=== PATIENT | female | born 1955 | race Caucasian/White ===

== ENCOUNTER 2019-02-22 20:07 | Emergency (ER) | payer MEDICAID ==
--- OUTSIDE RECORDS SUMMARY | 2019-02-22 20:11 | XMS REPORT | Clinical Summary ---
:1955 Author Organization [facility] Address [address] [place] [address] Care Team Providers Name Role Phone Partha Vazquez PA-C Primary Care Provider Allergies Active Allergy Reactions Severity Noted Date Comments Hydromorphone Other (See Comments) 03/04/2017 Makes patient feel weird, states it makes her talk different and effects her breathing Medications Medication Sig Dispensed Refills Start Date End Date Status atorvastatin Take 20 mg by 02/22/2017 Active (LIPITOR) 20 MG mouth nightly. tablet citalopram (CeleXA) Take 40 mg by 02/22/2017 Active 40 MG tablet mouth once daily. metFORMIN Take 500 mg by 02/22/2017 Active (GLUCOPHAGE) 500 mg mouth 2 (two) tablet times a day with meals. acetaminophen-codei Take 1 tablet 0 Active ne (TYLENOL WITH by mouth 4 CODEINE #3) 300-30 (four) times a mg per tablet day as needed for moderate pain. ALPRAZolam (XANAX) Take 1 mg by 0 Active 1 MG tablet mouth 3 (three) times a day as needed for anxiety. amLODIPine Take 10 mg by 0 Active (NORVASC) 10 mg mouth daily. tablet carvedilol (COREG) Take 6.25 mg by 0 Active 6.25 MG tablet mouth 2 (two) times a day with meals. gabapentin Take 300 mg by 0 Active (NEURONTIN) 300 mg mouth 2 (two) capsule times a day as needed. insulin lispro Inject 10 Units 0 Active (HumaLOG) 100 under the skin unit/mL injection 3 (three) times a day before meals. insulin detemir Inject 20 Units 0 Active U-100 (LEVEMIR) 100 under the skin unit/mL injection nightly. nitroglycerin Place 0.4 mg 0 Active (NITROSTAT) 0.4 MG under the SL tablet tongue every 5 (five) minutes as needed for chest pain. albuterol (PROAIR Inhale 2 puffs 0 Active HFA,PROVENTIL every 6 (six) HFA,VENTOLIN HFA) hours as needed 90 mcg/actuation for wheezing. inhaler promethazine Take 50 mg by 0 Active (PHENERGAN) 50 MG mouth every 6 tablet (six) hours as needed for nausea or vomiting. acetaminophen-codei TAKE 1 TABLET 2 02/22/2017 Discontinued ne (TYLENOL WITH BY MOUTH 4 8 CODEINE #4) 300-60 TIMES A DAY mg per tablet NEEDED FOR PAIN PROVENTIL HFA 90 USE 2 PUFFS BY 5 02/22/2017 Discontinued mcg/actuation MOUTH EVERY 6 8 inhaler HOURS NEEDED FOR SHORTNESS OF BREATH ALPRAZolam (XANAX) TAKE 1 TABLET 2 02/22/2017 Discontinued 1 MG tablet BY MOUTH 3 8 TIMES A DAY NEEDED FOR ANXIETY gabapentin TAKE ONE 5 02/22/2017 Discontinued (NEURONTIN) 300 mg CAPSULE BY 8 capsule MOUTH TWICE A DAY NEEDED FOR PAIN NASONEX 50 1 spray 2 (two) 5 02/22/2017 Discontinued mcg/actuation nasal times a day. 8 spray lisinopril Take 40 mg by 0 Discontinued (PRINIVIL,ZESTRIL) mouth daily. 8 40 mg tablet traMADol (ULTRAM) Take 50 mg by 0 Discontinued 50 mg tablet mouth every 6 8 (six) hours as needed for moderate pain. carvedilol (COREG) Take 1 tablet 60 tablet 0 06/16/2018 Discontinued 12.5 MG tablet (12.5 mg total) 8 by mouth 2 (two) times a day with meals for 30 days. traMADol (ULTRAM) Take 1 tablet 30 tablet 0 06/16/2018 Discontinued 50 mg tablet (50 mg total) 8 by mouth every 6 (six) hours as needed for moderate pain for up to 15 days. valsartan (DIOVAN) Take 1 tablet 60 tablet 0 06/16/2018 Discontinued 160 MG tablet (160 mg total) 8 by mouth every 12 (twelve) hours for 30 days. hydrALAZINE Take 1 tablet 90 tablet 0 06/16/2018 Discontinued (APRESOLINE) 50 MG (50 mg total) 8 tablet by mouth every 8 (eight) hours for 30 days. QUEtiapine Take 1 tablet 60 tablet 0 06/16/2018 Discontinued (SEROquel) 25 MG (25 mg total) 8 tablet by mouth 2 (two) times a day for 30 days. piperacillin-tazoba Infuse 4.5 g 0 06/16/2018 ctam (ZOSYN) 4.5 into a venous 8 gram in 100 mL catheter every Mini-Bag Plus 6 (six) hours for 15 days. HYDROcodone-acetami Take 1 tablet 30 tablet 0 06/16/2018 Discontinued nophen (NORCO) by mouth every 8 10-325 mg per 6 (six) hours tablet for 15 days. Max Daily Amount: 4 tablets pantoprazole Take 1 tablet 30 tablet 0 06/17/2018 Discontinued (PROTONIX) 40 MG EC (40 mg total) 8 tablet by mouth daily for 30 days. methocarbamol Take 1 tablet 120 tablet 0 06/16/2018 Discontinued (ROBAXIN) 500 MG (500 mg total) 8 tablet by mouth 4 (four) times a day for 15 days. carvedilol (COREG) Take 1 tablet 60 tablet 0 06/17/2018 12.5 MG tablet (12.5 mg total) 8 by mouth 2 (two) times a day with meals for 30 days. hydrALAZINE Take 1 tablet 90 tablet 0 06/17/2018 (APRESOLINE) 50 MG (50 mg total) 8 tablet by mouth every 8 (eight) hours for 30 days. QUEtiapine Take 1 tablet 60 tablet 0 06/17/2018 (SEROquel) 25 MG (25 mg total) 8 tablet by mouth 2 (two) times a day for 30 days. pantoprazole Take 1 tablet 30 tablet 0 06/17/2018 (PROTONIX) 40 MG EC (40 mg total) 8 tablet by mouth daily for 30 days. methocarbamol Take 1 tablet 120 tablet 0 06/17/2018 (ROBAXIN) 500 MG (500 mg total) 8 tablet by mouth 4 (four) times a day for 15 days. oxyCODone-acetamino Take 1 tablet 45 tablet 0 06/17/2018 phen (PERCOCET) by mouth every 8 10-325 mg per 4 (four) hours tablet as needed for moderate pain for up to 20 days. Max Daily Amount: 6 tablets lidocaine Apply topically 35.44 g 0 06/17/2018 (XYLOCAINE) 5 % as needed for 8 ointment mild pain for up to 30 days. hydrALAZINE Take 3 tablets 270 tablet 0 06/22/2018 (APRESOLINE) 25 MG (75 mg total) 8 tablet by mouth every 8 (eight) hours for 30 days. levoFLOXacin Take 1 tablet 11 tablet 0 06/23/2018 (LEVAQUIN) 750 MG (750 mg total) 8 tablet by mouth daily for 11 days. Active Problems Problem Noted Date Cellulitis of right lower extremity 06/09/2018 Pain in lower back 03/14/2017 Non-sustained ventricular tachycardia 03/14/2017 Necrotizing fasciitis due to microorganism 03/08/2017 PAD (peripheral artery disease) 03/08/2017 HTN (hypertension) 03/07/2017 Type 2 diabetes mellitus 03/07/2017 Diastolic CHF 03/07/2017 Bilateral lower leg cellulitis 03/01/2017 Encounters Date Type Specialty Care Team Description 12/13/2018 Telephone General Surgery Jesús Kam Jr., MD 10/06/2018 Telephone General Surgery Tiffayn Escobar MA 08/19/2018 Telephone General Surgery Tiffany Escobar MA 06/11/2018 Anesthesia Event General Surgery Brandee Brar MD 06/11/2018 Surgery General Surgery Jesús Kam Jr., MD EXTREMITY WOUND DEBRIDEMENT AND WOUND VAC EXCHANGE 06/09/2018 Surgery General Surgery Jesús Kam Jr., MD EXTREMITY WOUND DEBREIDMENT WOUND VAC PLACED 06/09/2018 Anesthesia Event General Surgery Leonidas Jimenez MD 06/09/2018 - Hospital Encounter General Surgery Jen Yousif MD Cellulitis of right lower extremity (Primary Dx); 06/22/2018 Rocio Hayes Hyperglycemia; MD Sepsis, due to unspecified organism Adarsh Siegel MD 06/09/2018 Telephone Ict Project Manager Ayesha Tran RN after 02/21/2018 Social History Tobacco Use Types Packs/Day Years Used Date Current Every Day Smoker Alcohol Use Drinks/Week oz/Week Comments No Sex Assigned at Date Recorded Not on file Job Start Date Occupation Industry Not on file Not on file Not on file Travel History Travel Start Travel End No recent travel history available. Last Filed Vital Signs Vital Sign Reading Time Taken Blood Pressure 167/73 06/22/2018 4:14 PM CDT Pulse 56 06/22/2018 4:30 PM CDT Temperature 36.3 C (97.3 F) 06/22/2018 4:14 PM CDT Respiratory Rate 18 06/22/2018 4:14 PM CDT Oxygen Saturation 98% 06/22/2018 4:14 PM CDT Inhaled Oxygen Concentration - - Weight 88.5 kg (194 lb 16 oz) 06/09/2018 3:30 AM CDT Height 170.2 cm (5' 7") 06/09/2018 3:30 AM CDT Body Mass Index 30.54 06/09/2018 3:30 AM CDT Plan of Treatment Health Maintenance Due Date Last Done Comments DIABETIC RETINAL EYE EXAM 1955 DIABETIC FOOT EXAM 1965 CERVICAL CANCER SCREENING 1976 BREAST CANCER SCREENING 2005 COLON CANCER SCREENING 2005 SHINGLES VACCINES (#1) 2005 INFLUENZA VACCINE 06/01/2019 Implants Implanted Type Area Mobility Architect Manager Device Shelf Model / Identifier Expiration Serial / Date Lot Device Vasclr Clsr Baln Cath 10ml Lkng Syr 5fr Winkler Mynxgrip - [id number] Cardiovascular N/A: ACCESS CLOSURE 12/01/2018 [id number] / Implanted: 03/11/2017 (Quantity not on file) Implants N/A INC / [id number] Matrix Matristem 7x10cm Burn Strl - [id number] Surgical [employer] 2018 [id number] / Implanted: Qty: 1 on 03/04/2017 by Jesús Kam Jr., MD Implants; / Expanders; Extenders; Surgical Wires Procedures Procedure Name Priority Date/Time Associated Comments Diagnosis POC GLUCOSE Routine 06/22/2018 11:54 Results for this AM CDT procedure are in the results section. POC GLUCOSE Routine 06/22/2018 7:55 Results for this AM CDT procedure are in the results section. POC GLUCOSE Routine 06/21/2018 10:27 Results for this PM CDT procedure are in the results section. POC GLUCOSE Routine 06/21/2018 5:31 Results for this PM CDT procedure are in the results section. POC GLUCOSE Routine 06/21/2018 4:56 Results for this PM CDT procedure are in the results section. POC GLUCOSE Routine 06/21/2018 3:08 Results for this PM CDT procedure are in the results section. CT LOWER EXTREMITY WO Routine 06/21/2018 2:20 Results for this CONTRAST RIGHT PM CDT procedure are in the results section. POC GLUCOSE Routine 06/21/2018 9:07 Results for this AM CDT procedure are in the results section. HC COMPLETE BLD COUNT Routine 06/21/2018 4:52 Results for this W/AUTO DIFF AM CDT procedure are in the results section. POC GLUCOSE Routine 06/20/2018 8:54 Results for this PM CDT procedure are in the results section. POC GLUCOSE Routine 06/20/2018 5:04 Results for this PM CDT procedure are in the results section. POC GLUCOSE Routine 06/20/2018 12:45 Results for this PM CDT procedure are in the results section. POC GLUCOSE Routine 06/20/2018 8:00 Results for this AM CDT procedure are in the results section. ZZESTIMATED GFR Routine 06/20/2018 3:24 Results for this AM CDT procedure are in the results section. COMPREHENSIVE METABOLIC Routine 06/20/2018 3:24 Results for this PANEL AM CDT procedure are in the results section. HC COMPLETE BLD COUNT Routine 06/20/2018 3:24 Results for this W/AUTO DIFF AM CDT procedure are in the results section. POC GLUCOSE Routine 06/19/2018 9:27 Results for this PM CDT procedure are in the results section. POC GLUCOSE Routine 06/19/2018 6:09 Results for this PM CDT procedure are in the results section. POC GLUCOSE Routine 06/19/2018 3:20 Results for this PM CDT procedure are in the results section. US DUPLEX VENOUS LOWER Routine 06/19/2018 3:00 Results for this EXTREMITY RIGHT PM CDT procedure are in the results section. POC GLUCOSE Routine 06/19/2018 11:22 Results for this AM CDT procedure are in the results section. ZZESTIMATED GFR Routine 06/19/2018 10:48 Results for this AM CDT procedure are in the results section. BASIC METABOLIC PANEL Routine 06/19/2018 10:48 Results for this AM CDT procedure are in the results section. POC GLUCOSE Routine 06/19/2018 7:43 Results for this AM CDT procedure are in the results section. HC COMPLETE BLD COUNT Routine 06/19/2018 3:55 Results for this W/AUTO DIFF AM CDT procedure are in the results section. POC GLUCOSE Routine 06/18/2018 8:34 Results for this PM CDT procedure are in the results section. POC GLUCOSE Routine 06/18/2018 5:10 Results for this PM CDT procedure are in the results section. POC GLUCOSE Routine 06/18/2018 11:39 Results for this AM CDT procedure are in the results section. POC GLUCOSE Routine 06/18/2018 7:46 Results for this AM CDT procedure are in the results section. HC COMPLETE BLD COUNT STAT 06/18/2018 7:40 Results for this W/AUTO DIFF AM CDT procedure are in the results section. POC GLUCOSE Routine 06/17/2018 8:52 Results for this PM CDT procedure are in the results section. POC GLUCOSE Routine 06/17/2018 4:01 Results for this PM CDT procedure are in the results section. POC GLUCOSE Routine 06/17/2018 11:17 Results for this AM CDT procedure are in the results section. POC GLUCOSE Routine 06/17/2018 7:15 Results for this AM CDT procedure are in the results section. POC GLUCOSE Routine 06/16/2018 9:19 Results for this PM CDT procedure are in the results section. POC GLUCOSE Routine 06/16/2018 6:03 Results for this PM CDT procedure are in the results section. POC GLUCOSE Routine 06/16/2018 4:59 Results for this PM CDT procedure are in the results section. POC GLUCOSE Routine 06/16/2018 1:08 Results for this PM CDT procedure are in the results section. POC GLUCOSE Routine 06/16/2018 8:34 Results for this AM CDT procedure are in the results section. POC GLUCOSE Routine 06/15/2018 8:22 Results for this PM CDT procedure are in the results section. POC GLUCOSE Routine 06/15/2018 4:54 Results for this PM CDT procedure are in the results section. POC GLUCOSE Routine 06/15/2018 12:38 Results for this PM CDT procedure are in the results section. POC GLUCOSE Routine 06/15/2018 8:16 Results for this AM CDT procedure are in the results section. POC GLUCOSE Routine 06/14/2018 8:47 Results for this PM CDT procedure are in the results section. POC GLUCOSE Routine 06/14/2018 4:00 Results for this PM CDT procedure are in the results section. HEMOGLOBIN A1C Routine 06/14/2018 1:27 Results for this PM CDT procedure are in the results section. LIPID PANEL Routine 06/14/2018 12:42 Results for this PM CDT procedure are in the results section. POC GLUCOSE Routine 06/14/2018 12:02 Results for this PM CDT procedure are in the results section. CONSULT TO OSTOMY CARE Routine 06/14/2018 7:48 NURSE AM CDT POC GLUCOSE Routine 06/14/2018 7:25 Results for this AM CDT procedure are in the results section. POC GLUCOSE Routine 06/14/2018 5:44 Results for this AM CDT procedure are in the results section. ZZESTIMATED GFR Routine 06/14/2018 4:00 Results for this AM CDT procedure are in the results section. PHOSPHORUS LEVEL Routine 06/14/2018 4:00 Results for this AM CDT procedure are in the results section. MAGNESIUM LEVEL Routine 06/14/2018 4:00 Results for this AM CDT procedure are in the results section. BASIC METABOLIC PANEL Routine 06/14/2018 4:00 Results for this AM CDT procedure are in the results section. MANUAL DIFFERENTIAL Routine 06/14/2018 3:30 Results for this AM CDT procedure are in the results section. CBC WITH PLATELET AND Routine 06/14/2018 3:30 Results for this DIFFERENTIAL AM CDT procedure are in the results section. POC GLUCOSE Routine 06/13/2018 9:08 Results for this PM CDT procedure are in the results section. POC GLUCOSE Routine 06/13/2018 5:31 Results for this PM CDT procedure are in the results section. POC GLUCOSE Routine 06/13/2018 3:31 Results for this PM CDT procedure are in the results section. POC GLUCOSE Routine 06/13/2018 2:27 Results for this PM CDT procedure are in the results section. POC GLUCOSE Routine 06/13/2018 11:05 Results for this AM CDT procedure are in the results section. VANCOMYCIN LEVEL, Timed 06/13/2018 8:45 Results for this TROUGH AM CDT procedure are in the results section. XR CHEST 1 VW PORTABLE Routine 06/13/2018 7:17 Results for this AM CDT procedure are in the results section. POC GLUCOSE Routine 06/13/2018 7:09 Results for this AM CDT procedure are in the results section. CONSULT TO OSTOMY CARE STAT 06/13/2018 6:48 NURSE AM CDT POC GLUCOSE Routine 06/13/2018 5:42 Results for this AM CDT procedure are in the results section. ZZESTIMATED GFR Routine 06/13/2018 2:00 Results for this AM CDT procedure are in the results section. LACTIC ACID LEVEL Routine 06/13/2018 2:00 Results for this AM CDT procedure are in the results section. IONIZED CALCIUM Routine 06/13/2018 2:00 Results for this AM CDT procedure are in the results section. PHOSPHORUS LEVEL Routine 06/13/2018 2:00 Results for this AM CDT procedure are in the results section. MAGNESIUM LEVEL Routine 06/13/2018 2:00 Results for this AM CDT procedure are in the results section. COMPREHENSIVE METABOLIC Routine 06/13/2018 2:00 Results for this PANEL AM CDT procedure are in the results section. POC GLUCOSE Routine 06/13/2018 1:51 Results for this AM CDT procedure are in the results section. MANUAL DIFFERENTIAL Routine 06/13/2018 1:35 Results for this AM CDT procedure are in the results section. PROTHROMBIN TIME WITH Routine 06/13/2018 1:35 Results for this INR AM CDT procedure are in the results section. PARTIAL THROMBOPLASTIN Routine 06/13/2018 1:35 Results for this TIME (PTT) AM CDT procedure are in the results section. CBC WITH PLATELET AND Routine 06/13/2018 1:35 Results for this DIFFERENTIAL AM CDT procedure are in the results section. POC GLUCOSE Routine 06/12/2018 8:05 Results for this PM CDT procedure are in the results section. ECG 12-LEAD Routine 06/12/2018 5:09 Results for this PM CDT procedure are in the results section. POC GLUCOSE Routine 06/12/2018 3:30 Results for this PM CDT procedure are in the results section. POC GLUCOSE Routine 06/12/2018 12:00 Results for this PM CDT procedure are in the results section. POC GLUCOSE Routine 06/12/2018 8:58 Results for this AM CDT procedure are in the results section. XR CHEST 1 VW PORTABLE Routine 06/12/2018 6:36 Results for this AM CDT procedure are in the results section. POC GLUCOSE Routine 06/12/2018 5:03 Results for this AM CDT procedure are in the results section. ZZESTIMATED GFR Routine 06/12/2018 3:05 Results for this AM CDT procedure are in the results section. PHOSPHORUS LEVEL Routine 06/12/2018 3:05 Results for this AM CDT procedure are in the results section. MAGNESIUM LEVEL Routine 06/12/2018 3:05 Results for this AM CDT procedure are in the results section. LACTIC ACID LEVEL Routine 06/12/2018 3:05 Results for this AM CDT procedure are in the results section. HEPATIC FUNCTION PANEL Routine 06/12/2018 3:05 Results for this AM CDT procedure are in the results section. BASIC METABOLIC PANEL Routine 06/12/2018 3:05 Results for this AM CDT procedure are in the results section. MANUAL DIFFERENTIAL Routine 06/12/2018 3:00 Results for this AM CDT procedure are in the results section. PROTHROMBIN TIME WITH Routine 06/12/2018 3:00 Results for this INR AM CDT procedure are in the results section. PARTIAL THROMBOPLASTIN Routine 06/12/2018 3:00 Results for this TIME (PTT) AM CDT procedure are in the results section. CBC WITH PLATELET AND Routine 06/12/2018 3:00 Results for this DIFFERENTIAL AM CDT procedure are in the results section. POC GLUCOSE Routine 06/12/2018 12:30 Results for this AM CDT procedure are in the results section. ECG 12-LEAD Routine 06/11/2018 10:40 Results for this PM CDT procedure are in the results section. POC GLUCOSE Routine 06/11/2018 8:51 Results for this PM CDT procedure are in the results section. POC GLUCOSE Routine 06/11/2018 6:11 Results for this PM CDT procedure are in the results section. POC GLUCOSE Routine 06/11/2018 4:16 Results for this PM CDT procedure are in the results section. POC GLUCOSE Routine 06/11/2018 2:10 Results for this PM CDT procedure are in the results section. POC GLUCOSE Routine 06/11/2018 12:00 Results for this PM CDT procedure are in the results section. URINALYSIS SCREEN AND Routine 06/11/2018 11:22 Results for this MICROSCOPY, WITH REFLEX AM CDT procedure are in TO CULTURE the results section. GRAM STAIN Routine 06/11/2018 11:20 Results for this AM CDT procedure are in the results section. URINE CULTURE Routine 06/11/2018 11:20 Results for this AM CDT procedure are in the results section. POC GLUCOSE Routine 06/11/2018 10:00 Results for this AM CDT procedure are in the results section. NH AN ELECTIVE Routine 06/11/2018 8:47 SUPRAGLOTTIC AIRWAY AM CDT Procedure Note - Shukri Ordonez CRNA - 06/11/2018 8:47 AM CDT Airway Performed by: SHUKRI ORDONEZ Authorized by: BRANDEE BRAR Location: [place] Urgency: Elective Mask Ventilation: Easy mask Final Airway Type: Supraglottic airway Final LMA: I-Gel LMA Size: 5 Number of Attempts at Approach: 1 INCISION AND DRAINAGE, LOWER 06/11/2018 8:00 AM CDT EXTREMITY POC GLUCOSE Routine 06/11/2018 7:43 AM CDT POC GLUCOSE Routine 06/11/2018 5:46 AM CDT VANCOMYCIN LEVEL, TROUGH Timed 06/11/2018 5:45 AM CDT XR CHEST 1 VW PORTABLE Routine 06/11/2018 5:39 AM CDT POC GLUCOSE Routine 06/11/2018 5:13 AM CDT LACTIC ACID LEVEL Routine 06/11/2018 5:03 AM CDT POC GLUCOSE Routine 06/11/2018 4:01 AM CDT POC GLUCOSE Routine 06/11/2018 3:10 AM CDT POC GLUCOSE Routine 06/11/2018 2:13 AM CDT POC GLUCOSE Routine 06/11/2018 1:16 AM CDT ZZESTIMATED GFR Routine 06/11/2018 12:30 AM CDT PHOSPHORUS LEVEL Routine 06/11/2018 12:30 AM CDT MAGNESIUM LEVEL Routine 06/11/2018 12:30 AM CDT LACTIC ACID LEVEL Routine 06/11/2018 12:30 AM CDT HEPATIC FUNCTION PANEL Routine 06/11/2018 12:30 AM CDT IONIZED CALCIUM Routine 06/11/2018 12:30 AM CDT BASIC METABOLIC PANEL Routine 06/11/2018 12:30 AM CDT PARTIAL THROMBOPLASTIN TIME Routine 06/11/2018 12:30 AM CDT Results for this (PTT) procedure are in the results section. PROTHROMBIN TIME WITH INR Routine 06/11/2018 12:30 AM CDT POC GLUCOSE Routine 06/11/2018 12:22 AM CDT HC COMPLETE BLD COUNT W/AUTO Routine 06/11/2018 12:02 AM CDT Results for this DIFF procedure are in the results section. POC GLUCOSE Routine 06/10/2018 11:07 PM CDT POC GLUCOSE Routine 06/10/2018 9:56 PM CDT POC GLUCOSE Routine 06/10/2018 9:15 PM CDT POC GLUCOSE Routine 06/10/2018 8:03 PM CDT POC GLUCOSE Routine 06/10/2018 7:10 PM CDT POC GLUCOSE Routine 06/10/2018 5:38 PM CDT POTASSIUM LEVEL Routine 06/10/2018 4:55 PM CDT PHOSPHORUS LEVEL Routine 06/10/2018 4:55 PM CDT IONIZED CALCIUM Routine 06/10/2018 4:55 PM CDT US DUPLEX ARTERIAL LOWER Routine 06/10/2018 4:54 PM CDT Results for this EXTREMITY BILATERAL procedure are in the results section. POC GLUCOSE Routine 06/10/2018 4:53 PM CDT POC GLUCOSE Routine 06/10/2018 3:58 PM CDT POC GLUCOSE Routine 06/10/2018 3:01 PM CDT POC GLUCOSE Routine 06/10/2018 2:05 PM CDT ZZESTIMATED GFR Routine 06/10/2018 1:08 PM CDT MAGNESIUM LEVEL Routine 06/10/2018 1:08 PM CDT HEPATIC FUNCTION PANEL Routine 06/10/2018 1:08 PM CDT HC COMPLETE BLD COUNT W/AUTO Routine 06/10/2018 1:08 PM CDT Results for this DIFF procedure are in the results section. BASIC METABOLIC PANEL Routine 06/10/2018 1:08 PM CDT POC GLUCOSE Routine 06/10/2018 12:57 PM CDT POC GLUCOSE Routine 06/10/2018 11:57 AM CDT US DUPLEX VENOUS LOWER Routine 06/10/2018 11:42 AM CDT Results for this EXTREMITY BILATERAL procedure are in the results section. POC GLUCOSE Routine 06/10/2018 10:59 AM CDT POC GLUCOSE Routine 06/10/2018 10:00 AM CDT ECHOCARDIOGRAM 2D COMPLETE W Routine 06/10/2018 9:03 AM CDT Results for this MMODE SPECTRAL COLOR DOPPLER procedure are in the (46104) results section. POC GLUCOSE Routine 06/10/2018 7:56 AM CDT POC GLUCOSE Routine 06/10/2018 6:06 AM CDT POC GLUCOSE Routine 06/10/2018 4:19 AM CDT ZZESTIMATED GFR Routine 06/10/2018 3:33 AM CDT PHOSPHORUS LEVEL Routine 06/10/2018 3:33 AM CDT MAGNESIUM LEVEL Routine 06/10/2018 3:33 AM CDT COMPREHENSIVE METABOLIC Routine 06/10/2018 3:33 AM CDT Results for this PANEL procedure are in the results section. HC COMPLETE BLD COUNT W/AUTO Routine 06/10/2018 3:25 AM CDT Results for this DIFF procedure are in the results section. POC GLUCOSE Routine 06/10/2018 1:54 AM CDT POC GLUCOSE Routine 06/10/2018 12:54 AM CDT POC GLUCOSE Routine 06/09/2018 11:59 PM CDT POC GLUCOSE Routine 06/09/2018 11:11 PM CDT POC GLUCOSE Routine 06/09/2018 9:55 PM CDT POC GLUCOSE Routine 06/09/2018 9:02 PM CDT POC GLUCOSE Routine 06/09/2018 8:06 PM CDT ZZESTIMATED GFR STAT 06/09/2018 7:15 PM CDT PHOSPHORUS LEVEL STAT 06/09/2018 7:15 PM CDT MAGNESIUM LEVEL STAT 06/09/2018 7:15 PM CDT BASIC METABOLIC PANEL STAT 06/09/2018 7:15 PM CDT POC GLUCOSE Routine 06/09/2018 6:58 PM CDT GRAM STAIN Timed 06/09/2018 6:16 PM CDT AFB STAIN Timed 06/09/2018 6:16 PM CDT FUNGUS SMEAR Timed 06/09/2018 6:16 PM CDT AFB CULTURE Timed 06/09/2018 6:16 PM CDT AEROBIC CULTURE Timed 06/09/2018 6:16 PM CDT FUNGUS CULTURE Timed 06/09/2018 6:16 PM CDT ANAEROBIC CULTURE Timed 06/09/2018 6:16 PM CDT NH AN ELECTIVE ENDOTRACHEAL Routine 06/09/2018 6:10 PM CDT AIRWAY Procedure Note - Leonidas Jimenez MD - 06/09/2018 6:10 PM CDT Airway Date/Time: 06/09/2018 5:56 PM Performed by: LEONARDO GERARDO Authorized by: GOPAL HILL Location: [place] Urgency: Elective Anesthesiologist: GOPAL HILL Resident/DISC PAD PLATE FILLER/AA: LEONARDO GERARDO Preoxygenated with 100% O2: Yes Mask Ventilation: Not attempted Final Airway Type: Endotracheal airway Final Endotracheal Airway: ETT Technique Used: Direct laryngoscopy Devices/Methods Used in Placement: Intubating stylet Insertion Site: Oral Blade Type: Franklin Laryngoscope Blade/Videolaryngoscope Blade Size: 2 ETT Size (mm): 7.0 Measured from: Lips ETT to Lips (cm): 21 Placement Verified by: CO2 detection, direct visualization and equal breath sounds Laryngoscopic view: Grade I - full view of glottis Rapid Sequence Induction (RSI): No Modified RSI: No APPLICATION OR 06/09/2018 6:05 PM CDT Right lower extremity REPLACEMENT, WOUND VAC necrotizing fasciitis ARTERIAL LINE Routine 06/09/2018 6:03 PM CDT Procedure Note - Leonidas Jimenez MD - 06/09/2018 6:03 PM CDT Arterial line Performed by: GOPAL HILL Authorized by: GOPAL HILL Start Time: 06/09/2018 6:56 PM End Time: 06/09/2018 6:58 PM Staff: Anesthesiologist: GOPAL HILL Performed by: Anesthesiologist Pre-procedure: patient identified, IV checked, site and side verified, risks and benefits discussed, procedure verified, surgical consent complete, patient position confirmed, monitors and equipment checked and pre-op evaluation complete MSBT: antiseptic used, all elements of maximal sterile barrier technique followed, hand hygiene performed, cap/gown used by other personnel and solutions labeled TIme Out Performed: 06/09/2018 5:55 PM Indications: Indications: multiple ABGs and hemodynamic monitoring Anesthesia: Anesthesia: General Procedure Details: Arterial Line placement: Placed post induction Line placement site: Radial Line placement side: Right Arterial line gauge: 20 G Number of attempts: 2 Ultrasound guidance used: No Post-procedure: Post-procedure: Sterile dressing applied Post procedure circulation, sensation, movement: Normal and unchanged Patient tolerance: Patient tolerated the procedure well with no immediate complications LACTIC ACID, SYRINGE STAT 06/09/2018 6:02 PM CDT MAGNESIUM LEVEL STAT 06/09/2018 6:02 PM CDT GLUCOSE LEVEL, SYRINGE STAT 06/09/2018 6:02 PM CDT IONIZED CALCIUM, ARTERIAL STAT 06/09/2018 6:02 PM CDT HEMOGLOBIN, SYRINGE STAT 06/09/2018 6:02 PM CDT POTASSIUM, SYRINGE STAT 06/09/2018 6:02 PM CDT ARTERIAL BLOOD GAS, CORRECTED STAT 06/09/2018 6:02 PM CDT SODIUM LEVEL, SYRINGE STAT 06/09/2018 6:02 PM CDT ZZESTIMATED GFR STAT 06/09/2018 2:50 PM CDT BASIC METABOLIC PANEL STAT 06/09/2018 2:50 PM CDT PARTIAL THROMBOPLASTIN TIME STAT 06/09/2018 2:50 PM CDT Results for this (PTT) procedure are in the results section. PROTHROMBIN TIME WITH INR STAT 06/09/2018 2:50 PM CDT POC GLUCOSE Routine 06/09/2018 2:23 PM CDT LACTIC ACID LEVEL, SEPSIS - Routine 06/09/2018 10:15 AM CDT Results for this NOW AND REPEAT 2X EVERY 3 procedure are in the HOURS results section. MAGNESIUM LEVEL Routine 06/09/2018 10:[address] LOWER EXTREMITY WO STAT 06/09/2018 10:05 AM CDT Results for this CONTRAST BILATERAL procedure are in the results section. POC GLUCOSE Routine 06/09/2018 8:15 AM CDT ZZESTIMATED GFR Timed 06/09/2018 7:24 AM CDT BASIC METABOLIC PANEL Timed 06/09/2018 7:24 AM CDT TYPE AND SCREEN Routine 06/09/2018 7:24 AM CDT TROPONIN Timed 06/09/2018 7:24 AM CDT LACTIC ACID LEVEL, SEPSIS - Timed 06/09/2018 7:24 AM CDT Results for this NOW AND REPEAT 2X EVERY 3 procedure are in the HOURS results section. POC GLUCOSE Routine 06/09/2018 7:20 AM CDT POC GLUCOSE Routine 06/09/2018 5:52 AM CDT POC GLUCOSE Routine 06/09/2018 5:18 AM CDT GRAM STAIN Routine 06/09/2018 4:40 AM CDT AEROBIC CULTURE Routine 06/09/2018 4:40 AM CDT [facility] CRITICAL CARE, E/M 30-74 Routine 06/09/2018 3:44 AM CDT Results for this MINUTES procedure are in the results section. BLOOD CULTURE, AEROBIC & Routine 06/09/2018 3:15 AM CDT Results for this ANAEROBIC procedure are in the results section. ZZESTIMATED GFR STAT 06/09/2018 3:10 AM CDT B NATRIURETIC PEPTIDE STAT 06/09/2018 3:10 AM CDT TROPONIN STAT 06/09/2018 3:10 AM CDT BETA HYDROXYBUTYRATE STAT 06/09/2018 3:10 AM CDT CREATINE KINASE, TOTAL (CPK) STAT 06/09/2018 3:10 AM CDT MAGNESIUM LEVEL STAT 06/09/2018 3:10 AM CDT LACTIC ACID LEVEL, SEPSIS - STAT 06/09/2018 3:10 AM CDT Results for this NOW AND REPEAT 2X EVERY 3 procedure are in the HOURS results section. C-REACTIVE PROTEIN STAT 06/09/2018 3:10 AM CDT SEDIMENTATION RATE STAT 06/09/2018 3:10 AM CDT COMPREHENSIVE METABOLIC PANEL STAT 06/09/2018 3:10 AM CDT HC COMPLETE BLD COUNT W/AUTO STAT 06/09/2018 3:10 AM CDT Results for this DIFF procedure are in the results section. BLOOD CULTURE, AEROBIC & Routine 06/09/2018 3:10 AM CDT Results for this ANAEROBIC procedure are in the results section. after 02/21/2018 Results POC glucose (06/22/2018 11:54 AM CDT)Only the most recent of96 resultswithin the time period is included. 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 CT imaging was performed with iterative reconstruction technique and/or automated exposure control to reduce radiation dose. COMPARISON:06/09/2018 IMPRESSION: 1.Extensive interval debridement of the skin and subcutaneous fat over the anterior aspect of the right leg. 2.There are small pockets of subcutaneous emphysema extending along the fascia overlying the peroneal compartment with associated extensive fascial edema. It is unclear whether this represents postoperative subcutaneous emphysema versus persistent necrotizing fasciitis. 3.There is diffuse skin thickening of the anterior aspect of the leg with subcutaneous as well as superficial fascial and interfascial edema involving the operative bed in the extensor musculature. Probable myositis involving the extensor musculature. 4.Subcutaneous edema involving the posterior compartment with superficial fascial edema. No significant interfascial edema is seen. 5.There is no evidence of an organized collection. 6.Bones: No finding to suggest acute osteomyelitis. Tricompartment osteoarthrosis of the knee. Old medial and lateral ankle ligamentous injury with ossicles in the gutter calcification of the Achilles insertion. Os navicular. Findings were discussed with ETIENNE Donnelly at 06/21/2018 3:21 PM who verbalized understanding. Instructions were given to page the clinical team. [id number] Procedure Note Hm Interface, Radiology Results Incoming - 06/21/2018 3:26 PM CDT EXAMINATION: CT LOWER EXTREMITY WO CONTRAST RIGHT CLINICAL HISTORY: RLE necrotizing fasciitis follow remains having pain and swelling post op TECHNIQUE: Multiple axial images of the right lower extremity were obtained without contrast. CT imaging was performed with iterative reconstruction technique and/or automated exposure control to reduce radiation dose. COMPARISON: 06/09/2018 IMPRESSION: 1. Extensive interval debridement of the skin and subcutaneous fat over the anterior aspect of the right leg. 2. There are small pockets of subcutaneous emphysema extending along the fascia overlying the peroneal compartment with associated extensive fascial edema. It is unclear whether this represents postoperative subcutaneous emphysema versus persistent necrotizing fasciitis. 3. There is diffuse skin thickening of the anterior aspect of the leg with subcutaneous as well as superficial fascial and interfascial edema involving the operative bed in the extensor musculature. Probable myositis involving the extensor musculature. 4. Subcutaneous edema involving the posterior compartment with superficial fascial edema. No significant interfascial edema is seen. 5. There is no evidence of an organized collection. 6. Bones: No finding to suggest acute osteomyelitis. Tricompartment osteoarthrosis of the knee. Old medial and lateral ankle ligamentous injury with ossicles in the gutter calcification of the Achilles insertion. Os navicular. Findings were discussed with ETIENNE Donnelly at 06/21/2018 3:21 PM who verbalized understanding. Instructions were given to page the clinical team. [id number] Performing Organization Address City/State/Zipcode Phone Number [facility] [address] [place] [address] CBC with platelet and differential (06/21/2018 4:52 AM CDT)Only the most recent of11 resultswithin the time period is included. WBC 15.27 (H) 4.50 - 11.00 k/uL [facility] DEPARTMENT OF PATHOLOGY AND GENOMIC MEDICINE RBC 3.05 (L) 4.20 - 5.50 m/uL [facility] OF PATHOLOGY AND GENOMIC MEDICINE HGB 9.3 (L) 12.0 - 16.0 g/dL [facility] DEPARTMENT OF PATHOLOGY AND GENOMIC MEDICINE HCT 30.2 (L) 37.0 - 47.0 % [facility] DEPARTMENT OF PATHOLOGY AND GENOMIC MEDICINE MCV 99.0 82.0 - 100.0 fL [facility] DEPARTMENT OF PATHOLOGY AND GENOMIC MEDICINE MCH 30.5 27.0 - 34.0 pg [facility] DEPARTMENT OF PATHOLOGY AND GENOMIC MEDICINE MCHC 30.8 (L) 31.0 - 37.0 g/dL [facility] DEPARTMENT OF PATHOLOGY AND GENOMIC MEDICINE RDW - SD 46.0 37.0 - 55.0 fL [facility] DEPARTMENT OF PATHOLOGY AND GENOMIC MEDICINE MPV 10.4 8.8 - 13.2 fL [facility] DEPARTMENT OF PATHOLOGY AND GENOMIC MEDICINE Platelet count 548 (H) 150 - 400 k/uL [facility] DEPARTMENT OF PATHOLOGY AND GENOMIC MEDICINE Nucleated RBC 0.00 /100 WBC [facility] DEPARTMENT OF PATHOLOGY AND GENOMIC MEDICINE Neutrophils 75.9 (H) 39.0 - 69.0 % [facility] DEPARTMENT OF PATHOLOGY AND GENOMIC MEDICINE Lymphocytes 15.1 (L) 25.0 - 45.0 % [facility] DEPARTMENT OF PATHOLOGY AND GENOMIC MEDICINE Monocytes 6.7 0.0 - 10.0 % [facility] DEPARTMENT OF PATHOLOGY AND GENOMIC MEDICINE Eosinophils 1.2 0.0 - 5.0 % [facility] DEPARTMENT OF PATHOLOGY AND GENOMIC MEDICINE Basophils 0.5 0.0 - 1.0 % [facility] DEPARTMENT OF PATHOLOGY AND GENOMIC MEDICINE Immature granulocytes 0.6Comment: 0.0 - 1.0 % [facility] DEPARTMENT OF "Immature PATHOLOGY AND GENOMIC granulocytes" MEDICINE (promyelocytes, myelocytes, metamyelocytes) Specimen Blood Performing Organization Address City/State/Zipcode Phone Number [facility] DEPARTMENT OF PATHOLOGY AND [address] [place] [address] [employer] MEDICINE Estimated GFR (06/20/2018 3:24 AM CDT)Only the most recent of12 resultswithin the time period is included. GFR Non Af Amer 56 (A) mL/min/1.73 m2 [facility] DEPARTMENT OF PATHOLOGY AND GENOMIC MEDICINE GFR Af Amer 68 mL/min/1.73 m2 [facility] DEPARTMENT OF Comment: PATHOLOGY AND GENOMIC Chronic kidney disease: <60 mL/min/1.73m2 MEDICINE Kidney failure: <15 mL/min/1.73m2 The estimated GFR is calculated from the IDMS-traceable Modification of Diet in Renal Disease Equation. The accuracy of the calculation is poor when the creatinine is normal. Calculated values >90 mL/min/1.73m2 are not reported. This equation has not been validated in children (<18 years), women, the elderly (>70 years), or ethnic groups other than Caucasians and Americans. Specimen Plasma specimen Performing Organization Address City/State/Zipcode Phone Number [facility] DEPARTMENT OF PATHOLOGY AND [address] [place] [address] [employer] Comprehensive metabolic panel (06/20/2018 3:24 AM CDT)Only the most recent of4 resultswithin the time period is included. Sodium 141 135 - 148 mEq/L [facility] DEPARTMENT OF PATHOLOGY AND GENOMIC MEDICINE Potassium 4.1 3.5 - 5.0 mEq/L [facility] DEPARTMENT OF PATHOLOGY AND GENOMIC MEDICINE Chloride 101 98 - 112 mEq/L [facility] DEPARTMENT OF PATHOLOGY AND GENOMIC MEDICINE CO2 27 24 - 31 mEq/L [facility] DEPARTMENT OF PATHOLOGY AND GENOMIC MEDICINE Anion gap 13@ANIO 7 - 15 mEq/L [facility] DEPARTMENT OF PATHOLOGY AND GENOMIC MEDICINE BUN 23 8 - 23 mg/dL [facility] DEPARTMENT OF PATHOLOGY AND GENOMIC MEDICINE Creatinine 1.0 (H) 0.5 - 0.9 mg/dL [facility] DEPARTMENT OF PATHOLOGY AND GENOMIC MEDICINE Glucose 163 (H) 65 - 99 mg/dL [facility] DEPARTMENT OF PATHOLOGY AND GENOMIC MEDICINE Calcium 9.5 8.8 - 10.2 mg/dL [facility] DEPARTMENT OF PATHOLOGY AND GENOMIC MEDICINE Protein 7.1 6.3 - 8.3 g/dL [facility] DEPARTMENT OF Comment: PATHOLOGY AND GENOMIC 4.6-7.0 g/dL MEDICINE 1 week 4.4-7.6 g/dL 7 months-1year5.1-7.3 g/dL 1-2 years5.6-7.5 g/dL >3 years6.0-8.0 g/dL 18-150 6.3-8.3 g/dL Albumin 2.5 (L) 3.5 - 5.0 g/dL [facility] DEPARTMENT OF PATHOLOGY AND GENOMIC MEDICINE A/G ratio 0.5 (L) 0.7 - 3.8 [facility] DEPARTMENT OF PATHOLOGY AND GENOMIC MEDICINE Alkaline phosphatase 97 35 - 104 U/L [facility] DEPARTMENT OF PATHOLOGY AND GENOMIC MEDICINE AST 13 10 - 35 U/L [facility] DEPARTMENT OF PATHOLOGY AND GENOMIC MEDICINE ALT 13 5 - 50 U/L [facility] DEPARTMENT OF PATHOLOGY AND GENOMIC MEDICINE Total bilirubin <0.2 0.0 - 1.2 mg/dL [facility] DEPARTMENT OF PATHOLOGY AND GENOMIC MEDICINE Specimen Plasma specimen Performing Organization Address City/State/Zipcode Phone Number [facility] DEPARTMENT OF PATHOLOGY AND [address] Pv duplex venous lower extremity (06/19/2018 3:00 PM CDT)Only the most recent of2 resultswithin the time period is included. Narrative Performed At [facility] Vascular Ultrasound Laboratory Lower Extremity Venous Report [id number] [facility] [address], [place] [address] Pat.Name:SARA STONER Pat.ID:[id number] .Date: 06/19/2018 Refer.MD:DARRON MENDIETA MD Exam Time: 2:49:00 PMStudy Type:LE Venous DOBAge:1955,63Y Sex: FEMALE Sonogrphr: MORIAH Luna, MIRANDA Pat. Stat.:Inpatient Room:[place] [address] ATapeVol: SABIHA, CPT - 4: 35895 Echo Event ID:[id number] Order ID:[id number] Reason for Study:RLE edema r/o DVT. Right lower extremity pain, redness and swelling with necrotizing fascitis approximately 1 year ago s/p debridement and final wound vac 06/09/18. History of DM, HTN, CHF. Procedures:Colorflow, Grayscale/2D, Pulsed wave Doppler Race:C SUMMARY: DUPLEX SCAN OBSERVATIONS Deep VeinsSuperficial Veins RightLeft RightLeft GSV (prox) Normal CFV Normal Normal (above knee) Femoral NormalGSV (dist) Normal Profunda Normal(below knee) Popliteal Normal PT (prox) Normal SSV Normal PT (dist) Normal Peroneal Normal RIGHT:There is normal compressibility with no evidence of echogenic material noted within the lumen of the visualized veins. Color flow and Doppler signals are normal. LEFT: Normal findings of the common femoral vein. PRELIMINARY FINDINGS 1. No evidence of venous thrombosis of the visualized veins. PHYSICIAN INTERPRETATION Venous examination of the right lower extremity and leftgroin demonstrated no evidence of venous thrombosis in the visualized veins. Normal compressibility and augmentation of all veins visualized. Signed 06/19/2018 04:26 PM Luis Mazariegos MD, RPVI Procedure Note Interface, Radiology Results In - 06/19/2018 4:26 PM CDT Vascular Ultrasound Laboratory Lower Extremity Venous Report [address] [place] [address] Pat.Name: SARA STONER Pat.ID: [id number] .Date: 06/19/2018 Refer.MD: DARRON MENDIETA MD Exam Time: 2:49:00 PM Study Type:LE Venous Age: 7 1955,63Y Sex: FEMALE Sonogrphr: MORIAH Luna RCS Pat. Stat.:Inpatient Room: [place] [address] A Tape Vol: SABIHA, CPT - 4: 19398 Echo Event ID:[id number] Order ID: [id number] Reason for Study:RLE edema r/o DVT. Right lower extremity pain, redness and swelling with necrotizing fascitis approximately 1 year ago s/p debridement and final wound vac 06/09/18. History of DM, HTN, CHF. Procedures:Colorflow, Grayscale/2D, Pulsed wave Doppler Race: C SUMMARY: DUPLEX SCAN OBSERVATIONS Deep Veins Superficial Veins Right Left Right Left GSV (prox) Normal CFV Normal Normal (above knee) Femoral Normal GSV (dist) Normal Profunda Normal (below knee) Popliteal Normal PT (prox) Normal SSV Normal PT (dist) Normal Peroneal Normal RIGHT: There is normal compressibility with no evidence of echogenic material noted within the lumen of the visualized veins. Color flow and Doppler signals are normal. LEFT: Normal findings of the common femoral vein. PRELIMINARY FINDINGS 1. No evidence of venous thrombosis of the visualized veins. PHYSICIAN INTERPRETATION Venous examination of the right lower extremity and left groin demonstrated no evidence of venous thrombosis in the visualized veins. Normal compressibility and augmentation of all veins visualized. Signed 06/19/2018 04:26 PM Luis Mazariegos MD, RPVI Performing Organization Address City/[facility]/Zipcode Phone Number [facility] [address] [place] [address] Basic metabolic panel (06/19/2018 10:48 AM CDT)Only the most recent of8 resultswithin the time period is included. Sodium 137 135 - 148 mEq/L [facility] DEPARTMENT OF PATHOLOGY AND GENOMIC MEDICINE Potassium 4.1 3.5 - 5.0 mEq/L [facility] DEPARTMENT OF PATHOLOGY AND GENOMIC MEDICINE Chloride 98 98 - 112 mEq/L [facility] DEPARTMENT OF PATHOLOGY AND GENOMIC MEDICINE CO2 25 24 - 31 mEq/L [facility] DEPARTMENT OF PATHOLOGY AND GENOMIC MEDICINE Anion gap 14@ANIO 7 - 15 mEq/L [facility] DEPARTMENT OF PATHOLOGY AND GENOMIC MEDICINE BUN 20 8 - 23 mg/dL [facility] DEPARTMENT OF PATHOLOGY AND GENOMIC MEDICINE Creatinine 0.7 0.5 - 0.9 mg/dL [facility] DEPARTMENT OF PATHOLOGY AND GENOMIC MEDICINE Glucose 90 65 - 99 mg/dL [facility] DEPARTMENT OF PATHOLOGY AND GENOMIC MEDICINE Calcium 9.3 8.8 - 10.2 mg/dL [facility] DEPARTMENT OF PATHOLOGY AND GENOMIC MEDICINE Specimen Plasma specimen Performing Organization Address City/[facility]/Zipcode Phone Number [facility] DEPARTMENT OF PATHOLOGY AND [address] [place] [address] [employer] [facility] Hemoglobin A1c (06/14/2018 1:27 PM CDT) Hemoglobin A1C 14.5 (H) 4.0 - 5.6 % [facility] DEPARTMENT OF PATHOLOGY Comment: AND GENOMIC MEDICINE HbA1c cutoffs for diagnosing diabetes: 4.0% - 5.6%=normal 5.7% - 6.4%=increased risk for diabetes (prediabetes) >=6.5%=diabetes Goals for glycemic control (ADA 2016) < 7.0%Target for non adults with diabetes. More or less stringent targets may be appropriate for individual patients. <7.5% Target for Children and adolescents with type 1 diabetes. Corrected result; previously reported as 14.8 on 06/14/2018 at 14:21 by I/ AUT Specimen Blood Performing Organization Address [facility] Phone Number [facility] DEPARTMENT OF PATHOLOGY AND [address] [place] [address] GENOMIC MEDICINE Lipid panel (06/14/2018 12:42 PM CDT) Cholesterol 109 <200 mg/dL [facility] DEPARTMENT OF PATHOLOGY AND GENOMIC MEDICINE Triglycerides 166 (H) <150 mg/dL [facility] DEPARTMENT OF PATHOLOGY AND GENOMIC MEDICINE HDL cholesterol 24 (L) >40 mg/dL [facility] DEPARTMENT OF PATHOLOGY AND GENOMIC MEDICINE LDL cholesterol 54Comment: Result <100 mg/dL [facility] DEPARTMENT OF obtained by direct LDL PATHOLOGY AND GENOMIC measurement MEDICINE Lipid panel interpretation SeeBelow [facility] DEPARTMENT OF Comment: PATHOLOGY AND GENOMIC Total Cholesterol (mg/dL) MEDICINE <200 Desirable [phone]-jdhh >=240High Triglycerides (mg/dL) <150 Normal 349-350Rnmzedaxwd-[id number] 200-499High >=500Very high HDL Cholesterol (mg/dL) <40Low (male) <40Low (female) LDL Cholesterol (mg/dL) <100 Optimal 100-129Near or above optimal [phone]-cuqk 160-189High >=190Very high Risk Catergories that modify LDL goals. Risk CatergoriesLDL goal (mg/dL) CHD and CHD risk equivalent<100 (10-year risk >20%) Multiple (2+) risk factors <130 (10-year risk=<20%) 0-1 risk factors <160 (<10-year risk) Defining levels of lipids in metabolic syndrome Triglycerides>=150 mg/dL HDL Cholesterol Men<40 mg/dL Women<40 mg/dL Non-HDL cholesterol is a second target for therapy in persons with high triglycerides (>=200 mg/dL) Specimen Plasma specimen Performing Organization Address City/[facility]/Zipcode Phone Number [facility] DEPARTMENT OF PATHOLOGY AND [address] [place] [address] [employer] MEDICINE Phosphorus level (06/14/2018 4:00 AM CDT)Only the most recent of7 resultswithin the time period is included. Phosphorus 2.4 2.4 - 4.5 mg/dL [facility] DEPARTMENT OF PATHOLOGY AND GENOMIC MEDICINE Specimen Plasma specimen Performing Organization Address [facility]/[place] Phone Number [facility] DEPARTMENT OF PATHOLOGY AND [address] [place] [address] Magnesium level (06/14/2018 4:00 AM CDT)Only the most recent of10 resultswithin the time period is included. Magnesium 1.9 1.6 - 2.4 mg/dL [facility] DEPARTMENT OF PATHOLOGY AND GENOMIC MEDICINE Specimen Plasma specimen Performing Organization Address [facility]/[place] Phone Number [facility] DEPARTMENT PATHOLOGY AND [address] [place] [address] GENOMIC MEDICINE Manual differential (06/14/2018 3:30 AM CDT)Only the most recent of3 resultswithin the time period is included. Manual differential PERFORMED [facility] DEPARTMENT OF PATHOLOGY AND GENOMIC MEDICINE Neutrophils 67.0 39.0 - 69.0 % [facility] DEPARTMENT OF PATHOLOGY AND GENOMIC MEDICINE Lymphocytes 23.0 (L) 25.0 - 45.0 % [facility] DEPARTMENT OF PATHOLOGY AND GENOMIC MEDICINE Monocytes 4.0 0.0 - 10.0 % [facility] DEPARTMENT OF PATHOLOGY AND GENOMIC MEDICINE Eosinophils 3.0 0.0 - 5.0 % [facility] DEPARTMENT OF PATHOLOGY AND GENOMIC MEDICINE Basophils 0.0 0.0 - 1.0 % [facility] DEPARTMENT OF PATHOLOGY AND GENOMIC MEDICINE Metamyelocytes 2 % [facility] DEPARTMENT OF PATHOLOGY AND GENOMIC MEDICINE Myelocytes 1 % [facility] DEPARTMENT OF PATHOLOGY AND GENOMIC MEDICINE Promyelocytes 0 % [facility] DEPARTMENT OF PATHOLOGY AND GENOMIC MEDICINE Platelet slide review Ren adequate [facility] DEPARTMENT OF PATHOLOGY AND GENOMIC MEDICINE Toxic granulation Slight [facility] DEPARTMENT OF PATHOLOGY AND GENOMIC MEDICINE Anisocytosis Moderate [facility] DEPARTMENT OF PATHOLOGY AND GENOMIC MEDICINE Ovalocytes Moderate [facility] DEPARTMENT OF PATHOLOGY AND GENOMIC MEDICINE Enlarged platelets Moderate (A) [facility] DEPARTMENT OF PATHOLOGY AND GENOMIC MEDICINE Performing Organization Address [facility]/[place] Phone Number [facility] DEPARTMENT OF PATHOLOGY AND [address] [place] [address] Vancomycin level, trough (06/13/2018 8:45 AM CDT)Only the most recent of2 resultswithin the time period is included. Vancomycin, trough 18.6 10.0 - 20.0 ug/mL [facility] DEPARTMENT OF Comment: PATHOLOGY AND GENOMIC Therapeutic Ranges: MEDICINE Peak 30.0 - 40.0 ug/mL Vztvdk24.0 - 20.0 ug/mL Specimen Serum Performing Organization Address [facility] Phone Number [facility] DEPARTMENT OF PATHOLOGY AND [address] [place] [address] GENOMIC MEDICINE XR Chest 1 Vw Portable (06/13/2018 7:17 AM CDT)Only the most recent of3 resultswithin the time period is included. Narrative Performed At EXAMINATION:XR CHEST 1 VW PORTABLE [facility] CLINICAL HISTORY:ICU ptstable with no clinical status changes COMPARISON:Chest x-ray from June 12, 2018 FINDINGS: Lines: None Lungs and pleura: Improvement in perihilar and interstitial prominence. Trace bilateral pleural effusions. No pneumothorax. Heart and mediastinum: Unchanged prominence of cardiomediastinal silhouette. Bones: Median sternotomy sutures are in place. IMPRESSION: Improvement in interstitial edema. [facility]-[id number] Procedure Note Hm Interface, Radiology Results Incoming - 06/13/2018 7:28 AM CDT EXAMINATION: XR CHEST 1 VW PORTABLE CLINICAL HISTORY: ICU pt stable with no clinical status changes COMPARISON: Chest x-ray from June 12, 2018 FINDINGS: Lines: None Lungs and pleura: Improvement in perihilar and interstitial prominence. Trace bilateral pleural effusions. No pneumothorax. Heart and mediastinum: Unchanged prominence of cardiomediastinal silhouette. Bones: Median sternotomy sutures are in place. IMPRESSION: Improvement in interstitial edema. [facility]-[id number] Performing Organization Address [facility] Phone Number [facility] [address] [place] [address] Lactic acid level (06/13/2018 2:00 AM CDT)Only the most recent of4 resultswithin the time period is included. Lactic acid 1.2 0.5 - 2.2 mmol/L [facility] DEPARTMENT OF PATHOLOGY AND GENOMIC MEDICINE Specimen Plasma specimen Performing Organization Address City/[facility] Phone Number [facility] DEPARTMENT OF PATHOLOGY AND [address] [place] [address] GENOMIC MEDICINE Ionized calcium (06/13/2018 2:00 AM CDT)Only the most recent of3 resultswithin the time period is included. pH 7.55 [facility] DEPARTMENT OF PATHOLOGY AND GENOMIC MEDICINE Ionized calcium 0.98 (L) 1.11 - 1.32 mmol/L [facility] DEPARTMENT OF PATHOLOGY AND GENOMIC MEDICINE Specimen Plasma specimen Performing Organization Address [facility]j Phone Number [facility] DEPARTMENT OF PATHOLOGY AND [address] [place] [address] Partial thromboplastin time, activated (06/13/2018 1:35 AM CDT)Only the most recent of4 resultswithin the time period is included. PTT 30.9 23.0 - 36.0 sec [facility] DEPARTMENT OF PATHOLOGY Comment: AND [facility] PTT therapeutic range for unfractionated heparin is 61.0-112.0 seconds which corresponds to Anti-Xa 0.3-0.7 U/ml. Specimen Blood Performing Organization Address [facility] Phone Number [facility] DEPARTMENT OF PATHOLOGY AND [address] [place] [address] Prothrombin time with INR (06/13/2018 1:35 AM CDT)Only the most recent of4 resultswithin the time period is included. Prothrombin time 15.0 12.0 - 15.0 sec [facility] DEPARTMENT OF PATHOLOGY AND GENOMIC MEDICINE INR 1.2 [facility] DEPARTMENT OF Comment: PATHOLOGY AND GENOMIC The International Normalized Ratio (INR) is a therapeutic MEDICINE monitoring tool for patients who are stable on oral anticoagulant therapy. An INR of 2.0-3.0 is suggested for deep vein thrombosis/pulmonary embolism. Specimen Blood Performing Organization Address [facility]/[place] Phone Number [facility] DEPARTMENT OF PATHOLOGY AND [address] [place] [address] ECG 12 lead (06/12/2018 5:09 PM CDT)Only the most recent of2 resultswithin the time period is included. Ventricular rate 66 [facility] Atrial rate 66 [facility] MUSE NH interval 208 [facility] QRSD interval 96 [facility] QT interval 470 [facility] QTC interval 492 [facility] P axis 1 85 [facility] QRS axis 1 44 [facility] T wave axis 114 [facility] MUSE EKG impression Sinus rhythm with frequent premature ventricular complexes- Septal infarct (cited on or before 23-FEB-2016)-Borderline QT interval-Abnormal ECG-In automated comparison with ECG of 11-JUN-2018 22:40,-No s [facility] MUSE ignificant change was found- Performing Organization Address City/[facility]code Phone Number [facility] MUSE [address] [place] [address] Hepatic function panel (06/12/2018 3:05 AM CDT)Only the most recent of3 resultswithin the time period is included. Albumin 1.5 (L) 3.5 - 5.0 g/dL [facility] DEPARTMENT OF PATHOLOGY AND GENOMIC MEDICINE Total bilirubin <0.2 0.0 - 1.2 mg/dL [facility] DEPARTMENT OF PATHOLOGY AND GENOMIC MEDICINE Bilirubin direct <0.2 0.0 - 0.3 mg/dL [facility] DEPARTMENT OF PATHOLOGY AND GENOMIC MEDICINE Alkaline phosphatase 103 35 - 104 U/L [facility] DEPARTMENT OF PATHOLOGY AND GENOMIC MEDICINE Protein 5.7 (L) 6.3 - 8.3 g/dL [facility] DEPARTMENT OF Comment: PATHOLOGY AND GENOMIC [place] 4.6-7.0 g/dL MEDICINE 1 week 4.4-7.6 g/dL 7 months-1year5.1-7.3 g/dL 1-2 years5.6-7.5 g/dL >3 years6.0-8.0 g/dL 18-150 6.3-8.3 g/dL ALT 9 5 - 50 U/L [facility] DEPARTMENT OF PATHOLOGY AND GENOMIC MEDICINE AST 16 10 - 35 U/L [facility] DEPARTMENT OF PATHOLOGY AND GENOMIC MEDICINE Specimen Plasma specimen Performing Organization Address [facility] Phone Number [facility] DEPARTMENT OF PATHOLOGY AND [address] [place] [address] [facility] MEDICINE Urinalysis screen and microscopy, with reflex to culture (06/11/2018 11:22 AM CDT) Specimen site Vasquez [facility] DEPARTMENT OF PATHOLOGY AND GENOMIC MEDICINE Color, UA Yellow [facility] DEPARTMENT OF PATHOLOGY AND GENOMIC MEDICINE Appearance, UA Turbid [facility] DEPARTMENT OF PATHOLOGY AND GENOMIC MEDICINE Specific gravity, UA 1.019 1.001 - 1.035 [facility] DEPARTMENT OF PATHOLOGY AND GENOMIC MEDICINE pH, UA 5.0 5.0 - 8.5 [facility] DEPARTMENT OF PATHOLOGY AND GENOMIC MEDICINE Protein, UA 1+ (A) Negative [facility] DEPARTMENT OF PATHOLOGY AND GENOMIC MEDICINE Glucose, UA Negative Negative [facility] DEPARTMENT OF PATHOLOGY AND GENOMIC MEDICINE Ketones, UA Trace (A) Negative [facility] DEPARTMENT OF PATHOLOGY AND GENOMIC MEDICINE Bilirubin, UA Negative Negative [facility] DEPARTMENT OF PATHOLOGY AND GENOMIC MEDICINE Blood, UA Small (A) Negative [facility] DEPARTMENT OF PATHOLOGY AND GENOMIC MEDICINE Nitrite, UA Negative Negative [facility] DEPARTMENT OF PATHOLOGY AND GENOMIC MEDICINE Urobilinogen, UA <2.0 <2.0 [facility] DEPARTMENT OF PATHOLOGY AND GENOMIC MEDICINE Leukocyte esterase, UA Moderate (A) Negative [facility] DEPARTMENT OF PATHOLOGY AND GENOMIC MEDICINE WBC, UA 29 (H) 0 - 4 /HPF [facility] DEPARTMENT OF PATHOLOGY AND GENOMIC MEDICINE RBC, UA >180 (H) 0 - 5 /HPF [facility] DEPARTMENT OF PATHOLOGY AND GENOMIC MEDICINE Bacteria, UA Moderate (A) None seen [facility] DEPARTMENT OF PATHOLOGY AND GENOMIC MEDICINE Yeast, UA Many (A) [facility] DEPARTMENT OF PATHOLOGY AND GENOMIC MEDICINE Yeast with pseudohyphae, UA None seen [facility] DEPARTMENT OF PATHOLOGY AND GENOMIC MEDICINE Specimen Urine Performing Organization Address City/[facility]/[place] Phone Number [facility] DEPARTMENT OF PATHOLOGY AND [address] [place] [address] Gram stain (06/11/2018 11:20 AM CDT)Only the most recent of3 resultswithin the time period is included. Gram stain result Few WBC's [facility] DEPARTMENT OF PATHOLOGY AND Many Yeast GENOMIC MEDICINE Comment: Specimen Information Specimen Source: Urine Specimen Site: [place] Specimen Urine - Vasquez Performing Organization Address City/[facility] Phone Number [facility] DEPARTMENT OF PATHOLOGY AND [address] [place] [address] Urine culture (06/11/2018 11:20 AM CDT) Urine culture isolate Sandra glabrata [facility] DEPARTMENT OF >10-5 cfu/ml PATHOLOGY AND GENOMIC The performance characteristics of this assay on this isolate MEDICINE were validated by the Microbiology Laboratory at [facility].This source has not been approved by the U.S. Food and Drug Administration.The results are not intended to be used as the sole means for clinical diagnosis or patient management.The Microbiology Laboratory is authorized under the clinical Laboratory Improvement Amendments of 1988 (CLIA-88) to perform high complexity testing. (A) Comment: Specimen Information Specimen Source: Urine Specimen Site: [place] Specimen Urine - Vasquez Organism Antibiotic Method Susceptibility Sandra glabrata Micafungin BP 0.016 mcg/mL: Susceptible Sandra glabrata Amphotericin B BP 1 mcg/mL: Susceptible Sandra glabrata Posiconazole BP 2 mcg/mL Sandra glabrata Itraconazole BP 0.50 mcg/mL: Resistant Sandra glabrata Fluconazole BP 16 mcg/mL: Susceptible Performing Organization Address City/[facility] Phone Number [facility] DEPARTMENT OF PATHOLOGY AND [address] [place] [address] Potassium level (06/10/2018 4:55 PM CDT) Potassium 4.5 3.5 - 5.0 mEq/L [facility] DEPARTMENT OF PATHOLOGY AND [facility] Specimen Plasma specimen Performing Organization Address City/[facility] Phone Number [facility] DEPARTMENT OF PATHOLOGY AND [address] [place] [address] Us duplex arterial lower extremity (06/10/2018 4:54 PM CDT) Narrative Performed At [facility] Vascular Ultrasound Laboratory Lower Extremity Arterial Duplex Report [address] [place] [address] Pat.Name:SARA STONER.ID:[id number] .Date: 06/10/2018 Refer.MD:ADARSH SIEGEL MD Exam Time: 2:57:00 PMStudy Type:LE Arterial DOBAge:1955,63Y Sex: FEMALE Sonogrphr: Juli Montano RVTPat. Stat.:Inpatient Room:[id number]: RF, CPT - 4: 47049 Echo Event ID:[id number] Order ID:[id number] Reason for Study:Right lower extremity pain, redness and swelling with necrotizing fascitis approximately 1 year ago s/p debridement and final wound vac 06/09/18. History of DM, HTN, CHF. Procedures:Ankle/brachial pressures, Colorflow, Digit pressures, Grayscale/2D, Pulsed wave Doppler Race:C SUMMARY: DUPLEX SCAN OBSERVATIONS: RIGHT: The common femoral artery and profunda femoris artery is visualized with hard plaque, colorflow and triphasic arterial Doppler signals present. The femoral artery is visualized with hard plaque . Colorflow disturbance and elevated velocity is noted in the mid femoral artery with biphasic arterial Doppler signals noted in the distal femoral artery. There is hard plaque, colorflow and biphasic arterial Doppler signals notes in the popliteal artery. Elevated velocity is noted in the proximal and mid posterior tibial artery with monophasic arterial Doppler signals noted distally. Monophasic arterial Doppler signals are noted throughout the peroneal artery. Unable to obtain the anterior tibial artery due to wound vac. LEFT:There is hard plaque noted in the common femoral and profunda femoris with colorflow and triphasic arterial Doppler signals noted. There is hard plaque noted throughout the femoral artery with colorflow disturbances and elevated velocity in the mid femoral artery.Biphasic arterial Doppler signals are present in the distal femoral artery. There is hard plaque noted throughout the popliteal artery with colorflow disturbances with elevated velocity noted in the mid popliteal artery. Monophasic arterial Doppler signals are present in the distal popliteal and posterior tibial artery. The peroneal artery could not be visualized. The anterior tibial artery is small in diameter with colorflow and significantly dampened monophasic arterial Doppler signals present. ANKLE/BRACHIAL INDEX: RIGHTLEFT Brachial Artery Pressure IV ygKr101 mmHg DPUnable to [id number] PTUnable to Lyfahi169 mmHg JOHNNY DPUnable to Obtain 0.54 JOHNNY PTUnable to Obtain 0.77 TOE/BRACHIAL INDEX: Great Toe58 mmHg76 mmHg TBI0.42 0.55 PRELIMINARY FINDINGS: 1. >75% stenosis of the mid femoral artery, bilaterally. 2. Approximately 50% stenosis of the right mid posterior tibial artery. 3. Monophasic arterial Doppler signals of the right peroneal artery. 4. Approximately 50% stenosis of the left mid popliteal artery. 5. Significantly dampened monophasic arterial Doppler signals of the left anterior tibial artery. 6. Unable to obtain the right ankle/brachial indices due to patient unable to tolerate the pain. 7. The left ankle/brachial index falls into the moderate category. 8. The toe/brachial indices falls into the mild category, bilaterally. PHYSICIAN INTERPRETATION: Bilateral lower extremity arterial exam demonstrated bilateral multi-level artery occlusive disease . More than 75% stenosis of the mid femoral artery, bilaterally. The left ankle/brachial index falls into the moderate category. The toe/brachial indices falls into the mild category, bilaterally. MEASUREMENTS: DOPPLER Right APPLICATION PERFORMANCE ENGINEER prox APPLICATION PERFORMANCE ENGINEER prox PSV 141 cm/s Right Profunda Profunda PSV 192 cm/s Right SFA Dist SFA Dist PSV 171 cm/s SFA Mid SFA Mid [id number] cm/sSFA Mid PBK727 cm/s Right SFA Prox SFA Prox PSV 138 cm/s Right Pop Dist Pop Dist PSV 106 cm/s Right Pop Prox Pop Prox PSV 162 cm/s Right PSYCHIATRIC NP Dist PSYCHIATRIC NP Dist PSV40.7 cm/s PSYCHIATRIC NP Mid PSYCHIATRIC NP Mid PSV 88 cm/s Right PSYCHIATRIC NP Prox PSYCHIATRIC NP Prox PSV 163 cm/s Right Peroneal Dist Peroneal Dist P67.7 cm/s Right Peroneal Mid Peroneal Mid PS76.5 cm/s Right Peroneal Prox Peroneal Prox P73.2 cm/s Left APPLICATION PERFORMANCE ENGINEER prox APPLICATION PERFORMANCE ENGINEER prox PSV 160 cm/s Left Profunda Profunda PSV 128 cm/s Left SFA Dist SFA Dist PSV76 cm/s SFA Prox SFA Prox PSV 130 cm/s Left Pop Dist Pop Dist PSV77.1 cm/s Left Pop Mid Pop Mid YYA550 cm/s Left Pop Prox Pop Prox PSV98.8 cm/sPop Prox PSV98.8 cm/s Left PSYCHIATRIC NP Dist PSYCHIATRIC NP Dist PSV82.3 cm/s Left PSYCHIATRIC NP Mid PSYCHIATRIC NP Mid PSV 79.7 cm/s Left PSYCHIATRIC NP Prox PSYCHIATRIC NP Prox PSV61.6 cm/s Left ANGIE Dist ANGIE Dist PSV34.8 cm/s Left ANGIE Mid ANGIE Mid PSV 34.1 cm/s Left ANGIE Prox ANGIE Prox PSV29.2 cm/sATA Prox PSV29.2 cm/s Right APPLICATION PERFORMANCE ENGINEER Dist APPLICATION PERFORMANCE ENGINEER Dist PSV 140 cm/s Right SFA Mid 1 SFA Mid 1 JLB004 cm/s Right PSYCHIATRIC NP Mid 1 PSYCHIATRIC NP Mid 1 FZB333 cm/s Right PSYCHIATRIC NP Distal PSYCHIATRIC NP Distal PSV40.7 cm/s Left APPLICATION PERFORMANCE ENGINEER Dist APPLICATION PERFORMANCE ENGINEER Dist PSV 160 cm/s Left SFA Mid 1 SFA Mid 1 NEO003 cm/s Left PSYCHIATRIC NP Distal PSYCHIATRIC NP Distal PSV82.3 cm/s Left ANGIE Distal ANGIE Distal PSV34.8 cm/s Signed 06/13/2018 08:50 AM Luis Mazariegos MD, RPVI Procedure Note Interface, Radiology Results In - 06/13/2018 8:51 AM CDT Vascular Ultrasound Laboratory Lower Extremity Arterial Duplex Report [id number] [address] Pat.Name: SARA STONER.ID: [id number] St.Date: 06/10/2018 Refer.MD: ADARSH SIEGEL MD Exam Time: 2:57:00 PM Study Type:LE Arterial Age: 7 1955,63Y Sex: FEMALE Sonogrphr: YU Carter. Stat.:Inpatient Room: [place] [address] Tape Vol: RF, CPT - 4: 28141 Echo Event ID:[id number] Order ID: [id number] Reason for Study:Right lower extremity pain, redness and swelling with necrotizing fascitis approximately 1 year ago s/p debridement and final wound vac 06/09/18. History of DM, HTN, CHF. Procedures:Ankle/brachial pressures, Colorflow, Digit pressures, Grayscale/2D, Pulsed wave Doppler Race: C SUMMARY: DUPLEX SCAN OBSERVATIONS: RIGHT: The common femoral artery and profunda femoris artery is visualized with hard plaque, colorflow and triphasic arterial Doppler signals present. The femoral artery is visualized with hard plaque . Colorflow disturbance and elevated velocity is noted in the mid femoral artery with biphasic arterial Doppler signals noted in the distal femoral artery. There is hard plaque, colorflow and biphasic arterial Doppler signals notes in the popliteal artery. Elevated velocity is noted in the proximal and mid posterior tibial artery with monophasic arterial Doppler signals noted distally. Monophasic arterial Doppler signals are noted throughout the peroneal artery. Unable to obtain the anterior tibial artery due to wound vac. LEFT:There is hard plaque noted in the common femoral and profunda femoris with colorflow and triphasic arterial Doppler signals noted. There is hard plaque noted throughout the femoral artery with colorflow disturbances and elevated velocity in the mid femoral artery. Biphasic arterial Doppler signals are present in the distal femoral artery. There is hard plaque noted throughout the popliteal artery with colorflow disturbances with elevated velocity noted in the mid popliteal artery. Monophasic arterial Doppler signals are present in the distal popliteal and posterior tibial artery. The peroneal artery could not be visualized. The anterior tibial artery is small in diameter with colorflow and significantly dampened monophasic arterial Doppler signals present. ANKLE/BRACHIAL INDEX: RIGHT LEFT Brachial Artery Pressure IV mmHg 137 mmHg DP Unable to Obtain 74mmHg PT Unable to Obtain 105 mmHg JOHNNY DP Unable to Obtain 0.54 JOHNNY PT Unable to Obtain 0.77 TOE/BRACHIAL INDEX: Great Toe 58 mmHg 76 mmHg TBI 0.42 0.55 PRELIMINARY FINDINGS: 1. >75% stenosis of the mid femoral artery, bilaterally. 2. Approximately 50% stenosis of the right mid posterior tibial artery. 3. Monophasic arterial Doppler signals of the right peroneal artery. 4. Approximately 50% stenosis of the left mid popliteal artery. 5. Significantly dampened monophasic arterial Doppler signals of the left anterior tibial artery. 6. Unable to obtain the right ankle/brachial indices due to patient unable to tolerate the pain. 7. The left ankle/brachial index falls into the moderate category. 8. The toe/brachial indices falls into the mild category, bilaterally. PHYSICIAN INTERPRETATION: Bilateral lower extremity arterial exam demonstrated bilateral multi-level artery occlusive disease . More than 75% stenosis of the mid femoral artery, bilaterally. The left ankle/brachial index falls into the moderate category. The toe/brachial indices falls into the mild category, bilaterally. MEASUREMENTS: DOPPLER Right APPLICATION PERFORMANCE ENGINEER prox APPLICATION PERFORMANCE ENGINEER prox PSV 141 cm/s Right Profunda Profunda PSV 192 cm/s Right SFA Dist SFA Dist PSV 171 cm/s SFA Mid SFA Mid PSV 135 cm/s SFA Mid PSV 129 cm/s Right SFA Prox SFA Prox PSV 138 cm/s Right Pop Dist Pop Dist PSV 106 cm/s Right Pop Prox Pop Prox PSV 162 cm/s Right PSYCHIATRIC NP Dist PSYCHIATRIC NP Dist PSV 40.7 cm/s PSYCHIATRIC NP Mid PSYCHIATRIC NP Mid PSV 88 cm/s Right PSYCHIATRIC NP Prox PSYCHIATRIC NP Prox PSV 163 cm/s Right Peroneal Dist Peroneal Dist P 67.7 cm/s Right Peroneal Mid Peroneal Mid PS 76.5 cm/s Right Peroneal Prox Peroneal Prox P 73.2 cm/s Left APPLICATION PERFORMANCE ENGINEER prox APPLICATION PERFORMANCE ENGINEER prox PSV 160 cm/s Left Profunda Profunda PSV 128 cm/s Left SFA Dist SFA Dist PSV 76 cm/s SFA Prox SFA Prox PSV 130 cm/s Left Pop Dist Pop Dist PSV 77.1 cm/s Left Pop Mid Pop Mid PSV 194 cm/s Left Pop Prox Pop Prox PSV 98.8 cm/s Pop Prox PSV 98.8 cm/s Left PSYCHIATRIC NP Dist PSYCHIATRIC NP Dist PSV 82.3 cm/s Left PSYCHIATRIC NP Mid PSYCHIATRIC NP Mid PSV 79.7 cm/s Left PSYCHIATRIC NP Prox PSYCHIATRIC NP Prox PSV 61.6 cm/s Left ANGIE Dist ANGIE Dist PSV 34.8 cm/s Left ANGIE Mid ANGIE Mid PSV 34.1 cm/s Left ANGIE Prox ANGIE Prox PSV 29.2 cm/s ANGIE Prox PSV 29.2 cm/s Right APPLICATION PERFORMANCE ENGINEER Dist APPLICATION PERFORMANCE ENGINEER Dist PSV 140 cm/s Right SFA Mid 1 SFA Mid 1 PSV 480 cm/s Right PSYCHIATRIC NP Mid 1 PSYCHIATRIC NP Mid 1 PSV 180 cm/s Right PSYCHIATRIC NP Distal PSYCHIATRIC NP Distal PSV 40.7 cm/s Left APPLICATION PERFORMANCE ENGINEER Dist APPLICATION PERFORMANCE ENGINEER Dist PSV 160 cm/s Left SFA Mid 1 SFA Mid 1 PSV 407 cm/s Left PSYCHIATRIC NP Distal PSYCHIATRIC NP Distal PSV 82.3 cm/s Left ANGIE Distal ANGIE Distal PSV 34.8 cm/s Signed 06/13/2018 08:50 AM Luis Mazariegos MD, RPVI Performing Organization Address City/State/Zipcode Phone Number [facility] [address] [place] [address] Echocardiogram complete w contrast and 3D if needed (06/10/2018 9:03 AM CDT) Narrative Performed At [facility] Echocardiography Report [address] [place] [address] Pat.Name:SARA STONER Pat.ID:[id number] .Date: 06/10/2018 Refer.MD:ADARSH SIEGEL MD Exam Time: 7:59:00 AMStudy Type:Routine Echo Height:67inWeight: 195lb BSA: 2 c8LVNEpb:1955,63Y Sex: FEMALEBP:122/58 HR:79 bpmSonogrphr: MIRANDA Griffin Pat. Stat.:Inpatient Room:[place] [address] Study Status:Final Echo Event ID:[id number] Order ID:[id number] Reason for Study:CHF Procedures:2D Echo, Colorflow Doppler Race:C SUMMARY: Difficult to assess LV function due to ventricular bigeminy during the study. LV EF appears normal. Overall wall motion is normal. Basal septum and basal inferior wall appear dysfunctional. Estimated EF is 55-59%. FINDINGS: LV: LV size is mildly enlarged. There is moderate eccentric LV hypertrophy.Difficult to assess LV function due to ventricularbigeminy during the study. LV EF appears normal.Overall wall motion is normal. Basal septum and basalinferior wall appear dysfunctional. Estimated EF is 55-59%. RV: RV size is normal. RV systolic function is normal. LA: LA volume is severely enlarged. RA: RA size is normal. AO: Aortic root diameter is normal. SABINA: Trace posterior pericardial effusion. AV: Aortic valve not well seen. MV: Mild mitral annular calcification. Mild mitral regurgitation. PV: Pulmonic valve not well seen. TV: No structural TV abnormalities noted. Neves: Hepatic vein pressure is normal, RA pressure < 5mmHg. Other:Insufficient TR jet to estimate PA systolic pressure. MEASUREMENTS: 2D Parasternal Long [place] LVIDd5.9 cmIndex3 cm/m LV Tivq503.3 g(87-129) IVSd 1 cmLVM Yjbms078.6 g/m2 LVPWd1 cmRWT0.3 Ao Rtd 2.6 cmIndex1.3 cm/m LA Sng Plane LA Area 28.9 cm2(8.8-23.4) LA Vol 103.9 ml Index51.9 ml/m LA LngAx 6.7 cm Signed 06/10/2018 06:42 PM Mg Rider M.D. Procedure Note Interface, Radiology Results In - 06/10/2018 6:48 PM CDT Echocardiography Report [address] [place] [address] Pat.Name: SARA STONER [facility].ID: [id number] .Date: 06/10/2018 Refer.MD: ADARSH SIEGEL MD Exam Time: 7:59:00 AM Study Type:Routine Echo Height: 67in Weight: 195lb BSA: 2 m2 Age: 7 1955,63Y Sex: FEMALE BP: 122/58 HR: 79 bpm Sonogrphr: MIRANDA Griffin Pat. Stat.:Inpatient Room: [place] [address] Study Status:Final Echo Event ID:[id number] Order ID: [id number] Reason for Study:CHF Procedures:2D Echo, Colorflow Doppler Race: C SUMMARY: Difficult to assess LV function due to ventricular bigeminy during the study. LV EF appears normal. Overall wall motion is normal. Basal septum and basal inferior wall appear dysfunctional. Estimated EF is 55-59%. FINDINGS: LV: LV size is mildly enlarged. There is moderate eccentric LV hypertrophy. Difficult to assess LV function due to ventricular bigeminy during the study. LV EF appears normal. Overall wall motion is normal. Basal septum and basal inferior wall appear dysfunctional. Estimated EF is 55-59%. RV: RV size is normal. RV systolic function is normal. LA: LA volume is severely enlarged. RA: RA size is normal. AO: Aortic root diameter is normal. SABINA: Trace posterior pericardial effusion. AV: Aortic valve not well seen. MV: Mild mitral annular calcification. Mild mitral regurgitation. PV: Pulmonic valve not well seen. TV: No structural TV abnormalities noted. Neves: Hepatic vein pressure is normal, RA pressure < 5mmHg. Other: Insufficient TR jet to estimate PA systolic pressure. MEASUREMENTS: 2D Parasternal Long [place] LVIDd 5.9 cm Index 3 cm/m LV Mass 233.3 g (87-129) IVSd 1 cm LVM Index 116.6 g/m2 LVPWd 1 cm RWT 0.3 Ao Rtd 2.6 cm Index 1.3 cm/m LA Sng Plane LA Area 28.9 cm2 (8.8-23.4) LA Vol 103.9 ml Index 51.9 ml/m LA LngAx 6.7 cm Signed 06/10/2018 06:42 PM Mg Rider M.D. Performing Organization Address [facility]/[place] Phone Number [facility] [address] [place] [address] Fungus smear (06/09/2018 6:16 PM CDT) Fungus smear No fungi observed. [facility] DEPARTMENT OF PATHOLOGY Comment: AND GENOMIC MEDICINE Specimen Information Specimen Source: Extremity Specimen Site: RIGHT LOWER EXTREMITY Specimen Extremity Performing Organization Address [facility]/[place] Phone Number [facility] DEPARTMENT OF PATHOLOGY AND [address] [place] [address] GENOMIC MEDICINE AFB culture (06/09/2018 6:16 PM CDT) AFB culture isolate No growth after 6 weeks of incubation. [facility] DEPARTMENT OF PATHOLOGY Comment: AND GENOMIC MEDICINE Specimen Information Specimen Source: Extremity Specimen Site: RIGHT LOWER EXTREMITY Specimen Extremity - Other- Detailed Description Required Performing Organization Address City/State/Zipcode Phone Number [facility] DEPARTMENT OF PATHOLOGY AND [address] [place] [address] GENOMIC MEDICINE Aerobic culture (06/09/2018 6:16 PM CDT)Only the most recent of2 resultswithin the time period is included. Aerobic culture isolate Streptococcus group B [facility] DEPARTMENT OF Many PATHOLOGY AND GENOMIC (A) MEDICINE Comment: Specimen Information Specimen Source: Extremity Specimen Site: RIGHT LOWER EXTREMITY Specimen Extremity - Other- Detailed Description Required Performing Organization Address City/[facility] Phone Number [facility] DEPARTMENT OF PATHOLOGY AND [address] [place] [address] MEDICINE AFB stain (06/09/2018 6:16 PM CDT) AFB stain No acid fast bacilli (AFB) seen. [facility] DEPARTMENT OF PATHOLOGY AND Comment: GENOMIC MEDICINE Specimen Information Specimen Source: Extremity Specimen Site: RIGHT LOWER EXTREMITY Specimen Extremity Performing Organization Address City/[facility] Phone Number [facility] DEPARTMENT OF PATHOLOGY AND [address] [place] [address] GENOMIC MEDICINE Fungus culture (06/09/2018 6:16 PM CDT) Fungus culture isolate No growth after 4 weeks of incubation. [facility] DEPARTMENT OF Comment: PATHOLOGY AND GENOMIC Specimen Information MEDICINE Specimen Source: Extremity Specimen Site: RIGHT LOWER EXTREMITY Specimen Extremity - Other- Detailed Description Required Performing Organization Address City/State/Zipcode Phone Number [facility] DEPARTMENT OF PATHOLOGY AND [address] [place] [address] GENOMIC [facility] Anaerobic culture (06/09/2018 6:16 PM CDT) Anaerobic culture No anaerobic organisms isolated. [facility] DEPARTMENT OF isolate Comment: PATHOLOGY AND GENOMIC Specimen Information MEDICINE Specimen Source: Extremity Specimen Site: RIGHT LOWER EXTREMITY Specimen Extremity - Other- Detailed Description Required Performing Organization Address City/State/Zipcode Phone Number [facility] DEPARTMENT OF PATHOLOGY AND [address] Sodium level, syringe (06/09/2018 6:02 PM CDT) Sodium, syringe 132 (L) 135 - 148 mEq/L [facility] DEPARTMENT OF PATHOLOGY AND GENOMIC MEDICINE Specimen Blood Performing Organization Address City/[facility] Phone Number [facility] DEPARTMENT OF PATHOLOGY AND [address] [place] [address] Potassium, syringe (06/09/2018 6:02 PM CDT) Potassium, syringe 3.7 3.5 - 5.0 mEq/L [facility] DEPARTMENT OF PATHOLOGY AND GENOMIC MEDICINE Specimen Blood Performing Organization Address City/[facility] Phone Number [facility] DEPARTMENT OF PATHOLOGY AND [address] [place] [address] Lactic acid, syringe (06/09/2018 6:02 PM CDT) Lactic acid, syringe 1.1 0.5 - 2.2 mmol/L [facility] DEPARTMENT OF PATHOLOGY AND GENOMIC MEDICINE Specimen Blood Performing Organization Address [facility] Phone Number [facility] DEPARTMENT OF PATHOLOGY AND [address] [place] [address] Ionized calcium, arterial (06/09/2018 6:02 PM CDT) Ionized calcium, arterial 1.08 (L) 1.11 - 1.32 mmol/L [facility] DEPARTMENT OF PATHOLOGY AND GENOMIC MEDICINE Specimen Blood Performing Organization Address [facility] Phone Number [facility] DEPARTMENT OF PATHOLOGY AND [address] [place] [address] Hemoglobin, syringe (06/09/2018 6:02 PM CDT) Hemoglobin, syringe 11.3 (L) 12.0 - 16.0 g/dL [facility] DEPARTMENT OF PATHOLOGY AND GENOMIC MEDICINE Specimen Blood Performing Organization Address City/[facility] Phone Number [facility] DEPARTMENT OF PATHOLOGY AND [address] [place] [address] Glucose level, syringe (06/09/2018 6:02 PM CDT) Glucose, syringe 339 (H) 65 - 99 mg/dL [facility] DEPARTMENT OF PATHOLOGY AND GENOMIC MEDICINE Specimen Blood Performing Organization Address City/[facility]/Zipcode Phone Number [facility] DEPARTMENT OF PATHOLOGY AND [address] [place] [address] Arterial blood gas, corrected (06/09/2018 6:02 PM CDT) pH, arterial 7.36 7.35 - 7.45 [facility] DEPARTMENT OF PATHOLOGY AND GENOMIC MEDICINE pCO2, arterial 49 (H) 35 - 45 mmHg [facility] DEPARTMENT OF PATHOLOGY AND GENOMIC MEDICINE pO2, arterial 268 (H) 80 - 90 mmHg [facility] DEPARTMENT OF PATHOLOGY AND GENOMIC MEDICINE Temperature, Celsius 37.0 Degrees C [facility] DEPARTMENT OF PATHOLOGY AND GENOMIC MEDICINE O2 saturation, arterial 99 95 - 100 % [facility] DEPARTMENT OF PATHOLOGY AND GENOMIC MEDICINE pH, arterial corrected 7.36 [facility] DEPARTMENT OF PATHOLOGY AND GENOMIC MEDICINE pCO2, arterial corrected 49 mmHg [facility] DEPARTMENT OF PATHOLOGY AND GENOMIC MEDICINE pO2, arterial corrected 268 mmHg [facility] DEPARTMENT OF PATHOLOGY AND GENOMIC MEDICINE Base excess, arterial 2 -2 - 2 mEq/L [facility] DEPARTMENT OF PATHOLOGY AND GENOMIC MEDICINE Specimen Blood Performing Organization Address City/[facility] Phone Number [facility] DEPARTMENT OF PATHOLOGY AND [address] [place] [address] Lactic acid level, SEPSIS - Now and repeat 2x every 3 hours (06/09/2018 10:15 AM CDT)Only the most recent of3 resultswithin the time period is included. Lactic acid 1.4 0.5 - 2.2 mmol/L [facility] DEPARTMENT OF PATHOLOGY AND GENOMIC MEDICINE Specimen Plasma specimen Performing Organization Address City/[facility] Phone Number [facility] DEPARTMENT OF PATHOLOGY AND [address] [place], [place] [id number] [facility] CT Lower Extremity Wo Contrast Bilateral (06/09/2018 10:05 AM CDT) Narrative Performed At EXAMINATION:CT LOWER EXTREMITY WO CONTRAST BILATERAL RADIANT INDICATION:Rule out abscess. COMPARISON: None available. TECHNIQUE: Helical axial CT images of the lower extremities were acquired without intravenous contrast. Sagittal and coronal planar reformats were reviewed. IMPRESSION: 1.There is circumferential thickening of the skin as well as extensive subcutaneous edema involving the entirety of the right leg consistent with cellulitis. Diffuse fascial edema as well as interfascial edema consistent with fasciitis. Probable myositis with edema in the extensor compartment. 2.Focal fluid is seen involving the fascia of the extensor compartment on series 4, image 212 measuring approximately 4.3 x 1.7 cm. There is longitudinal extension of this fluid. It is unclear whether this represents organized collection or large amount of fascial fluid as the margins of there are poorly defined secondary to lack of contrast administration. Further evaluation with a contrast-enhanced CT or MRI is recommended to determine if this is a discrete organized collection or simply a large amount of layering superficial fascial fluid. 3.No discrete collection is seen within any of the musculature of the right lower extremity. There is edema extending involving the ankle as well as the dorsum of the midfoot and hindfoot. 4.Evaluation of the left lower extremity demonstrates thickening of the skin of the dorsum of the midfoot, and hindfoot which may represent volume overload or cellulitis. To a lesser degree, there is thickening of the skin and subcutaneous edema of the left leg which may represent volume overload or cellulitis. Scarring and superficial ulceration over the medial aspect of the left leg. 5.Evaluation of the bones demonstrates no visible fracture or CT evidence of acute osteomyelitis. Calcific tendinopathy of the Achilles tendons with marked Achilles insertional tendinosis. Small left Evangelista's cyst. Partially imaged tricompartmental osteoarthrosis of the knee. Plantar calcaneal enthesopathy bilaterally. Procedure Note Hm Interface, Radiology Results - 06/09/2018 10:19 AM CDT EXAMINATION: CT LOWER EXTREMITY WO CONTRAST BILATERAL INDICATION: Rule out abscess. COMPARISON: None available. TECHNIQUE: Helical axial CT images of the lower extremities were acquired without intravenous contrast. Sagittal and coronal planar reformats were reviewed. IMPRESSION: 1. There is circumferential thickening of the skin as well as extensive subcutaneous edema involving the entirety of the right leg consistent with cellulitis. Diffuse fascial edema as well as interfascial edema consistent with fasciitis. Probable myositis with edema in the extensor compartment. 2. Focal fluid is seen involving the fascia of the extensor compartment on series 4, image 212 measuring approximately 4.3 x 1.7 cm. There is longitudinal extension of this fluid. It is unclear whether this represents organized collection or large amount of fascial fluid as the margins of there are poorly defined secondary to lack of contrast administration. Further evaluation with a contrast-enhanced CT or MRI is recommended to determine if this is a discrete organized collection or simply a large amount of layering superficial fascial fluid. 3. No discrete collection is seen within any of the musculature of the right lower extremity. There is edema extending involving the ankle as well as the dorsum of the midfoot and hindfoot. 4. Evaluation of the left lower extremity demonstrates thickening of the skin of the dorsum of the midfoot, and hindfoot which may represent volume overload or cellulitis. To a lesser degree, there is thickening of the skin and subcutaneous edema of the left leg which may represent volume overload or cellulitis. Scarring and superficial ulceration over the medial aspect of the left leg. 5. Evaluation of the bones demonstrates no visible fracture or CT evidence of acute osteomyelitis. Calcific tendinopathy of the Achilles tendons with marked Achilles insertional tendinosis. Small left Evangelista's cyst. Partially imaged tricompartmental osteoarthrosis of the knee. Plantar calcaneal enthesopathy bilaterally. Performing Organization Address [facility] Phone Number [facility] [address] [place] [address] Troponin (06/09/2018 7:24 AM CDT)Only the most recent of2 resultswithin the time period is included. Troponin <0.30 0.00 - 0.30 ng/mL [facility] DEPARTMENT OF PATHOLOGY Comment: AND GENOMIC MEDICINE 0.30 - 1.49 ng/mlMay indicate increased risk of acute coronary syndrome. >=1.5 ng/mlConsistent with acute myocardial infarction. The diagnostic value of a single normal or non-diagnostic result is questionable.Serial samples at 2-6 hour intervals are required to rule out acute myocardial injury. Specimen Plasma specimen Performing Organization Address [facility] Phone Number [facility] DEPARTMENT OF PATHOLOGY AND [address] [place], [place] [phone] GENOMIC MEDICINE Type and screen (06/09/2018 7:24 AM CDT) ABO grouping O [facility] DEPARTMENT OF PATHOLOGY AND GENOMIC MEDICINE Rh type POS [facility] DEPARTMENT OF PATHOLOGY AND GENOMIC MEDICINE Antibody screen (gel) NEG [facility] DEPARTMENT OF PATHOLOGY AND GENOMIC MEDICINE Specimen Blood Performing Organization Address [facility] Phone Number [facility] DEPARTMENT OF PATHOLOGY AND [address] [place] [phone] GENOMIC MEDICINE CRITICAL CARE (06/09/2018 3:44 AM CDT) Narrative Performed At Jen Yousif MD 06/09/20183:56 PM Critical Care Performed by: JEN YOUSIF Authorized by: JEN YOUSIF Critical care provider statement: Critical care time (minutes):42 Critical care time was exclusive of:Separately billable procedures and treating other patients Critical care was necessary to treat or prevent imminent or life-threatening deterioration of the following conditions: leukocytosis, uncontrolled hyperglycemia, sepsis. Critical care was time spent personally by me on the following activities:Blood draw for specimens, development of treatment plan with patient or surrogate, discussions with consultants, evaluation of patient's response to treatment, examination of patient, obtaining history from patient or surrogate, review of old charts, re-evaluation of patient's condition, pulse oximetry, ordering and review of laboratory studies and ordering and performing treatments and interventions Antonino 'yes' if you are taking over critical care for this patient from another provider.: no Blood culture, aerobic & anaerobic (06/09/2018 3:15 AM CDT)Only the most recent of2 resultswithin the time period is included. Blood culture isolate No growth after 5 days of incubation. [facility] DEPARTMENT OF Comment: PATHOLOGY AND GENOMIC Specimen Information MEDICINE Specimen Source: Blood Specimen Site: Antecubital, right Specimen Blood - Antecubital, right Performing Organization Address City/[facility] Phone Number [facility] DEPARTMENT OF PATHOLOGY AND [address] [place] [address] Beta hydroxybutyrate (06/09/2018 3:10 AM CDT) Beta hydroxybutyrate 0.07 0.02 - 0.27 mmol/L [facility] DEPARTMENT OF PATHOLOGY AND GENOMIC MEDICINE Specimen Serum Performing Organization Address [facility] Phone Number [facility] DEPARTMENT OF PATHOLOGY AND [address] [place] [phone] GENOMIC MEDICINE Sedimentation rate (06/09/2018 3:10 AM CDT) Sedimentation rate 97 (H) 0 - 20 mm/hr [facility] DEPARTMENT OF PATHOLOGY AND GENOMIC MEDICINE Specimen Blood Narrative Performed At GLU____ results called to and read back by [facility] DEPARTMENT OF PATHOLOGY AND GENOMIC RN ANDREWS MEDICINE GWENDOLYN/TREASURE(name/location) at06/09/201805:51 (date/time) by MT__. Performing Organization Address City/[facility]/Zipcode Phone Number [facility] DEPARTMENT OF PATHOLOGY AND [address] [place] [phone] [facility] MEDICINE C-reactive protein (06/09/2018 3:10 AM CDT) CRP 38.98 (H) 0.00 - 0.50 mg/dL [facility] DEPARTMENT OF PATHOLOGY AND GENOMIC MEDICINE Specimen Plasma specimen Performing Organization Address City/[facility] Phone Number [facility] DEPARTMENT OF PATHOLOGY AND [address] [place] [address] GENOMIC MEDICINE B natriuretic peptide (06/09/2018 3:10 AM CDT) BNP 49 0 - 100 pg/mL [facility] DEPARTMENT OF PATHOLOGY AND GENOMIC MEDICINE Specimen Blood Performing Organization Address [facility]code Phone Number [facility] DEPARTMENT OF PATHOLOGY AND [address] [place] [address] [facility] Creatine kinase, total (CPK) (06/09/2018 3:10 AM CDT) Creatine kinase 43 26 - 192 U/L [facility] DEPARTMENT OF PATHOLOGY AND GENOMIC MEDICINE Specimen Plasma specimen Performing Organization Address [facility] Phone Number [facility] DEPARTMENT OF PATHOLOGY AND [address] [place] [address] [facility] MEDICINE after 02/21/2018 Insurance Payer Benefit Plan / Group Subscriber ID Type Phone Address [facility] xxxxxxxxx O Advance Directives Patient has advance care planning documents on file. For more information, please contact:Yousif Floyd[address] [place] [address]
[2019-02-22] MEDS ORDERED: FENTANYL CITR 100 MCG/2 ML ONE (21:36)
[2019-02-22] MEDS ORDERED: NA CHLORIDE 0.9% 1,000 ML ONE ×2 (21:36→23:22)
[2019-02-22] MEDS ORDERED: ONDANSETRON 4 MG/2 ML VIAL ONE (21:36)
[2019-02-22 22:04] LABS: Absolute Monocytes 1.2 K/uL (0.1-1.3); Absolute Neutrophil 15.9 K/uL (1.8-8.0); Basophils % 0.4 % (0-1.3); Eosinophils % 0.4 % (0-4.4); Hematocrit 47.9 % (36.0-45.0); Lymphocytes % 10.5 % (15.3-44.8); MPV 10.3 fL (7.6-11.3); RBC Red Blood Cell Count 5.09 M/uL (3.86-4.86)
[2019-02-22 22:15] LABS: Protime INR 0.93
[2019-02-22 22:27] LABS: ALT/SGPT 22 U/L (12-78); AST/SGOT 13 U/L (15-37); Albumin 3.4 g/dL (3.4-5.0); Alkaline Phosphatase 270 U/L (45-117); BUN Blood Urea Nitrogen 19 mg/dL (7-18); Bicarbonate 26 mmol/L (21-32); Bilirubin Direct 0.2 mg/dL (0-0.2); Bilirubin Total 0.5 mg/dL (0.2-1.0); Lipase 99 U/L (73-393); Potassium 4.6 mmol/L (3.5-5.1); Protein, Total 8.5 g/dL (6.4-8.2); Sodium Level 123 mmol/L (136-145); Troponin (Emerg Dept Use Only) 0.05 ng/mL (0.0-0.045)
[2019-02-22 22:28] LABS: Glucose Level 706 mg/dL (74-106)
[2019-02-22] MEDS ORDERED: INSULIN -REGULAR HUMAN 50 UNIT/0.5 ML ML ONE (22:31)
[2019-02-22] MEDS ORDERED: ASPIRIN 81 MG CHEWABLE TABLET ONE (23:05)
[2019-02-22] MEDS ORDERED: CLINDAMYCIN 900MG/D5W 900 MG/50 ML IVPB IV ONE (23:05)
--- NOTE | 2019-02-22 23:40 | RAD REPORT ---
EXAM DESCRIPTION: Manju Single View02/22/2019 10:28 pm CLINICAL HISTORY: Shortness of breath COMPARISON: February 19, 2019 FINDINGS: The lungs appear clear of acute infiltrate. The heart is mildly enlarged. Postsurgical changes involve the chest. IMPRESSION: No acute abnormalities displayed
[2019-02-23 00:18] LABS: Urine Blood NEGATIVE (NEG); Urine Glucose 2+ (NEG); Urine Protein NEGATIVE (NEG); Urine Specific Gravity <1.005 (1.005-1.030); Urine pH 5.5 (5.0-7.0)
[2019-02-23 00:33] LABS: Urine Bacteria <20 /HPF (<20); Urine Culture Reflex Order NOT NEEDED; Urine RBC <5 /HPF (NONE SEEN)
--- NOTE | 2019-02-23 01:19 | EDPHYS ---
Physician Documentation [facility] Name: Sara Stoner Age: 63 yrs Sex: Female : 1955 Arrival Date: 02/22/2019 Time: 20:08 Bed 5 Private MD: ED Physician Rolf Fox HPI: 02/22 21:20 This 63 yrs old Female presents to ER via Wheelchair with complaints of cp Facial Swelling, Mouth Swelling. 21:20 the patient presents with a swollen area of the face. cp 21:20 Description: erythematous, swollen, tense, warm. Onset: The symptoms/episode cp began/occurred 3 day(s) ago. Possible cause(s): unknown. Associated signs and symptoms: Pertinent negatives: drainage, fever. Historical: - Allergies: 20:24 Dilaudid; aj1 20:24 Morphine; aj1 - Home Meds: 20:24 aspirin 81 mg Oral chew 1 tab once daily [Active]; atorvastatin 20 mg Oral tab 1 tab aj1 once daily [Active]; carvedilol 12.5 mg Oral tab 1 tab every 12 hours [Active]; cholecalciferol (vitamin D3) 2,000 unit Oral cap [Active]; gabapentin 300 mg Oral cap 1 cap twice a day [Active]; hydralazine 25 mg Oral tab 1 tab three times a day [Active]; insulin detemir 100 units subcutaneous 20 unit [Active]; insulin lispro 100 units subcutaneous 10 unit three times a day [Active]; metformin 500 mg Oral tab 1 tab 2 times per day [Active]; Nasonex 50 mcg/actuation Nasal spry 1 sprays twice a day [Active]; Nifedipine xl 60 mg 24 hr tab Oral [Active]; Proventil Inhl [Active]; - PMHx: 20:24 Depression; Diabetes - IDDM; Hypertension; aj1 - Immunization history:: Flu vaccine is up to date. - Social history:: Smoking status: Patient uses tobacco products, smokes one pack cigarettes per day. - Ebola Screening: : Patient denies travel to an Ebola-affected area in the 21 days before illness onset. ROS: 21:30 Constitutional: Negative for body aches, fever, poor PO intake. cp 21:30 Eyes: Negative for injury, pain, redness, and discharge. cp 21:30 ENT: Positive for dental pain, Gum pain Negative for drainage from ear(s), ear pain, difficulty swallowing, difficulty handling secretions. 21:30 Neck: Negative for pain with movement, pain at rest, stiffness. 21:30 Cardiovascular: Negative for chest pain. 21:30 Respiratory: Negative for cough, shortness of breath, wheezing. 21:30 Abdomen/GI: Negative for abdominal pain, nausea, vomiting, and diarrhea, black/tarry stool, rectal bleeding. 21:30 Skin: Positive for cellulitis, erythema, swelling, of the left side of face. 21:30 Neuro: Positive for headache, Negative for altered mental status, weakness. 21:30 All other systems are negative. Exam: 21:35 Constitutional: The patient appears in no acute distress, alert, awake, cp non-diaphoretic, well developed, well nourished, in obvious pain, uncomfortable. 21:35 Head/face: Noted is erythema, that is moderate, swelling, that is moderate, of the cp nasolabial and upper lip and left cheek and left mandible and left submental area, tenderness, that is severe. 21:35 Eyes: Periorbital structures: appear normal, Pupils: equal, round, and reactive to light and accomodation, Extraocular movements: intact throughout, Conjunctiva: normal, no exudate, no injection, Sclera: no appreciated abnormality, Lids and lashes: appear normal, bilaterally. 21:35 ENT: External ear(s): are unremarkable, Ear canal(s): are normal, clear, TM's: dullness, bilaterally, Nose: External nose: erythema is noted, swelling is noted, right nostril and left nostril, Mouth: Lips: moist, upper lip, swelling, erythema, Gums: reddened, swollen, on the left upper and lower gumline, Tongue: is normal, Posterior pharynx: Airway: no evidence of obstruction, patent, Dental exam: dental caries, that is severe, diffusely, missing teeth, diffusely, pain, that is severe, diffusely, Voice: is hoarse. 21:35 Neck: ROM/movement: is normal, is supple, no range of motions limitations, no meningismus, no nuchal rigidity. 21:35 Chest/axilla: Inspection: normal, Palpation: is normal, no crepitus, no tenderness. 21:35 Cardiovascular: Rate: tachycardic, Rhythm: regular, JVD: is not appreciated. 21:35 Respiratory: the patient does not display signs of respiratory distress, Respirations: normal, no use of accessory muscles, no retractions, no splinting, no tachypnea, labored breathing, is not present, Breath sounds: are clear throughout, no decreased breath sounds, no stridor, no wheezing. 21:35 Abdomen/GI: Inspection: abdomen appears normal, Palpation: abdomen is soft and non-tender, in all quadrants. 21:35 Neuro: Orientation: to person, place \T\ time. Mentation: is normal, Cerebellar function: is grossly normal, Motor: moves all fours, strength is normal, Sensation: no obvious gross deficits. 22:15 ECG was reviewed by the Attending Physician. cp Vital Signs: 20:24 BP 156 / 91; Pulse 109; Resp 20; Temp 97.2; Pulse Ox 96% on R/A; Weight 86.18 kg (R); aj1 Height 5 ft. 7 in. (170.18 cm) (R); Pain 10/10; 21:01 BP 165 / 62; Pulse 107; Resp 20; Pulse Ox 100% ; ea 22:30 BP 161 / 89; Pulse 100; Resp 18; Pulse Ox 97% on R/A; lp1 02/23 00:50 BP 160 / 80; Pulse 104; Resp 18; Pulse Ox 97% on R/A; ea 02:00 BP 158 / 85; Pulse 60; Resp 18; Pulse Ox 97% on R/A; ea 03:13 BP 167 / 70; Pulse 62; Resp 18; Temp 97.8; Pulse Ox 99% ; ea 02/22 20:24 Body Mass Index 29.76 (86.18 kg, 170.18 cm) aj1 MDM: 02/22 20:32 Patient medically screened. cp 22:00 Differential diagnosis: abscess, cellulitis, sepsis. cp 02/23 00:51 Data reviewed: vital signs, nurses notes, lab test result(s), EKG, radiologic studies, cp CT scan, plain films, I have discussed the patient's presentation/case with the attending Emergency Department Physician; and as a result, I will administer antibiotics clindamycin. Test interpretation: by ED physician or midlevel provider: ECG. Counseling: I had a detailed discussion with the patient and/or guardian regarding: the historical points, exam findings, and any diagnostic results supporting the discharge/admit diagnosis, lab results, radiology results, the need to transfer to another facility, [facility] does not immediately have the required specialist. 02/22 21:15 Order name: Urine Culture cp 02/22 21:15 Order name: Basic Metabolic Panel; Complete Time: 22:47 cp 02/22 22:47 Interpretation: Normal except: NA 123; CL 86; GLUC 706; BUN 19; GFR 50. cp 02/22 21:15 Order name: Blood Culture Adult (2) cp 02/22 21:15 Order name: CBC with Diff; Complete Time: 22:47 cp 02/22 22:48 Interpretation: Normal except: WBC 19.3; RBC 5.09; HGB 15.8; HCT 47.9; NORY% 82.7; LYM% cp 10.5; NEUT A 15.9. 02/22 21:15 Order name: Lactate; Complete Time: 22:47 cp 02/23 01:13 Interpretation: Abnormal: LAC 2.2. cp 02/22 21:15 Order name: LFT's; Complete Time: 22:47 cp 02/23 01:07 Interpretation: Normal except: AST 13; ALK 270; TP 8.5; GLOB 5.1; A/G 0.7. cp 02/22 21:15 Order name: Lipase; Complete Time: 22:47 cp 02/22 21:15 Order name: Procalcitonin; Complete Time: 00:20 cp 02/23 00:20 Interpretation: Within normal limits: Procalcitonin 0.19. cp 02/22 21:15 Order name: Protime (+inr); Complete Time: 22:47 cp 02/22 21:15 Order name: Ptt, Activated; Complete Time: 22:47 cp 02/22 21:15 Order name: Troponin (emerg Dept Use Only); Complete Time: 22:47 cp 02/23 01:13 Interpretation: Abnormal: TROPED 0.05. cp 02/22 21:15 Order name: Urine Microscopic Only; Complete Time: 01:04 cp 02/22 21:15 Order name: Ketone, Serum; Complete Time: 22:47 cp 02/22 21:16 Order name: Urine Culture EDMS 02/22 21:15 Order name: Chest Single View XRAY; Complete Time: 23:53 cp 02/22 23:53 Interpretation: Report review. cp 02/22 21:15 Order name: Accucheck; Complete Time: 21:55 cp 02/22 21:15 Order name: Cardiac monitoring; Complete Time: 22:01 cp 02/22 21:15 Order name: EKG - Nurse/Tech; Complete Time: 22:11 cp 02/22 22:51 Order name: CT Facial Bones W/ Con \T\ Mpr cp 02/22 22:51 Order name: CT Soft Tissue Neck W/contr cp 02/23 00:10 Order name: Urine Dipstick--Ancillary (enter results); Complete Time: 00:20 mw2 02/22 21:15 Order name: IV Saline Lock - Large Bore; Complete Time: 21:55 cp 02/22 21:15 Order name: Labs collected and sent; Complete Time: 21:55 cp 02/22 21:15 Order name: O2 Per Protocol; Complete Time: 21:55 cp 02/22 21:15 Order name: O2 Sat Monitoring; Complete Time: 21:55 cp 02/22 21:15 Order name: Urine Dipstick-Ancillary (obtain specimen); Complete Time: 02:02 cp 02/22 21:15 Order name: Accucheck Blood Glucose; Complete Time: 22:01 cp 02/22 22:55 Order name: NPO; Complete Time: 23:14 cp 02/23 00:33 Order name: Accucheck Blood Glucose; Complete Time: 01:50 cp EC/24 22:15 Rate is 103 beats/min. Rhythm is regular. DC interval is normal. QRS interval is cp normal. QT interval is normal. T waves are Inverted in lead I. Interpreted by me. Reviewed by me. Administered Medications: 21:53 Drug: NS 0.9% 1000 ml Route: IV; Rate: 1 bolus; Site: right forearm; ea 22:45 Follow up: IV Status: Completed infusion; IV Intake: 1000ml lp1 23:00 Follow up: Response: No adverse reaction; IV Status: Completed infusion; IV Intake: ea 1000ml 21:54 Drug: fentaNYL (PF) 25 mcg Route: IVP; Site: right forearm; ea 22:30 Follow up: Response: No adverse reaction; Pain is decreased ea 22:45 Follow up: Response: Pain is unchanged, physician notified lp1 21:54 Drug: Zofran 4 mg Route: IVP; Site: right forearm; ea 22:45 Follow up: Response: No adverse reaction lp1 22:16 Drug: Insulin Regular Human 10 units {Co-Signature: [email or web address] (Palma Vasquez RN).} Route: IVP; ea Site: right forearm; 22:55 Drug: Aspirin Chewable Tablet 324 mg Route: PO; lp1 23:15 Follow up: Response: No adverse reaction ea 22:55 Drug: Clindamycin 900 mg Route: IVPB; Infused Over: 30 mins; Site: right forearm; lp1 22:55 Drug: fentaNYL (PF) 25 mcg Route: IVP; Site: right forearm; lp1 23:13 Drug: NS 0.9% 1000 ml Route: IV; Rate: 1 bolus; Site: right forearm; lp1 02/23 02:09 Drug: fentaNYL (PF) 25 mcg Route: IVP; Site: right forearm; ea Point of Care Testing: Blood Glucose: 02/22 21:54 Blood Glucose: High (>450 mg/dL); ea 02/23 01:17 Blood Glucose: 395 mg/dL; lp1 Ranges: Critical Glucose Levels:Adult <50 mg/dl or >400 mg/dl <40 mg/dl or >180 mg/dl Disposition: 01:30 Chart complete. cp 06:36 Co-signature as Attending Physician, Rolf Fox MD. rn Disposition: 02/23/19 01:18 Transfer ordered to [facility]. Diagnosis are Cutaneous abscess of face - Perimaxillary abscess and multiple abscesses of upper lip, Diabetes mellitus due to underlying condition with hyperglycemia. - Reason for transfer: Higher level of care. - Accepting physician is DR Rivera. - Condition is Stable. - Problem is new. - Symptoms have improved. Signatures: Dispatcher [employer] EDMS Dayami Flowers RN RN aj1 Rolf Fox MD MD rn Pena, Laura, RN RN lp1 Kaden Cruz PA PA cp Antunez, Elena, RN RN ea Laura Pena RN lp1 Corrections: (The following items were deleted from the chart) 03:28 01:18 02/23/2019 01:18 Transfer ordered to [facility]. lp1 Diagnosis is Cutaneous abscess of face - Perimaxillary abscess and multiple abscesses of upper lip; Diabetes mellitus due to underlying condition with hyperglycemia. Reason for transfer: Higher level of care. Accepting physician is DR Rivera. Condition is Stable. Problem is new. Symptoms have improved. cp
--- NOTE | 2019-02-23 01:19 | ER ---
Nurse's Notes [facility] Name: Sara Stoner Age: 63 yrs Sex: Female : 1955 Arrival Date: 02/22/2019 Time: 20:08 Bed 5 Private MD: Diagnosis: Cutaneous abscess of face-Perimaxillary abscess and multiple abscesses of upper lip;Diabetes mellitus due to underlying condition with hyperglycemia Presentation: 02/22 20:21 Presenting complaint: Patient states: "I've been having these spots pop on on my body aj1 there strep and one popped up on my mouth, I've been taking antibiotics, the amoxicillin they gave me but its not working." Reports swelling to left jaw since Wednesday. Denies fever. Transition of care: patient was not received from another setting of care. Onset of symptoms was January 2019. Risk Assessment: Do you want to hurt yourself or someone else? Patient reports no desire to harm self or others. Initial Sepsis Screen: Does the patient meet any 2 criteria? HR > 90 bpm. No. Patient's initial sepsis screen is negative. Does the patient have a suspected source of infection? Yes: Skin breakdown/wound. Care prior to arrival: None. 20:21 Method Of Arrival: Wheelchair aj1 20:21 Acuity: NABEEL 3 aj1 Triage Assessment: 20:24 General: Appears uncomfortable, Behavior is anxious, restless. Pain: Complains of pain aj1 in face Pain currently is 10 out of 10 on a pain scale. Neuro: Level of Consciousness is awake, alert, obeys commands. Cardiovascular: Patient's skin is warm and dry. Respiratory: Airway is patent Respiratory effort is even, unlabored, Respiratory pattern is regular, symmetrical. Historical: - Allergies: 20:24 Dilaudid; aj1 20:24 Morphine; aj1 - Home Meds: 20:24 aspirin 81 mg Oral chew 1 tab once daily [Active]; atorvastatin 20 mg Oral tab 1 tab aj1 once daily [Active]; carvedilol 12.5 mg Oral tab 1 tab every 12 hours [Active]; cholecalciferol (vitamin D3) 2,000 unit Oral cap [Active]; gabapentin 300 mg Oral cap 1 cap twice a day [Active]; hydralazine 25 mg Oral tab 1 tab three times a day [Active]; insulin detemir 100 units subcutaneous 20 unit [Active]; insulin lispro 100 units subcutaneous 10 unit three times a day [Active]; metformin 500 mg Oral tab 1 tab 2 times per day [Active]; Nasonex 50 mcg/actuation Nasal spry 1 sprays twice a day [Active]; Nifedipine xl 60 mg 24 hr tab Oral [Active]; Proventil Inhl [Active]; - PMHx: 20:24 Depression; Diabetes - IDDM; Hypertension; aj1 - Immunization history:: Flu vaccine is up to date. - Social history:: Smoking status: Patient uses tobacco products, smokes one pack cigarettes per day. - Ebola Screening: : Patient denies travel to an Ebola-affected area in the 21 days before illness onset. Screenin:59 Abuse screen: Denies threats or abuse. Nutritional screening: No deficits noted. ea Tuberculosis screening: No symptoms or risk factors identified. Fall Risk Ambulatory Aid- Crutches/Cane/Walker (15 pts). Assessment: 20:57 General: Appears uncomfortable, Behavior is appropriate for age. Pain: Complains of ea pain in left cheek and mouth. Neuro: Level of Consciousness is awake, alert, obeys commands, Oriented to person, place, time, situation. Cardiovascular: Patient's skin is warm and dry. Respiratory: Airway is patent Respiratory effort is even, unlabored, Respiratory pattern is regular, symmetrical. Derm: swelling, redness and warmth noted to left side of mouth and surrounding area. 22:45 Reassessment: Patient moaning in pain, crying; States pain 10/10 to face, Provider lp1 notified. 23:00 Derm: Wound noted Wound is Healing wound noted to left foot, skin healed, no drainage lp1 noted; Scabs from healing would noted to lofton of right lower leg, no drainage noted; Left foot and right lower leg redressed with Kerlix. 23:14 Reassessment: Patient informed of NPO status, states "my mouth is dry"; Patient lp1 observed drinking water from faucet. 23:26 Reassessment: Patient and/or family updated on plan of care and expected duration. Pain ea level reassessed. Patient is alert, oriented x 3, equal unlabored respirations, skin warm/dry/pink. Pt taken to CT. 02/23 00:50 Reassessment: Patient and/or family updated on plan of care and expected duration. Pain ea level reassessed. Patient is alert, oriented x 3, equal unlabored respirations, skin warm/dry/pink. 01:50 Reassessment: Patient and/or family updated on plan of care and expected duration. Pain ea level reassessed. Patient is alert, oriented x 3, equal unlabored respirations, skin warm/dry/pink. 02:16 Reassessment: Patient and/or family updated on plan of care and expected duration. Pain ea level reassessed. Patient is alert, oriented x 3, equal unlabored respirations, skin warm/dry/pink. Reassessment: Report called Veronica CLIFTON at [facility]. 03:05 Reassessment: Patient and/or family updated on plan of care and expected duration. Pain ea level reassessed. Patient is alert, oriented x 3, equal unlabored respirations, skin warm/dry/pink. [facility] at facility for transport, report given to [facility]. Pt taken via stretcher per EMS tolerating well. Vital Signs: 02/22 20:24 BP 156 / 91; Pulse 109; Resp 20; Temp 97.2; Pulse Ox 96% on R/A; Weight 86.18 kg (R); aj1 Height 5 ft. 7 in. (170.18 cm) (R); Pain 10/10; 21:01 BP 165 / 62; Pulse 107; Resp 20; Pulse Ox 100% ; ea 22:30 BP 161 / 89; Pulse 100; Resp 18; Pulse Ox 97% on R/A; lp1 02/23 00:50 BP 160 / 80; Pulse 104; Resp 18; Pulse Ox 97% on R/A; ea 02:00 BP 158 / 85; Pulse 60; Resp 18; Pulse Ox 97% on R/A; ea 03:13 BP 167 / 70; Pulse 62; Resp 18; Temp 97.8; Pulse Ox 99% ; ea 02/22 20:24 Body Mass Index 29.76 (86.18 kg, 170.18 cm) aj1 ED Course: 02/22 20:08 Patient arrived in ED. am2 20:23 Triage completed. aj1 20:24 Arm band placed on Patient placed in an exam room. aj1 20:27 Kaden Cruz PA is PHCP. cp 20:27 Rolf Fox MD is Attending Physician. cp 20:33 Palma Vasquez, RN is Primary Nurse. lp1 21:00 Patient has correct armband on for positive identification. Bed in low position. Call ea light in reach. Side rails up X 1. 21:30 Initial lab(s) drawn, by me, sent to lab. First set of blood cultures drawn by me. ms Inserted saline lock: 20 gauge in right forearm, using aseptic technique. Blood collected. 21:45 Second set of blood cultures drawn by me. ms 22:27 Notified Nurse Practitioner and/or Physician High Pressure Firer of a critical lab result(s), ed1 Glucose 706. 22:28 Chest Single View XRAY In Process Unspecified. EDMS 23:53 CT Facial Bones W/ Con \\T\\ Mpr In Process Unspecified. EDMS 23:54 CT Soft Tissue Neck W/contr In Process Unspecified. EDMS 02/23 01:56 No provider procedures requiring assistance completed. ea 03:11 Patient transferred, IV remains in place. ea Administered Medications: 02/22 21:53 Drug: NS 0.9% 1000 ml Route: IV; Rate: 1 bolus; Site: right forearm; ea 22:45 Follow up: IV Status: Completed infusion; IV Intake: 1000ml lp1 23:00 Follow up: Response: No adverse reaction; IV Status: Completed infusion; IV Intake: ea 1000ml 21:54 Drug: fentaNYL (PF) 25 mcg Route: IVP; Site: right forearm; ea 22:30 Follow up: Response: No adverse reaction; Pain is decreased ea 22:45 Follow up: Response: Pain is unchanged, physician notified lp1 21:54 Drug: Zofran 4 mg Route: IVP; Site: right forearm; ea 22:45 Follow up: Response: No adverse reaction lp1 22:16 Drug: Insulin Regular Human 10 units {Co-Signature: lp1 (Palma Vasquez RN).} Route: IVP; ea Site: right forearm; 22:55 Drug: Aspirin Chewable Tablet 324 mg Route: PO; lp1 23:15 Follow up: Response: No adverse reaction ea 22:55 Drug: Clindamycin 900 mg Route: IVPB; Infused Over: 30 mins; Site: right forearm; lp1 22:55 Drug: fentaNYL (PF) 25 mcg Route: IVP; Site: right forearm; lp1 23:13 Drug: NS 0.9% 1000 ml Route: IV; Rate: 1 bolus; Site: right forearm; lp1 02/23 02:09 Drug: fentaNYL (PF) 25 mcg Route: IVP; Site: right forearm; ea Point of Care Testing: Blood Glucose: 02/22 21:54 Blood Glucose: High (>450 mg/dL); ea 02/23 01:17 Blood Glucose: 395 mg/dL; lp1 Ranges: Intake: 02/22 22:45 IV: 1000ml; Total: 1000ml. lp1 23:00 IV: 1000ml; Total: 2000ml. ea Outcome: 02/23 01:18 ER care complete, transfer ordered by MD. kevin 02:00 Instructed on the need for transfer. ea 03:10 Transferred by ground EMS to [facility], Transfer form completed. ea 03:10 Condition: stable 03:28 Patient left the ED. lp1 Signatures: Dispatcher [employer] EDDayami Menchaca RN RN aj1 Francy Gonzalez ms, Erika, RN RN ed1 Palam Vasquez RN RN lp1 Kaden Cruz PA PA cp Moreno, Amanda am2 Antunez, Elena, RN RN ea Palma Vasquez RN lp1
[2019-02-23] MEDS ORDERED: FENTANYL CITR 100 MCG/2 ML ONE (02:13)
[2019-02-23 04:06] VITALS: TEMP 97.2
[2019-02-23 04:16] VITALS: O2SAT 97
[2019-02-23 04:19] VITALS: BP 158/85
--- NOTE | 2019-02-23 08:38 | EKG ---
Test Date: 2019-02-22 Test Time: 22:06:06 Network Operations Technician: MEASUREMENT RESULTS: Intervals: Rate: 103 IL: 192 QRSD: 96 QT: 362 QTc: 474 [place]: P: 86 IL: 192 QRS: -34 T: 157 INTERPRETIVE STATEMENTS: Sinus tachycardia with frequent premature ventricular complexes Left axis deviation Pulmonary disease pattern Left ventricular hypertrophy with repolarization abnormality Cannot rule out Septal infarct, age undetermined Abnormal ECG Compared to ECG 02/15/2016 17:09:49 Early repolarization now present Sinus rhythm no longer present Fusion complex(es) no longer present Myocardial infarct finding still present Electronically Signed On 02-23-19 08:36:40 CDT by Chris Barbosa
--- NOTE | 2019-02-23 11:21 | RAD REPORT ---
EXAM DESCRIPTION: CT - Facial Bones W Con Mpr - 02/23/2019 6:55 am CLINICAL HISTORY: 63 years Female, SWELLING COMPARISON: None. TECHNIQUE: 2 mm axial images of the maxillofacial bones were obtained with IV contrast. 2 mm sagitta l and coronal reformatted images were obtained. This exam was performed according to our departmental dose-optimization program, which includes autom ated exposure control, adjustment of the mA and/or kV according to patient size and/or use of iterati ve reconstruction technique. INTRAVENOUS CONTRAST: Not documented. Please refer to medical record. FINDINGS: BONY STRUCTURES: There are severe dental caries involving the left maxillary central incisor, the left maxillary later al incisor, left maxillary premolar teeth, the right mandibular central incisor, the right mandibular lateral incisor, the right mandibular canine tooth, and the left mandibular canine tooth. SOFT TISSUES: There is severe soft tissue swelling anterior to the maxilla and inferior to the nasal soft tissues i nvolving the upper lip. Within the enlarged upper left there are multiple loculated fluid collection suspicious for small subcentimeter abscesses. PARANASAL SINUSES: Clear. MASTOID AIR CELLS: Clear. IMPRESSION: 1. Severe dental caries. 2. Numerous subcentimeter loculated fluid collections within the edematous upper lip suspicious for s mall abscess formations. Electronically signed by: Srinivasan Alan MD 02/23/2019 12:03 AM CDT Due to temporary technical issues with the PACS/Fluency reporting system, reports are being signed by the in house radiologist as a courtesy to ensure prompt reporting. The interpreting radiologist is f ully responsible for the content of the report.
--- NOTE | 2019-02-23 11:22 | RAD REPORT ---
EXAM DESCRIPTION: CT - Soft Tissue Neck W/Contr - 02/23/2019 6:55 am CLINICAL HISTORY: 63 years Female SWELLING COMPARISON: None TECHNIQUE: Images were obtained in axial, sagittal, and coronal planes. Intravenous contrast was adm inistered. This exam was performed according to our departmental dose-optimization program which includes use of Automated Exposure Control, adjustment of the mA and/or kV according to patient size and/or use of i terative reconstruction technique FINDINGS: Complex fluid collection is seen adjacent to the left maxilla extending inferiorly to the level of the left mandible. The finding measures 2.3 cm in greatest transverse dimension, 1.7 cm in g reatest anterior posterior dimension, and 3.5 cm in superior-inferior dimension. Mild peripheral enha ncement seen. Dental carries upper and lower teeth bilaterally. Periapical lucency left lower to susp icious for dental abscess. Multiple dental. Lower incisors and canine teeth. No fractures noted. Unremarkable paranasal sinuses. Symmetric aeration mastoid air cells bilaterally. No abnormality parotid glands bilaterally. Mildly e nlarged left submandibular gland as compared to the right. No abnormality parapharyngeal soft tissues . Mildly enlarged retromandibular lymph nodes left greater than right. Enlarged submental lymph nodes b ilaterally right greater than left. Mild calcified plaque carotid bifurcations bilaterally as well as right external carotid artery. No f illing defects jugular veins bilaterally. No laryngeal abnormality. Patent airway. Symmetric enhancement of thyroid gland. No abnormality visualized lung apices bilaterally. Straightening cervical spine. Marked degenerative change C4-5 and C5-6 levels. Diffuse bulging C3-4 o steophyte disc complex. IMPRESSION: Complex fluid collection likely phlegmon adjacent to left maxilla extending inferiorly t o left mandible. 2.3 cm component with mild peripheral enhancement. Developing abscess suspected. Den chilo caries involving multiple adjacent teeth with suspected dental abscess inferiorly on the left. Mi ld cervical adenopathy. Electronically signed by: Piper Jenkins MD 02/23/2019 12:15 AM CDT Due to temporary technical issues with the PACS/Fluency reporting system, reports are being signed by the in house radiologist as a courtesy to ensure prompt reporting. The interpreting radiologist is f ully responsible for the content of the report.
== END 2019-02-23 03:28 | disposition short-term general hospital (02) ==
LOC: ER 20:07
DX: K12.2 Cellulitis and abscess of mouth (principal); E11.65 Type 2 diabetes mellitus with hyperglycemia; M27.2 Inflammatory conditions of jaws; K13.0 Diseases of lips; I10 Essential (primary) hypertension; F17.210 Nicotine dependence, cigarettes, uncomplicated; F32.9 Major depressive disorder, single episode, unspecified; Z79.4 Long term (current) use of insulin; Z79.82 Long term (current) use of aspirin; Z88.5 Allergy status to narcotic agent; Z88.8 Allergy status to other drugs, medicaments and biological substances
CPT/HCPCS: 36415; 70487; 70491; 71045; 76377; 80048; 80076; 81003; 81015; 82010; 82962; 83605; 83690; 84145; 84484; 85025; 85610; 85730; 87040; 87086; 87088; 93005; 96361; 96374; 96375; 99285; J2405; J3010; J7030; Q9967

== ENCOUNTER 2020-02-06 14:08 | Inpatient (IN) | payer MEDICAID ==
--- OUTSIDE RECORDS SUMMARY | 2020-02-06 14:13 | XMS REPORT ---
:1955 Author Organization [facility] t Address [address] [place] [address] Care Team Providers Name Role Phone Unavailable Unavailable Unavailable Problems This patient has no known problems. Allergies, Adverse Reactions, Alerts This patient has no known allergies or adverse reactions. Medications This patient has no known medications. Encounters Start End Encounter Admission Attending Care Care Encounter Date/Time Date/Time Type Type Clinicians Facility Department ID 2019-03-14 2019-03-14 Outpatient [facility] [id number] 09:17:00 09:17:00
--- NOTE | 2020-02-06 16:09 | ER ---
Nurse's Notes [facility] Name: Sara Stoner Age: 64 yrs Sex: Female : 1955 Arrival Date: 02/06/2020 Time: 14:11 Bed 26 Private MD: Diagnosis: Cutaneous abscess of right hand;Edema, unspecified;Venous insufficiency (chronic) (peripheral);Cellulitis and acute lymphangitis of other parts of limb;Type 1 diabetes mellitus Presentation: 02/05 14:19 Chief complaint: Right hand wound x 4 days. Hx of MRSA. Denies injury/fever. hb Coronavirus screen: Proceed with normal triage. Ebola Screen: No symptoms or risks identified at this time. Initial Sepsis Screen: Does the patient meet any 2 criteria? No. Patient's initial sepsis screen is negative. Does the patient have a suspected source of infection? No. Patient's initial sepsis screen is negative. Risk Assessment: Do you want to hurt yourself or someone else? Patient reports no desire to harm self or others. Onset of symptoms was February 01, 2020. 14:19 Acuity: NABEEL 3 hb 14:19 Method Of Arrival: Wheelchair hb Triage Assessment: 14:21 Derm: Wound noted Other: top o fright hand, wound extends to right index and right hb middle fingers. Wound dressed with saline soaked gauze and kerlix. Pt tolerated well. Historical: - Allergies: 14:20 Dilaudid; hb 14:20 Morphine; hb - PMHx: 14:20 Depression; Diabetes - IDDM; Hypertension; hb - Immunization history:: Adult Immunizations up to date. - Social history:: Smoking status: Patient reports the use of cigarette tobacco products, smokes one pack cigarettes per day. - Family history:: not pertinent. Screenin:45 Abuse screen: Denies threats or abuse. Denies injuries from another. Nutritional sv screening: No deficits noted. Tuberculosis screening: No symptoms or risk factors identified. Fall Risk None identified. Assessment: 15:00 General: Appears in no apparent distress. uncomfortable, Behavior is calm, cooperative, sv appropriate for age. Pain: Complains of pain in right hand Pain currently is 9 out of 10 on a pain scale. Pain began 2-3 days ago. Is continuous, Aggravated by increased activity. Neuro: Level of Consciousness is awake, alert, obeys commands, Oriented to person, place, time, situation, Moves all extremities. Gait is steady, with her walker. Cardiovascular: Patient's skin is warm and dry. Pulses are palpable in right radial artery and left radial artery Rhythm is sinus rhythm. Respiratory: Airway is patent Respiratory effort is even, unlabored, Respiratory pattern is regular, symmetrical. Derm: Skin is intact, Skin is pink, warm \T\ dry. Wound noted right middle finger, dorsum of right hand and Right index finger Wound is open wound, unable to assess wound bed. 16:25 Reassessment: Patient appears in no apparent distress at this time. No changes from sv previously documented assessment. Patient and/or family updated on plan of care and expected duration. Pain level reassessed. Patient is alert, oriented x 3, equal unlabored respirations, skin warm/dry/pink. 16:58 Reassessment: US at the bedside. sv 17:45 Reassessment: Attempted to call report, nurse to call back. sv 18:14 Reassessment: Patient appears in no apparent distress at this time. No changes from sv previously documented assessment. Patient and/or family updated on plan of care and expected duration. Pain level reassessed. Patient is alert, oriented x 3, equal unlabored respirations, skin warm/dry/pink. 18:20 Reassessment: Called Jolly CLIFTON back after initial report given and informed her that I sv have pt IV and SQ insulin regular and for her to recheck the BS. Vital Signs: 14:19 BP 130 / 71; Pulse 57; Resp 16; Temp 97.9; Pulse Ox 100% on R/A; Weight 67.59 kg; hb Height 5 ft. 7 in. (170.18 cm); Pain 9/10; 16:36 BP 146 / 83; Pulse 96; Resp 17; Pulse Ox 96% on R/A; sv 17:54 BP 139 / 79; Pulse 90; Resp 16; Pulse Ox 96% ; sv 14:19 Body Mass Index 23.34 (67.59 kg, 170.18 cm) hb ED Course: 14:11 Patient arrived in ED. as 14:20 Triage completed. hb 14:20 Arm band placed on. hb 14:45 Kaden Haywood MD is Attending Physician. nat 14:45 Patient has correct armband on for positive identification. Placed in gown. Bed in low sv position. Call light in reach. Side rails up X2. surveillance system monitor on. Pulse ox on. NIBP on. Door closed. Head of bed elevated. 14:48 June Kuo, ETIENNE is Primary Nurse. sv 15:46 ED physician to see patient. sv 16:07 Crystal Gifford MD is Hospitalizing Provider. nat 16:25 XRAY Chest (1 view) In Process Unspecified. EDMS 16:25 Hand Right 3 View XRAY In Process Unspecified. EDMS 16:28 First set of blood cultures drawn by me. Inserted saline lock: 20 gauge in left sv forearm, using aseptic technique. Blood collected. Flushed left forearm with 5 ml normal saline. 16:28 Wound culture swab sent to lab. sv 16:45 Second set of blood cultures drawn by me. sv 17:28 US Extremity Venous W Compression Alvarado In Process Unspecified. EDMS 17:42 No provider procedures requiring assistance completed. Patient admitted, IV remains in sv place. intact. Administered Medications: 17:00 Drug: Zosyn 3.375 grams Route: IVPB; Infused Over: 60 mins; Site: left forearm; sv 18:14 Follow up: Response: No adverse reaction; IV Status: Completed infusion; IV Intake: sv 100ml 18:14 Drug: vancoMYCIN 1 grams Route: IVPB; Infused Over: 2 hrs; Site: left forearm; sv 18:24 Follow up: Response: No adverse reaction; IV Status: Infusion continued upon admission sv 18:18 Drug: Insulin Regular Human 10 units {Co-Signature: dustin (Lindy Vee RN).} Route: IVP; sv Site: left forearm; 18:24 Follow up: Response: No adverse reaction sv 18:18 Drug: Insulin Regular Human 10 units {Co-Signature: dustin (Lindy Vee RN).} Route: sv Sub-Q; Site: left lower abdomen; 18:24 Follow up: Response: No adverse reaction sv Intake: 18:14 IV: 100ml; Total: 100ml. sv Outcome: 16:08 Decision to Hospitalize by Provider. nat 17:58 Admitted to Med/surg accompanied by kenyetta, via stretcher, room 215, with chart, Report sv called to Jolly CLIFTON 17:58 Condition: stable 17:58 Instructed on the need for admit. 18:23 Patient left the ED. sv Signatures: Dispatcher [employer] June Calderón RN RN sv Anderson, Corey, MD MD cha Martinez, Amelia as Baxter, Heather, ETIENNE CLIFTON Lindy Vee RN
--- NOTE | 2020-02-06 16:09 | EDPHYS ---
Physician Documentation [facility] Name: Sara Stoner Age: 64 yrs Sex: Female : 1955 Arrival Date: 02/06/2020 Time: 14:11 Bed 26 Private MD: JOSI Physician Kaden Haywood HPI: 02/05 16:01 This 64 yrs old Female presents to ER via Wheelchair with complaints of Wound nat Check. 16:01 This 64 yrs old Female presents to ER via Wheelchair with complaints of Wound nat Check. 16:01 Patient presents to ED for recheck of: abscess, cellulitis. The affected area is on the nat right hand. Previous treatment: unk. Progress: The patient reports worse. The patient has not experienced similar symptoms in the past. 16:03 The patient or guardian reports decreased range of motion, injury, pain, swelling, nat tenderness. The complaints affect the left hand diffusely. Context: The problem was sustained at an unknown location. The patient presents with pain, swelling, tenderness. The complaints affect the right leg and left leg. Historical: - Allergies: 14:20 Dilaudid; hb 14:20 Morphine; hb - PMHx: 14:20 Depression; Diabetes - IDDM; Hypertension; hb - Immunization history:: Adult Immunizations up to date. - Social history:: Smoking status: Patient reports the use of cigarette tobacco products, smokes one pack cigarettes per day. - Family history:: not pertinent. ROS: 16:03 Constitutional: Negative for fever, chills, and weight loss, Eyes: Negative for injury, nat pain, redness, and discharge, ENT: Negative for injury, pain, and discharge, Neck: Negative for injury, pain, and swelling, Cardiovascular: Negative for chest pain, palpitations, and edema, Respiratory: Negative for shortness of breath, cough, wheezing, and pleuritic chest pain, Abdomen/GI: Negative for abdominal pain, nausea, vomiting, diarrhea, and constipation, Back: Negative for injury and pain, : Negative for injury, bleeding, discharge, and swelling, Skin: Negative for injury, rash, and discoloration, Neuro: Negative for headache, weakness, numbness, tingling, and seizure, Psych: Negative for depression, anxiety, suicide ideation, homicidal ideation, and hallucinations, Allergy/Immunology: Negative for hives, rash, and allergies, Endocrine: Negative for neck swelling, polydipsia, polyuria, polyphagia, and marked weight changes, Hematologic/Lymphatic: Negative for swollen nodes, abnormal bleeding, and unusual bruising. 16:03 MS/extremity: Positive for decreased range of motion, pain, swelling, tenderness, warmth, of the palmar aspect of proximal phalanx of right ring finger and palmar aspect of proximal phalanx of right middle finger. Exam: 16:03 Constitutional: This is a well developed, well nourished patient who is awake, alert, nat and in no acute distress. Head/Face: Normocephalic, atraumatic. Eyes: Pupils equal round and reactive to light, extra-ocular motions intact. Lids and lashes normal. Conjunctiva and sclera are non-icteric and not injected. Cornea within normal limits. Periorbital areas with no swelling, redness, or edema. ENT: Nares patent. No nasal discharge, no septal abnormalities noted. Tympanic membranes are normal and external auditory canals are clear. Oropharynx with no redness, swelling, or masses, exudates, or evidence of obstruction, uvula midline. Mucous membranes moist. Neck: Trachea midline, no thyromegaly or masses palpated, and no cervical lymphadenopathy. Supple, full range of motion without nuchal rigidity, or vertebral point tenderness. No Meningismus. Chest/axilla: Normal chest wall appearance and motion. Nontender with no deformity. No lesions are appreciated. Cardiovascular: Regular rate and rhythm with a normal S1 and S2. No gallops, murmurs, or rubs. Normal PMI, no JVD. No pulse deficits. Respiratory: Lungs have equal breath sounds bilaterally, clear to auscultation and percussion. No rales, rhonchi or wheezes noted. No increased work of breathing, no retractions or nasal flaring. Abdomen/GI: Soft, non-tender, with normal bowel sounds. No distension or tympany. No guarding or rebound. No evidence of tenderness throughout. Back: No spinal tenderness. No costovertebral tenderness. Full range of motion. Neuro: Awake and alert, GCS 15, oriented to person, place, time, and situation. Cranial nerves II-XII grossly intact. Motor strength 5/5 in all extremities. Sensory grossly intact. Cerebellar exam normal. Normal gait. Psych: Awake, alert, with orientation to person, place and time. Behavior, mood, and affect are within normal limits. 16:03 Skin: cellulitis, that is mild, that is moderate, induration, that is moderate is noted, located on the dorsal aspect of proximal phalanx of right middle finger, dorsal aspect of proximal phalanx of right ring finger and palm of right hand. Vital Signs: 14:19 BP 130 / 71; Pulse 57; Resp 16; Temp 97.9; Pulse Ox 100% on R/A; Weight 67.59 kg; hb Height 5 ft. 7 in. (170.18 cm); Pain 9/10; 16:36 BP 146 / 83; Pulse 96; Resp 17; Pulse Ox 96% on R/A; sv 17:54 BP 139 / 79; Pulse 90; Resp 16; Pulse Ox 96% ; sv 14:19 Body Mass Index 23.34 (67.59 kg, 170.18 cm) hb MDM: 14:45 Patient medically screened. [facility] 16:05 Data reviewed: vital signs, nurses notes, lab test result(s), EKG, radiologic studies, nat doppler, plain films. 02/05 15:56 Order name: Basic Metabolic Panel; Complete Time: 18:05 [facility] 02/05 15:56 Order name: CBC with Diff; Complete Time: 18:05 [facility] 02/05 15:56 Order name: LFT's; Complete Time: 18:05 [facility] 02/05 15:56 Order name: Magnesium; Complete Time: 18:05 [facility] 02/05 15:56 Order name: NT PRO-BNP; Complete Time: 18:05 [facility] 02/05 15:56 Order name: PT-INR; Complete Time: 18:05 [facility] 02/05 15:56 Order name: Troponin (emerg Dept Use Only); Complete Time: 18:05 [facility] 02/05 15:56 Order name: Blood Culture Adult (2) [facility] 02/05 15:56 Order name: Lactate; Complete Time: 18:05 [facility] 02/05 15:56 Order name: Urine Culture [facility] 02/05 15:56 Order name: Wound Culture [facility] 02/05 17:25 Order name: UR SODIUM EDMS 02/05 17:25 Order name: CBC with Automated Diff EDMS 02/05 17:25 Order name: CBC with Automated Diff EDMS 02/05 15:56 Order name: XRAY Chest (1 view); Complete Time: 16:54 [facility] 02/05 15:56 Order name: US Extremity Venous W Compression Alvarado; Complete Time: 18:05 [facility] 02/05 15:56 Order name: Hand Right 3 View XRAY; Complete Time: 16:54 [facility] 02/05 17:25 Order name: CKMB Creatine Kinase MB EDMS 02/05 17:25 Order name: CKMB Creatine Kinase MB EDMS 02/05 17:25 Order name: CKMB Creatine Kinase MB EDMS 02/05 17:25 Order name: CKMB Creatine Kinase MB EDMS 02/05 17:25 Order name: Comprehensive Metabolic Panel EDMS 02/05 17:25 Order name: Comprehensive Metabolic Panel EDMS 02/05 17:25 Order name: Magnesium EDMS 02/05 17:25 Order name: Magnesium EDMS 02/05 17:25 Order name: Magnesium EDMS 02/05 17:25 Order name: Magnesium EDMS 02/05 17:25 Order name: Vancomycin Level Trough EDMS 02/05 17:25 Order name: Vancomycin Level Trough EDMS 02/05 17:30 Order name: Echo with Doppler EDTX 02/05 15:56 Order name: EKG; Complete Time: 15:57 [facility] 02/05 15:56 Order name: Cardiac monitoring; Complete Time: 16:58 [facility] 02/05 15:56 Order name: EKG - Nurse/Tech; Complete Time: 16:58 [facility] 02/05 15:56 Order name: IV Saline Lock; Complete Time: 16:58 [facility] 02/05 15:56 Order name: Labs collected and sent; Complete Time: 16:58 [facility] 02/05 15:56 Order name: O2 Per Protocol; Complete Time: 16:58 [facility] 02/05 15:56 Order name: O2 Sat Monitoring; Complete Time: 16:58 [facility] 02/05 15:56 Order name: Wound Care; Complete Time: 16:58 [facility] 02/05 15:56 Order name: Wound dressing; Complete Time: 16:57 [facility] 02/05 17:25 Order name: CONS Pharmacy Consult EDTX 02/05 17:25 Order name: CONS Physician Consult EDMS 02/05 17:25 Order name: CONS Physician Consult EDMS 02/05 17:25 Order name: Consistent Carb (ADA) 1800 Juan EDMS 02/05 17:31 Order name: CONS Physician Consult EDMS Administered Medications: 17:00 Drug: Zosyn 3.375 grams Route: IVPB; Infused Over: 60 mins; Site: left forearm; sv 18:14 Follow up: Response: No adverse reaction; IV Status: Completed infusion; IV Intake: sv 100ml 18:14 Drug: vancoMYCIN 1 grams Route: IVPB; Infused Over: 2 hrs; Site: left forearm; sv 18:24 Follow up: Response: No adverse reaction; IV Status: Infusion continued upon admission sv 18:18 Drug: Insulin Regular Human 10 units {Co-Signature: dustin (Lindy Vee RN).} Route: IVP; sv Site: left forearm; 18:24 Follow up: Response: No adverse reaction sv 18:18 Drug: Insulin Regular Human 10 units {Co-Signature: dustin (Lindy Vee RN).} Route: sv Sub-Q; Site: left lower abdomen; 18:24 Follow up: Response: No adverse reaction sv Disposition: 02/06/20 16:08 Hospitalization ordered by Crystal Gifford for Inpatient Admission. Preliminary diagnosis are Cutaneous abscess of right hand, Edema, unspecified, Venous insufficiency (chronic) (peripheral), Cellulitis and acute lymphangitis of other parts of limb, Type 1 diabetes mellitus. - Bed requested for Telemetry/MedSurg (Inpatient). - Status is Inpatient Admission. sv - Condition is Fair. - Problem is new. - Symptoms are unchanged. Signatures: Dispatcher [employer] EDMS Amber Hendrix Stephanie, RN RN sv Anderson, Corey, MD MD cha Baxter, Heather, RN RN Lindy Vee RN Corrections: (The following items were deleted from the chart) 17:37 16:08 Hospitalization Ordered by Crystal Gifford MD for Inpatient Admission. Preliminary bd diagnosis is Cutaneous abscess of right hand; Edema, unspecified; Venous insufficiency (chronic) (peripheral); Cellulitis and acute lymphangitis of other parts of limb; Type 1 diabetes mellitus. Bed requested for Telemetry/MedSurg (Inpatient). Status is Inpatient Admission. Condition is Fair. Problem is new. Symptoms are unchanged. nat 18:23 17:37 02/06/2020 16:08 Hospitalization Ordered by Crystal Gifford MD for Inpatient sv Admission. Preliminary diagnosis is Cutaneous abscess of right hand; Edema, unspecified; Venous insufficiency (chronic) (peripheral); Cellulitis and acute lymphangitis of other parts of limb; Type 1 diabetes mellitus. Bed requested for Telemetry/MedSurg (Inpatient). Status is Inpatient Admission. Condition is Fair. Problem is new. Symptoms are unchanged. bd
--- NOTE | 2020-02-06 16:34 | RAD REPORT ---
EXAM DESCRIPTION: RAD - Hand Right 3 View - 02/06/2020 4:24 pm CLINICAL HISTORY: Right hand pain FINDINGS: No fracture or dislocation is seen. Bones are osteoporotic. Soft tissue swelling involves the second and third digits. No bony destructiv e lesion noted
--- NOTE | 2020-02-06 16:35 | RAD REPORT ---
EXAM DESCRIPTION: Manju Single View02/06/2020 4:24 pm CLINICAL HISTORY: cough COMPARISON: 2019 FINDINGS: The lungs appear clear of acute infiltrate. The heart is mildly enlarged. Postsurgical changes involve the chest. IMPRESSION: No acute abnormalities displayed
[2020-02-06 16:40] LABS: Basophils % 0.5 % (0-1.3); Hematocrit 48.2 % (36.0-45.0); MPV 9.5 fL (7.6-11.3); RBC Red Blood Cell Count 5.16 M/uL (3.86-4.86)
[2020-02-06 16:50] LABS: Protime INR 0.99
[2020-02-06] MEDS ORDERED: VANCOMYCIN/NS 1 gm 1 GM/250 ML BAG IVPB SCH (17:00)
[2020-02-06] MEDS ORDERED: PIPER/TAZO/NS 3.375gm 3.375 GM/100 ML BAG IV SCH (17:00)
[2020-02-06 17:16] LABS: Albumin 3.6 g/dL (3.4-5.0); Bilirubin Direct 0.1 mg/dL (0-0.2); Bilirubin Total 0.5 mg/dL (0.2-1.0); Magnesium 1.9 mg/dL (1.8-2.4); Potassium 3.9 mmol/L (3.5-5.1); Protein, Total 8.3 g/dL (6.4-8.2); Troponin (Emerg Dept Use Only) 0.02 ng/mL (0.0-0.045)
[2020-02-06] MEDS ORDERED: ACETAMINOPHEN 500 MG TAB PO PRN (17:17)
[2020-02-06] MEDS ORDERED: ALBUTEROL 2.5 MG/3 ML NEB SOL NEB PRN (17:17)
[2020-02-06] MEDS ORDERED: ONDANSETRON 4 MG/2 ML VIAL IV PRN ×2 (17:17→17:20)
[2020-02-06] MEDS ORDERED: MORPHINE 2 MG/ML SYR IV PRN (17:17)
[2020-02-06] MEDS ORDERED: GUAIFENESIN/DM 5 ML UCUP PO PRN (17:20)
[2020-02-06] MEDS ORDERED: POTASSIUM 25 MEQ EFFERV TAB PO ONE (18:00)
[2020-02-06] MEDS ORDERED: FUROSEMIDE 40 MG/4 ML VIAL IV ONE (18:00)
--- NOTE | 2020-02-06 18:03 | RAD REPORT ---
EXAM DESCRIPTION: USExtrem Venous W Compress Bil02/06/2020 5:28 pm CLINICAL HISTORY: Bilateral leg swelling COMPARISON: 2016 FINDINGS: The common femoral, superficial femoral, popliteal and posterior tibial veins bilaterally are compressible and demonstrate augmentation. Doppler demonstrates good flow. 2.9 centimeter left Evangelista's cyst IMPRESSION: No evidence of deep venous thrombosis involving either lower extremity. 2.9 centimeter left Evangelista's cyst
[2020-02-06] MEDS ORDERED: INSULIN -REGULAR HUMAN 50 UNIT/0.5 ML ML ONE (18:14)
[2020-02-06] MEDS: ENOXAPARIN 40 MG/0.4 ML SQ SCH (18:41)
[2020-02-06] MEDS: IPRATROPIUM BROM 0.5MG/2.5ML NEB SCH (20:30)
--- NOTE | 2020-02-06 21:36 | HP ---
Date of Admission: 02/06/2020 Presenting Complaint: Right hand abscess with pain. History Of Present Illness: Ms. Sara Stoner is a 64-year-old female with history of hy pertension, diabetes mellitus, unclear how long she has had diabetes, history of chronic tobacco use, chronic lower extremity lymphedema with chronic right heel ulcer, follows at the wound clinic, [facility] because of new onset pain, redness, and swelling over the right fourth digit finger after she friend stained a fall 1 week ago. She said the area continued to get swollen and she presented. She denies any fever or chills. She admits to some mild cough, but no sputum. She denies any cough contact. During the interview, patient was somehow drowsy and difficult to get answers from. She is unable to tell if her glucose level has been well controlled. She follows with Dr. Miranda at the wound clin ic, but in the emergency room Dr. Pittman was called and discussed with and he is willing to see sonia jung for possible surgery of the hand abscess in the morning. Past Medical History: Hypertension, depression, diabetes mellitus, history of CAD. As per patient, she has had stent before, but unable to give more details. Surgical History: History of chronic left foot wound requiring wound VAC. The patient denies any ot her surgical history. Allergies: HYDROMORPHONE AND MORPHINE. Home Medications: See medication list. Family History: Patient denies any history of CVA. Review of Systems: The patient denies any other systems reviewed x14. Physical Examination: Current Vital Signs: Blood pressure of 130/71, pulse 57, respiratory rate of 16, temperature 97.9, O 2 saturation of 100% on room air. General: Middle-aged female appear older than stated age. Head: Atraumatic, normocephalic. Pupils equal, reactive to light. Neck: No JVD. No carotid bruit. Respiratory: Good air entry. No crepitation. Cardiovascular: S1, S2. Rate and rhythm regular. GI: Abdomen full, soft, nontender. Bowel sounds positive. Extremities: 1 to 2+ pedal edema with varicose veins. Dressing over the left heel area. Also notab le dressing with desquamation, ulcer on the medial border of the right hand fourth digit. Marked ten derness of the digit extending to the palmar surface of the hand with surrounding erythema of the are a. Neuro: Patient is intermittently drowsy, but conversant. No neurological focal motor deficit. Laboratory Data: Sodium 131, potassium 3.9, creatinine 1.01. Calcium 9.5, magnesium 1.9, glucose of 516. ProBNP of 1337. Chest x-ray shows mild pulmonary congestive changes. EKG showed normal sinus rhythm, no ST-segment changes. Impression, hand x-ray shows osteoporotic bone, soft tissue swelling involving the second and fourth digits. No destructive lesions noted. Impression: 1.Right hand third digit abscess. 2.Hyperglycemia. 3.Diabetes mellitus, uncontrolled. 4.Hypertension. 5.History of coronary artery disease. 6.History of presumed diastolic congestive heart failure with mild congestive heart failure exacerba tion. 7.Chronic tobacco use. Plan: We will admit patient to inpatient status. Hand surgeon, Dr. Pittman has been consulted. W e will start patient on empirical vancomycin. Given mild CHF exacerbation, we will also start patien t on Lasix. We will obtain echocardiogram in a.m. if feasible. We resumed patient's blood pressure medication. We will start patient on insulin sliding scale. Likely recurrent ulcers and poor wound healing, likely due to medication nonadherence. We will also hold patient's reported home use of ant idepressant with Celexa as well as Ativan use as patient appears very drowsy now. I have cleared the patient for surgery in a.m. if improving mental status as well as volume status. The patient might need wound care for chronic left foot wound. We will do DVT prophylaxis with subcutaneous Lovenox fo r now. We will monitor intake and output as well as daily weight. We will consult Nephrology to hel p manage with hyponatremia. Total time spent in review of record, evaluation of patient greater than 65 minutes. EO/MODL Voice ID: [id number]
[2020-02-06] MEDS: INSULIN -REGULAR HUMAN 50 UNIT/0.5 ML ML SQ SCH (23:25)
[2020-02-06] MEDS: FAMOTIDINE 20 MG TAB PO SCH (23:25)
[2020-02-07] MEDS: IPRATROPIUM BROM 0.5MG/2.5ML NEB SCH ×4 (02:00→20:37)
[2020-02-07 04:09] LABS: Absolute Lymphocytes (CBC) 2.6 K/uL (0.7-4.9); Basophils % 0.6 % (0-1.3); Hematocrit 43.1 % (36.0-45.0); Lymphocytes % 19.7 % (15.3-44.8); MPV 9.1 fL (7.6-11.3); RBC Red Blood Cell Count 4.66 M/uL (3.86-4.86)
[2020-02-07 04:26] LABS: ALT/SGPT 27 U/L (12-78); AST/SGOT 11 U/L (15-37); Albumin 2.7 g/dL (3.4-5.0); Alkaline Phosphatase 146 U/L (45-117); BUN Blood Urea Nitrogen 16 mg/dL (7-18); Bicarbonate 30 mmol/L (21-32); Bilirubin Total 0.5 mg/dL (0.2-1.0); CKMB Creatine Kinase MB 2.8 ng/mL (0.3-3.6); Glucose Level 178 mg/dL (74-106); Magnesium 1.7 mg/dL (1.8-2.4); Potassium 3.8 mmol/L (3.5-5.1); Protein, Total 6.8 g/dL (6.4-8.2); Sodium Level 137 mmol/L (136-145)
[2020-02-07] MEDS: VANCOMYCIN 1.25 GM in NA CHLORIDE 0.9% 250 ML IVPB SCH ×2 (05:06→17:00)
[2020-02-07] MEDS: Oxycodone HCl/Acetaminophen 1 TAB TAB PO PRN ×2 (08:59→22:47)
[2020-02-07] MEDS ORDERED: INSULIN DETEMIR 40 UNIT SQ SCH (09:00)
[2020-02-07] MEDS ORDERED: INFLUENZA VACCINE (for 3y+) 0.5 ML DOSE IMVAC ONE (09:00)
[2020-02-07] MEDS ORDERED: PNEUMOCOCCAL VACCINE 0.5 ML IMVAC ONE (09:00)
[2020-02-07] MEDS ORDERED: AMLODIPINE 10 MG TAB PO SCH (09:00)
[2020-02-07] MEDS: INSULIN GLARGINE 100 UNITS/ML SQ SCH (09:02)
[2020-02-07] MEDS: ENOXAPARIN 40 MG/0.4 ML SQ SCH (09:02)
[2020-02-07] MEDS: METFORMIN HCL 500 MG TAB PO SCH (09:03)
[2020-02-07] MEDS: INSULIN -REGULAR HUMAN 50 UNIT/0.5 ML ML SQ SCH ×4 (09:03→20:38)
[2020-02-07] MEDS: ASPIRIN EC 81 MG TAB PO SCH (09:03)
[2020-02-07] MEDS: ATORVASTATIN 20 MG TAB PO SCH (09:03)
[2020-02-07] MEDS: FAMOTIDINE 20 MG TAB PO SCH ×2 (09:03→21:00)
[2020-02-07] MEDS: NICOTINE 21 MG/PAT TD SCH (09:04)
[2020-02-07] MEDS: FUROSEMIDE 40 MG TABLET PO SCH ×2 (09:04→17:00)
[2020-02-07] MEDS ORDERED: Magnesium Sulfate 2gm IVPB 2 G/50 ML BAG IV ONE (11:38)
--- NOTE | 2020-02-07 11:44 | P.PN ---
Subjective Date of Service: 02/07/20 Patient is complaining of pain all over. Her blood sugars up to 350. Physical Examination - Vital Signs Temperature: 98.8 F Blood Pressure: 169/89 Pulse: 99 Respirations: 18 Pulse Ox (%): 99 - Physical Exam General: Alert, In no apparent distress HEENT: Mucous membr. moist/pink Neck: Supple Respiratory: Clear to auscultation bilaterally, Normal air movement Cardiovascular: No edema, Regular rate/rhythm, Normal S1 S2 Gastrointestinal: Normal bowel sounds, Soft and benign, Non-distended, No tenderness Musculoskeletal: Other (Swollen 2nd and 3rd digits of the right hand) Integumentary: Diabetic ulcer (Dorsum of left foot.) Neurological: Normal strength at 5/5 x4 extr, Other - Studies Laboratory Data (last 24 hrs) 02/06/20 16:28: PT 11.7, INR 0.99 02/06/20 16:28: WBC 15.5 H, Hgb 15.9 H, Hct 48.2 H, Plt Count 361 02/06/20 16:28: Sodium 130 L, Potassium 3.9, BUN 12, Creatinine 1.01, Glucose 516 H*, Magnesium 1.9, Total Bilirubin 0.5, AST 11 L, ALT 34, Alkaline Phosphatase 235 H Assessment And Plan - Current Problems (Diagnosis) (1) Ulcer of left foot due to type 2 diabetes mellitus Current Visit: Yes Status: Acute (2) Pulp abscess of finger of right hand Current Visit: Yes Status: Acute (3) Diabetes mellitus with hyperglycemia Onset Date: 02/17/16 Current Visit: No Status: Acute - Plan Patient to be seen and evaluated by Dr. Pittman. She may need I and D and debridement. Continue IV vancomycin. Will add IV Rocephin for double coverage given diabetes. Deep tissue wound culture needed. Continue wound care. Pain management as needed. Venous Doppler of lower extremity: Negative for DVT. Aggressive blood sugar control. Titrate Lantus insulin, keep blood sugar below 200. Continue metformin. Insulin sliding scale.
[2020-02-07] MEDS ORDERED: FENTANYL CITR 100 MCG/2 ML IV PRN (11:45)
[2020-02-07] MEDS: CEFTRIAXONE/SWI 1gm 1 GM/10 ML SYR IV SCH (14:30)
--- NOTE | 2020-02-07 14:54 | CON ---
Date of Consultation: 02/07/2020 Reason For Consultation: Anasarca, proteinuria. History Of Present Illness: This is a pleasant 64-year-old female with significant past medical hist ory of diabetes since 1999, complicated with neuropathy, no retinopathy, hypertension, hyperlipidemia , lymphedema. Patient came to the hospital with swelling and pain on the right middle finger. Eric garcia also has chronic leg swelling with multiple ulcers, been treated under wound care by Dr. Bertrand. P donita denied any fever or any chills. No recent change in her medication. Upon arrival to the hosp ital, patient found to have +2 edema and has high blood pressure. For that reason, we have been cons ulted. Patient denied taking any nonsteroidal. No IV contrast. Past Medical History: 1.Hypertension. 2.Diabetes, complicated with neuropathy. 3.COPD. Past Surgical History: Left foot wound, required wound VAC before. Allergies: HYDROMORPHONE AND MORPHINE. Home Medications: Insulin, Celexa, atorvastatin, and metformin. Current medications in the hospital include amlodipine, aspirin, Lovenox, Pepcid, Lasix, insulin, metformin, hydrocodone, vancomycin. Family History: Positive for CVA and hypertension. Review of Systems: Head and Neck: No red eye. No ear pain. GI: No nausea. No vomiting. : No polyuria. No dysuria. No hematuria. 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 Respiratory: No shortness of breath. Cardiovascular: Leg swelling. Endocrine: No polydipsia. Skin: No rash. Neuro: Neuropathy. Musculoskeletal: Pain in the hand and in the leg. Physical Examination: Vital Signs: Blood pressure 169/89, pulse of 99, afebrile. Chest: Clear to auscultation. Heart: S1, S2. Regular. Abdomen: Soft, nontender. EXTREMITIES: +1 edema, bilateral with wrinkling, chronic venous stasis changes. Dressing on the lef t foot and dressing on the right hand. Laboratory Data: WBC 15.2, H and H 14.5/33.1, platelets 307. Sodium 137, potassium 3.8, bicarb 30, BUN 16, creatinine 0.7, calcium 8.8, magnesium 1.7, albumin 2.7, corrected calcium 9.6. Vancomycin t rough less than 8. Assessment And Plan: 1.Hypertension, not controlled with peripheral edema. I am going to go ahead and discontinue amlodi pine. Start the patient on ANDRZEJ inhibitor given the history of diabetes. We will follow up the patie nt. 2.Peripheral edema, possible secondary to venous stasis/calcium channel asha. I am going to go a head and send for protein creatinine to quantify the proteinuria. Send for TSH and uric acid for bet ter evaluation for the fluid status of the patient and we will continue on diuresis. 3.Foot infection and hand trauma. Follow up with Surgery. Follow up with the primary. 4.Diabetes with proteinuria as above. We will quantify the proteinuria. Add ANDRZEJ inhibitor. 5.Hypomagnesemia. I am going to go ahead and supplement. Thank you Dr. Gifford for allowing us to participate in the care of your patient. ZACHERY Voice ID: [id number] Report ID: [id number]
[2020-02-07] MEDS ORDERED: NA CHLORIDE 0.9% 1,000 ML ONE (15:23)
--- NOTE | 2020-02-07 15:53 | EKG ---
Test Date: 2020-02-06 Test Time: 16:58:02 Benzene Washer: SUN MEASUREMENT RESULTS: Intervals: Rate: 92 IN: 196 QRSD: 90 QT: 390 QTc: 482 [place]: P: 81 IN: 196 QRS: -39 T: 252 INTERPRETIVE STATEMENTS: Sinus rhythm with premature atrial complexes Left axis deviation Left ventricular hypertrophy with repolarization abnormality Cannot rule out Septal infarct, age undetermined Abnormal ECG Compared to ECG 02/22/2019 22:06:06 Atrial premature complex(es) now present Sinus tachycardia no longer present Ventricular premature complex(es) no longer present Myocardial infarct finding still present Electronically Signed On 02-07-20 15:50:24 CDT by Chris Barbosa
[2020-02-07] MEDS ORDERED: FENTANYL CITR 100 MCG/2 ML ONE (16:54)
[2020-02-07] MEDS ORDERED: propofoL 200 MG/20 ML VIAL IV ONE (16:54)
[2020-02-07] MEDS ORDERED: MIDAZOLAM HCL 2 MG/2 ML INJ ONE (16:54)
[2020-02-07] MEDS ORDERED: LIDOCAINE 1% MPF 5 ML VIAL ONE (16:54)
[2020-02-07] MEDS ORDERED: ONDANSETRON 4 MG/2 ML VIAL ONE (16:54)
[2020-02-07] MEDS ORDERED: METOCLOPRAMIDE 10 MG/2mL INJ ONE (17:17)
[2020-02-07] MEDS: FENTANYL CITR 100 MCG/2 ML ONE ×4 (18:25→18:50)
--- NOTE | 2020-02-07 22:24 | OP ---
Surgeon: Leonidas Pittman MD Preoperative Diagnosis: Infected right hand. Postoperative Diagnosis: Infected right hand. Procedure: Debridement of skin and subcutaneous tissue of the middle and index finger. Anesthesia: General. Procedure In Detail: After satisfactory induction of general anesthesia, the hand was prepped with B etadine scrub, Betadine paint, dry sterile drapes applied in the usual manner. The arm was elevated. Tourniquet was inflated to 250 mmHg, hand was placed on [place] table. Incision was then made over dorsum of the middle finger extending on the radial side and going proximally and distally, then ext ension right angle to the index finger near the web and then through and through incision was made to the volar surface of the web between index and middle. The wounds were cultured and curetted, debri ded twice with scalpel. Jet lavage irrigated with 3 L of dilute Betadine solution. Tourniquet relea sed. Electrocautery was used for hemostasis. Nishant drain was placed through the button hole drain age pattern, it was tied to itself, a small quarter-inch Poyntelle was used and then quarter-inch Nu Ga uze was packed to the wound followed by 2 inch Franco, 4 x 4s, Kerlix. Patient tolerated the procedur e well and returned to Recovery. KELLEY/TANG Voice ID: [id number] Report ID: [id number]
[2020-02-07 22:51] LABS: Urine Appearance TURBID; Urine Bilirubin NEGATIVE (NEG); Urine Blood TRACE (NEG); Urine Color YELLOW; Urine Glucose 2+ (NEG); Urine Protein TRACE (NEG); Urine Specific Gravity 1.015 (1.005-1.030); Urine pH 5.5 (5.0-7.0)
[2020-02-07 22:58] LABS: Urine Culture Reflex Order NOT NEEDED; Urine Protein/Creatinine Ratio 0.58 ratio (<0.15); Urine Yeast MANY (NONE SEEN)
[2020-02-07 22:59] LABS: Urine Bacteria <20 /HPF (<20); Urine RBC NONE SEEN /HPF (NONE SEEN)
[2020-02-08] MEDS: IPRATROPIUM BROM 0.5MG/2.5ML NEB SCH ×2 (02:16→08:00)
[2020-02-08 04:35] LABS: Absolute Lymphocytes (CBC) 1.4 K/uL (0.7-4.9); Basophils % 0.3 % (0-1.3); Hematocrit 43.5 % (36.0-45.0); MPV 9.2 fL (7.6-11.3); RBC Red Blood Cell Count 4.62 M/uL (3.86-4.86)
[2020-02-08 04:56] LABS: Albumin 2.4 g/dL (3.4-5.0); Phosphorus 3.7 mg/dL (2.5-4.9); Potassium 4.3 mmol/L (3.5-5.1); Thyroid Stimulating Hormone 1.73 uIU/mL (0.360-3.740); Uric Acid 3.3 mg/dL (2.6-6.0)
[2020-02-08] MEDS: VANCOMYCIN 1.25 GM in NA CHLORIDE 0.9% 250 ML IVPB SCH ×2 (05:00→17:00)
[2020-02-08] MEDS: Oxycodone HCl/Acetaminophen 1 TAB TAB PO PRN ×2 (05:00→10:52)
[2020-02-08] MEDS: INSULIN -REGULAR HUMAN 50 UNIT/0.5 ML ML SQ SCH ×4 (08:24→21:00)
[2020-02-08] MEDS: INSULIN GLARGINE 100 UNITS/ML SQ SCH (08:26)
[2020-02-08] MEDS: ENOXAPARIN 40 MG/0.4 ML SQ SCH (08:26)
[2020-02-08] MEDS: FAMOTIDINE 20 MG TAB PO SCH ×2 (08:27→21:16)
[2020-02-08] MEDS: lisinopriL 20 MG TAB PO SCH (08:27)
[2020-02-08] MEDS: ATORVASTATIN 20 MG TAB PO SCH (08:27)
[2020-02-08] MEDS: ASPIRIN EC 81 MG TAB PO SCH (08:28)
[2020-02-08] MEDS: NICOTINE 21 MG/PAT TD SCH (08:28)
[2020-02-08] MEDS: FUROSEMIDE 40 MG TABLET PO SCH ×2 (08:28→17:13)
[2020-02-08] MEDS: CEFTRIAXONE/SWI 1gm 1 GM/10 ML SYR IV SCH (08:29)
[2020-02-08] MEDS: METFORMIN HCL 500 MG TAB PO SCH (08:29)
--- NOTE | 2020-02-08 08:38 | ECHO ---
HEIGHT: 5 ft 7 in WEIGHT: 148 lb 4.8 oz DATE OF STUDY: 02/07/[address]: Crystal Gifford MD 2-DIMENSIONAL: YES M.MODE: YES DOPPLER: YES COLOR FLOW: YES TDS: NO PORTABLE: NO DEFINITY: NO BUBBLE STUDY: NO DIAGNOSIS: CEREBRAL VASCULAR ACCIDENT CARDIAC HISTORY: CATHERIZATION: YES SURGERY: NO PROSTHETIC VALVE: NO PACEMAKER: NO MEASUREMENTS (cm) DIASTOLIC (NORMALS) SYSTOLIC (NORMALS) IVSd 1.4 (0.6-1.2) LA Diam 4.2 (1.9-4.0) LVEF 67% LVIDd 4.5 (3.5-5.7) LVIDs 23.8 (2.0-3.5) %FS 37% LVPWd 1.7 (0.6-1.2) Ao Diam 2.6 (2.0-3.7) 2 DIMENSIONAL ASSESSMENT: RIGHT ATRIUM: NORMAL LEFT ATRIUM: DILATED RIGHT VENTRICLE: NORMAL LEFT VENTRICLE: LEFT VENTRICULAR HYPERTROPHY TRICUSPID VALVE: NORMAL MITRAL VALVE: NORMAL PULMONIC VALVE: NORMAL AORTIC VALVE: NORMAL PERICARDIAL EFFUSION: NONE AORTIC ROOT: NORMAL LEFT VENTRICULAR WALL MOTION: NORMAL EJECTION FRACTION, DECREASED LEFT VENTRICULAR COMPLIANCE. DOPPLER/COLOR FLOW: NORMAL. COMMENTS: LEFT VENTRICULAR HYPERTROPHY - CONCENTRIC - MODERATE. NORMAL EJECTION FRACTION. DECREASED LEFT VENTRICULAR COMPLIANCE. LEFT ATRIAL ENLARGEMENT. NO THROMBUS. NO VEGETATION. TECHNOLOGIST: DON JEAN
--- NOTE | 2020-02-08 08:56 | CON ---
History Of Present Illness: Patient is a 64-year-old female I was consulted for left foot ulcer and right hand abscess. 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 As per patient, she had a recent fall, after which she h ad swelling in her hand. Past Medical History: As per HPI. Coronary artery disease, hypertension. Social History: Tobacco positive. Surgical History: Left foot wound, status post surgical debridement. Medications: Rocephin, vancomycin. See MARs for other medications. Allergies: MORPHINE AND HYDROMORPHONE. Review of Systems: 10-point review was performed. Physical Examination: General: This is a 64-year-old female, lying in bed, in discomfort from right hand infection. Vital Signs: Temperature 98, pulse 92, respirations 16, blood pressure 136/83. HEENT: Unremarkable. Neck: Supple. Lungs: Basal crackles. Heart: S1, S2 regular. Abdomen: Soft, nontender. Bowel sounds present. Extremities: Right hand swelling noted at the index and middle finger with redness, and pain was noah cited on touch. Left foot wound also noted. Laboratory Data: WBC 13.2, hemoglobin 14.5, platelets are 307. Chemistry shows sodium 137, potassiu m 3.8, chloride 100, bicarb 30, BUN 16, creatinine 0.77, glucose is 178, albumin is 2.7. Micro data shows blood cultures are pending. Wound abscess cultures are showing gram-positive staph, sensitivit y pending. Patient has a history of MRSA. Assessment And Plan: Right hand abscess in a patient with longstanding history of diabetes mellitus and tobacco use, status post fall. Staph is growing currently. Patient being treated with vancomyci n and Rocephin. Patient also has left foot wound, which is healing well. We will recommend to apply Medihoney to the wound site. Right hand wound needs surgical debridement. Keep hand elevated as mu ch as possible. We will follow patient closely. Thank you for consult. THOMAS/TANG Voice ID: [id number] Report ID: [id number]
[2020-02-08] MEDS: MEDIHONEY 44 ML TOPICAL TUBE TOP SCH (09:47)
--- NOTE | 2020-02-08 10:56 | PN ---
Date of Progress Note: 02/08/2020 Subjective: Patient was admitted with anasarca, traumatic hand injury, had chronic wound on the lowe r extremity with lymphedema. Physical Examination: Vital Signs: Blood pressure 136/70, pulse of 93, afebrile. Patient had good urine output. Chest: Clear to auscultation. Heart: S1, S2 regular. Abdomen: Soft, nontender. Extremities: Dressing with a cast on the right hand. Dressing on the left leg. Lymphedema bilatera lly. Neurologic: Alert, sleepy. Nonfocal. Laboratory Data: WBC 11.4, H and H 14.2/43.5, platelets 298. Sodium 135, potassium 4.3, bicarb 30, BUN 23, creatinine 0.7, uric acid 3.3, calcium 8.6, phosphorus 3.7, magnesium of 2, albumin 2.4. TSH 1.7. PC ratio 0.5. Current Medications: The patient on include: 1.Aspirin. 2.Ceftriaxone. 3.Vancomycin. 4.Lovenox. 5.Lisinopril 20 mg daily. 6.Lasix 40 b.i.d. 7.Breathing treatments. 8.Metformin. Assessment And Plan: 1.Anasarca secondary to venous stasis. Her uric acid is still low. We will continue on the diuresi s. We will monitor. 2.TSH and uric acid are low, mostly dilutional given the history of heavy smoking. Patient had appa rently on the echocardiogram normal ejection fraction and diastolic dysfunction. We will continue on the diuresis. 3.Foot infection. Follow up with Surgery and Primary. 4.Lymphedema/diastolic heart failure as above. Continue diuresis. 5.Methicillin-resistant Staphylococcus aureus on the wound. Continue vancomycin. Follow up with [facility]. 6.Hypertension, controlled. Optimal response to lisinopril. We will keep utilizing blood pressure for more diuresis. 7.Fall with hand trauma. Follow up with the Primary. LEELEE/TANG Voice ID: [id number] Report ID: [id number]
[2020-02-08] MEDS ORDERED: IPRATROPIUM BROM 0.5MG/2.5ML NEB PRN ×2 (13:48→15:00)
--- NOTE | 2020-02-08 15:22 | P.PN ---
Subjective Date of Service: 02/08/20 Status post incision and drainage and debridement of right hand abscess. An episode of hypoglycemia noted yesterday. Patient desires to go home with oral antibiotics. Physical Examination - Vital Signs Temperature: 97.8 F Blood Pressure: 134/73 Pulse: 92 Respirations: 18 Pulse Ox (%): 99 - Physical Exam General: Alert, In no apparent distress, Oriented x3 HEENT: Mucous membr. moist/pink Neck: Supple Respiratory: Clear to auscultation bilaterally, Normal air movement Cardiovascular: No edema, Regular rate/rhythm, Normal S1 S2 Gastrointestinal: Normal bowel sounds, Soft and benign, Non-distended, No tenderness Musculoskeletal: Other (Right hand abscess status post I and D and dressed.) Integumentary: Other (Left foot chronic healing ulcer on the dorsum of the foot.) - Studies Microbiology Data (last 24 hrs): 02/06/20 14:28 Wound - Abscess Gram Stain - Final Assessment And Plan - Current Problems (Diagnosis) (1) Ulcer of left foot due to type 2 diabetes mellitus Current Visit: Yes Status: Acute (2) Pulp abscess of finger of right hand Current Visit: Yes Status: Acute (3) Diabetes mellitus with hyperglycemia Onset Date: 02/17/16 Current Visit: No Status: Acute - Plan Status post I and D and debridement of right hand abscess. Wound is growing MRSA. Continue IV vancomycin. Discontinue Rocephin. Dr. Pittman is planning another debridement tomorrow and secondary wound closure next week. Continue wound care. Pain management as needed. Fluctuating blood sugar levels. Continue Lantus insulin. Patient will need aggressive premeal insulin to curb blood sugar fluctuations. Continue metformin.
--- NOTE | 2020-02-08 15:23 | P.PN ---
Date of Service: 02/08/20 Nursing staff called and informed me patient eloped and could not be found anywhere in the facility or around it.
[2020-02-08 18:10] VITALS: BMI 23.2
[2020-02-08 18:54] LABS: Barbiturates NEGATIVE (NEGATIVE); Benzodiazepines POSITIVE (NEGATIVE); Cocaine NEGATIVE (NEGATIVE); METHAMPHETAM POSITIVE (NEGATIVE); Methadone NEGATIVE (NEGATIVE); Opiates NEGATIVE (NEGATIVE); Phencyclidine NEGATIVE (NEGATIVE); THC Cannibis NEGATIVE (NEGATIVE)
[2020-02-09] MEDS: VANCOMYCIN 1.25 GM in NA CHLORIDE 0.9% 250 ML IVPB SCH ×2 (04:10→17:00)
[2020-02-09 06:16] LABS: Albumin 2.7 g/dL (3.4-5.0); BUN Blood Urea Nitrogen 16 mg/dL (7-18); Bicarbonate 29 mmol/L (21-32); CKMB Creatine Kinase MB 2.9 ng/mL (0.3-3.6); Glucose Level 119 mg/dL (74-106); Potassium 3.5 mmol/L (3.5-5.1); Sodium Level 139 mmol/L (136-145)
[2020-02-09] MEDS: Oxycodone HCl/Acetaminophen 1 TAB TAB PO PRN ×2 (06:55→17:18)
[2020-02-09] MEDS: INSULIN -REGULAR HUMAN 50 UNIT/0.5 ML ML SQ SCH ×4 (07:30→23:01)
[2020-02-09] MEDS: METFORMIN HCL 500 MG TAB PO SCH (08:00)
[2020-02-09] MEDS ORDERED: LIDOCAINE 2% MPF 5 ML VIAL ONE (08:07)
[2020-02-09] MEDS ORDERED: propofoL 200 MG/20 ML VIAL IV ONE (08:07)
[2020-02-09] MEDS ORDERED: MIDAZOLAM HCL 2 MG/2 ML INJ ONE ×2 (08:07→10:20)
[2020-02-09] MEDS ORDERED: dexAMETHasone 10 MG/ML VIAL ONE (08:07)
[2020-02-09] MEDS ORDERED: KETOROLAC 30 MG/ML INJ ONE (08:07)
[2020-02-09] MEDS ORDERED: FENTANYL CITR 100 MCG/2 ML ONE (08:07)
[2020-02-09] MEDS ORDERED: NA CHLORIDE 0.9% 1,000 ML ONE (08:33)
[2020-02-09] MEDS: CEFTRIAXONE/SWI 1gm 1 GM/10 ML SYR IV SCH (08:55)
[2020-02-09] MEDS: MEDIHONEY 44 ML TOPICAL TUBE TOP SCH (09:00)
[2020-02-09] MEDS: FUROSEMIDE 40 MG TABLET PO SCH ×2 (09:00→17:00)
[2020-02-09] MEDS: FENTANYL CITR 100 MCG/2 ML ONE ×4 (09:49→10:05)
[2020-02-09] MEDS: MEPERIDINE HCL 50 MG/ML ONE ×2 (10:10→10:15)
[2020-02-09] MEDS: lisinopriL 20 MG TAB PO SCH (13:18)
[2020-02-09] MEDS: FAMOTIDINE 20 MG TAB PO SCH ×2 (13:18→23:03)
[2020-02-09] MEDS: ENOXAPARIN 40 MG/0.4 ML SQ SCH (13:19)
[2020-02-09] MEDS: ASPIRIN EC 81 MG TAB PO SCH (13:19)
[2020-02-09] MEDS: ATORVASTATIN 20 MG TAB PO SCH (13:20)
[2020-02-09] MEDS: NICOTINE 21 MG/PAT TD SCH (13:20)
[2020-02-09] MEDS: INSULIN GLARGINE 100 UNITS/ML SQ SCH (13:21)
--- NOTE | 2020-02-09 13:42 | PN ---
Subjective: Patient just had a surgical debridement done to her hand. Patient denies any headache, nausea, vomiting, chest pain, abdominal pain, constipation, diarrhea. Having pain in her hand. Objective: Vital Signs: Temperature 97.4, pulse 93, respirations 16, blood pressure 148/76. Extremities: Right hand in surgical dressing. Left leg is doing well. No new complaints. Laboratory Data: Shows WBC 11.4, hemoglobin 14.2, platelets are 298. Chemistry shows sodium 139, po tassium 3.5, chloride 99, bicarb 29, BUN 16, creatinine 0.64, glucose 119. Albumin level is 2.7. Assessment And Plan: Right hand abscess, status post second debridement. The patient in surgical dr mouna. Left foot wound is healing well. Leukocytosis and protein calorie malnourishment. Continue wound care and supportive care. We will follow the patient as needed. NF/MODL Voice ID: [id number] Report ID: [id number]
[2020-02-09] MEDS: VANCOMYCIN 1.5 GM in NA CHLORIDE 0.9% 500 ML IVPB SCH (17:50)
--- NOTE | 2020-02-09 18:13 | P.PN ---
Subjective Date of Service: 02/09/20 2nd debridement of the right hand was done today. Patient has no complain. Physical Examination - Vital Signs Temperature: 97.6 F Blood Pressure: 137/88 Pulse: 90 Respirations: 16 Pulse Ox (%): 99 - Physical Exam General: Alert, In no apparent distress HEENT: Mucous membr. moist/pink Neck: Supple Respiratory: Clear to auscultation bilaterally, Normal air movement Cardiovascular: No edema, Regular rate/rhythm, Normal S1 S2 Gastrointestinal: Normal bowel sounds, Soft and benign, No tenderness - Studies Microbiology Data (last 24 hrs): 02/06/20 14:28 Wound - Abscess Gram Stain - Final 02/06/20 14:28 Wound - Abscess Culture & Sensitivity - Final Meth Resistant Staph Aureus Assessment And Plan - Current Problems (Diagnosis) (1) Ulcer of left foot due to type 2 diabetes mellitus Current Visit: Yes Status: Acute (2) Pulp abscess of finger of right hand Current Visit: Yes Status: Acute (3) Diabetes mellitus with hyperglycemia Onset Date: 02/17/16 Current Visit: No Status: Acute - Plan Status post I and D and debridement of right hand abscess. Wound is growing MRSA. Continue IV vancomycin. Status post 2nd debridement today. Noted patient eloped and came back later. Her toxicology screen was positive for benzodiazepine and amphetamine. She is a poor candidate for outpatient IV therapy by PICC line. Dr. Pittman is planning secondary wound closure Wednesday next week. She is high risk for elopement. I am hoping will be able to transition her to oral antibiotics when ready for discharge. Continue wound care. Pain management as needed. Continue Lantus insulin and insulin sliding scale. Continue metformin.
[2020-02-10] MEDS: VANCOMYCIN 1.5 GM in NA CHLORIDE 0.9% 500 ML IVPB SCH ×2 (05:03→18:21)
[2020-02-10] MEDS: Oxycodone HCl/Acetaminophen 1 TAB TAB PO PRN (05:03)
[2020-02-10 07:56] LABS: Albumin 2.3 g/dL (3.4-5.0); BUN Blood Urea Nitrogen 26 mg/dL (7-18); Bicarbonate 27 mmol/L (21-32); Glucose Level 297 mg/dL (74-106); Phosphorus 2.2 mg/dL (2.5-4.9); Potassium 3.8 mmol/L (3.5-5.1); Sodium Level 133 mmol/L (136-145)
[2020-02-10] MEDS: INSULIN -REGULAR HUMAN 50 UNIT/0.5 ML ML SQ SCH ×4 (08:28→20:16)
[2020-02-10] MEDS: ENOXAPARIN 40 MG/0.4 ML SQ SCH (08:29)
[2020-02-10] MEDS: NICOTINE 21 MG/PAT TD SCH (08:30)
[2020-02-10] MEDS: ASPIRIN EC 81 MG TAB PO SCH (08:30)
[2020-02-10] MEDS: lisinopriL 20 MG TAB PO SCH (08:30)
[2020-02-10] MEDS: FAMOTIDINE 20 MG TAB PO SCH ×2 (08:31→20:16)
[2020-02-10] MEDS: METFORMIN HCL 500 MG TAB PO SCH (08:31)
[2020-02-10] MEDS: ATORVASTATIN 20 MG TAB PO SCH (08:31)
[2020-02-10] MEDS: INSULIN GLARGINE 100 UNITS/ML SQ SCH (08:31)
[2020-02-10] MEDS: MEDIHONEY 44 ML TOPICAL TUBE TOP SCH (08:31)
[2020-02-10] MEDS: HYDRALAZINE HCL 20 MG/ML VIAL IV PRN (12:26)
[2020-02-10] MEDS: FUROSEMIDE 20 MG TABLET PO SCH (14:59)
--- NOTE | 2020-02-10 17:44 | P.PN ---
Subjective Date of Service: 02/10/20 Patient denies any complain. Physical Examination - Vital Signs Temperature: 97.6 F Blood Pressure: 140/74 Pulse: 84 Respirations: 16 Pulse Ox (%): 98 - Physical Exam General: Alert, In no apparent distress, Oriented x3 HEENT: Mucous membr. moist/pink Respiratory: Clear to auscultation bilaterally, Normal air movement Cardiovascular: Regular rate/rhythm, Normal S1 S2 Gastrointestinal: Normal bowel sounds, Soft and benign, No tenderness Musculoskeletal: Other (Right hand in dressing.) Assessment And Plan - Current Problems (Diagnosis) (1) Ulcer of left foot due to type 2 diabetes mellitus Current Visit: Yes Status: Acute (2) Pulp abscess of finger of right hand Current Visit: Yes Status: Acute (3) Diabetes mellitus with hyperglycemia Onset Date: 02/17/16 Current Visit: No Status: Acute - Plan Status post I and D and debridement of right hand abscess x 2. MRSA infected wound. Continue IV vancomycin. Dr. Pittman is planning secondary wound closure Wednesday next week. She is high risk for elopement. I am hoping will be able to transition her to oral antibiotics when ready for discharge. Continue wound care. Pain management as needed. Continue Lantus insulin and insulin sliding scale. Continue metformin.
--- NOTE | 2020-02-10 19:20 | PN ---
Date of Progress Note: 02/10/2020 Subjective: The patient was admitted with anasarca, fall, with trauma to her hand. Patient was star brady on diuresis. Swelling has been subsided. Patient has lymphedema. Physical Examination: Vital Signs: Blood pressure 159/79, pulse of 85. General: Patient had good urine output voiding. Chest: Clear to auscultation. Heart: S1, S2. Regular. Abdomen: Soft, nontender. Extremity: Chronic venous stasis. Edema has been subside. Has a dressing on the left leg and right hand. Laboratory Data: WBC 11.4, H and H 14.2/43.5, platelets 298. Sodium 133, potassium 3.8, bicarb 27, BUN 26, creatinine 0.6, calcium 8.8, phosphorus 2.2. Current Medications: The patient is on include, vancomycin, albuterol, Lovenox, lisinopril 20 daily, Zofran, Pepcid, morphine. Assessment And Plan: 1.Anasarca secondary to venous stasis. I am going to resume Lasix p.o. and we will follow up. 2.Hypertension, controlled, not optimal. I will add Lasix. Continue ANDRZEJ inhibitor. 3.Cellulitis, methicillin-resistant Staphylococcus aureus. Continue vancomycin. We will follow up vancomycin trough. 4.Edema secondary to venous stasis, lymphedema. Resume Lasix. 5.Hyponatremia. Resume Lasix. LEELEE/TANG Voice ID: [id number] Report ID: [id number]
[2020-02-11] MEDS: Oxycodone HCl/Acetaminophen 1 TAB TAB PO PRN ×2 (05:08→10:40)
[2020-02-11] MEDS: HYDRALAZINE HCL 20 MG/ML VIAL IV PRN (05:50)
[2020-02-11 07:00] LABS: Albumin 2.8 g/dL (3.4-5.0); BUN Blood Urea Nitrogen 16 mg/dL (7-18); Bicarbonate 30 mmol/L (21-32); Glucose Level 323 mg/dL (74-106); Phosphorus 2.1 mg/dL (2.5-4.9); Potassium 3.8 mmol/L (3.5-5.1); Sodium Level 137 mmol/L (136-145)
[2020-02-11] MEDS: VANCOMYCIN 1.5 GM in NA CHLORIDE 0.9% 500 ML IVPB SCH ×2 (07:16→17:27)
[2020-02-11] MEDS: ATORVASTATIN 20 MG TAB PO SCH ×2 (08:39→10:16)
[2020-02-11] MEDS: ASPIRIN EC 81 MG TAB PO SCH (08:39)
[2020-02-11] MEDS: METFORMIN HCL 500 MG TAB PO SCH (08:39)
[2020-02-11] MEDS: FAMOTIDINE 20 MG TAB PO SCH (08:39)
[2020-02-11] MEDS: INSULIN -REGULAR HUMAN 50 UNIT/0.5 ML ML SQ SCH ×4 (08:39→20:54)
[2020-02-11] MEDS: INSULIN GLARGINE 100 UNITS/ML SQ SCH (08:40)
[2020-02-11] MEDS: ENOXAPARIN 40 MG/0.4 ML SQ SCH (08:40)
[2020-02-11] MEDS: NICOTINE 21 MG/PAT TD SCH (08:40)
[2020-02-11] MEDS: FUROSEMIDE 20 MG TABLET PO SCH (08:41)
[2020-02-11] MEDS: lisinopriL 20 MG TAB PO SCH ×2 (08:42→12:07)
[2020-02-11] MEDS: MEDIHONEY 44 ML TOPICAL TUBE TOP SCH (08:42)
[2020-02-11] MEDS ORDERED: HOME MED 1 EA UNK (Citalopram Hydrobromide [Celexa] 20 MG) PO SCH (09:00)
[2020-02-11] MEDS: CITALOPRAM 10 MG TABLET PO SCH (10:15)
[2020-02-11] MEDS: FLUCONAZOLE 100 MG TAB PO SCH (10:15)
--- NOTE | 2020-02-11 10:29 | P.PN ---
Subjective Date of Service: 02/11/20 (Hospitalist) Chief Complaint: Complaining of feeling depressed Subjective: Improving (Patient is improving she is status post I and D of the abscess in her right hand scheduled for another revision on Wednesday) Review of Systems Musculoskeletal: Hand Pain Other: Complaining of feeling depressed Physical Examination - Vital Signs Temperature: 98.3 F Blood Pressure: 156/82 Pulse: 90 Respirations: 16 Pulse Ox (%): 98 - Physical Exam General: Alert, Oriented x3 Respiratory: Clear to auscultation bilaterally Cardiovascular: No edema, Regular rate/rhythm Assessment & Plan - Problems (Diagnosis) (1) Pulp abscess of finger of right hand Current Visit: Yes Status: Acute Plan: Patient is complaining of feeling depressed resume home medications white count declining Mr SA isolated also add p.o. doxycycline for better tissue penetration chemistries unremarkable complaining of thrush Diflucan ordered
[2020-02-11] MEDS: DOXYCYCLINE 100 MG CAP PO SCH ×2 (12:06→20:56)
--- NOTE | 2020-02-11 13:16 | PN ---
Date of Progress Note: 02/11/2020 Subjective: The patient was admitted with anasarca, fall with hand injury, had chronic wound in her left leg. Physical Examination: Vital Signs: Blood pressure 156/82, pulse of 90. General: Patient had good urine output. As weight hernandez, patient continue to lose weight, loss 1 johana nd. Chest: Clear to auscultation. Heart: S1, S2. Regular. Abdomen: Soft, nontender. Extremities: Dressing with a cast on the right hand. Dressing on the left leg. Laboratory Data: WBC 11.4, H and H 14.2/43.5, platelets 298. Sodium 137, potassium 3.8, bicarb 30, BUN 16, creatinine 0.6, calcium 9.1, phosphorus 2.1, albumin 2.8, corrected calcium of 10. Current Medications: The patient on include: 1.Fluconazole. 2.Vancomycin. 3.Lovenox. 4.Atorvastatin. 5.Lisinopril 20. 6.Lasix 20 daily. 7.Insulin. 8.Metformin. 9.Oxycodone. Assessment And Plan: 1.Acute kidney injury, recovered, resolved. 2.Hypertension with the presence of proteinuria. I going to go ahead and increase her lisinopril to 40 mg and we will follow up. 3.Peripheral edema without any respiratory symptoms with the presence of wound. It is nonnephrotic proteinuria. TSH within normal limit. Patient was started on diuresis. We will continue. 4.Wound infection, methicillin-resistant Staphylococcus aureus. Continue current antibiotic. We will follow up with Surgery. Plan for debridement tomorrow. LEELEE/TANG Voice ID: [id number] Report ID: [id number]
[2020-02-12] MEDS: HYDRALAZINE HCL 20 MG/ML VIAL IV PRN ×2 (00:36→21:25)
[2020-02-12] MEDS: Oxycodone HCl/Acetaminophen 1 TAB TAB PO PRN ×4 (00:50→21:23)
--- NOTE | 2020-02-12 05:26 | OP ---
Surgeon: Leonidas Pittman MD Preoperative Diagnosis: Open wound of the right hand. Postoperative Diagnosis: Open wound of the right hand. Procedure Performed: Debridement of skin and subcutaneous tissue. Anesthesia: General. Procedure In Detail: After satisfactory induction of general anesthesia, right arm was prepped with Betadine scrub, Betadine paint, dry sterile drapes applied in the usual manner. Hand was placed on [place] table. The skin was removed with tenotomy scissors. The wound was scraped with a curette. Jet lavage irrigated with 3 L of dilute Betadine solution. A Nishant drain was passed from dorsal to volar through the button hole space and tied to itself. The wound was packed with 1/2-inch Nu Gauze, 2 inch Franco, Kerlix. The patient tolerated the procedure well and returned to Recovery. PERFECTO Voice ID: [id number] Report ID: [id number] DEBBIE
[2020-02-12] MEDS ORDERED: VANCOMYCIN 1.25 GM in NA CHLORIDE 0.9% 250 ML IVPB SCH (06:00)
[2020-02-12 06:26] LABS: Albumin 2.7 g/dL (3.4-5.0); BUN Blood Urea Nitrogen 11 mg/dL (7-18); Bicarbonate 29 mmol/L (21-32); Glucose Level 253 mg/dL (74-106); Phosphorus 2.6 mg/dL (2.5-4.9); Potassium 3.8 mmol/L (3.5-5.1); Sodium Level 137 mmol/L (136-145)
[2020-02-12] MEDS: INSULIN GLARGINE 100 UNITS/ML SQ SCH (08:08)
[2020-02-12] MEDS: INSULIN -REGULAR HUMAN 50 UNIT/0.5 ML ML SQ SCH ×4 (08:08→21:24)
[2020-02-12] MEDS: NICOTINE 21 MG/PAT TD SCH (08:17)
[2020-02-12] MEDS: FLUCONAZOLE 100 MG TAB PO SCH (08:18)
[2020-02-12] MEDS: CITALOPRAM 10 MG TABLET PO SCH (08:18)
[2020-02-12] MEDS: ASPIRIN EC 81 MG TAB PO SCH (08:18)
[2020-02-12] MEDS: ATORVASTATIN 20 MG TAB PO SCH (08:18)
[2020-02-12] MEDS: DOXYCYCLINE 100 MG CAP PO SCH ×2 (08:19→21:23)
[2020-02-12] MEDS: ENOXAPARIN 40 MG/0.4 ML SQ SCH (08:19)
[2020-02-12] MEDS: METFORMIN HCL 500 MG TAB PO SCH (08:19)
[2020-02-12] MEDS: FUROSEMIDE 20 MG TABLET PO SCH (08:21)
[2020-02-12] MEDS: lisinopriL 20 MG TAB PO SCH (08:21)
[2020-02-12] MEDS: MEDIHONEY 44 ML TOPICAL TUBE TOP SCH (08:22)
--- NOTE | 2020-02-12 09:43 | P.PN ---
Date of Service: 02/12/20 Subjective: Patient is a 64-year-old female with past medical history of hypertension, diabetes mellitus, chronic tobacco use, chronic lower extremity lymphedema. Patient is being followed in the wound Care Clinic for her ulcer on the dorsal surface of left foot. The patient presented to the hospital after a fall with complaints of pain, redness, and swelling of the right hand 4th digit. Wound culture positive for MRSA. Patient currently being treated with Doxycycline PO and Vancomycin IV. Denies fever, shortness of breath, and chest pain. Patient reports some stomach upset with 1 episode of diarrhea last night. Per nurse, no diarrhea episodes this shift. Patient also reports pain to her right hand. Physical exam: Vital signs: Temperature 97.8, pulse 87, respiratory rate 19, blood pressure 171/85, O2 98%, pain 7/10 Labs: WBC 11.4, NA 137, K 3.8, BUN 11, Creatinine 0.57, albumin 2.7 CV: S1, S2 RESP: Clear to auscultation ABD: Soft, nondistended, nontender Extremities: erythema discoloration to BLLE, 1+ edema BLLE Skin: Left foot dorsal surface wound with granulation tissue and small amount of slough. Right hand 3rd and 4th digit open surgical wound with granulation tissue and slough. Right hand kelli area with swelling and erythema Assessment/Plan: Right hand abscess and cellulitis, s/p debridement x2, Continue current antibiotics and pack with iodaform guaze daily. Left foot ulcer, continue medihoney and alginate M-W-F. Stasis changes and edema to BLLE, extremity venous doppler negative for DVT. Educated the patient to elevate legs while sitting and lying. Leukocytosis improving. Will continue to monitor for signs of infection. Patient discussed with Dr. Owens.
--- NOTE | 2020-02-12 09:54 | P.PN ---
Subjective Date of Service: 02/12/20 Chief Complaint: Complaining of feeling depressed Patient has no complain today. Physical Examination - Vital Signs Temperature: 97.8 F Blood Pressure: 171/85 Pulse: 87 Respirations: 19 Pulse Ox (%): 98 - Physical Exam General: Alert, In no apparent distress, Oriented x3 HEENT: Mucous membr. moist/pink Respiratory: Clear to auscultation bilaterally, Normal air movement Cardiovascular: Edema (1+ bilateral pitting pedal edema) Gastrointestinal: Normal bowel sounds, Soft and benign, No tenderness - Studies Microbiology Data (last 24 hrs): 02/06/20 16:45 Blood - Blood Aerobic Blood Culture - Final No growth in 5 days. 02/06/20 16:45 Blood - Blood Anaerobic Blood Culture - Final No growth in 5 days. 02/06/20 16:28 Blood - Blood Aerobic Blood Culture - Final No growth in 5 days. 02/06/20 16:28 Blood - Blood Anaerobic Blood Culture - Final No growth in 5 days. Assessment And Plan - Current Problems (Diagnosis) (1) Ulcer of left foot due to type 2 diabetes mellitus Current Visit: Yes Status: Acute (2) Pulp abscess of finger of right hand Current Visit: Yes Status: Acute (3) Diabetes mellitus with hyperglycemia Onset Date: 02/17/16 Current Visit: No Status: Acute - Plan Status post I and D and debridement of right hand abscess x 2. Continue IV vancomycin. Oral doxycycline added. Dr. Pittman is planning secondary wound closure tomorrow. Continue wound care. Patient not a candidate for outpatient IV antibiotics via PICC given high risk of IV drug abuse Pain management as needed. Continue Lantus insulin and insulin sliding scale. Continue metformin.
[2020-02-12] MEDS: VANCOMYCIN 1.5 GM in NA CHLORIDE 0.9% 500 ML IVPB SCH (17:30)
--- NOTE | 2020-02-12 22:52 | PN ---
Date of Progress Note: 02/12/2020 Chief Complaint: Anasarca, fluid overload, chronic leg edema. Patient has wound in the left leg. She is undergoing debridement and plastic surgery. Review of Systems: Denies new complaints. Physical Examination: Lungs: Diminished breath sounds at bases. Heart: S1-S2. Abdomen: Soft, benign. Extremities: Dressing over the left leg. Laboratory Data: Phosphorus 2.1, albumin 2.8, corrected calcium 10, potassium 3.8, sodium 137, creatinine 0.6, BUN 16. Impression And Plan: 1. Acute kidney injury. Renal function is recovering to baseline. 2. Hypertensive kidney disease. Patient has proteinuria. Continue lisinopril for blood pressure control and to treat proteinuria. 3. Peripheral edema without respiratory symptoms. Patient has chronic wounds and lymphedema complicated by edema related to hypoalbuminemia in setting of high degree of proteinuria. Continue lisinopril for blood pressure control and anti-proteinuric effect. 4. Wound infection with methicillin-resistant Staphylococcus aureus. Continue antibiotics. 5. Nonhealing wound, status post debridement. Wound care per primary team. SONIYA/TANG Voice ID: [id number] Report ID: [id number] DEBBIE
[2020-02-13] MEDS: VANCOMYCIN 1.25 GM in NA CHLORIDE 0.9% 250 ML IVPB SCH ×2 (00:16→11:16)
[2020-02-13] MEDS: INSULIN -REGULAR HUMAN 50 UNIT/0.5 ML ML SQ SCH ×4 (07:30→21:37)
[2020-02-13] MEDS ORDERED: NA CHLORIDE 0.9% 1,000 ML ONE (08:16)
[2020-02-13] MEDS: MEDIHONEY 44 ML TOPICAL TUBE TOP SCH (09:00)
[2020-02-13] MEDS ORDERED: propofoL 200 MG/20 ML VIAL IV ONE (09:02)
[2020-02-13] MEDS ORDERED: FENTANYL CITR 100 MCG/2 ML ONE (09:02)
[2020-02-13] MEDS ORDERED: LIDOCAINE 2% MPF 5 ML VIAL ONE (09:02)
[2020-02-13] MEDS ORDERED: MIDAZOLAM HCL 2 MG/2 ML INJ ONE (09:48)
[2020-02-13] MEDS: MEPERIDINE HCL 50 MG/ML ONE ×2 (09:53→09:58)
[2020-02-13] MEDS ORDERED: PROMETHAZINE INJ 25 MG/ML AMP ONE (10:01)
[2020-02-13] MEDS ORDERED: KETOROLAC 30 MG/ML INJ ONE (10:07)
[2020-02-13] MEDS: INSULIN GLARGINE 100 UNITS/ML SQ SCH (10:40)
[2020-02-13] MEDS: ATORVASTATIN 20 MG TAB PO SCH (10:40)
[2020-02-13] MEDS: NICOTINE 21 MG/PAT TD SCH (10:40)
[2020-02-13] MEDS: FUROSEMIDE 20 MG TABLET PO SCH (10:41)
[2020-02-13] MEDS: ASPIRIN EC 81 MG TAB PO SCH (10:43)
[2020-02-13] MEDS: CITALOPRAM 10 MG TABLET PO SCH (10:43)
[2020-02-13] MEDS: lisinopriL 20 MG TAB PO SCH (10:44)
[2020-02-13] MEDS: METFORMIN HCL 500 MG TAB PO SCH (10:44)
[2020-02-13] MEDS: DOXYCYCLINE 100 MG CAP PO SCH ×2 (10:44→21:37)
[2020-02-13] MEDS: FLUCONAZOLE 100 MG TAB PO SCH (10:44)
[2020-02-13] MEDS: ENOXAPARIN 40 MG/0.4 ML SQ SCH (10:45)
[2020-02-13] MEDS: Oxycodone HCl/Acetaminophen 1 TAB TAB PO PRN (15:17)
--- NOTE | 2020-02-13 15:18 | P.PN ---
Date of Service: 02/13/20 Subjective: Patient is a 64-year-old female with past medical history of hypertension, diabetes mellitus, chronic tobacco use, chronic lower extremity lymphedema. Patient is being followed in the wound Care Clinic for her ulcer on the dorsal surface of left foot. The patient presented to the hospital after a fall with complaints of pain, redness, and swelling of the right hand 4th digit. Wound culture positive for MRSA. Patient currently being treated with Doxycycline PO and Vancomycin IV. Denies fever, shortness of breath, and chest pain. Patient denies nausea, diarrhea, chest pain and shortness of breath. Patient reports pain to her right hand. Physical exam: Vital signs: Temperature 98.1, pulse 83, respiratory rate 18, blood pressure 138/65, O2 96%, pain 10/10 Labs: No new labs available. 02/11 labs obtained WBC 11.4, NA 137, K 3.8, BUN 11, Creatinine 0.57, albumin 2.7 CV: S1, S2 RESP: Clear to auscultation ABD: Soft, nondistended, nontender Extremities: erythema discoloration to BLLE, 1+ edema BLLE Skin: Left foot dorsal surface wound with granulation tissue and small amount of slough. Right hand 3rd and 4th digit open surgical wound with dressing, moderate amount of bleeding. Right hand kelli area with swelling and erythema Assessment/Plan: Right hand abscess and cellulitis, s/p debridement x3, last debridement today. Surgical dressing saturated with blood, reinforced dressing with gauze and kerlix. Continue current antibiotics. Left foot ulcer, continue medihoney and alginate M-W-F. Stasis changes and edema to BLLE, extremity venous doppler negative for DVT. Educated the patient to elevate legs while sitting and lying. Leukocytosis improving. Will continue to monitor for signs of infection. Patient discussed with Dr. Owens.
--- NOTE | 2020-02-13 16:13 | P.PN ---
Subjective Date of Service: 02/13/20 Chief Complaint: Complaining of feeling depressed Subjective: New changes (Patient had bleeding from wound site which was re- packed) Review of Systems 10-point ROS is otherwise unremarkable Integumentary: As per HPI Physical Examination - Vital Signs Temperature: 98.1 F Blood Pressure: 138/65 Pulse: 83 Respirations: 18 Pulse Ox (%): 96 - Physical Exam General: Alert, Oriented x3, Mild distress, Other (Ill-appearing older than stated age) HEENT: Atraumatic, PERRLA, EOMI Neck: Supple, JVD not distended Respiratory: Clear to auscultation bilaterally, Normal air movement Cardiovascular: Regular rate/rhythm, Normal S1 S2, Edema Gastrointestinal: Normal bowel sounds, Soft and benign, Non-distended, No tenderness Musculoskeletal: No tenderness Integumentary: Other (Right hand wound dressed, c/d/i) Neurological: Normal speech, Normal tone, Cranial nerves 3-12 intact, Normal affect - Studies Laboratory Last Values WBC 15.5 K/uL (4.3-10.9) H 02/06/20 16:28 RBC 5.16 M/uL (3.86-4.86) H 02/06/20 16:28 Hgb 15.9 g/dL (12.0-15.0) H 02/06/20 16:28 Hct 48.2 % (36.0-45.0) H 02/06/20 16:28 MCV 93.5 fL (80-100) 02/06/20 16:28 MCH 30.9 pg (27.0-35.0) 02/06/20 16:28 MCHC 33.0 g/dL (32.0-36.0) 02/06/20 16:28 RDW 12.2 % (12.1-15.2) 02/06/20 16:28 Plt Count 361 K/uL (152-406) 02/06/20 16:28 MPV 9.5 fL (7.6-11.3) 02/06/20 16:28 Neutrophils % 80.3 % (41.7-73.7) H 02/06/20 16:28 Lymphocytes % 13.0 % (15.3-44.8) L 02/06/20 16:28 Monocytes % 5.6 % (3.3-12.3) 02/06/20 16:28 Eosinophils % 0.6 % (0-4.4) 02/06/20 16:28 Basophils % 0.5 % (0-1.3) 02/06/20 16:28 Absolute Neutrophils 12.5 K/uL (1.8-8.0) H 02/06/20 16:28 Absolute Lymphocytes 2.0 K/uL (0.7-4.9) 02/06/20 16:28 Absolute Monocytes 0.9 K/uL (0.1-1.3) 02/06/20 16:28 Absolute Eosinophils 0.1 K/uL (0-0.5) 02/06/20 16:28 Absolute Basophils 0.1 K/uL (0-0.5) 02/06/20 16:28 PT 11.7 SECONDS (9.5-12.5) 02/06/20 16:28 INR 0.99 02/06/20 16:28 Sodium 130 mmol/L (136-145) L 02/06/20 16:28 Potassium 3.9 mmol/L (3.5-5.1) 02/06/20 16:28 Chloride 94 mmol/L (98-107) L 02/06/20 16:28 Carbon Dioxide 27 mmol/L (21-32) 02/06/20 16:28 BUN 12 mg/dL (7-18) 02/06/20 16:28 Creatinine 1.01 mg/dL (0.55-1.3) 02/06/20 16:28 Estimated GFR 55 mL/min (=/>90) L 02/06/20 16:28 Glucose 516 mg/dL (74-106) H* 02/06/20 16:28 Lactic Acid 1.5 mmol/L (0.4-2.0) 02/06/20 16:28 Calcium 9.5 mg/dL (8.5-10.1) 02/06/20 16:28 Magnesium 1.9 mg/dL (1.8-2.4) 02/06/20 16:28 Total Bilirubin 0.5 mg/dL (0.2-1.0) 02/06/20 16:28 Direct Bilirubin 0.1 mg/dL (0-0.2) 02/06/20 16:28 AST 11 U/L (15-37) L 02/06/20 16:28 ALT 34 U/L (12-78) 02/06/20 16:28 Alkaline Phosphatase 235 U/L (45-117) H 02/06/20 16:28 Rapid Troponin I 0.02 ng/mL (0.0-0.045) 02/06/20 16:28 NT-Pro-B Natriuret Pep 1337 pg/mL (<125) H 02/06/20 16:28 Serum Total Protein 8.3 g/dL (6.4-8.2) H 02/06/20 16:28 Albumin 3.6 g/dL (3.4-5.0) 02/06/20 16:28 Globulin 4.7 g/dL (2.3-3.5) H 02/06/20 16:28 Albumin/Globulin Ratio 0.8 (1.1-1.8) L 02/06/20 16:28 Microbiology Data (last 24 hrs): Wound culture growing out MR SA Medications List Reviewed: Yes Assessment And Plan - Current Problems (Diagnosis) (1) Pulp abscess of finger of right hand Current Visit: Yes Status: Acute (2) Ulcer of left foot due to type 2 diabetes mellitus Current Visit: Yes Status: Acute (3) Anxiety Current Visit: No Status: Acute (4) Depression Current Visit: No Status: Acute Qualifiers: Depression Type: major depressive disorder Major depression recurrence: recurrent Major depression episode severity: mild (5) Diabetes mellitus with hyperglycemia Onset Date: 02/17/16 Current Visit: No Status: Acute Qualifiers: Diabetes mellitus type: type 2 Diabetes mellitus fpc insulin use: with ferry terminal supervisor use Qualified Code(s): E11.65 - Type 2 diabetes mellitus with hyperglycemia; Z79.4 - half-way (current) use of insulin (6) Hyperlipidemia Current Visit: No Status: Acute Qualifiers: Hyperlipidemia type: mixed hyperlipidemia Qualified Code(s): E78.2 - Mixed hyperlipidemia (7) Hypertension Onset Date: 02/17/16 Current Visit: No Status: Acute Qualifiers: Hypertension type: essential hypertension Qualified Code(s): I10 - Essential (primary) hypertension (8) Neuropathy Current Visit: No Status: Acute (9) Polysubstance abuse Current Visit: Yes Status: Acute - Plan Wound cultures are growing MRSA. Blood cultures negative Continue IV vancomycin and oral doxycycline Will discuss case with infectious disease and surgeon regarding plan of care Patient unable to be set up with PICC line and IV antibiotics due to history of IV drug abuse Discharge planning A.m. labs Continue sliding-scale insulin and monitor blood glucose levels Continue SSRI Monitor blood pressure and continue with home blood pressure medications. DVT prophylaxis
--- NOTE | 2020-02-13 19:21 | PN ---
Date of Progress Note: 02/13/2020 Subjective: The patient was admitted with anasarca, fall with cellulitis. Patient is status post de bridement and closure. Patient feeling okay. Physical Examination: Vital Signs: Blood pressure 138/65, pulse of 63. Chest: Clear to auscultation. Heart: S1, S2. Regular. Abdomen: Soft, nontender. Extremities: Dressing on the right hand. Laboratory Data: WBC 11.4, H and H 14.2/43.5, platelets 298. Sodium 137, potassium 3.8, bicarb 29, BUN 11, creatinine 0.5, phosphorus 2.6, calcium 9.1, albumin 2.7. Current Medications: Include: 1.Doxycycline. 2.Fluconazole. 3.Vancomycin 1.25 b.i.d. 4.Atorvastatin. 5.Hydralazine. 6.Lisinopril. 7.Lasix. 8.Metformin. Assessment And Plan: 1.Anasarca secondary to proteinuria, responding very well to current diuresis. We will continue. 2.Chronic kidney disease with proteinuria. Patient tolerating angiotensin converting enzyme inhibit or. Continue current treatment. 3.Urinary tract infection. Continue current antibiotic. 4.Methicillin-resistant Staphylococcus aureus bacteremia secondary to cellulitis. Continue current antibiotic. Dose being adjusted for vancomycin. We will follow up. Jammie bustos up with Wound Care. ZACHERY Voice ID: [id number] Report ID: [id number]
[2020-02-14] MEDS: HYDRALAZINE HCL 20 MG/ML VIAL IV PRN (00:17)
[2020-02-14] MEDS: VANCOMYCIN 1.25 GM in NA CHLORIDE 0.9% 250 ML IVPB SCH ×3 (00:17→23:46)
[2020-02-14 04:46] LABS: Absolute Lymphocytes (CBC) 2.7 K/uL (0.7-4.9); Basophils % 0.8 % (0-1.3); Hematocrit 40.9 % (36.0-45.0); Lymphocytes % 29.2 % (15.3-44.8); MPV 8.5 fL (7.6-11.3); RBC Red Blood Cell Count 4.37 M/uL (3.86-4.86)
[2020-02-14 05:03] LABS: Albumin 2.5 g/dL (3.4-5.0); Bilirubin Total 0.2 mg/dL (0.2-1.0); Protein, Total 6.4 g/dL (6.4-8.2)
[2020-02-14] MEDS: Oxycodone HCl/Acetaminophen 1 TAB TAB PO PRN ×2 (07:46→23:43)
[2020-02-14] MEDS: CITALOPRAM 10 MG TABLET PO SCH (08:34)
[2020-02-14] MEDS: INSULIN -REGULAR HUMAN 50 UNIT/0.5 ML ML SQ SCH ×4 (08:34→21:54)
[2020-02-14] MEDS: NICOTINE 21 MG/PAT TD SCH (08:34)
[2020-02-14] MEDS: ATORVASTATIN 20 MG TAB PO SCH (08:34)
[2020-02-14] MEDS: ASPIRIN EC 81 MG TAB PO SCH (08:34)
[2020-02-14] MEDS: INSULIN GLARGINE 100 UNITS/ML SQ SCH (08:34)
[2020-02-14] MEDS: DOXYCYCLINE 100 MG CAP PO SCH (08:34)
[2020-02-14] MEDS: MEDIHONEY 44 ML TOPICAL TUBE TOP SCH (08:34)
[2020-02-14] MEDS: lisinopriL 20 MG TAB PO SCH (08:34)
[2020-02-14] MEDS: ENOXAPARIN 40 MG/0.4 ML SQ SCH (08:34)
[2020-02-14] MEDS: FUROSEMIDE 20 MG TABLET PO SCH (08:34)
[2020-02-14] MEDS: FLUCONAZOLE 100 MG TAB PO SCH (08:34)
[2020-02-14] MEDS: METFORMIN HCL 500 MG TAB PO SCH (08:34)
--- NOTE | 2020-02-14 08:46 | OP ---
N Surgeon: Leonidas Pittman MD Preoperative Diagnosis: Open wound of the right hand with dry gangrene. Postoperative Diagnosis: Open wound of the right hand with dry gangrene. Procedure: Debridement of skin and subcutaneous tissue. Anesthesia: General. Operative Note: After satisfactory induction of general anesthesia, right hand was prepped with Beta dine scrub, Betadine paint. Dry sterile drapes applied in the usual manner. Hand was placed on Rota sonya table. Tenotomy scissors and scalpel with forceps used to excise dry gangrene, skin on the dorsum of the middle finger, and curette was used to scrape down until tendons. The webspace was sti ll contaminated with necrotic tissue, was again debrided sharply. The wound was scrubbed with Betadi ne scrubber. Jet lavaged with 3 L of dilute Betadine solution. Tourniquet was released. Electrocau veronica was used for hemostasis. Wound packed with 2 inch Franco soaked in Betadine followed by Kerlix. The patient tolerated the procedure well and returned to Recovery. KELLEY/TANG Voice ID: [id number] Report ID: [id number]
--- NOTE | 2020-02-14 09:41 | P.PN ---
Subjective: Patient is a 64-year-old female with past medical history of hypertension, diabetes mellitus, chronic tobacco use, chronic lower extremity lymphedema. Patient is being followed in the wound Care Clinic for her ulcer on the dorsal surface of left foot. The patient presented to the hospital after a fall with complaints of pain, redness, and swelling of the right hand 4th digit. Wound culture positive for MRSA, Blood cultures negative. Patient currently being treated with Doxycycline PO and Vancomycin IV. Patient denies nausea, diarrhea, chest pain and shortness of breath. Patient reports pain to her right hand. Physical exam: Vital signs: Temperature 98.4, pulse 98, respiratory rate 18, blood pressure 133/76, O2 98% room air, pain 8/10 Labs: WBC 9.2, Plt 360, NA 137, K 4.0, BUN 20, Creatinine 0.83, albumin 2.5 CV: S1, S2 RESP: Clear to auscultation ABD: Soft, nondistended, nontender Extremities: erythema discoloration to BLLE Skin: Left foot dorsal surface wound with granulation tissue and small amount of slough. Right hand 3rd and 4th digit open surgical wound with granulation tissue Assessment/Plan: Right hand abscess and cellulitis, s/p debridement x3, last debridement yesterday, Recommend to pack with Iodoform gauze daily. Left foot ulcer, continue medihoney and alginate M-W-. Stasis changes and edema to BLLE, extremity venous doppler negative for DVT. Educated the patient to elevate legs while sitting and lying. Leukocytosis resolved. Recommend to discontinue Doxycycline and start on Cefdinir 300mg PO Q12hr [id number] while in the hospital. For discharge home, recommend Doxycycline and Cefdinir. Will continue to monitor for signs of infection. Patient discussed with Dr. Owens.
[2020-02-14] MEDS: CEFDINIR 300 MG CAP PO SCH ×2 (10:00→21:54)
--- NOTE | 2020-02-14 16:17 | P.PN ---
Subjective Date of Service: 02/14/20 Chief Complaint: Complaining of feeling depressed Subjective: Improving (No pain reported in the hand), Doing well Patient seen and examined chart reviewed and case discussed with Dr. Denton yesterday. And discuss with Dr. Owens today. Plan is for skin graft in a.m. Review of Systems 10-point ROS is otherwise unremarkable Integumentary: As per HPI Physical Examination - Vital Signs Temperature: 98.6 F Blood Pressure: 130/69 Pulse: 88 Respirations: 20 Pulse Ox (%): 100 - Physical Exam General: Alert, In no apparent distress, Oriented x3 HEENT: Atraumatic, PERRLA, EOMI Neck: Supple, JVD not distended Respiratory: Clear to auscultation bilaterally, Normal air movement Cardiovascular: No edema, Normal pulses, Regular rate/rhythm, Normal S1 S2 Gastrointestinal: Normal bowel sounds, Soft and benign, Non-distended, No tenderness Musculoskeletal: No tenderness Integumentary: Other (Right hand bandaged clean dry intact. Mild edema) Neurological: Normal speech, Normal tone, Normal affect - Studies Laboratory Last Values WBC 15.5 K/uL (4.3-10.9) H 02/06/20 16:28 RBC 5.16 M/uL (3.86-4.86) H 02/06/20 16:28 Hgb 15.9 g/dL (12.0-15.0) H 02/06/20 16:28 Hct 48.2 % (36.0-45.0) H 02/06/20 16:28 MCV 93.5 fL (80-100) 02/06/20 16:28 MCH 30.9 pg (27.0-35.0) 02/06/20 16:28 MCHC 33.0 g/dL (32.0-36.0) 02/06/20 16:28 RDW 12.2 % (12.1-15.2) 02/06/20 16:28 Plt Count 361 K/uL (152-406) 02/06/20 16:28 MPV 9.5 fL (7.6-11.3) 02/06/20 16:28 Neutrophils % 80.3 % (41.7-73.7) H 02/06/20 16:28 Lymphocytes % 13.0 % (15.3-44.8) L 02/06/20 16:28 Monocytes % 5.6 % (3.3-12.3) 02/06/20 16:28 Eosinophils % 0.6 % (0-4.4) 02/06/20 16: Basophils % 0.5 % (0-1.3) 02/06/20 16:28 Absolute Neutrophils 12.5 K/uL (1.8-8.0) H 02/06/20 16:28 Absolute Lymphocytes 2.0 K/uL (0.7-4.9) 02/06/20 16:28 Absolute Monocytes 0.9 K/uL (0.1-1.3) 02/06/20 16: Absolute Eosinophils 0.1 K/uL (0-0.5) 02/06/20 16: Absolute Basophils 0.1 K/uL (0-0.5) 02/06/20 16:28 PT 11.7 SECONDS (9.5-12.5) 02/06/20 16:28 INR 0.99 02/06/20 16:28 Sodium 130 mmol/L (136-145) L 02/06/20 16:28 Potassium 3.9 mmol/L (3.5-5.1) 02/06/20 16:28 Chloride 94 mmol/L (98-107) L 02/06/20 16:28 Carbon Dioxide 27 mmol/L (21-32) 02/06/20 16:28 BUN 12 mg/dL (7-18) 02/06/20 16:28 Creatinine 1.01 mg/dL (0.55-1.3) 02/06/20 16:28 Estimated GFR 55 mL/min (=/>90) L 02/06/20 16:28 Glucose 516 mg/dL (74-106) H* 02/06/20 16:28 Lactic Acid 1.5 mmol/L (0.4-2.0) 02/06/20 16:28 Calcium 9.5 mg/dL (8.5-10.1) 02/06/20 16:28 Magnesium 1.9 mg/dL (1.8-2.4) 02/06/20 16:28 Total Bilirubin 0.5 mg/dL (0.2-1.0) 02/06/20 16:28 Direct Bilirubin 0.1 mg/dL (0-0.2) 02/06/20 16:28 AST 11 U/L (15-37) L 02/06/20 16:28 ALT 34 U/L (12-78) 02/06/20 16:28 Alkaline Phosphatase 235 U/L (45-117) H 02/06/20 16:28 Rapid Troponin I 0.02 ng/mL (0.0-0.045) 02/06/20 16:28 NT-Pro-B Natriuret Pep 1337 pg/mL (<125) H 02/06/20 16:28 Serum Total Protein 8.3 g/dL (6.4-8.2) H 02/06/20 16:28 Albumin 3.6 g/dL (3.4-5.0) 02/06/20 16:28 Globulin 4.7 g/dL (2.3-3.5) H 02/06/20 16:28 Albumin/Globulin Ratio 0.8 (1.1-1.8) L 02/06/20 16:28 Microbiology Data (last 24 hrs): Wound culture positive for MRSA Medications List Reviewed: Yes Assessment And Plan - Current Problems (Diagnosis) (1) Pulp abscess of finger of right hand Current Visit: Yes Status: Acute (2) Ulcer of left foot due to type 2 diabetes mellitus Current Visit: Yes Status: Acute (3) Anxiety Current Visit: No Status: Acute (4) Depression Current Visit: No Status: Acute Qualifiers: Depression Type: major depressive disorder Major depression recurrence: recurrent Major depression episode severity: mild (5) Diabetes mellitus with hyperglycemia Onset Date: 02/17/16 Current Visit: No Status: Acute Qualifiers: Diabetes mellitus type: type 2 Diabetes mellitus penitentiary insulin use: with penitentiary use Qualified Code(s): E11.65 - Type 2 diabetes mellitus with hyperglycemia; Z79.4 - prison (current) use of insulin (6) Hyperlipidemia Current Visit: No Status: Acute Qualifiers: Hyperlipidemia type: mixed hyperlipidemia Qualified Code(s): E78.2 - Mixed hyperlipidemia (7) Hypertension Onset Date: 02/17/16 Current Visit: No Status: Acute Qualifiers: Hypertension type: essential hypertension Qualified Code(s): I10 - Essential (primary) hypertension (8) Neuropathy Current Visit: No Status: Acute (9) Polysubstance abuse Current Visit: Yes Status: Acute - Plan Patient had gangrene in the wound. Has had multiple debridements. Going for skin graft in a.m. Wound cultures are growing MRSA. Blood cultures negative Continue IV vancomycin and oral Cefdinir Plan for oral antibiotics at home with doxycycline and cefdinir Patient unable to be set up with PICC line and IV antibiotics due to history of IV drug abuse Discharge planning. Will likely need home health care with the wound care set up Continue sliding-scale insulin and monitor blood glucose levels Continue SSRI Monitor blood pressure and continue with home blood pressure medications. DVT prophylaxis Discharge Plan: Home Plan to discharge in: 48 Hours
--- NOTE | 2020-02-14 16:28 | PN ---
Date of Progress Note: 02/14/2020 Subjective: Patient was admitted with fall and trauma to the hand with anasarca and acute kidney injury. Patient has been diuresis very well. Patient had bleeding from the wound on the upper extremity after the debridement. Physical Examination: Vital Signs: Blood pressure 157/88, pulse of 96. Chest: Clear to auscultation. Heart: S1, S2. Regular. Abdomen: Soft, nontender. Extremities: Venous stasis. Lymphedema bilateral. Dressing on the right hand. Laboratory Data: WBC 9.2, H and H of 13.6/40.9, platelets 360. Sodium 137, potassium 4, bicarb 28, BUN 20, creatinine 0.8, calcium 8.8. Current Medications: The patient is on include: 1. Lasix. 2. Fluconazole. 3. Vancomycin. 4. Nicotine patch. 5. Lovenox. 6. Atorvastatin. 7. Lisinopril. Assessment And Plan: 1. Acute kidney injury secondary to prerenal, recovered, resolved. 2. Anasarca secondary to proteinuria, responding very well to current diuresis. We will continue diuresis. Continue ANDRZEJ inhibitor. 3. Urinary tract infection, on treatment. 4. Methicillin-resistant Staphylococcus aureus secondary to wound infection, status post debridement. We will follow up with Surgery. Continue vancomycin. Follow up vancomycin trough. 5. Lymphedema as above. Continue diuresis. LEELEE/TANG Voice ID: [id number] Report ID: [id number] DEBBIE
[2020-02-15] MEDS: HYDRALAZINE HCL 20 MG/ML VIAL IV PRN (01:37)
[2020-02-15] MEDS: INSULIN -REGULAR HUMAN 50 UNIT/0.5 ML ML SQ SCH ×3 (07:30→16:44)
[2020-02-15] MEDS ORDERED: KETOROLAC 30 MG/ML INJ ONE (07:52)
[2020-02-15] MEDS ORDERED: dexAMETHasone 10 MG/ML VIAL ONE (07:52)
[2020-02-15] MEDS ORDERED: FENTANYL CITR 100 MCG/2 ML ONE (07:52)
[2020-02-15] MEDS ORDERED: propofoL 200 MG/20 ML VIAL IV ONE (07:52)
[2020-02-15] MEDS ORDERED: LIDOCAINE 2% MPF 5 ML VIAL ONE (07:53)
[2020-02-15] MEDS ORDERED: ONDANSETRON 4 MG/2 ML VIAL ONE (07:53)
[2020-02-15] MEDS: METFORMIN HCL 500 MG TAB PO SCH (08:00)
[2020-02-15] MEDS ORDERED: NA CHLORIDE 0.9% 1,000 ML ONE (08:16)
[2020-02-15] MEDS: CEFDINIR 300 MG CAP PO SCH ×2 (08:40→12:28)
[2020-02-15] MEDS: INSULIN GLARGINE 100 UNITS/ML SQ SCH (08:40)
[2020-02-15] MEDS: ATORVASTATIN 20 MG TAB PO SCH (08:40)
[2020-02-15] MEDS: FLUCONAZOLE 100 MG TAB PO SCH ×2 (08:40→12:28)
[2020-02-15] MEDS: FUROSEMIDE 20 MG TABLET PO SCH (08:40)
[2020-02-15] MEDS: CITALOPRAM 10 MG TABLET PO SCH (08:40)
[2020-02-15] MEDS: MEDIHONEY 44 ML TOPICAL TUBE TOP SCH (08:40)
[2020-02-15] MEDS: NICOTINE 21 MG/PAT TD SCH ×2 (08:41→12:28)
[2020-02-15] MEDS: lisinopriL 20 MG TAB PO SCH (08:43)
[2020-02-15] MEDS ORDERED: MINERAL OIL, LITE 10 ML VIAL ONE ×2 (08:50→08:52)
[2020-02-15] MEDS ORDERED: Phenylephrine HCl 10 MG/ML 1 ML VIAL ONE (09:34)
[2020-02-15] MEDS ORDERED: NS 0.9% VIAL 10 ML ONE (09:34)
[2020-02-15] MEDS ORDERED: Mastisol Adhesive Liq ONE (10:15)
[2020-02-15] MEDS: MEPERIDINE HCL 50 MG/ML ONE ×2 (10:38→10:43)
[2020-02-15] MEDS ORDERED: PROMETHAZINE INJ 25 MG/ML AMP ONE (10:41)
[2020-02-15 10:54] VITALS: O2SAT 97
[2020-02-15] MEDS ORDERED: MEPERIDINE HCL 25 MG/ML SYR ONE (10:57)
--- NOTE | 2020-02-15 16:03 | P.PN ---
Subjective: Patient is a 64-year-old female with past medical history of hypertension, diabetes mellitus, chronic tobacco use, chronic lower extremity lymphedema. Patient is being followed in the wound Care Clinic for her ulcer on the dorsal surface of left foot. The patient presented to the hospital after a fall with complaints of pain, redness, and swelling of the right hand 4th digit. Wound culture positive for MRSA, Blood cultures negative. Patient currently being treated with Cefdinir PO and Vancomycin IV. Patient denies nausea, diarrhea, chest pain and shortness of breath. Patient reports pain to her right hand and fatigue. Physical exam: Vital signs: Temperature 97, pulse 68, respiratory rate 16, blood pressure 104/62, O2 97% room air, pain 810 Labs: No new labs today. Labs on 02/13 obtained WBC 9.2, Plt 360, NA 137, K 4.0, BUN 20, Creatinine 0.83, albumin 2.5 CV: S1, S2 RESP: Clear to auscultation ABD: Soft, nondistended, nontender Extremities: erythema discoloration to BLLE Skin: Left foot dorsal surface wound with granulation tissue and small amount of slough. Right hand 3rd and 4th digit open surgical wound with granulation tissue. Right lateral thigh skin graft site with tegaderm in place Assessment/Plan: Right hand abscess and cellulitis, s/p debridement x3, last debridement 02/12, Recommend to pack with Iodoform gauze daily. Left foot ulcer, continue medihoney and alginate M-W-F. Stasis changes and edema to BLLE, extremity venous doppler negative for DVT. Educated the patient to elevate legs while sitting and lying. Leukocytosis resolved. Patient to be discharged home today with home health. For discharge home, recommend Doxycycline and Cefdinir. Will continue to monitor for signs of infection. Patient discussed with Dr. Owens.
[2020-02-15 16:23] VITALS: BP 125/59; TEMP 97.2
[2020-02-15] MEDS: Oxycodone HCl/Acetaminophen 1 TAB TAB PO PRN (16:44)
--- NOTE | 2020-02-15 17:15 | P.DS ---
Admission Date: 02/06/20 Discharge Date: 02/15/20 Disposition: DC HOME/HOME HEALTH CARE Discharge Condition: FAIR Reason for Admission: Complaining of feeling depressed Consultations: Plastic surgery Dr. Pittman Infectious disease Dr. Owens Salvage Determiner Dr. Benitez Procedures: Multiple debridements and skin grafting on the right hand by surgeon Dr. Pittman - Problems (1) Pulp abscess of finger of right hand Current Visit: Yes Status: Acute (2) Ulcer of left foot due to type 2 diabetes mellitus Current Visit: Yes Status: Acute (3) Anxiety Current Visit: No Status: Acute (4) Depression Current Visit: No Status: Acute Qualifiers: Depression Type: major depressive disorder Major depression recurrence: recurrent Major depression episode severity: mild (5) Diabetes mellitus with hyperglycemia Onset Date: 02/17/16 Current Visit: No Status: Acute Qualifiers: Diabetes mellitus type: type 2 Diabetes mellitus salvage determiner insulin use: with custodial use Qualified Code(s): E11.65 - Type 2 diabetes mellitus with hyperglycemia; Z79.4 - FPC (current) use of insulin (6) Hyperlipidemia Current Visit: No Status: Acute Qualifiers: Hyperlipidemia type: mixed hyperlipidemia Qualified Code(s): E78.2 - Mixed hyperlipidemia (7) Hypertension Onset Date: 02/17/16 Current Visit: No Status: Acute Qualifiers: Hypertension type: essential hypertension Qualified Code(s): I10 - Essential (primary) hypertension (8) Neuropathy Current Visit: No Status: Acute (9) Polysubstance abuse Current Visit: Yes Status: Acute Brief History of Present Illness: From H and P Ms. Sara Stoner is a 64-year-old female with history of hypertension, diabetes mellitus, unclear how long she has had diabetes, history of chronic tobacco use, chronic lower extremity lymphedema with chronic right heel ulcer, follows at the wound clinic, presented because of new onset pain, redness, and swelling over the right fourth digit finger after she sustained a fall 1 week ago. She said the area continued to get swollen and she presented. She denies any fever or chills. She admits to some mild cough, but no sputum. She denies any cough contact. During the interview, patient was somehow drowsy and difficult to get answers from. She is unable to tell if her glucose level has been well controlled. She follows with Dr. Miranda at the wound clinic, but in the emergency room Dr. Pittman was called and discussed with and he is willing to see patient for possible surgery of the hand abscess in the morning. Hospital Course: Patient is a 64-year-old female with past medical history of hypertension diabetes neuropathy IV drug abuse who comes in with cellulitis abscess of her right hand 4th digit. patient was started on IV antibiotics cultures were obtained. Patient was seen by plastic surgery Dr. Pittman. patient went for multiple procedures including debridement and skin grafting. Patient's cultures grew out MRSA. blood cultures remained negative. Patient responded well to antibiotics. Patient was also seen by infectious disease Dr. Owens. overall patient did well. She was set up with home health with wound care. Patient was counseled extensively regarding IV drug abuse. She understands that she is not a candidate for IV antibiotics with PICC line due to her history of IV drug abuse. she needs to follow up closely with surgeon for postop wound check. She is to return to the ER for any worsening of her condition. Her medications regarding her blood pressure when tested. Patient also added on Lasix. He also has a chronic diabetic foot ulcer which needs wound care. Patient will be on [facility] Patient needs to maintain her tight glycemic control. She has a check her blood sugar levels and primary care physician can help or adjust her insulin Dose. Patient also recommended to not smoke Vital Signs/Physical Exam: Temp Pulse Resp BP Pulse Ox 97.2 F 73 16 125/59 L 97 02/15/20 16:00 02/15/20 16:00 02/15/20 16:44 02/15/20 16:00 02/15/20 16:44 General: Alert, In no apparent distress, Oriented x3, Other (Appears older than stated age) HEENT: Atraumatic, PERRLA, EOMI Neck: Supple, JVD not distended Respiratory: Clear to auscultation bilaterally, Normal air movement Cardiovascular: Regular rate/rhythm, Normal S1 S2, Edema (Right hand) Gastrointestinal: Normal bowel sounds, Soft and benign, Non-distended, No tenderness Musculoskeletal: No tenderness Integumentary: No rashes, Diabetic ulcer (Left foot), Other (Right hand bandaged clean dry intact.) Neurological: Normal speech, Normal tone, Normal affect Laboratory Data at Discharge: WBC 9.2 K/uL (4.3-10.9) D 02/14/20 04:29 Hgb 13.6 g/dL (12.0-15.0) 02/14/20 04:29 Hct 40.9 % (36.0-45.0) 02/14/20 04:29 Plt Count 360 K/uL (152-406) D 02/14/20 04:29 PT 11.7 SECONDS (9.5-12.5) 02/06/20 16:28 INR 0.99 02/06/20 16:28 Sodium 137 mmol/L (136-145) 02/14/20 04:29 Potassium 4.0 mmol/L (3.5-5.1) 02/14/20 04:29 BUN 20 mg/dL (7-18) H 02/14/20 04:29 Creatinine 0.92 mg/dL (0.55-1.3) 02/14/20 22:35 Glucose 226 mg/dL (74-106) H 02/14/20 04:29 Uric Acid 3.3 mg/dL (2.6-6.0) 02/08/20 03:51 Phosphorus 2.6 mg/dL (2.5-4.9) 02/12/20 05:01 Magnesium Cancelled 02/08/20 17:30 Total Bilirubin 0.2 mg/dL (0.2-1.0) 02/14/20 04:29 AST 22 U/L (15-37) 02/14/20 04:29 ALT 48 U/L (12-78) 02/14/20 04:29 Alkaline Phosphatase 214 U/L (45-117) H 02/14/20 04:29 Home Medications: Atorvastatin Calcium 20 mg PO DAILY 02/07/20 Citalopram Hydrobromide [Celexa] 20 mg PO DAILY 02/07/20 Insulin Lispro [Humalog Kwikpen U-200] 10 units SQ TID 02/07/20 Metformin HCl [Glucophage] 500 mg PO BIDWM 02/07/20 Cefdinir [Cefdinir*] 300 mg PO BID #20 cap 02/15/20 Doxycycline Hyclate 100 mg PO BID #20 tablet 02/15/20 Furosemide [Lasix*] 20 mg PO DAILY #30 tab 02/15/20 Medihoney [Medihoney Woundcare Gel*] 1 appl TOP DAILY #1 tube 02/15/20 Potassium Chloride [Klor-Con M20] 20 meq PO DAILY #30 tab.er.prt 02/15/20 lisinopriL [Prinivil*] 40 mg PO DAILY #60 tab 02/15/20 New Medications: Cefdinir [Cefdinir*] 300 mg PO BID #20 cap Doxycycline Hyclate 100 mg PO BID #20 tablet Potassium Chloride [Klor-Con M20] 20 meq PO DAILY #30 tab.er.prt Furosemide [Lasix*] 20 mg PO DAILY #30 tab Medihoney [Medihoney Woundcare Gel*] 1 appl TOP DAILY #1 tube lisinopriL [Prinivil*] 40 mg PO DAILY #60 tab Patient Discharge Instructions: Follow up with primary care physician in 1-2 weeks. Follow up with plastic surgeon Dr. Pittman on Wednesday in his office. Follow up with surgical services assistant Dr. Benitez in 2 weeks. Follow up with infectious disease doctor Roman in 2 weeks. Return to ER for worsening condition. Wound care instructions per surgeon Diet: ADA Activity: Ad priti Time spent managing pt's care (in minutes): 45
[2020-02-15] MEDS: VANCOMYCIN 1.25 GM in NA CHLORIDE 0.9% 250 ML IVPB SCH (18:00)
== END 2020-02-15 19:58 | disposition home health service (06) | DRG 264 ==
LOC: ER 14:08 → ERHOLD 17:18 → 2ND 17:58
PROVIDERS: ADMIT Internal Medicine; ATTEND Family Medicine
PROC: 0HRFX73 Replacement of Right Hand Skin with Autologous Tissue Substitute, Full Thickness, External Approach (ICD-10-PCS; principal; 2020-02-07 14:00)
PROC: 0JBJ0ZZ Excision of Right Hand Subcutaneous Tissue and Fascia, Open Approach (ICD-10-PCS; 2020-02-09)
PROC: 0JBJ0ZZ Excision of Right Hand Subcutaneous Tissue and Fascia, Open Approach (ICD-10-PCS; 2020-02-13)
PROC: 0JBJ0ZZ Excision of Right Hand Subcutaneous Tissue and Fascia, Open Approach (ICD-10-PCS; 2020-02-15)
PROC: 0J9J00Z Drainage of Right Hand Subcutaneous Tissue and Fascia with Drainage Device, Open Approach (ICD-10-PCS; 2020-02-15)
PROC: 0HBHXZZ Excision of Right Upper Leg Skin, External Approach (ICD-10-PCS; 2020-02-15)
DX: E11.52 Type 2 diabetes mellitus with diabetic peripheral angiopathy with gangrene (principal); I50.33 Acute on chronic diastolic (congestive) heart failure; L02.511 Cutaneous abscess of right hand; I96 Gangrene, not elsewhere classified; F33.9 Major depressive disorder, recurrent, unspecified; N39.0 Urinary tract infection, site not specified; E87.1 Hypo-osmolality and hyponatremia; L97.429 Non-pressure chronic ulcer of left heel and midfoot with unspecified severity; N17.9 Acute kidney failure, unspecified; B95.62 Methicillin resistant Staphylococcus aureus infection as the cause of diseases classified elsewhere; E11.65 Type 2 diabetes mellitus with hyperglycemia; I25.10 Atherosclerotic heart disease of native coronary artery without angina pectoris; I11.0 Hypertensive heart disease with heart failure; F17.210 Nicotine dependence, cigarettes, uncomplicated; E11.621 Type 2 diabetes mellitus with foot ulcer; J44.9 Chronic obstructive pulmonary disease, unspecified; E83.42 Hypomagnesemia; E11.40 Type 2 diabetes mellitus with diabetic neuropathy, unspecified; E78.5 Hyperlipidemia, unspecified; I87.8 Other specified disorders of veins; I89.0 Lymphedema, not elsewhere classified
CPT/HCPCS: 36415; 71045; 80048; 80053; 80069; 80076; 80202; 80307; 81001; 82553; 82565; 82570; 82947; 83605; 83735; 83880; 84156; 84300; 84443; 84484; 84550; 85025; 85610; 87040; 87070; 87075; 87077; 87186; 87205; 88304; 88312; 90471; 90670; 93005; 93306; 93970; 94640; 96365; 96372; 96375; 99285; J0360; J0696; J1100; J1650; J1815; J1940; J2175; J2250; J2370; J2405; J2543; J2550; J2704; J2765; J3010; J3370; J3475; J7030; J7040; Q2035

== ENCOUNTER 2020-03-31 02:06 | Emergency (ER) | payer SELFPAY ==
--- OUTSIDE RECORDS SUMMARY | 2020-03-31 02:12 | XMS REPORT | Clinical Summary ---
:1955 Author Organization [employer] Address [address] [place] [address] Care Team Providers Name Role Phone HUE Vazquez Primary Care Provider Allergies Active Allergy Reactions Severity Noted Date Comments Hydromorphone Other (See Comments) 03/04/2017 Makes patient feel weird, states it makes her talk different and e ffects her breathing Medications Medication Sig Dispensed Refills Start Date End Date Status atorvastatin (LIPITOR) Take 20 mg by 02/22/2017 Active 20 MG tablet mouth nightly. citalopram (CeleXA) 40 Take 40 mg by 02/22/2017 Active MG tablet mouth once daily. metFORMIN (GLUCOPHAGE) Take 500 mg by 02/22/2017 Active 500 mg tablet mouth 2 (two) times a day with meals. acetaminophen-codeine Take 1 tablet by 0 Active (TYLENOL WITH CODEINE mouth 4 (four) #3) 300-30 mg per times a day as tablet needed for moderate pain. ALPRAZolam (XANAX) 1 MG Take 1 mg by 0 Active tablet mouth 3 (three) times a day as needed for anxiety. amLODIPine (NORVASC) 10 Take 10 mg by 0 Active mg tablet mouth daily. carvedilol (COREG) 6.25 Take 6.25 mg by 0 Active MG tablet mouth 2 (two) times a day with meals. gabapentin (NEURONTIN) Take 300 mg by 0 Active 300 mg capsule mouth 2 (two) times a day as needed. insulin lispro Inject 10 Units 0 Active (HumaLOG) 100 unit/mL under the skin 3 injection (three) times a day before meals. insulin detemir U-100 Inject 20 Units 0 Active (LEVEMIR) 100 unit/mL under the skin injection nightly. nitroglycerin Place 0.4 mg 0 Act tony (NITROSTAT) 0.4 MG SL under the tongue tablet every 5 (five) minutes as needed for chest pain. albuterol (PROAIR Inhale 2 puffs 0 Active HFA,PROVENTIL every 6 (six) HFA,VENTOLIN HFA) 90 hours as needed mcg/actuation inhaler for wheezing. promethazine Take 50 mg by 0 Act tony (PHENERGAN) 50 MG mouth every 6 tablet (six) hours as needed for nausea or vomiting. Active Problems Problem Noted Date Cellulitis of right lower extremity 06/09/2018 Pain in lower back 03/14/2017 Non-sustained ventricular tachycardia 03/14/2017 Necrotizing fasciitis due to microorganism 03/08/2017 PAD (peripheral artery disease) 03/08/2017 HTN (hypertension) 03/07/2017 Type 2 diabetes mellitus 03/07/2017 Diastolic CHF 03/07/2017 Bilateral lower leg cellulitis 03/01/2017 Social History Tobacco Use Types Packs/Day Years Used Date Current Every Day Smoker Alcohol Use Drinks/Week oz/Week Comments No Sex Assigned at Date Recorded Not on file Job Start Date Occupation Industry Not on file Not on file Not on file Travel History Travel Start Travel End No recent travel history available. Last Filed Vital Signs Not on file Plan of Treatment Health Maintenance Due Date Last Done Comments DIABETIC RETINAL EYE EXAM 1955 DIABETIC FOOT EXAM 1965 CERVICAL CANCER SCREENING 1976 BREAST CANCER SCREENING 2005 COLONOSCOPY SCREENING 2005 SHINGLES VACCINES (#1) 2005 INFLUENZA VACCINE 06/01/2020 Implants Implanted Type Area Electrophysiology Tech Device Shelf Model / Identifier Expiration Serial / Date Lot Device Vasclr Clsr Baln Cath 10ml Lkng Syr 5fr Winkler My nxgrip - [id number] Cardiovascular N/A: ACCESS CLOSURE 12/01/2018 [id number] / Implanted: 03/11/2017 at [facility] (Quantity not on file) Implants N/A INC / [id number] Matrix Matristem 7x10cm Burn Strl - [id number] Surgical [employer] L [employer] 12/01/2018 [id number] / Implanted: Qty: 1 on 03/04/2017 by Jesús Kam Jr., MD at [facility] Implants; / Expanders; Extenders; Surgical Wires Results Not on fileafter 03/31/2019 Advance Directives For more information, please contact: [phone] Type Date Recorded 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
--- OUTSIDE RECORDS SUMMARY | 2020-03-31 02:18 | XMS REPORT | Continuity of Care Document ---
:1955 Author Organization [employer] Care Team Providers Name Role Phone [employer] Unavailable Un available Problems Problem Status Onset Classification Date Comments Sourc e Date Reported FOLLOW UP Active 03/13/[address] Methicillin Active 02/25/20 Problem 04/14/2019 Lip Abscess, 01/31 [facility] resistant 19 Problem added by Dis cern Expert. 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 [facility] (disorder) [facility] CHEST PAIN NEC Active [facility] Medications Medication Details Route Status Patient Ordering Order Source Instructions Provider Date insulin detemir 100 20 unit, SUB-Q, Active 02/01 0/ [facility] units/mL Bedtime, # 10 2019 Medical subcutaneous mL, 0 Refill(s) Desiree ter solution NIFEdipine 60 mg 60 mg = 1 tab, Active 02/28/ [facility] oral tablet, PO, Daily, # 30 2018 Med ical extended release tab, 0 Center Refill(s) citalopram 40 mg 40 mg = 1 tab, Active 02/28/ [facility] oral tablet PO, Daily, # 30 2019 [facility] tab, 0 Center Refill(s) Vitamin D3 2000 2,000 IntlUnit Active 02/28/ [facility] [place] intl units oral = 1 tab, PO, 2019 Med ical tablet Daily, # 30 Center tab, 0 Refill(s) carvedilol 12.5 mg 12.5 mg = 1 Active 02/28/ M [facility] [place] oral tablet tab, PO, Q12H, 2019 Medic al # 60 tab, 0 Center Refill(s) atorvastatin 20 mg 20 mg = 1 tab, Active [facility] oral tablet PO, Bedtime, # 2019 Medic al 30 tab, 0 Center Refill(s) Aspirin 81 MG 81 mg = 1 tab, Active [facility] Enteric Coated PO, Daily, # 30 2019 M edical Tablet tab, 0 Center Refill(s) zinc sulfate 220 mg 220 mg = 1 tab, Active 02/01 [facility] oral tablet PO, Daily, # 30 2019 Medi kim tab, 0 Center Refill(s) Metformin 500 mg = 1 tab, Active Enrrique as hydrochloride 500 PO, BID-Meals, 2019 Medical MG Oral Tablet # 60 tab, 0 Cente r Refill(s) chlorhexidine Notes: (Same Inactive [place] gluconate 1.2 MG/ML As: Peridex) 2019 Medical Mouthwash [Peridex] Cent er Sulfamethoxazole Notes: One DS Inactive [place] 800 MG / tablet = 2019 Medical Trimethoprim 160 MG trimethoprim Center Oral Tablet 160mg + [Bactrim] sulfamethoxazol e 800 mg Dose based on trimethoprim component On empty stomach with a glass of water. (Same As: Bactrim DS, Septra DS) chlorhexidine 0.018 gm = 15 Active [place] gluconate 1.2 MG/ML mL, S&SPIT, 2019 Medical Mouthwash [Peridex] BID, Peridex Center 0.12% mouthrinse x 473mL: rinse with 15mL for 30s then spit twice daily x 14 days, # 473 mL, 0 Refill(s) 3 ML Insulin Lispro 10 unit, SUB-Q, Active 02/01 [place] 100 UNT/ML Pen TID-Before 2019 Medica l Injector [Humalog] Meals, # 10 mL, Center 0 Refill(s) tramadol 50 mg = 1 tab, Active [place] hydrochloride 50 MG PO, Q6H, X 7 2019 Medical Oral Tablet day, # 28 tab, Cente r 0 Refill(s) Sulfamethoxazole 1 tab, PO, Active [place] 800 MG / [id number], X 14 2019 Medical Trimethoprim 160 MG day, # 28 tab, Center Oral Tablet 0 Refill(s) [Bactrim] Docusate Sodium 100 100 mg = 1 cap, Active 02/01 0 [place] MG Oral Capsule PO, BID, # 28 2019 Co dical cap, 0 Center Refill(s) celecoxib 200 mg 200 mg = 1 cap, Active [place] oral capsule PO, [id number], # 2019 Medi kim 60 cap, 0 Center Refill(s) Magnesium Sulfate Notes: WASTE: Inactive [place] F/P - Sink; E - 2019 [facility] Bin propofol (ANES) Route: IV, Drug Inactive [place] form: INJ, 2018 Medical ONCE, Stop Center date: 02/27/19 11:24:00 CDT midazolam (ANES) Route: IV, Drug Inactive [place] form: SOLN, 2018 Medical ONCE, Stop Center date: 02/27/19 11:24:00 CDT lidocaine (ANES) Route: IV, Drug Inactive [place] form: INJ, 2018 Medical ONCE, Stop Center date: 02/27/19 11:24:00 CDT Ondansetron Notes: (Same Inactive [place] as as: Zofran) 2019 Medical MEDICATION Center WASTE Product Size: 4 mg Product Wasted: ___ mg Flumazenil Notes: (Same [place] as: Romazicon) 2019 [facility] Center Naloxone Notes: Same as Inactive [place] lozada Narcan 2019 [facility] Labetalol 10 mg, 2 mL, Inactive [place] Route: IVP, 2019 Medical Drug form: INJ, Center Q5Min, Dosing Weight 86.364, kg, PRN Elevated BP, Start date: 02/27/19 11:04:00 CDT, Duration: 5 doses or times, Stop date: Limited # of times Oxycodone Notes: (Same Inactive [place] as: Roxicodone) 2019 [facility] Hydralazine Notes: (Same Inactive [place] as as: Apresoline) 2019 Medical Push over 5 Center minutes Lactated Ringers Route: IV, Inactive [place] Injection IV (ANES) Total Volume: 2019 Medical 1000 mL 1,000, Start Center date: 02/27/19 10:46:00 CDT, Stop date: 02/27/19 11:46:00 CDT vancomycin + Sodium 2001 mg: No Longer [place] Chloride 0.9% IV infuse over 2.5 Active 2019 Medical 500 mL hours For Center adult patients only: Round to nearest 250 mg per Medical Staff approval MEDICATION WASTE Product Size: 1000 mg Product Wasted: ___ mg POLYETHYLENE GLYCOL Notes: Dissolve No Longer [place] 3350 in 8 oz of Active 2019 Medical water or juice. Center (Same as: Miralax) carvedilol 6.25 mg 6.25 mg = 1 No Longer [place] oral tablet tab, PO, BID, # Active 2019 Medi kim 180 tab, 0 Center Refill(s) zinc sulfate 220 mg 220 mg = 1 tab, No Longer [place] oral tablet PO, Daily, # Active 2018 Medical 100 tab, 0 Center Refill(s) amLODIPine 10 mg 10 mg = 1 tab, No Longer [place] oral tablet PO, Daily, # 30 Active 2018 Medi kim tab, 0 Center Refill(s) Magnesium Sulfate Notes: WASTE: No Longer [place] F/P - Sink; E - Active 2019 [facility] Trash Center Bin Tramadol Notes: Not to [place] Longer [place] exceed Active 2019 Medical 400mg/day. Center (Same As: Ultram) potassium phosphate Notes: (Same Inactive [place] as: K 2019 Medical Phosphate.) Do Center not infuse phosphorous concurrently in the same line as TPN or IVF that contains calcium. For double lumen central lines, phosphorous may be infused in a separate lumen from TPN. 1 mMol phoshate has 1.47 mEq potassium Infuse over 4 hours Magnesium Sulfate Notes: WASTE: Inactive [place] F/P - Sink; E - 2019 [facility] Trash Center Bin Docusate Notes: (Same No Longer [place] as: Colace) (Do Active 2019 Medical Not Crush) Center Acetaminophen Notes: Max [place]er [place] acetaminophen Active 2019 Medical 4000 mg/day (4 Center gm/day). (Same as: Tylenol Extra Strength) celecoxib Notes: NSAID. No Longer [place] as Please check Active 2019 Medical indication. Not Center for seizure. (Same As: CeleBREX) Oxycodone Notes: (Same No Longer [place]riquea s Hydrochloride 5 MG as: Roxicodone) Active 2018 Medical Oral Tablet Center Oxycodone Notes: (Same [place] Longer [place] Hydrochloride 5 MG as: Roxicodone) Active 2019 Medical Oral Tablet Center Vancomycin 2001 mg: No Longer [place] infuse over 2.5 Active 2019 [facility] hours [place] Insulin regular 10 unit, Route: Inactive [place] IV, ONCE, 2019 Medical Dosing Weight Center 86.364, kg, Start date: 02/24/19 17:14:00 CDT, Stop date: 02/24/19 17:14:00 CDT Magnesium Sulfate Notes: WASTE: Inactive [place] F/P - Sink; E - 2018 [facility] Bin Magnesium Sulfate Notes: WASTE: Inactive 02/[facility] [place] F/P - Sink; E - 2018 [facility] Bin Promethazine 6.25 mg, Route: Inactive [place] IVPB, ONCE, 2019 Medical Dosing Weight Center 86.364, kg, PRN Nausea & Vomiting, Start date: 02/24/19 12:54:00 CDT Hydralazine Notes: (Same Inactive [place] as as: Apresoline) 2019 Medical Push over 5 Center minutes Labetalol 10 mg, 2 mL, Inactive [place] Route: IVP, 2018 Medical Drug form: INJ, Center Q5Min, Dosing Weight 86.364, kg, PRN Elevated BP, Start date: 02/24/19 12:52:00 CDT, Duration: 5 doses or times, Stop date: Limited # of times Ketorolac 30 mg, Route: Inactive Enrriquea s IVP, ONCE, 2018 Medical Dosing Weight Center 86.364, kg, Start date: 02/24/19 12:45:00 CDT, Stop date: 02/24/19 12:45:00 CDT Fentanyl 50 microgram, Inactive [place] Route: IVP, 2019 Medical Q5Min, Dosing Center Weight 86.364, kg, PRN Pain Score 4-6, Priority: Routine, Start date: 02/24/19 12:44:00 CDT, Duration: 4 doses or times, Stop date: Limited # of times glycopyrrolate Route: IV, Drug Inactive [place] (ANES) form: INJ, 2018 Medical ONCE, Stop Center date: 02/24/19 12:37:00 CDT ondansetron (ANES) Route: IV, Drug Inactive 01/31 [facility] form: INJ, 2018 Medical ONCE, Stop Center date: 02/24/19 12:37:00 CDT neostigmine (ANES) Route: IV, Drug Inactive 01/31 [facility] form: INJ, 2018 Medical ONCE, Stop Center date: 02/24/19 12:37:00 CDT Acetaminophen 1,000 mg, Inactive Enrriquea s Route: IV, 2018 Medical ONCE, Dosing Center Weight 86.364, kg, Start date: 02/24/19 12:36:00 CDT, Stop date: 02/24/19 12:36:00 CDT phenylephrine Route: IV, Drug Inactive H [place] (ANES) form: INJ, 2018 Medical ONCE, Stop Center date: 02/24/19 12:36:00 CDT fentaNYL (ANES) Route: IV, Drug Inactive [facility] form: INJ, 2018 Medical ONCE, Stop Center date: 02/24/19 12:16:00 CDT rocuronium (ANES) Route: IV, Drug Inactive 02/24 [facility] form: INJ, 2018 Medical ONCE, Stop Center date: 02/24/19 12:16:00 CDT propofol (ANES) Route: IV, Drug Inactive [facility] form: INJ, 2018 Medical ONCE, Stop Center date: 02/24/19 12:16:00 CDT lidocaine (ANES) Route: IV, Drug Inactive [facility] form: INJ, 2018 Medical ONCE, Stop Center date: 02/24/19 12:16:00 CDT Oxycodone Notes: (Same Inactive [place] as: Roxicodone) 2019 [facility] Center Flumazenil Notes: (Same Inactive [place] as: Romazicon) 2018 Medical Center Ondansetron Notes: (Same Inactive [place] as as: Zofran) 2019 Medical MEDICATION Center WASTE Product Size: 4 mg Product Wasted: ___ mg Naloxone Notes: Same as Inactive [place] lozada Narcan 2019 Medical Center Acetaminophen 1,000 mg, Inactive Enrriquea s Route: PO, Drug 2019 Medical form: TAB, Center ONCE, Dosing Weight 86.364, kg, PRN Pain Score 1-3, Start date: 02/24/19 12:01:00 CDT Sodium Chloride Route: IV, Drug Inactive [place] 0.9% IV (ANES) 235 form: INJ, 2019 Me dical mL + vancomycin Start date: Cent er (ANES) 1500 mg 02/24/19 11:25:00 CDT, Stop date: 02/24/19 12:25:00 CDT Lactated Ringers Route: IV, Inactive [place] Injection IV (ANES) Total Volume: 2019 Medical 1000 mL 1,000, Start Center date: 02/24/19 11:03:00 CDT, Stop date: 02/24/19 12:03:00 CDT Insulin Lispro Notes: (Same No Longer [place] as: Humalog) Active 2019 Medical Roll in palms Center of hands gently; Do not shake vigorously. WASTE: F/P - Black; E - Municipal Trash Bin Stable for 28 days at room temperature. Expires in days from D ate Glucagon 1 mg, Route: No Longer [place] IM, Drug form: Active 2019 Medical PDR/INJ, PRN, Center Dosing Weight 86.364, kg, PRN Blood Glucose Results, Start date: 02/24/19 0:52:00 CDT, Duration: 30 day, Stop date: 03/26/19 0:51:00 CDT Dextrose 50% in 25 gm, 50 mL, No Longer [place] Water (bolus) IV Route: IVP, Active 2019 Med ical Drug Form: INJ, Center Dosing Weight 86.364, kg, PRN, PRN Blood Glucose Results, Start date: 02/24/19 0:52:00 CDT, Duration: 30 day, Stop date: 03/26/19 0:51:00 CDT atorvastatin Notes: (Same No Longer [place] As: Lipitor) Active 2019 [facility] Insulin Lispro Notes: (Same No Longer [facility] as: Humalog) Active 2019 [facility] Roll in [place] Center of hands gently; Do not shake vigorously. WASTE: F/P - Black; E - Municipal Trash Bin Stable for 28 days at room temperature. Expires in days from D ate Hydralazine Notes: (Same [place] Longer [place] as: Apresoline) Active 2019 [facility] Center w/enteral feedings Take With Food. NIFEdipine 60 mg Notes: (Same No Longer [facility] oral tablet, as: Adalat CC, Active 2019 [facility] extended release Procardia XL) C enter Give on empty stomach. Take 1 hour before or 2 hours after meal; "Avoid grapefruit and grapefruit juice". Do not crush cholecalciferol Notes: Same as: No Longer [facility] Vitamin D3 Active 2019 [facility] Citalopram Notes: (Same No Longer [place] as As: CeleXA) Active 2019 [facility] carvedilol Notes: Give [place] Longer [place] with food. Active 2019 [facility] (Same As: [place] Coreg) Aspirin 81 MG Notes: Do not No Longer [facility] Enteric Coated crush or chew. Active 2018 Co dical Tablet (Same As: [place] Ecotrin) Insulin Glargine 20 unit, 0.2 No Longer [place] mL, Route: Active 2019 [facility] SUB-, Drug Center form: SOLN, Daily, Dosing Weight 104.8, kg, Start date: 02/23/19 9:00:00 CDT, Duration: 30 day, Stop date: 03/24/19 9:00:00 CDT heparin Notes: porcine [place] Longer [place] heparin Active 2019 [facility] normal saline 0.9% 1,000 mL, Rate: No Longer [place] IV 1,000 mL 125 ml/hr, Active 2019 [facility] Infuse over: 8 Center hr, Route: IV, Dosing Weight 86.364 kg, Total Volume: 1,000, Start date: 02/23/19 5:07:00 CDT, Duration: 30 day, Stop date: 03/25/19 5:06:00 CDT, 2.04, m2 Unasyn Notes: Dosing No Longer based on 2018 Medical Ampicillin Center component (Same as: Unasyn) Insulin Lispro 10 unit, SUB-Q, No Longer [place] TID-Before 2018 Medical Meals, 0 Center Refill(s) insulin detemir 20 unit, SUB-Q, No Longer [place] Bedtime, 0 2018 Medical Refill(s) Center Hydralazine 25 mg = 1 tab, No Longer [place] Hydrochloride 25 MG PO, TID, # 270 2018 Medical Oral Tablet tab, 1 Center Refill(s) Glucagon 1 mg, Route: No Longer [place] IM, Drug form: 2018 Medical PDR/INJ, PRN, Center Dosing Weight 104.8, kg, PRN Blood Glucose Results, Start date: 02/23/19 4:34:00 CDT, Duration: 30 day, Stop date: 03/25/19 4:33:00 CDT Dextrose 50% in 12.5 gm, 25 mL, No Longer [place] Water (bolus) IV Route: IVP, 2018 Med ical Drug Form: INJ, Center Dosing Weight 104.8, kg, PRN, PRN Blood Glucose Results, Start date: 02/23/19 4:34:00 CDT, Duration: 30 day, Stop date: 03/25/19 4:33:00 CDT Insulin Lispro Notes: (Same No Longer as: Humalog) 2018 Medical Roll in palms Center of hands gently; Do not shake vigorously. WASTE: F/P - Black; E - Municipal Trash Bin Stable for 28 days at room temperature. Expires in days from D ate Tylenol Notes: Do not No Longer [place] exceed 4 2018 Medical gm/day. (Same Center as: Tylenol) Oxy[facility]one Notes: [facility] 5 MG as: Roxicodone) Active 2018 Medical Oral Tablet Center NIFEdipine 60 mg 60 mg = 1 tab, No Longer [place] oral tablet, PO, Daily, # 30 Active 2019 Med ical extended release tab, 0 Center Refill(s) Metformin 500 mg = 1 tab, No Longer [place] hydrochloride 500 PO, BID-Meals, Active 2019 Medical MG Oral Tablet # 30 tab, 0 Cente r Refill(s) Insulin Lispro SUB-Q, 0 [place]active [place] Refill(s) 2019 [facility] insulin detemir SUB-Q, 0 Inactive [place]rrique as Refill(s) 2019 [facility] Vitamin D3 2000 2,000 IntlUnit No Longer [facility] intl units oral = 1 tab, PO, Active 2019 Med ical tablet Daily, 0 Center Refill(s) carvedilol 12.5 mg 12.5 mg = 1 No Longer [facility] oral tablet tab, PO, Q12H, Active 2019 Medic al # 60 tab, 0 Center Refill(s) atorvastatin 20 mg 20 mg = 1 tab, No Longer 01/31 [place] oral tablet PO, Bedtime, # Active 2019 Medic al 30 tab, 0 Center Refill(s) Aspirin 81 MG 81 mg = 1 tab, No Longer H [place] Enteric Coated PO, Daily, # 90 Active 2018 edical Tablet tab, 3 Center Refill(s) Dextrose 50% in 12.5 gm, 25 mL, Inactive [place] Water (bolus) IV Route: IVP, 2018 Med ical Drug Form: INJ, Center Dosing Weight 104.8, kg, PRN, PRN Blood Glucose Results, Start date: 02/23/19 4:06:00 CDT, Duration: 30 day, Stop date: 03/25/19 4:05:00 CDT Glucagon 1 mg, Route: Inactive [place] IM, Drug form: 2019 Medical PDR/INJ, PRN, Center Dosing Weight 104.8, kg, PRN Blood Glucose Results, Start date: 02/23/19 4:06:00 CDT, Duration: 30 day, Stop date: 03/25/19 4:05:00 CDT Insulin, Regular, 60 units) Inactive [facility] [place] Pork Stable for 28 2014 days at room Center temperature Expires in days from D ate Lancet Device 1 box, MISC, Active [place] Daily, # 1 ea, 2015 Medical 0 Refill(s) Center Lancets 1 box, MISC, Active [place] Daily, # 10 2014 Medical box, 0 Center Refill(s) Lancets 1 box, MISC, Inactive [place] Daily, # 10 2014 Medical box, 0 Center Refill(s) Lancet Device 1 box, MISC, Inactive [place] Daily, # 1 ea, 2015 Medical 0 Refill(s) Center clindamycin 150 mg 450 mg = 3 cap, Active 11/02 [facility] oral capsule PO, TID, # 15 2014 Medic al cap, 0 Center Refill(s) Nitroglycerin 0.4 0.4 mg = 1 tab, Active [facility] MG Sublingual SL, Q5Min, 2014 Medical Tablet Chest Pain, # Center 100 tab, 2 Refill(s) Regular Insulin, 10 unit, SUB-Q, Active [facility] Human 100 UNT/ML TID-Before 2014 [facility] Injectable Solution Meals, # 15 mL, Center 0 Refill(s) clopidogrel 75 mg 75 mg = 1 tab, Active [facility] oral tablet PO, Daily, # 90 2014 [facility] tab, 3 Center Refill(s) insulin detemir 100 25 unit, SUB-Q, Active [place] units/mL Daily, # 15 mL, 2014 Medical subcutaneous 0 Refill(s) Center solution Hydrochlorothiazide 25 mg = 1 tab, Active 11/02 [place] 25 MG Oral Tablet PO, Daily, # 90 2015 Medical tab, 3 Center Refill(s) lisinopril 40 mg 40 mg = 1 tab, Active [facility] oral tablet PO, Daily, # 60 2014 [facility] tab, 2 Center Refill(s) Aspirin 81 MG 81 mg = 1 tab, Active [facility] Enteric Coated PO, Daily, 0 2014 [facility] Tablet Refill(s) Center amLODIPine 10 mg 10 mg = 1 tab, Active [facility] oral tablet PO, Q12H, # 120 2015 Medi kim tab, 3 Center Refill(s) atorvastatin 40 mg 40 mg = 1 tab, Active [facility] oral tablet PO, Bedtime, # 2015 Medic al 60 tab, 3 Center Refill(s) carvedilol 25 mg 25 mg = 1 tab, Active [facility] oral tablet PO, Q12H, # 120 2014 Medi kim tab, 3 Center Refill(s) Clindamycin Notes: (Same Inactive [place]rrique as As: Cleocin) 2015 [facility] insulin detemir Notes: Same as Inactive [facility] Levemir Do not 2015 [facility] [place] [facility] insulin Center without contacting prescriber "single patient use only" Imdur Notes: (Same No Longer [facility] as:Imdur) "Do Active 2014 Medical Not Crush" Center Take on empty stomach/ full glass of water. Do not crush Acetaminophen 325 Notes: (Same No Longer [facility] MG / Hydrocodone as: [place] Active 2014 Medic al Bitartrate 5 MG 325/5) Do not C enter Oral Tablet [[place] exceed 4gm/day 5/325] of acetaminophen. carvedilol Notes: Give No Longer [place] with food. Active 2014 Medical (Same As: Center Coreg) Magnesium Oxide Notes: (Same No Longer [facility] [place] [facility] as: Mag-Ox 400) Active 2014 [facility] Magnesium oxide Center [id number] elemental magnesium Dose=____mg magnesium oxide (___mg elemental magnesium) insulin detemir Notes: Same as No Longer [facility] Levemir Do not Active 2014 [facility] [place] [facility] insulin Center without contacting prescriber "single patient use only" Hydrochlorothiazide Notes: (Same No Longer 11/01 [facility] as: Active 2014 Medical Hydrodiuril) Center With food. Insulin, Aspart, Notes: Roll in No Longer [facility] Human palms of hands Active 2014 Medical gently; Do not Center shake vigorously. (Same as: NovoLOG) "single patient use only" Stable for 28 days at room temperature. Expires in days from D ate Magnesium Sulfate 2 gm, 50 mL, Inactive [facility] Route: IVPB, 2014 Medical Drug form: INJ, Center ONCE, Dosing Weight 104.8, kg, Start date: 11/01/14 6:14:00, Duration: 2 hr, Stop date: 11/01/14 6:14:00 Nicotine 21 mg, Route: Inactive [place] TOP, Drug form: 2015 Medical ERFILM, ONCE, Center Dosing Weight 104.8, kg, Start date: 10/31/14 21:47:00, Stop date: 10/31/14 21:47:00 metoprolol extended Notes: (Same No Longer 11/01 [place] release as: Toprol XL) Active 2014 Medical May split tab, Center but do not crush. Amlodipine Notes: (Same Inactive [place] as: Norvasc) 2013 [facility] insulin detemir Notes: Same as Inactive [facility] Levemir Do not [address] [place] [address] insulin Center without contacting prescriber "single patient use only" Lisinopril Notes: (Same No Longer [place] as as: Prinivil, Active 2013 [facility] Zestril) Center insulin detemir Notes: Same as Inactive [facility] Levemir Do not [address] [place] [address] insulin Center without contacting prescriber "single patient use only" Amlodipine Notes: (Same No Longer [place] as as: Norvasc) Active 2014 [facility] metoprolol extended Notes: (Same Inactive [place] release as: Toprol XL) 2013 [facility] split tab, Center but do not crush. metoprolol extended Notes: (Same Inactive [place] release as: Toprol XL) 2014 Medical Do Not Crush Center insulin detemir Notes: Same as No Longer [facility] Levemir Do not Active 2013 [facility] [place] [facility] insulin Center without contacting prescriber "single patient use only" Nicardipine Notes: Same as: No Longer [place] Cardene Active 2013 Medical Concentration: Center (0.2 mg /1 ml ) metoprolol tartrate Notes: (Same Inactive [place] as: Lopressor) 2014 [facility] Center atorvastatin Notes: (Same No Longer [place] as: Lipitor) Active 2014 Medical [place] Brilinta Notes: (Same Inactive [place] as: Brilinta) 2014 Medical Center Citalopram Notes: (Same No Longer [place]rrique as As: CeleXA) Active 2013 Medical Center Insulin, Regular, 60 units) No Longer [place] Pork Stable for 28 Active 2013 Medical days at room Center temperature Expires in days from D ate Dextrose 50% 12.5 gm, 25 mL, No Longer H [place] Syringe Route: IVP, Active 2013 Medical Drug Form: INJ, Center Dosing Weight 104.8, kg, PRN, PRN Blood Glucose Results, Start date: 10/30/14 13:46:00, Duration: 30 day, Stop date: 11/29/14 13:45:00 Glucagon 1 mg, Route: No Longer [place] IM, Drug form: Active 2013 Medical PDR/INJ, PRN, Center Dosing Weight 104.8, kg, PRN Blood Glucose Results, Start date: 10/30/14 13:46:00, Duration: 30 day, Stop date: 11/29/14 13:45:00 Phosphorus / Notes: (Same No Longer [place] Potassium as: K Active 2013 Medical Phosphate.) 1 Center mMol phoshate has 1.47 mEq potassium Infuse over 4 hours Magnesium Sulfate Special No Longer [place] Instructions: Active 2013 Medical FOR ICU USE Center ONLY Neutra-Phos Notes: (Same [place] Longer [place] as: Active 2013 Medical Neutra-Phos) Center Each 1.25 gm pkt has 250mg phosphorous. Mix w/2.5oz water and stir. Magnesium Oxide Notes: (Same No Longer H [place] as: Mag-Ox 400) Active 2013 Medical Magnesium oxide Center [id number] elemental magnesium Dose=____mg magnesium oxide (___mg elemental magnesium) Calcium Carbonate Notes: (Same No Longer [place] 500 MG Chewable As: Tums) Active 2013 Medica l Tablet Calcium Center Carbonate 500 mg = 200 mg elemental calcium Dose = mg calcium carbonate ( mg elemental calcium) Calcium Gluconate Special No Longer [place] Instructions: Active 2013 Medical FOR ICU USE Center ONLY Potassium Chloride Notes: (Same No Longer [place] as: K-Dur 20) Active 2013 Medical "Do Not Crush" Center With food and full glass of water Sodium Phosphate, Special No Longer [place] Monobasic Instructions: Active 2013 Medical FOR ICU USE Center ONLY Nicotine Notes: (Same No Longer [place] as: Habitrol) Active 2013 Medical "Remove old Center patch before application of new patch" remove patch Notes: Remove No Longer [facility] old patch Active 2013 Medical before Center application of new patch. Aspirin 81 MG Notes: Do not No Longer [facility] Enteric Coated crush or chew. Active 2013 Co dical Tablet (Same As: Center Ecotrin) Lisinopril Notes: (Same [place] as: Prinivil, 2013 Medical Zestril) Center metoprolol extended Notes: (Same No Longer 10/30 [facility] release as: Toprol XL) Active 2013 Medical Do Not Crush Center Plavix Notes: (Same No Longer [place] As: Plavix) Active 2013 Medical Center pneumococcal Notes: (Same [place] capsular as: Pneumovax 2014 [facility] polysaccharide type 23) Cent er 1 vaccine / Refrigerate pneumococcal capsular polysaccharide type 10A vaccine / pneumococcal capsular polysaccharide type 11A vaccine / pneumococcal capsular polysaccharide type 12F vaccine / pneumococcal capsular polysacchar Influenza Virus Notes: (Same Inactive [facility] Vaccine, as: Fluzone 2013 Medical Inactivated Quadrivalent) Center E-Thwjfprk-06 (H3N2)-like virus (Z-[id number] [facility] X-175C) strain / Influenza Virus Vaccine, Inactivated U-Ueboanwn-58, IVR-148 (H1N1) strain / Influenza Virus Vaccine, Inactivated, G-Jhqatre-6-2006-li k Docusate Notes: (Same No Longer [place] as: Colace) (Do Active 2013 Medical Not Crush) Center Saline Flush 0.9% Notes: (Same No Longer [place] as: BD Active 2013 Medical Posiflush) Center pantoprazole Notes: For IV No Longer [facility] push Active 2013 Medical reconstitute Center with 10 ml 0.9% sodium chloride and push over 2 minutes. (Same as: Protonix) Albuterol 0.833 Notes: (Same No Longer [place] MG/ML / Ipratropium as: Duoneb) Active 2013 Medical [place] 0.167 MG/ML Cent er Inhalant Solution [DuoNeb] Morphine 2 mg, Route: Inactive [place] IVP, ONCE, 2013 Medical Dosing Weight Center 104.8, kg, Start date: 10/30/14 6:03:00, Stop date: 10/30/14 6:03:00 Morphine 2 mg, Route: Inactive [place] IVP, ONCE, 2013 Medical Dosing Weight Center 104.8, kg, Start date: 10/30/14 3:49:00, Stop date: 10/30/14 3:49:00 Amlodipine Special No Longer [place] Instructions: Active 2013 Medical 10 mg Center citalopram 40 mg 40 mg = 1 tab, Active [place] oral tablet Daily, 0 2013 Medical Refill(s) Center Metformin 1,000 mg = 1 Active [facility] hydrochloride 1000 tab, BID, 0 2013 edical MG Oral Tablet Refill(s) Center aspirin 325 mg 325 mg = 1 tab, No Longer [facility] tablet Daily, 0 Active 2013 Medical Refill(s) Center lisinopril 40 mg 40 mg = 1 tab, No Longer [facility] oral tablet Daily, 0 Active 2013 Medical Refill(s) Center metoprolol tartrate 50 mg = 1 tab, No Longer [facility] 50 mg oral tablet BID, 0 Active 2013 Medica l Refill(s) Center Zofran Notes: (Same No Longer [facility] as: Zofran) Active 2013 Medical Center Acetaminophen Notes: Do not No Longer [facility] exceed 4 Active 2013 Medical gm/day. (Same Center as: Tylenol) Plavix 600 mg, Route: Inactive [place] PO, Drug form: 2013 Medical TAB, ONCE, Center Dosing Weight 104.8, kg, Start date: 10/30/14 0:38:00, Duration: 1 doses or times, Stop date: 10/30/14 0:38:00 Insulin, Regular, 60 units) Inactive [facility] Stable for 28 2013 Medical days at room Center temperature Expires in days from D ate Dextrose 50% 12.5 gm, 25 mL, Inactive [facility] Syringe Route: IVP, 2013 Medical Drug Form: INJ, Center Dosing Weight 104.8, kg, PRN, PRN Blood Glucose Results, Start date: 10/30/14 0:37:00, Duration: 30 day, Stop date: 11/29/14 0:36:00 Glucagon 1 mg, Route: Inactive [facility] IM, Drug form: 2013 Medical PDR/INJ, PRN, Center Dosing Weight 104.8, kg, PRN Blood Glucose Results, Start date: 10/30/14 0:37:00, Duration: 30 day, Stop date: 11/29/14 0:36:00 heparin additive 500 mL, Rate: Inactive [facility] 25,000 unit [12 18.93 ml/hr, 2013 Med ical unit/kg/hr] + Infuse over: Cente r Premix Diluent 26.4 hr, Route: Dextrose 5% 500 mL IV, Dosing Weight 78.88 kg, Total Volume: 500 mL, Start date: 10/30/14 0:36:00, Duration: 30 day, Stop date: 11/29/14 0:35:00 Nitroglycerin Notes: (Same No Longer [facility] as:Tridil) Active 2013 [facility] Final conc = Center 0.4 mg/ml. Premix bottle. clopidogrel Notes: ( Same [place] as: Plavix) 2013 [facility] heparin additive 500 mL, Rate: Inactive [facility] 25,000 unit [12 18.93 ml/hr, 2013 Med ical unit/kg/hr] + Infuse over: Cente r Premix Diluent 26.4 hr, Route: Dextrose 5% 500 mL IV, Dosing Weight 78.88 kg, Total Volume: 500 mL, Start date: 10/30/14 0:29:00, Duration: 30 day, Stop date: 11/29/14 0:28:00 Bisacodyl Notes: (Same No Longer [place] As: Dulcolax, Active 2013 Medical Bisco-Lax) [place] Saline Flush 0.9% Notes: (Same No Longer 10/30/ [facility] as: BD Active 2013 [facility] Posiflush) [place] Allergies, Adverse Reactions, Alerts Substance Category Reaction Severity Reaction Status Date Comments S ource type Reported morphine Assertion Anaphylactic Severe Drug Active [facility] allergy Medical [place] Dilaudid Assertion Anaphylaxis Severe Drug Active [facility] [place] allergy [facility] Immunizations Immunization Date Site Status Last Updated Comments Sour ce Given influenza virus Right completed [facility] [place] vaccine, 4 deltoid [facility] inactivated Center pneumococcal Left completed [facility] [place] 23-valent 4 deltoid [facility] vaccine Center Results Order Name Results Value Reference Date Interpretation Comments Melonie rce Range TOXICOLOGY Vanco Tr 13.7 02/28 [facility] TOXICOLOGY Vanco Tr TND 2330 02/28 [facility]2018 [facility] Culture: No 02/27 [facility] Anaerobic Anaerobes /2018 [facility] Center After 3 Days Gram Stain Moderate WBC's No Squamous Epithelial Cells; 02/27 [facility] Report No Organisms [facility] Culture: Few Methicillin Resistant Staphylococcus aureus 02/27 [facility] Wound/Abscess Refer To Culture # /2018 [facility] w/Gram Stain 19 [id number] collected 02/24/19 [place] For Susceptibility Results . Few Lactobacillus Species Few Yeast , Further Testing In Progress CHEM PANEL Magnesium Lvl 1.8 1.8 - 2.4 02/27 [place] [facility] CHEM PANEL Phosphorus 3.0 2.5 - 4.5 02/27 [facility]2018 [facility] ELECTROLYTE AGAP 9.2 10.0 - 02/27 [facility] S 20.0 [facility] ELECTROLYTE eGFR 100 02/27 Result [facility] /2018 Comment: The Medical eGFR is Center calculated using the CKD-EPI formula. In most young, healthy individuals the eGFR will be >90 mL/min/1.73m2 . The eGFR declines with age. An eGFR of 60-89 may be normal in some populations, particularly the elderly, for whom the CKD-EPI formula has not been extensively validated. Use of the eGFR is not recommended in the following populations:< br/>
Allison viduals with unstable creatinine concentration s, including patients and those with serious co-morbid conditions.<b r/>
Patie nts with extremes in muscle mass or diet.

The data above are obtained from the National Kidney Disease Education Program (NKDEP) which additionally recommends that when the eGFR is used in patients with extremes of body mass index for purposes of drug dosing, the eGFR should be multiplied by the estimated BMI. ELECTROLYTE Calcium Lvl 9.1 8.5 - 10.5 02/27 [facility] 2018 [facility] ELECTROLYTE CO2 31 24 - 32 02/27 [facility] 2018 [facility] ELECTROLYTE BUN 10 7 - 22 02/27 [facility] 2018 [facility] ELECTROLYTE Glucose Lvl 140 70 - 99 02/27 [facility]2018 [facility] ELECTROLYTE Chloride Lvl 104 95 - 109 02/27 [facility] 2018 [facility] ELECTROLYTE Sodium Lvl 140 135 - 145 02/27 [facility]2018 [facility] ELECTROLYTE Potassium Lvl 4.2 3.5 - 5.1 02/27 [place] [facility] ELECTROLYTE Creatinine 0.56 0.50 - 02/27 [facility] S Lvl 1.40 [facility] HEMATOLOGY RDW 12.7 11.5 - 02/27 [facility] 14.5 [facility] HEMATOLOGY MCHC 33.9 32.0 - 02/27 [facility] 36.0 [facility] HEMATOLOGY MPV 8.9 7.4 - 10.4 02/27 [facility]2018 [facility] HEMATOLOGY Platelet 335 133 - 450 02/27 [facility]2018 [facility] HEMATOLOGY Hct 40.8 36.0 - 02/27 [facility] 48.0 [facility] HEMATOLOGY Hgb 13.8 12.0 - 02/27 [facility] 16.0 [facility] HEMATOLOGY MCH 31.4 27.0 - 02/27 [place] 31.0 [facility] HEMATOLOGY MCV 92.6 80.0 - 02/27 [facility] 98.0 [facility] HEMATOLOGY RBC 4.40 4.20 - 02/27 [facility] 5.40 [facility] HEMATOLOGY WBC 9.1 3.7 - 10.4 02/27 [facility]2018 [facility] HEMATOLOGY Segs 63.1 45.0 - 02/27 [facility] 75.0 [facility] HEMATOLOGY Basophils # 0.1 0.0 - 0.2 02/27 [facility]2018 [facility] HEMATOLOGY Eosinophils # 0.2 0.0 - 0.5 02/27 [facility] HEMATOLOGY Monocytes # 0.6 0.0 - 0.8 02/27 [facility] HEMATOLOGY Lymphocytes # 2.5 1.0 - 5.5 02/27 [facility] HEMATOLOGY Lymphocytes 27.5 20.0 - 02/27 40.0 [facility] HEMATOLOGY Neutrophils # 5.8 1.5 - 8.1 02/27 [facility] HEMATOLOGY Basophils 0.6 0.0 - 1.0 02/27 [facility] HEMATOLOGY Eosinophils 1.8 0.0 - 4.0 02/27 [facility] HEMATOLOGY Monocytes 7.0 2.0 - 12.0 02/27 [facility] CHEM PANEL eGFR 102 02/26 Result Comment: The Medical eGFR is Center calculated using the CKD-EPI formula. In most young, healthy individuals the eGFR will be >90 mL/min/1.73m2 . The eGFR declines with age. An eGFR of 60-89 may be normal in some populations, particularly the elderly, for whom the CKD-EPI formula has not been extensively validated. Use of the eGFR is not recommended in the following populations:< br/>
[place] viduals with unstable creatinine concentration s, including patients and those with serious co-morbid conditions.<b r/>
Patie nts with extremes in muscle mass or diet.

The data above are obtained from the National Kidney Disease Education Program (NKDEP) which additionally recommends that when the eGFR is used in patients with extremes of body mass index for purposes of drug dosing, the eGFR should be multiplied by the estimated BMI. CHEM PANEL Calcium Lvl 8.3 8.5 - 10.5 02/26 [facility] CHEM PANEL BUN 10 7 - 22 02/26 [facility] CHEM PANEL Potassium Lvl 4.0 3.5 - 5.1 02/26 [facility] CHEM PANEL CO2 27 24 - 32 02/26 [facility]2018 [facility] CHEM PANEL Chloride Lvl 104 95 - 109 02/26 [facility] CHEM PANEL AGAP 10.0 10.0 - 02/26 20. [facility] CHEM PANEL Sodium Lvl 137 135 - 145 02/26 [facility] CHEM PANEL Creatinine 0.52 0.50 - 02/26 [place] Lvl 1.40 [facility] CHEM PANEL Glucose Lvl 263 70 - 99 02/26 [facility] CHEM PANEL Phosphorus 2.7 2.5 - 4.5 02/26 [facility] CHEM PANEL Magnesium Lvl 2.2 1.8 - 2.4 02/26 [facility] HEMATOLOGY Basophils 0.5 0.0 - 1.0 02/26 [facility] HEMATOLOGY Neutrophils # 6.2 1.5 - 8.1 02/26 [facility] HEMATOLOGY Lymphocytes # 2.2 1.0 - 5.5 02/26 [facility] HEMATOLOGY Monocytes 7.2 2.0 - 12.0 02/26 [facility]2018 [facility] HEMATOLOGY Eosinophils 1.8 0.0 - 4.0 02/26 [facility] HEMATOLOGY Lymphocytes 23.5 20.0 - 02/26 40.0 [facility] HEMATOLOGY Segs 67.0 45.0 - 02/26 [facility] 75.0 [facility] HEMATOLOGY Monocytes # 0.7 0.0 - 0.8 02/26 [facility] HEMATOLOGY Eosinophils # 0.2 0.0 - 0.5 02/26 [facility] HEMATOLOGY Platelet 269 133 - 450 02/26 [facility] HEMATOLOGY MPV 9.2 7.4 - 10.4 02/26 [facility] HEMATOLOGY RDW 12.5 11.5 - 02/26 14.5 [facility] HEMATOLOGY MCHC 33.6 32.0 - 02/26 36.0 2019 [facility] HEMATOLOGY RBC 3.97 4.20 - 02/26 5.40 [facility] HEMATOLOGY Hgb 12.4 12.0 - 02/26 16.0 2019 [facility] HEMATOLOGY Hct 37.0 36.0 - 02/26 48.0 [facility] HEMATOLOGY MCV 93.1 80.0 - 02/26 [place] 98.0 2019 [facility] HEMATOLOGY MCH 31.3 27.0 - 02/26 31.0 [facility] HEMATOLOGY WBC 9.3 3.7 - 10.4 02/26 [facility]2018 [facility] TOXICOLOGY Vanco Tr 9.2 02/26 [facility]2018 [facility] TOXICOLOGY Vanco Tr TND 2300 02/[address] CHEM PANEL Phosphorus 2.3 2.5 - 4.5 02/[address] CHEM PANEL Bili Total 0.2 0.2 - 1.3 02/[address] CHEM PANEL Bili Direct <0.1 0.0 - 0.3 02/[address] CHEM PANEL Bili Indirect Unable to 0.0 - 1.0 02/25 [facility]2018 [facility] CHEM PANEL Albumin Lvl 2.2 3.5 - 5.0 02/[address] CHEM PANEL Total Protein 5.2 6.4 - 8.4 02/[address] CHEM PANEL Globulin 3.0 2.7 - 4.2 02/[address] CHEM PANEL A/G Ratio 0.7 0.7 - 1.6 02/[address] CHEM PANEL Alk Phos 353 39 - 136 02/[address] CHEM PANEL ALT 76 0 - 65 02/[address] CHEM PANEL AST 50 0 - 37 02/[address] CHEM PANEL Magnesium Lvl 1.6 1.8 - 2.4 02/[address] CHEM PANEL BUN 14 7 - 22 02/[address] CHEM PANEL Glucose Lvl 225 70 - 99 02/[address] CHEM PANEL Chloride Lvl 103 95 - 109 02/[address] CHEM PANEL CO2 27 24 - 32 02/[address] CHEM PANEL Sodium Lvl 135 135 - 145 02/[address] CHEM PANEL Potassium Lvl 3.7 3.5 - 5.1 02/[address] CHEM PANEL Creatinine 0.54 0.50 - 02/25 [facility] Lvl 1.40 /2018 [facility] CHEM PANEL eGFR 101 02/25 [facility] Comment: The Medical eGFR is Center calculated using the CKD-EPI formula. In most young, healthy individuals the eGFR will be >90 mL/min/1.73m2 . The eGFR declines with age. An eGFR of 60-89 may be normal in some populations, particularly the elderly, for whom the CKD-EPI formula has not been extensively validated. Use of the eGFR is not recommended in the following populations:< br/>
[place] viduals with unstable creatinine concentration s, including patients and those with serious co-morbid conditions.<b r/>
Patie nts with extremes in muscle mass or diet.

The data above are obtained from the National Kidney Disease Education Program (NKDEP) which additionally recommends that when the eGFR is used in patients with extremes of body mass index for purposes of drug dosing, the eGFR should be multiplied by the estimated BMI. CHEM PANEL AGAP 8.7 10.0 - 02/25 20.0 [facility] CHEM PANEL Calcium Lvl 7.8 8.5 - 10.5 02/25 [facility] HEMATOLOGY Basophils 0.3 0.0 - 1.0 02/25 [facility] HEMATOLOGY Neutrophils # 9.7 1.5 - 8.1 02/25 [facility] HEMATOLOGY Lymphocytes # 1.9 1.0 - 5.5 02/25 [facility] HEMATOLOGY Monocytes # 0.9 0.0 - 0.8 02/25 [facility] HEMATOLOGY Eosinophils # 0.1 0.0 - 0.5 02/25 [facility] HEMATOLOGY Segs 76.9 45.0 - 02/25 75.0 [facility] HEMATOLOGY Lymphocytes 15.0 20.0 - 02/25 40.0 [facility] HEMATOLOGY Monocytes 7.3 2.0 - 12.0 02/25 [facility] HEMATOLOGY Eosinophils 0.5 0.0 - 4.0 02/25 [facility] HEMATOLOGY MCH 30.6 27.0 - 02/25 31.0 [facility] HEMATOLOGY MCHC 33.1 32.0 - 02/25 36.0 [facility] HEMATOLOGY RDW 12.7 11.5 - 02/25 14.5 [facility] HEMATOLOGY Hct 38.6 36.0 - 02/25 [place] 48.0 [facility] HEMATOLOGY MCV 92.4 80.0 - 02/25 [place] 98.0 [facility] HEMATOLOGY Platelet 281 133 - 450 02/25 [facility] HEMATOLOGY MPV 9.3 7.4 - 10.4 02/25 [facility] HEMATOLOGY WBC 12.6 3.7 - 10.4 02/25 [facility] HEMATOLOGY Hgb 12.8 12.0 - 02/25 [facility] 16.0 [facility] HEMATOLOGY RBC 4.18 4.20 - 02/25 [facility] 5.40 [facility] CARDIAC Troponin-I 0.05 0.00 - 02/24 [facility] ENZYMES 0.40 [facility] CARDIAC Total CK 73 12 - 191 02/24 [facility] ENZYMES [facility] CHLORAMPHEN Gram Stain Few Wbc'S; No Squamous Epithelial Cells; 02/24 [facility] ICOL:SUSC:P Report No Organisms Seen Co dicwy T:ISOLATE:O Center RDQN:DERIK CHLORAMPHEN Culture: Few Methicillin Resistant Staphylococcus aureus 02/24 [facility] ICOL:SUSC:P Wound/Abscess Upon Supplemental Te sting, This Isolate Was Not Found To Medical T:ISOLATE:O w/Gram Stain Be Resistant To Clindamycin By A n Inducible Mechanism. Center RDQN:DERIK CHLORAMPHEN Methicillin Methicilli 02/24 [facility] [place] ICOL:SUSC:P Resistant n Medical T:ISOLATE:O Staphylococcu Resistant Cent er RDQN:DERIK s aureus Staphyloco ccus aureus Culture: No 02/24 [facility] Anaerobic Anaerobes [facility] Center After 5 Days HEMATOLOGY Basophils # 0.1 0.0 - 0.2 02/24 [place] /2018 [facility] BLOOD BANK ABO/Rh O POS 02/23 [facility] RESULTS /2018 [facility] BLOOD BANK Antibody Scrn Negative 02/23 [place] RESULTS (02/23/19 6:12 AM) [facility] HEMATOLOGY PT 12.3 12.0 - 02/23 [place] 14.7 [facility] HEMATOLOGY INR 0.93 0.85 - 02/23 [place] 1.17 [facility] HEMATOLOGY PTT 32.0 22.9 - 02/23 [place] 35.8 [facility] CHEM PANEL Lactic Acid 1.4 0.5 - 2.2 02/23 [place] L[place] /2018 [facility] CHEM PANEL Procalcitonin 0.20 0.00 - 02/23 [facility] SPECIAL Hgb A1C 15.0 <=5.6 % 02/23 [facility] CHEMISTRY [facility] CHEM PANEL Magnesium Lvl 1.8 1.8 - 2.4 11/02 [place] [facility] CHEM PANEL Phosphorus 3.1 2.5 - 4.5 11/02 [facility] ELECTROLYTE AGAP 12.0 10.0 - 11/02 [facility] S 20.0 [facility] ELECTROLYTE eGFR 95 11/02 <sup>1</sup>R [facility] Medical Comment: The Center eGFR is calculated using the CKD-EPI formula. In most young, healthy individuals the eGFR will be >90 mL/min/1.73m2 . The eGFR declines with age. An eGFR of 60-89 may be normal in some populations, particularly the elderly, for whom the CKD-EPI formula has not been extensively validated. Use of the eGFR is not recommended in the following populations:& lt;br/>
I ndividuals with unstable creatinine concentration s, including patients and those with serious co-morbid conditions.<b r/>
Patie nts with extremes in muscle mass or diet.

The data above are obtained from the National Kidney Disease Education Program (NKDEP) which additionally recommends that when the eGFR is used in patients with extremes of body mass index for purposes of drug dosing, the eGFR should be multiplied by the estimated BMI. ELECTROLYTE Creatinine 0.7 0.5 - 1.4 11/02 [facility] L[facility] ELECTROLYTE Sodium Lvl 137 135 - 145 11/02 [facility] s S [facility] ELECTROLYTE Glucose Lvl 264 70 - 99 11/02 <sup>4</sup>I [facility] nterpretive Medical Data: Adult Center reference range values reflect the clinical guidelines
of the [place] [employer]. ELECTROLYTE BUN 13 7 - 22 11/02 [facility] S [facility] ELECTROLYTE Chloride Lvl 104 95 - 109 11/02 [facility] S [facility] ELECTROLYTE CO2 25 24 - 32 11/02 [facility] S [facility] ELECTROLYTE Calcium Lvl 8.7 8.5 - 10.5 11/02 [place] S [facility] ELECTROLYTE Potassium Lvl 4.0 3.5 - 5.1 11/02 [place] [facility] HEMATOLOGY Platelet 228 133 - 450 11/02 [facility] HEMATOLOGY RDW 12.0 11.5 - 11/02 14.5 /2014 [facility] HEMATOLOGY MPV 9.3 7.4 - 10.4 11/02 [facility] HEMATOLOGY MCH 33.4 27.0 - 11/02 [place] 31.0 /2014 [facility] HEMATOLOGY MCV 97.2 80.0 - 11/02 [place] 98.0 /2014 [facility] HEMATOLOGY MCHC 34.4 32.0 - 11/02 36.0 /2014 [facility] HEMATOLOGY Hgb 13.0 12.0 - 11/02 16.0 /2014 [facility] HEMATOLOGY Hct 37.7 36.0 - 11/02 48.0 /2014 [facility] HEMATOLOGY RBC 3.88 4.20 - 11/02 [place] 5.40 /2014 [facility] HEMATOLOGY WBC 11.6 3.7 - 10.4 11/02 [facility] HEMATOLOGY Basophils # 0.1 0.0 - 0.2 11/02 [facility] HEMATOLOGY Eosinophils # 0.2 0.0 - 0.5 11/02 [facility] HEMATOLOGY Basophils 0.6 0.0 - 1.0 11/02 [facility] HEMATOLOGY Monocytes # 0.9 0.0 - 0.8 11/02 [facility] HEMATOLOGY Lymphocytes # 2.5 1.0 - 5.5 11/02 [facility] HEMATOLOGY Segs-Bands # 8.0 1.5 - 8.1 11/02 [facility] HEMATOLOGY Segs 69.1 45.0 - 11/02 [place] 75.0 [facility] HEMATOLOGY Eosinophils 1.5 0.0 - 4.0 11/02 [facility] HEMATOLOGY Monocytes 7.4 2.0 - 12.0 11/02 [facility] HEMATOLOGY Lymphocytes 21.4 20.0 - 11/02 40.0 [facility] CARDIAC Total CK 39 12 - 191 11/01 ENZYMES [facility] CARDIAC Troponin-T 0.497 0.000 - 11/01 <sup>7</sup>R [facility] s ENZYMES 0.100 /2014 [facility] Medical Comment: Center Critical Result(s) called to yeimy GREENWOOD at 11/01/2014 16:03_ byRVE. Read back OK. CARDIAC Troponin-I 2.75 0.00 - 11/01 <sup>10</sup> [place] ENZYMES 0.40 /2015 Result Medical Comment: Center Critical Result(s) called to EJ GREENWOOD at 11/01/2014 15:43_ by CN_. Read back OK. CHEM PANEL Phosphorus 2.7 2.5 - 4.5 11/01 [facility] CHEM PANEL eGFR 81 11/01 <sup>2</sup>[place] /2014 [facility] Medical Comment: The Center eGFR is calculated using the CKD-EPI formula. In most young, healthy individuals the eGFR will be >90 mL/min/1.73m2 . The eGFR declines with age. An eGFR of 60-89 may be normal in some populations, particularly the elderly, for whom the CKD-EPI formula has not been extensively validated. Use of the eGFR is not recommended in the following populations:& lt;br/>
I ndividuals with unstable creatinine concentration s, including patients and those with serious co-morbid conditions.<b r/>
Patie nts with extremes in muscle mass or diet.

The data above are obtained from the National Kidney Disease Education Program (NKDEP) which additionally recommends that when the eGFR is used in patients with extremes of body mass index for purposes of drug dosing, the eGFR should be multiplied by the estimated BMI. CHEM PANEL Glucose Lvl 318 70 - 99 11/01 <sup>5</sup>I nterpretive Medical Data: Adult Center reference range values reflect the clinical guidelines
of the [place] [employer]. CHEM PANEL Creatinine 0.8 0.5 - 1.4 11/01 [facility] CHEM PANEL Potassium Lvl 4.2 3.5 - 5.1 11/01 [place] [facility] CHEM PANEL Sodium Lvl 140 135 - 145 11/01 [facility] CHEM PANEL BUN 13 7 - 22 11/01 [facility] CHEM PANEL Calcium Lvl 8.8 8.5 - 10.5 11/01 [facility] CHEM PANEL Chloride Lvl 106 95 - 109 11/01 [facility] CHEM PANEL CO2 26 24 - 32 11/01 [facility] CHEM PANEL AGAP 12.2 10.0 - 11/01 20.0 [facility] CHEM PANEL Magnesium Lvl 1.6 1.8 - 2.4 11/01 [facility] HEMATOLOGY Eosinophils # 0.1 0.0 - 0.5 11/01 [facility] HEMATOLOGY Basophils # 0.1 0.0 - 0.2 11/01 [facility] HEMATOLOGY Lymphocytes # 1.7 1.0 - 5.5 11/01 [facility] HEMATOLOGY Monocytes # 1.1 0.0 - 0.8 11/01 [facility] HEMATOLOGY Basophils 0.3 0.0 - 1.0 11/01 [facility] [facility] HEMATOLOGY Segs-Bands # 13.9 1.5 - 8.1 11/01 [facility] HEMATOLOGY Monocytes 6.3 2.0 - 12.0 11/01 [facility] HEMATOLOGY Eosinophils 0.5 0.0 - 4.0 11/01 [facility] HEMATOLOGY Lymphocytes 10.2 20.0 - 11/01 [place] 40.0 /2014 [facility] HEMATOLOGY Segs 82.7 45.0 - 11/01 [place] 75.0 [facility] HEMATOLOGY Hgb 14.4 12.0 - 11/01 16.0 [facility] HEMATOLOGY Hct 42.1 36.0 - 11/01 48.0 /2014 [facility] HEMATOLOGY MCHC 34.2 32.0 - 11/01 36.0 [facility] HEMATOLOGY MCV 96.8 80.0 - 11/01 98.0 /2014 [facility] HEMATOLOGY WBC 16.9 3.7 - 10.4 11/01 [facility] HEMATOLOGY MCH 33.1 27.0 - 11/01 [place] 31.0 /2014 [facility] HEMATOLOGY RBC 4.35 4.20 - 11/01 [place] 5.40 /2014 [facility] HEMATOLOGY MPV 9.1 7.4 - 10.4 11/01 [facility] HEMATOLOGY Platelet 278 133 - 450 11/01 [facility] HEMATOLOGY RDW 12.4 11.5 - 11/01 [facility] 14. [facility] PARATHYROID Ca Ion WB 1.04 1.05 - 11/01 [place] PROFILE 1. [facility] PARATHYROID Ca Norm WB 1.07 1.05 - 11/01 [facility] PROFILE 1. [facility] CARDIAC Troponin-I 3.83 0.00 - 10/31 <sup[place]sup[place] 0.40 Result Medical Comment: Center Critical Result(s) called to ankit de la rosa at 10/31/2014 09:06 by mlm. Read back OK. CARDIAC Troponin-T 0.420 0.000 - 10/31 <sup>8</sup>[place] 0.100 /2013 esult Medical Comment: Center Critical Result(s) called to Ankit De La Rosa at 10/31/2014 10:21 byMIA. Read back OK. CARDIAC Total CK 68 12 - 191 10/31 ENZYMES [facility] CARDIAC Total CK 96 12 - 191 10/31 [facility] CARDIAC Troponin-I 4.78 0.00 - 10/31 <sup>12</sup> [place] 0.40 Result Medical Comment: Center Critical Result(s) called to Cesar Calhoun at 10/31/2014 02:40_ by TG_. Read back OK. CARDIAC CK MB 3.7 0.5 - 3.6 10/31 [facility] CARDIAC CK-MB INDEX 3.9 0.0 - 2.5 10/31 [facility] CHEM PANEL eGFR 100 10/31 <sup[place]3</sup[place] /[place] Medical Comment: The Center eGFR is calculated using the CKD-EPI formula. In most young, healthy individuals the eGFR will be >90 mL/min/1.73m2 . The eGFR declines with age. An eGFR of 60-89 may be normal in some populations, particularly the elderly, for whom the CKD-EPI formula has not been extensively validated. Use of the eGFR is not recommended in the following populations:& lt;br/>
I ndividuals with unstable creatinine concentration s, including patients and those with serious co-morbid conditions.<b r/>
Patie nts with extremes in muscle mass or diet.

The data above are obtained from the National Kidney Disease Education Program (NKDEP) which additionally recommends that when the eGFR is used in patients with extremes of body mass index for purposes of drug dosing, the eGFR should be multiplied by the estimated BMI. CHEM PANEL Calcium Lvl 9.0 8.5 - 10.5 10/31 [facility] CHEM PANEL CO2 28 24 - 32 10/31 [facility] CHEM PANEL Chloride Lvl 103 95 - 109 10/31 s [facility] CHEM PANEL Potassium Lvl 4.4 3.5 - 5.1 10/31 [facility] CHEM PANEL AGAP 11.4 10.0 - 10/31 20.0 [facility] CHEM PANEL BUN 10 7 - 22 10/31 [facility] CHEM PANEL Creatinine 0.6 0.5 - 1.4 10/31 [facility] CHEM PANEL Glucose Lvl 250 70 - 99 10/31 <sup>6</sup>I nterpretive Medical Data: Adult Center reference range values reflect the clinical guidelines
of the [place] [employer]. CHEM PANEL Sodium Lvl 138 135 - 145 10/31 [facility] CHEM PANEL Magnesium Lvl 1.9 1.8 - 2.4 10/31 [facility] CHEM PANEL Phosphorus 3.1 2.5 - 4.5 10/31 [facility] HEMATOLOGY PTT 28.1 22.9 - 10/31 <sup>[place]sup> [place] 35.8 Interpretive Medical Data: [facility] Therapeutic Range: 57 - 92 Seconds HEMATOLOGY PT 12.9 12.0 - 10/31 [place] 14.7 [facility] HEMATOLOGY INR 0.97 0.85 - 10/31 <sup>14</sup> [place] 1.17 Interpretive Medical Data: Center RECOMMENDED RANGES FOR PROTIME INR:
2.0-3.0 for most medical and surgical thromboemboli c states.
2.5-3.5 for artificial heart valves and recurrent embolism.<br/ >
INR SHOULD BE USED ONLY FOR PATIENTS ON STABLE ANTICOAGULANT THERAPY. HEMATOLOGY Platelet 285 133 - 450 10/31 [facility] HEMATOLOGY MPV 8.8 7.4 - 10.4 10/31 [facility] HEMATOLOGY MCV 96.3 80.0 - 10/31 [place] 98.0 [facility] HEMATOLOGY Hct 40.2 36.0 - 10/31 [place] 48.0 [facility] HEMATOLOGY Hgb 13.4 12.0 - 10/31 [place] 16.0 [facility] HEMATOLOGY RBC 4.17 4.20 - 10/31 [place] 5.40 [facility] HEMATOLOGY MCHC 33.3 32.0 - 10/31 [place] 36.0 [facility] HEMATOLOGY RDW 12.1 11.5 - 10/31 [place] 14. [facility] HEMATOLOGY MCH 32.1 27.0 - 10/31 [place] 31.0 [facility] HEMATOLOGY WBC 11.8 3.7 - 10.4 10/31 [facility] HEMATOLOGY Lymphocytes # 2.1 1.0 - 5.5 10/31 [facility] HEMATOLOGY Segs-Bands # 8.7 1.5 - 8.1 10/31 [facility] HEMATOLOGY Basophils 1.0 0.0 - 1.0 10/31 [facility] HEMATOLOGY Eosinophils 1.0 0.0 - 4.0 10/31 [facility] HEMATOLOGY Monocytes 5.6 2.0 - 12.0 10/31 [facility] HEMATOLOGY Basophils # 0.1 0.0 - 0.2 10/31 [facility] HEMATOLOGY Eosinophils # 0.1 0.0 - 0.5 10/31 [facility] HEMATOLOGY Monocytes # 0.7 0.0 - 0.8 10/31 [facility] HEMATOLOGY Lymphocytes 18.1 20.0 - 10/31 [place] 40.0 [facility] HEMATOLOGY Segs 74.3 45.0 - 10/31 [place] 75.0 [facility] PARATHYROID Ca Ion WB 1.10 1.05 - 10/31 [place] PROFILE 1.25 [facility] PARATHYROID Ca Norm WB 1.12 1.05 - 10/31 [facility] PROFILE 1. [facility] CARDIAC CK MB Index 7.6 0.0 - 2.5 10/31 [facility] ENZYMES [facility] CARDIAC CK MB 8.0 0.5 - 3.6 10/31 [facility] ENZYMES [facility] CARDIAC Troponin-T 0.497 0.000 - 10/31 <sup>9</sup>[place] 0.100 esult Medical Comment: Center Critical Result(s) called to CESAR ARNOLD at 10/30/2014 20:51 by MIN. Read back OK. SPECIAL Hgb A1C 10.2 <=5.6 % 10/31 [facility] CHEMISTRY [facility] CARDIAC CK MB Index 9.7 0.0 - 2.5 10/30 [facility] ENZYMES [facility] CARDIAC CK MB 9.3 0.5 - 3.6 10/30 [facility] ENZYMES [facility] DRUG SCREEN UDS Note See Note 13 10/30 <sup>13</sup> M Katerine [place] (10/30/14 6:15 AM) Interpretive Medical Data: Drugs Center reported as positive have not been confirmed by a second
ok thod and should be used for medical purposes only. To order
con firmation, contact laboratory.<b r/>
not e: Below are cut-off concentration s for all urine drugs of
abuse performed in the laboratory. Some drugs listed in the table
may not be included in this panel.
<b r/>Descriptio n Cut-off concentration
----- ------
Am phetamine 1000 ng/mL
Bar biturates 200 ng/mL
Juanito zodiazepines 300 ng/mL
Marjorie eduardo metabolites 300 ng/mL
Opi ates 300 ng/mL
Phe ncyclidine 25 ng/mL
Pro poxyphene 300 ng/mL
Marijuana metabolites 50 ng/mL
Met hadone 300 ng/mL
Urine alcohol 20 mg/dL DRUG SCREEN U O[place]ate Scr Positive Negative 10/30 [place] *ABN* Medical (10/30/14 6:15 AM) Cente r DRUG SCREEN U Phencyc Scr Negative Negative 10/30 [place] *NA* Medical (10/30/14 6:15 AM) Cente r DRUG SCREEN U Cocaine Scr Negative Negative 10/30 [place] *NA* Medical (10/30/14 6:15 AM) Cente r DRUG SCREEN U Cannab Scr Negative Negative 10/30 [place] *NA* Medical (10/30/14 6:15 AM) Cente r DRUG SCREEN U [place] Negative Negative [place] *NA* Medical (10/30/14 6:15 AM) Cente r DRUG SCREEN U [place] Scr Negative Negative 10/[place] *[place] Medical (10/30/14 6:15 AM) Cente r DRUG SCREEN U Amph Scr Negative Negative 10/[place] *[place] Medical (10/30/14 6:15 AM) Cente r URINE AND UA Ketones TR 10/30 [facility] STOOL [facility] URINE AND UA Mucus Many /LPF None Seen 10/30 [facility] STOOL /LPF [facility] URINE AND UA Hyal Cast 16 0 - 2 10/30 [facility] URINE AND UA Sq Epi Few /LPF Few /LPF 10/30 [facility] STOOL [facility] URINE AND UA Bacteria Moderate None Seen 10/[place] /HPF /HPF /2013 [facility] URINE AND UA WBC 15 0 - 5 10/30 [facility] STOOL [facility] URINE AND UA RBC 4 0 - 2 10/30 [facility] STOOL /2013 [facility] URINE AND UA Glucose 50 mg/dL Negative 10/30 [facility] STOOL mg/dL [facility] URINE AND UA Bili Negative Negative 10/30 [facility] STOOL *NA* Medical (10/30/14 6:15 AM) Cente r URINE AND UA Blood Negative Negative 10/30 [facility] (10/30/14 6:15 AM) Medic al Center URINE AND UA 2.0 0.1 - 1.0 10/30 [facility] Urobilinogen /2013 [facility] URINE AND UA Nitrite Positive Negative 10/30 [facility] STOOL *ABN* Medical (10/30/14 6:15 AM) Cente r URINE AND UA Leuk Est Small Negative 10/30 [facility] *ABN* [facility] (10/30/14 6:15 AM) Cente r URINE AND UA Protein 100 mg/dL Negative 10/30 [facility] mg/dL [facility] URINE AND UA pH 5.5 5.0 - 8.0 10/30 [facility] STOOL [facility] URINE AND UA Color [place] Yellow 10/30 [facility] *ABN* Medical (10/30/14 6:15 AM) Cente r URINE AND UA Spec Grav 1.032 <=1.030 10/30 [facility] STOOL [facility] URINE AND UA Turbidity Slight Clear 10/30 [facility] *ABN* [facility] (10/30/14 6:15 AM) [facility] r BLOOD BANK ABO/Rh O POS 10/30 [facility] RESULTS [facility] BLOOD BANK Antibody Scrn Negative 10/30 [place] [facility] RESULTS (10/30/14 5:17 AM) [facility] HEMATOLOGY PTT 33.2 22.9 - 10/30 <sup>17</sup> [place] 35.8 Interpretive Medical Data: [facility] Therapeutic Range: 57 - 92 Seconds BACTERIAL - MRSA by PCR Negative 19 10/30 <sup>19</sup > [facility] SEROLOGY (10/30/14 12:35 AM) Interpretiv e Medical Data: Center Interpretive Data: The [employer] Light[employer] MRSA assay is a qualitative test for the direct detection of nasal colonization with methicillin-r esistant Staphylococcu s aureus (MRSA) to aid in the prevention and control of MRSA infections in healthcare settings. A positive result does not indicate an infection or require treatment. A negative result does not exclude colonization or infection.

The polymerase chain reaction (PCR) assay detects a proprietary sequence indicative of the integration of the SCCmec cassette into the Staphylococcu s aureus chromosome, indicating the presence of MRSA DNA. The assay utilizes FDA cleared IVD reagents. Performance characteristi cs have been verified by the [facility] within the [facility]. The [facility] is authorized under the Clinical Laboratory Improvement Amendment of 1988 (CLIA-88) to perform high complexity testing. CHEM PANEL Lactic Acid 1.6 0.5 - 2.2 10/30 [facility] s Lvl [facility] CHEM PANEL A/G Ratio 1.0 0.7 - 1.6 10/30 [facility] CHEM PANEL Globulin 3.2 2.0 - 4.0 10/30 [facility] CHEM PANEL B/C Ratio 10 6 - 25 10/30 [facility] CHEM PANEL Alk Phos 129 39 - 136 10/30 [facility] CHEM PANEL ALT 22 0 - 65 10/30 [facility] CHEM PANEL Albumin Lvl 3.3 3.5 - 5.0 10/30 [facility] CHEM PANEL Bili Total 0.3 0.2 - 1.3 10/30 [facility] CHEM PANEL Total Protein 6.5 6.4 - 8.4 10/30 [place] [facility] CHEM PANEL AST 20 0 - 37 10/30 [facility] HEMATOLOGY INR 1.00 0.85 - 10/30 <sup>15</sup> [facility] s 1.17 Interpretive Medical Data: Center RECOMMENDED RANGES FOR PROTIME INR:
2.0-3.0 for most medical and surgical thromboemboli c states.
2.5-3.5 for artificial heart valves and recurrent embolism.<br/ >
INR SHOULD BE USED ONLY FOR PATIENTS ON STABLE ANTICOAGULANT THERAPY. HEMATOLOGY PTT 30.6 22.9 - 10/30 <sup>18</sup> [facility] s 35.8 Interpretive Medical Data: [facility] Therapeutic Range: 57 - 92 Seconds HEMATOLOGY PT 13.2 12.0 - 10/30 [place] 14.7 [facility] LIPIDS VLDL 57 10/30 [facility] LIPIDS LDL 109 <=99 mg/dL 10/30 [facility] (Calculated) [facility] LIPIDS CHD Risk 5.49 3.90 - 10/30 [facility] 5.80 /2013 [facility] LIPIDS Trig 286 <=149 10/30 mg/dL [facility] LIPIDS HDL 37 >=61 mg/dL 10/30 [facility] LIPIDS Chol 203 <=199 10/30 [facility] mg/dL /2013 [facility] PARATHYROID Ca Norm WB 1.05 1.05 - 10/30 [facility] PROFILE 1. [facility] PARATHYROID Ca Ion WB 1.05 1.05 - 10/30 [facility] PROFILE 1. [facility] SPECIAL Hgb A1C 9.5 <=5.6 % 10/30 [facility] CHEMISTRY [facility] THYROID TSH 4.840 0.360 - 10/30 [facility] PANEL 3.740 [facility] THYROID T4 Free 1.06 0.76 - 10/30 [facility] PANEL 1.46 [facility] Pathology Reports No Data Provided for This Section Diagnostic Reports No Data Provided for This Section Consultation Notes No Data Provided for This Section Discharge Summaries No Data Provided for This Section History and Physicals No Data Provided for This Section Vital Signs Vital Sign Value Date Comments Source Height 170.18 cm 03/14/[address] [facility] Weight 81.818 03/14/[address] [facility] BMI Calculated 28.25 03/14/2019 [facility] Respitory Rate 19 03/14/2019 [facility] Systolic (mm Hg) 190 03/14/2019 [facility] Diastolic (mm Hg) 107 03/14/2019 [facility] Heart Rate 110 03/14/2019 [facility] Systolic (mm Hg) 128 02/28/2019 [facility] Diastolic (mm Hg) 68 02/28/2019 [facility] Respitory Rate 18 02/28/2019 [facility] Heart Rate 68 02/28/[address] [facility] Systolic (mm Hg) 134 02/28/2019 [facility] Center Diastolic (mm Hg) 70 02/28/2019 [facility] Respitory Rate 18 02/28/2019 [facility] Heart Rate 83 02/28/2019 [facility] Temperature Oral (F) 98.3 F 02/28/2019 [facility] Heart Rate 65 02/28/2019 [facility] Respitory Rate 18 02/28/2019 [facility] Systolic (mm Hg) 120 02/28/2019 [facility] Center Diastolic (mm Hg) 72 02/28/2019 [facility] Temperature Oral (F) 98 F 02/28/2019 [facility] Temperature Oral (F) 97.8 F 02/27/2019 [facility] Height 170.18 cm 02/24/2019 [facility] Weight 86.364 02/24/2019 [facility] Weight 86.364 02/23/2019 [facility] BMI Calculated 29.82 02/23/2019 [facility] Height 170.18 cm 02/23/2019 [facility] Diastolic (mm Hg) 65 11/02[facility] Systolic (mm Hg) 143 11/02/2014 [facility] Systolic (mm Hg) 138 11/02/2014 [facility] Center Diastolic (mm Hg) 64 11/02/2014 [facility] Systolic (mm Hg) 138 11/02/2014 [facility] Center Diastolic (mm Hg) 64 11/02/2014 [facility] Temperature Oral (F) 97.1 F 11/02/2014 [facility] Temperature Oral (F) 97.8 F 11/02/2014 [facility] Temperature Oral (F) 97.8 F 11/02/2014 [facility] Respitory Rate 35 11/01/2014 [facility] Respitory Rate 31 11/01/2014 [facility] Respitory Rate 25 11/01/2014 [facility] Height 170.18 cm 10/30/2014 [facility] Weight 104.8 10/30/2014 [facility] BMI Calculated 36.19 10/30/2014 [facility] Encounters Location Location Encounter Encounter Reason Attending ADM DC Stat us Source Details Type Number For Provider Date Date Visit [facility] [id number] [place] 10/30 11/02 [facility] Kwame /2013 [facility] [id number] Julio 02/23 02/28 [facility] Nicole /2018 [facility] Rec[facility] [id number] Que 03/14 04/13 [facility] Evens /2018 [facility] Procedures Procedure Code Date Perfomer Comments Source CABG - Coronary [id number] [facility] artery bypass graft [facility] Center Gallbladder [id number] [facility] Hysterectomy [id number] [facility] Stent replacement [id number] [facility] Assessment and Plan Assessment and Plan Date Source Extracted from:Title: OMFS Progress Note 02/28/2019 [facility] Author: ShahabTheresa pereyraguille Serra DMD Date: 02/28/19 OM[facility] Service Progress Note Admit Date: 02/23/2019 04:02 Assessment/Plan: VILMA KUMAR is a 63 Years old Femal e with PMH significant for uncontrolled DM (A1c 15.0), CAD with CABG, CHF, HTN who is S/P: 02/24/19 11:25 INCISION AND DRAINAGE BILATERAL UPPER LIP [id number] Primary Surgeon: Prasanna Mcghee III, DDS (Service: ODM) 02/24/19 11:25 EXTRACTION OF TEETH 6,9,10,13,20,21,22,31, 29,28,27,26,25 [id number] Primary Surgeon: Prasanna Mcghee III, DDS (Service: ODM) Patient is doing much better subjectivel y. Patient reports that pain and swelling has decreased. Glycemic control has continued to improve with BG at 140 this morning. Cultures are positive for MRSA and she has been on Vancomycin with Vanc tr ough at 13.7 last night. Patient remains afebrile, no leukocytosis with WBC at 9.3k/cm2. Recommendations: - Follow up in OM clinic with Dr. Horner in [address] [facility], [address] [place] [id number] Office: . Please call to make apt. - Discharge Meds and Instructions: - Bactrim for MRSA coverage - Peridex 0.12% mouthrinse x 473mL: rinse with 15mL for 30s then spit twice daily x 14 days - Analgesics for pain control -Soft diet x 1 week. While still in hospital: - Recommend switch to Bactrim based on sensitivity for MRSA; otherwise continue Vancomycin with trough target of 15-20 - Trend CBC / BMP daily. - OMFS Signing off; Please page OMFS with any questions or c oncerns Subjective: Events Last 24 Hours: No acute events. Patient reports decreased pain and swelling. +AMB +UOP +BM +P.O. Objective: Vitals and Temp: Vitals Tmp(F) Pulse BP RR SpO2 FIO2 02/28 03:30 98.3 65 120/72 18 95 --- 02/27 23:59 98 62 131/67 18 97 --- 02/27 20:09 98 69 142/82 18 97 --- 02/27 16:12 98.0 74 145/80 19 96 --- 02/27 12:45 97.8 67 149/81 17 96 --- 24 Hr Tmax: 98.3F (36.83c) at 02/28 03:3 0 Vital Signs are the last 5 in the past 48 hours. Physical Exam: General: WDWN, AAOx3, NAD, resistant to examination Head: atraumatic, normocephalic. Continued decrease in edema of left upper lip. Eyes: PERRLA, EOMI Ears: EAC patent, hearing intact Nose: Nares patent, symmetric, no septal deviation, Throat / Oral Cavity: OR[place]O > 40mm, FOM so ft non-elevated, uvula midline. Extraction sites hemostatic. Iodoform gauze in upper lip. Neck: Supple, no masses, trachea midline CV: Regular rate and rhythm Pulm: Non-labored breathing on room air Abd: non-tender non-distended x 4 quadrants Neuro: CN V&VII grossly intact Labs: CBC: Hct: 40.8 % (02/27/19 09:02:00) Hgb: 13.8 g/dL (02/27/19 09:02:00) MCH: 31.4 pg High (02/27/19 09:02:00) MCHC: 33.9 g/dL (02/27/19 09:02:00) MCV: 92.6 fL (02/27/19 09:02:00) MPV: 8.9 fL (02/27/19 09:02:00) Platelet: 335 K/CMM (02/27/19 09:02:00) RBC: 4.4 M/CMM (02/27/19 09:02:00) RDW: 12.7 % (02/27/19 09:02:00) WBC: 9.1 K/CMM (02/27/19 09:02:00) BMP: CO2: 31 mEq/L (02/27/19 09:02:00) Chloride Lvl: 104 mEq/L (02/27/19 09:02:00) Sodium Lvl: 140 mEq/L (02/27/19 09:02:00) Glucose Lvl: 140 mg/dL High (02/27/19 09:02:00) Calcium Lvl: 9.1 mg/dL (02/27/19 09:02:00) Potassium Lvl: 4.2 mEq/L (02/27/19 09:02:00) BUN: 10 mg/dL (02/27/19 09:02:00) AGAP: 9.2 mEq/L Low (02/27/19 09:02:00) Creatinine Lvl: 0.56 mg/dL (02/27/19 09:02:00) Medications: Scheduled Meds (15):NIFEdipine (NIFEdipi ne 60 mg oral tablet, extended release), acetaminophen, aspirin, atorvastatin, carvedilol, celecoxib, cholecalciferol, citalopram, docusate, heparin, insulin glar gine, insulin lispro, polyethylene glyco l 3350, tramadol, vancomycin + Sodium Chloride 0.9% IV 500 mL Unscheduled Meds: None PRN Meds (18):Dextrose 50% in Water IV ( Dextrose 50% in Water (bolus) IV), Dextrose 50% in Water IV (Dextrose 50% in Water (bolus) IV), Dextrose 50% in Water IV (Dextrose 50% in Water (bolus) IV), Dextr ose 50% in Water IV (Dextrose 50% in Mc er (bolus) IV), glucagon, glucagon, hydrALAZINE, insulin lispro, insulin lispro, insulin lispro, insulin lispro, insulin lispro, insulin lispro, insulin lispro, i nsulin lispro, insulin lispro, oxyCODONE (oxyCODONE 5 mg immediate release), oxyCODONE (oxyCODONE 5 mg immediate release) One Time Meds (4):(Completed) lidocaine (lidocaine (ANES)), (Completed) magnesium sulfate, (Completed) midazolam (midazolam (ANES)), (Completed) propofol (propofol (ANES)) Continuous Infusions: None IMAGING: Imaging Studies (last 36 hours) (none) Juanpablo Seth, DMD [id number] project management advisor, PGY1 Extracted from:Title: OMFS Operative Reprot Author: Sergey Pollard DDS Date: 02/27/19 OMFS OPERATIVE REPORT DATE OF OPERATION/PROCEDURE: 02/27/2019 PREOPERATIVE DIAGNOSES 1.Upper lip abscess POST OPERATIVE DIAGNOSES 1.Upper lip abscess PROCEDURES PERFORMED 1.Debridement of upper lip abscess ATTENDING FACULTY PRESENT FOR PROCEDURE: Que Horner DDS MD RESIDENT SURGEON: Sergey Pollard DDS PAST MEDICAL HISTORY AND MEDICATIONS REVIEWED: Yes. CONSENT DISCUSSED AND SIGNED: Yes. TIMEOUT COMPLETED AND SITE OF LATERALITY VERIFIED: Yes. ANESTHESIA: MAC Deep Anesthesia. ESTIMATED BLOOD LOSS: 1cc FLUIDS: 200cc crystalloid BLOOD PRODUCTS USED: None. URINE: Not measured. IMPLANTS USED: None. GRAFTS USED: None. SPECIMENS: Upper lip culture swab COMPLICATIONS: None. FINDINGS: No purulence noted x1 iodoform gauze packing CONDITION AT END OF PROCEDURE: Stable. DISPOSITION: Extubated and sent to PACU INDICATIONS: Patient is a 63 year old female with sig nificant PMH poorly controlled diabetes who presented initially with upper lip abscess and underwent incision and drainage of MRSA+ upper lip abscess and extracti on of remaining teeth on 02/24/19. Patien t does not tolerate bedside exam. Due to extent of abscess and poor patient compliance, it was decided to take patient to OR for debridement of upper lip wound and remove remaining packing under MAC. PROCEDURE IN DETAIL: The patient was met and identified in [facility] pre-operative holding area. Patient identification was verified. The consent was reviewed with patient and all questions answered and addressed. We reviewed the risks and benefits of the proposed proc edure. The patient was then taken to the operating room and transferred to the OR table in the supine position. All appropriate anesthesia monitors were placed. A level of deep sedation was achieved wit h anesthetic agents. A time out procedure was performed to verify the proper patient, surgical sites and procedures to be performed. All parties were in agreement . The patient's posterior oropharynx was visualized and suctioned and a throat screen was placed. The patient was then draped in standard fashion. The OMFS team scrubbed and gowned in standard sterile fashion. Local anesthesia was injected into the s urgical area. A total of 5cc of 1% lidocaine with 1:100,000 epinephrine was used. All remaining iodoform packing removed from upper lip. Culture swab taken from u pper lip. No purulence noted from surgic al sites. Surgical sites irrigated with bacitracin saline. The patient's oral cavity was suctioned and found to be free of debris. Throat screen was removed. The patient was transferred to the PACU in stable condition. All counts at the end of the procedur e were correct. Attending physician, Dr. Que Horner, was present throughout the entire procedure. RESIDENT DICTATING OPERATIVE REPORT: Sergey Pollard DDS ATTENDING PHYSICIAN: Que Horner DDS MD SIGNATURE: Sergey Pollard DDS project management advisor PGY4 [id number] Addendum by Que Horner DDS, MD on 02/27/2019 18:08 I have seen and examined the patient with Dr. Pollard. I have reviewed the note content and agree with the plan and assessment. Que Horner DDS, MD FACS Professor project management advisor Extracted from:Title: Infection Control Isolation Alert Author: Danita Teague Date: 02/27/19 ISOLATION ALERT This patient is actively infected/colonized with Organism/Condition Site Date MRSA Lip Abscess 02/24/2019 Isolation Required: CONTACT Before isolation precautions may be disc ontinued, the following protocol must be followed and Infection Control should be notified. IT IS NOT NECESSARY TO CULTURE STERILE S ITES (BLOOD, CSF, HEALED WOUNDS) WHEN TRYING TO DISCONTINUE ISOLATION. Organism/Condition Status Cultures/Test Sites Multi-drug Resistant Gram Negative Bacteria (Defined as resistant to at least 1 drug in 3 of the 5 drug classes below) a. Cefepime or ceftazidime b. Pip/tazo or ticar/clav c. Gentamicin, amikacin or tobramycin d. Meropenem e. Ciprofloxacin or moxifloxacin Off abx x 72hrs or 7 days if on dialysis and aminoglycoside x2, 48 hrs apart Any previous positive non-sterile site (e.g. urine, stool, t hroat) MRSA Off abx x 72hrs or 7 days if on dialysis and vancomycin MRSA PCR Nares specimen VRE Isolation precautions should not be discontinued Influenza Human (seasonal influenza) Maintain precautions for 7 days after il lness onset or until 24 hours after resolution of fever and respiratory symptoms. Maintain precautions for longer periods in immunocompromised persons based on clinical judgment. TB: Pulmonary or Laryngeal Contact Infection Control at [phone] (on-call line) or [phone] (on- call pager ) If the patient is high risk or if there is still a strong clinical suspicion of pulmonary TB after one negative PCR due to epidemiological risk factors and clinical symptoms, another respiratory MTB PCR sample can be sent. Mycobacterium tuberculosis (MTB) PCR w/ Isolation MPP Sputum and/or BAL PCN-R or PCN-Intermediate Streptococcus pneumoniae 48 hrs of effective antibiotic and resol ution of clinical S/S of pulmonary involvement Stenotrophomonas R to Trimethoprim-Sulfa Methoxazole (T/S) Off abx x 72hrs or 7 days if on dialysis and aminoglycoside x2, 48h apart Any previous positive non-sterile site (e.g. urine, stool, throat) Chryseobacterium meningosepticum (former ly Flavobacterium meningosepticum) and other Chryseobacterium spp. R to minocycline, rifampin, or vancomycin Off abx x 72hrs or 7 days if on dialysis and vancomycin x2, 48h apart Any previous positive non-sterile site (e.g. urine, stool, t hroat) Gram negative enterics: Salmonella, Shigella, etc. Off abx x 48 hrs x2, 48h apart Stool Varicella Zoster Maintain precautions until all lesions a re dry and crusted. Place susceptible patients on precautions beginning day 8 after exposure to day 21 after last exposure or day 28 for patients who have received VZIG. Measles (rubeola) Maintain precautions for 4 days after on set of rash except duration of illness (with wound lesions, until wounds stop draining) in immunocompromised persons. Consult Infection Disease Physician for suggested regimens for decolonization of patients with MRSA as well as for any questions. Please contact the Infection Control De partment at [phone] with any questions regarding isolation. Extracted from:Title: History and Physical Author: Julio Rivera DO Date: 02/23/19 63yo f with a hx of DM2, presents with s everal days of worsening oral swelling. CT at OSHconsistent with kelli-maxillary abscess. Although she is in a lot of pain, I don't see any evidence of airway compromise. No stridor on my exam. 1.Abscess, dental(K04.7) -likely from poor dentition, smoking -start IV unasyn -I spoke with OMFS who will evaluate her this AM -I delivered the OSHCT to radiology to upload -pain control, may benefit from steroids -start IVF -patient cannot perform > 4 mets of work , however, if she does undergo surgery, I suspect it will be low risk. LEAVITT score is 0.5%. No further testing isrequired. Ordered: Admit/Condition, 02/23/19 4:06:00 CDT, S tatus: Inpatient, Acute, Expected LOS: 2 Midnights, Larry Shipley MD, Admit MD Review/Approve Yes, Isolation: No Isolation/Standard Precautions, Abscess, dental 2.CAD (coronary artery disease)(I25.10) -stable -obtain EKG -cont statin, bb, asa Ordered: Tylenol, 650 mg, 2 tab, Route: PO, Drug form: TAB, Q6H, Dosing Weight 104.8, kg, PRN Pain 1-3/Temp > 100.4 F, Start date: 02/23/19 4:33:00 CDT, Duration: 30 day, Stop date: 03/25/19 4:32:00 CDT heparin, 5,000 unit, 1 mL, Route: SUB-Q , Drug form: INJ, Q8H, Dosing Weight 104.8, kg, Start date: 02/23/19 8:00:00 CDT, Duration: 30 day, Stop date: 03/25/19 0:00:00 CDT oxyCODONE 5 mg oral tablet, immediate r elease, 5 mg, 1 tab, Route: PO, Drug form: TAB, Q4H, Dosing Weight 104.8, kg, PRN Pain Score 4-6, Start date: 02/23/19 4:33:00 CDT, Duration: 30 day, Stop date: 03/25/19 4:32:00 CDT 3.DM - Diabetes mellitus(E11.9) -with hyperglycemia (noted to be 700 at OSH) -start [id number] u, with ISS -check A1C Ordered: Tylenol, 650 mg, 2 tab, Route: PO, Drug form: TAB, Q6H, Dosing Weight 104.8, kg, PRN Pain 1-3/Temp > 100.4 F, Start date: 02/23/19 4:33:00 CDT, Duration: 30 day, Stop date: 03/25/19 4:32:00 CDT heparin, 5,000 unit, 1 mL, Route: SUB-Q , Drug form: INJ, Q8H, Dosing Weight 104.8, kg, Start date: 02/23/19 8:00:00 CDT, Duration: 30 day, Stop date: 03/25/19 0:00:00 CDT oxyCODONE 5 mg oral tablet, immediate r elease, 5 mg, 1 tab, Route: PO, Drug form: TAB, Q4H, Dosing Weight 104.8, kg, PRN Pain Score 4-6, Start date: 02/23/19 4:33:00 CDT, Duration: 30 day, Stop date: 03/25/19 4:32:00 CDT 4.HTN - Hypertension(I10) -cont home hydralizine and nifedipine Ordered: Tylenol, 650 mg, 2 tab, Route: PO, Drug form: TAB, Q6H, Dosing Weight 104.8, kg, PRN Pain 1-3/Temp > 100.4 F, Start date: 02/23/19 4:33:00 CDT, Duration: 30 day, Stop date: 03/25/19 4:32:00 CDT heparin, 5,000 unit, 1 mL, Route: SUB-Q , Drug form: INJ, Q8H, Dosing Weight 104.8, kg, Start date: 02/23/19 8:00:00 CDT, Duration: 30 day, Stop date: 03/25/19 0:00:00 CDT oxyCODONE 5 mg oral tablet, immediate r elease, 5 mg, 1 tab, Route: PO, Drug form: TAB, Q4H, Dosing Weight 104.8, kg, PRN Pain Score 4-6, Start date: 02/23/19 4:33:00 CDT, Duration: 30 day, Stop date: 03/25/19 4:32:00 CDT 5. Lower extremity wounds-secondary to strep according to p atient -wound care consult -IV unasyn -obtain blood cultures heparin SC OMFS evaluation, glucose control Extracted from:Title: Discharge Summary * 11/02/2014 [facility] Author: Martin Beltran MD Date: 11/02/14 Discharge Plan Discharge Summary Plan Discharge Status: improved. Discharge instructions given: to patient. Discharge disposition: discharge to home (into the care of family member, self care). Prescriptions: reviewed with patient, written and given to p donita. Course Improving. Education and Follow-up Discharge Planning: Discharge Diet: Diabetic diet. I saw and examined patient with the Dr. Devin blackman. Agree with management and plans as we discussed. Extracted from:Title: Progress Note CCU Author: Martin Beltran MD Date: 11/01/14 Impression and Plan 57 year old female with CAD s/p CABG 199 9 and PCI 2011 with stent, Hypertension, and Diabetes Mellitus presented with NSTEM, off plavix for a few days. NSTEMI - Aspirin, loaded with plavix, statin, BB, ACEi - s/p PCI to RCA CAD s/p CABG and PCI with stent - Hx of pseudoaneurysm R femoral - As above Hypertension - Lisinopril 40 - Metoprolol 25 mg qD, uptitrate (home dose 50 mg BID) - Cardene gtt - amdlodipine 5 mg BID - Will add 4 th agent, TBD Diabetes Mellitus - ISS - Start basal and pre-meal insulin - Holding home dose metformin 1000 mg BID - A1c - recieved 27 units yestedday, will increase today COPD - Duonebs Prophylaxis - PPI Plan of Care No Data Provided for This Section Social History Social History Date Source Social History TypeResponse 02/23/2019 [facility] Substance Abuse Use: Current. Type: Marijuana. Sexual Sexually active: No. Alcohol Never Smoking Status Current every day smoker; Type: Cigarett es; Previous treatment: None; Ready to change: Yes; Concerns about tobacco use in household: No; Exposure to Tobacco Smoke None; Cigarette Smoking Last 365 Days Y es; Reg Smoking Cessation Counseling Yes; Started at age: 13 .0; 1 entered on: 03/14/19 11 pack/day Family History No Data Provided for This Section Advance Directives No Data Provided for This Section Functional Status No Data Provided for This Section
--- OUTSIDE RECORDS SUMMARY | 2020-03-31 02:23 | XMS REPORT ---
:1955 Author Organization [facility] t Address 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 [facility] SUSPECTED Diagnosis Active 2019-03-13 DENTAL 02-23 17:14:00 [place] ABSCESS 00:00: Medical SUSPECTED Center DENTAL ABSCESS Active 02/23/2019 [facility] Cellulitis Cellulitis Disease Active [place] of right of right 8 Method i lower lower 00:00: st extremity extremity 00 Pain in Pain in Disease Active [place] lower back lower back 5-14 Me thodi 00:00: st 00 Non-sustai Non-sustai Disease Active H mario juanita juanita 14 Methodi ventricula ventricula 00:00: st r r 00 tachycardi tachycardi a a Necrotizin Necrotizin Disease Active H mario g g 03-08 Methodi fasciitis fasciitis 00:00: st due to due to 00 microorgan microorgan ism ism PAD PAD Disease Active [place] (periphera (periphera 03-08 Me thodi l artery l artery 00:00: st disease) disease) 00 Type 2 Type 2 Disease Active [place] diabetes diabetes 03-07 Method i mellitus mellitus 00:00: st 00 Diastolic Diastolic Disease Active Cecelia ston CHF CHF 03-07 Methodi 00:00: st 00 Bilateral Bilateral Disease Active Cecelia ston lower leg lower leg 03-01 Meth salvatore cellulitis cellulitis 00:00: st 00 CHEST Diagnosis Active 2013-112014-11-13 PAIN; 14:28:00 [place] UNSTABLE CHEST 00:00: Medical ANGINA PAIN; 00 Center UNSTABLE ANGINA Active 10/29/2014 [facility] Colitis Problem Active 2019-04-14 (disorder) 22:53:58 Enrriquea s Colitis Medical (disorder) Center Active Problem 04/14/2019 [facility] Diabetes Problem Active 2019-04-14 mellitus 22:53:58 [place] (disorder) Diabetes Me dical mellitus Center (disorder) Active Problem 04/14/2019 [facility] Hypertensi Problem Active 2019-04-14 M H ve 22:53:58 [place] disorder, Medical systemic Hypertensi Cent er arterial ve (disorder) disorder, systemic arterial (disorder) Active Problem 04/14/2019 [facility] Pseudoaneu Problem Active 2019-04-14 M H rysm 22:53:58 [place] (disorder) Medica l Pseudoaneu Center rysm (disorder) Active Problem 04/14/2019 Right groin [facility] CHEST PAIN Diagnosis Active 2014-11-13 NEC 14:28:00 [place] CHEST [facility] PAIN NEC Center Active [facility] Allergies, Adverse Reactions, Alerts Allergy Allergy Status Severity Reaction(s) Onset Inactive Treating Comm ents Source Name Type Date Date Clinician Octavia Gutiérrez Active Other (See Makes [place] phone ty to Comments) 03-04 patient Method i adverse 00:00: feel st reaction 00 radha, s to states it drug makes her talk different and effects her breathing morphine morphine Active Severe Memori a l [facility] Dilaudid Dilaudid Active Severe Memori a l [facility] Social History Social Habit Start Date Stop Date Quantity Comments Source Sex Assigned At [facility] ethodist Social History 2019-02-23 2019-02-[address] [facility] ermann 09:29:55 09:29:55 [facility] Alcohol intake 2018-06-14 2018-06-[address] [facility] thodist 00:00:00 00:00:00 non-drinker of alcohol (finding) Smoking Status Start Date Stop Date Source Current every day smoker 2018-06-14 00:00:00 Cecelia Floyd Medications Ordered Filled Start Stop Current Ordering Indication Dosage Frequency Signature Comments Components Source Medication Medication Date Date Medication? Clinician (SIG) Name Name insulin Yes 20 unit, MH detemir 100 4-30 SUB-Q, [place] units/mL 16:27: Bedtime, # Med ical subcutaneou 00 10 mL, 0 Cent er s solution Refill(s) NIFEdipine Yes 60 mg = 1 MH 60 mg oral 4-30 tab, PO, [place] tablet, 16:27: Daily, # Medica l extended 00 30 tab, 0 Center release Refill(s) citalopram Yes 40 mg = 1 MH 40 mg oral 4-30 tab, PO, [place] tablet 16:27: Daily, # Medical 00 30 tab, 0 Center Refill(s) Vitamin D3 Yes 2,000 MH 2000 intl 4-30 IntlUnit = [place] units oral 16:27: 1 tab, PO, M edical tablet 00 Daily, # Center 30 tab, 0 Refill(s) carvedilol Yes 12.5 mg = MH 12.5 mg 4-30 1 tab, PO, [place] oral tablet 16:27: Q12H, # 60 Medical 00 tab, 0 Center Refill(s) atorvastati Yes 20 mg = 1 M H n 20 mg 4-30 tab, PO, [place] oral tablet 16:27: Bedtime, # Medical 00 30 tab, 0 Center Refill(s) Aspirin 81 Yes 81 mg = 1 MG Enteric 4-30 tab, PO, [place] Coated 16:27: Daily, # Medical Tablet 00 30 tab, 0 Center Refill(s) zinc Yes 220 mg = 1 sulfate 220 4-30 tab, PO, [place] mg oral 16:27: Daily, # Medica l tablet 00 30 tab, 0 Center Refill(s) Metformin Yes 500 mg = 1 hydrochlori 4-30 tab, PO, [place] de 500 MG 16:27: BID-Meals, Ak dical Oral Tablet 00 # 60 tab, Desiree ter 0 Refill(s) chlorhexidi No Notes: ne 4-30 (Same As: [place] gluconate 14:00: Peridex) Medi kim 1.2 MG/ML 00 Center Mouthwash [Peridex] Sulfamethox No Notes: One azole 800 4-30 DS tablet [place] MG / 14:00: = Medical Trimethopri 00 trimethopr Ce nter m 160 MG im 160mg + Oral Tablet sulfametho [Bactrim] xazole 800 mg Dose based on trimethopr im component On empty stomach with a glass of water. (Same As: Bactrim DS, Septra DS) chlorhexidi Yes 0.018 gm = ne 4-30 15 mL, [place] gluconate 13:24: S&SPIT, Medic al 1.2 MG/ML 00 BID, Center Mouthwash Peridex [Peridex] 0.12% mouthrinse x 473mL: rinse with 15mL for 30s then spit twice daily x 14 days, # 473 mL, 0 Refill(s) 3 ML Yes 10 unit, Insulin 4-30 SUB-Q, [place] Lispro 100 13:13: TID-Before M edical UNT/ML Pen 00 Meals, # Cente r Injector 10 mL, 0 [Humalog] Refill(s) tramadol Yes 50 mg = 1 hydrochlori 4-30 tab, PO, [place] de 50 MG 13:13: Q6H, X 7 Medic al Oral Tablet 00 day, # [address] tab, 0 Refill(s) Sulfamethox Yes 1 tab, PO, azole 800 4-30 [id number], X [place] MG / 13:13: 14 day, # Medical Trimethopri 00 28 tab, [address] m 160 MG Refill(s) Oral Tablet [Bactrim] Docusate Yes 100 mg = 1 Sodium 100 4-30 cap, PO, [place] MG Oral 13:13: BID, # 28 Medic al Capsule 00 cap, 0 Center Refill(s) celecoxib Yes 200 mg = 1 200 mg oral 4-30 cap, PO, [place] capsule 13:13: [id number], # Medi kim 00 60 cap, 0 Center Refill(s) Magnesium No Notes: Sulfate 02-27 WASTE: F/P [place] 22:36: - Sink; E Medical 00 - Center Municipal Trash Bin propofol No Route: IV, (ANES) 02-27 Drug form: [place] 16:24: INJ, ONCE, Medical Stop date: [place] 02/27/19 11:24:00 CDT midazolam No Route: IV, (ANES) 02-27 Drug form: [place] 16:24: SOLN, Medical 00 ONCE, Stop Center date: 02/27/19 11:24:00 CDT lidocaine No Route: IV, (ANES) 02-27 Drug form: [place] 16:24: INJ, ONCE, Medical 00 Stop date: [place] 02/27/19 11:24:00 CDT Ondansetron No Notes: 02-27 (Same as: [place] 16:04: Zofran) Medical Center MEDICATION WASTE Product Size: 4 mg Product Wasted: ___ mg Flumazenil No Notes: 02-27 (Same as: [place] 16:04: Romazicon) Medical 00 Center Naloxone No Notes: 02-27 Same as [place] 16:04: Narcan Medical 00 Center Labetalol No 10 mg, 2 02-27 mL, Route: [place] 16:04: IVP, Drug Medical 00 form: INJ, Center Q5Min, Dosing Weight 86.364, kg, PRN Elevated BP, Start date: 02/27/19 11:04:00 CDT, Duration: 5 doses or times, Stop date: Limited # of times Oxycodone No Notes: 02-27 (Same as: [place] 16:04: Roxicodone Medical ) Center Hydralazine No Notes: 02-27 (Same as: [place] 16:04: Apresoline Medical ) Push Center over 5 minutes Lactated No Route: IV, Ringers 02-27 Total [place] Injection 15:46: Volume: Medic al IV (ANES) 00 1,000, Center 1000 mL Start date: 02/27/19 10:46:00 CDT, Stop date: 02/27/19 11:46:00 CDT vancomycin No 2000 mg: + Sodium 02-26 infuse [place] Chloride 17:00: over 2.5 Medic al 0.9% IV 500 00 hours For Ce nter mL adult patients only: Round to nearest 250 mg per Medical Staff approval MEDICATION WASTE Product Size: 1000 mg Product Wasted: ___ mg POLYETHYLEN No Notes: E GLYCOL 02-26 Dissolve [place] 3350 14:00: in 8 oz of Medical 00 water or Center juice. (Same as: Miralax) carvedilol No 6.25 mg = 6.25 mg 02-26 1 tab, PO, [place] oral tablet 07:25: BID, # 180 Medical 00 tab, 0 Center Refill(s) zinc No 220 mg = 1 sulfate 220 -28 tab, PO, [place] mg oral 07:25: Daily, # Medica l tablet 00 100 tab, 0 Center Refill(s) amLODIPine No 10 mg = 1 10 mg oral -28 tab, PO, [place] tablet 07:25: Daily, # Medical 00 30 tab, 0 Center Refill(s) Magnesium No Notes: Sulfate 02-26 WASTE: F/P [place] 02:27: - Sink; E Medical 00 - Center Municipal Trash Bin Tramadol No Notes: Not 02-25 to exceed [place] 23:00: 400mg/day. Medical 00 (Same As: [place] Ultram) potassium No Notes: phosphate 02-25 (Same as: [place] 22:25: K Medical 00 Phosphate. Center ) Do not infuse phosphorou s concurrent ly in the same line as TPN or IVF that contains calcium. For double lumen central lines, phosphorou s may be infused in a separate lumen from TPN. 1 mMol phoshate has 1.47 mEq potassium Infuse over 4 hours Magnesium No Notes: Sulfate 02-25 WASTE: F/P [place] 22:25: - Sink; E Medical 00 - Center Municipal Trash Bin Docusate No Notes: MH 02-25 (Same as: [place] 22:00: Colace) Medical 00 (Do Not Center Crush) Acetaminoph No Notes: Max MH en 02-25 acetaminop [place] 21:00: hen 4000 Medical 00 mg/day (4 Center gm/day). (Same as: Tylenol Extra Strength) celecoxib No Notes: 02-25 NSAID. [place] 21:00: Please Medical 00 check Center indication . Not for seizure. (Same As: CeleBREX) Oxycodone No Notes: Hydrochlori 02-25 (Same as: Enrrique as de 5 MG 20:33: Roxicodone Medi kim Oral Tablet 00 ) [place] Oxycodone No Notes: Hydrochlori 02-25 (Same as: Enrrique as de 5 MG 20:32: Roxicodone Medi kim Oral Tablet 00 ) [place] Vancomycin No 2001 mg: 02-25 infuse [place] 04:00: over 2.5 Medical 00 hours Center Insulin No 10 unit, regular 02-24 Route: IV, [place] 22:14: ONCE, Medical 00 Dosing Center Weight 86.364, kg, Start date: 02/24/19 17:14:00 CDT, Stop date: 02/24/19 17:14:00 CDT Magnesium No Notes: Sulfate 02-24 WASTE: F/P [place] 20:26: - Sink; E Medical 00 - Center Municipal Trash Bin Magnesium No Notes: Sulfate 02-24 WASTE: F/P [place] 18:15: - Sink; E Medical 00 - Center Municipal Trash Bin Promethazin No 6.25 mg, e 02-24 Route: [place] 17:54: IVPB, Medical 00 ONCE, Center Dosing Weight 86.364, kg, PRN Nausea & Vomiting, Start date: 02/24/19 12:54:00 CDT Hydralazine 0 No Notes: MH 02-24 (Same as: [place] 17:52: Apresoline ) Push Center over 5 minutes Labetalol 0 No 10 mg, 2 MH 02-24 mL, Route: [place] 17:52: IVP, Drug form: INJ, Center Q5Min, Dosing Weight 86.364, kg, PRN Elevated BP, Start date: 02/24/19 12:52:00 CDT, Duration: 5 doses or times, Stop date: Limited # of times Ketorolac 0 No 30 mg, 02-24 Route: [place] 17:45: IVP, ONCE, Medical Dosing Center Weight 86.364, kg, Start date: 02/24/19 12:45:00 CDT, Stop date: 02/24/19 12:45:00 CDT Fentanyl 0 No 50 02-24 microgram, [place] 17:44: Route: IVP, Center Q5Min, Dosing Weight 86.364, kg, PRN Pain Score 4-6, Priority: Routine, Start date: 02/24/19 12:44:00 CDT, Duration: 4 doses or times, Stop date: Limited # of times glycopyrrol No Route: IV, ate (ANES) 02-24 Drug form: Enrrique as 17:37: INJ, ONCE, Medical Stop date: [place] 02/24/19 12:37:00 CDT ondansetron 0 No Route: IV, (ANES) 02-24 Drug form: [place] 17:37: INJ, ONCE, Medical Stop date: [place] 02/24/19 12:37:00 CDT neostigmine 0 No Route: IV, MH (ANES) 02-24 Drug form: [place] 17:37: INJ, ONCE, Medical Stop date: [place] 02/24/19 12:37:00 CDT Acetaminoph 0 No 1,000 mg, M H en 02-24 Route: IV, [place] 17:36: ONCE, Medical 00 Dosing Center Weight 86.364, kg, Start date: 02/24/19 12:36:00 CDT, Stop date: 02/24/19 12:36:00 CDT phenylephri No Route: IV, [facility] (ANES) 02-24 Drug form: [place] 17:36: INJ, ONCE, Medical Stop date: [place] 02/24/19 12:36:00 CDT fentaNYL No Route: IV, (ANES) 02-24 Drug form: [place] 17:16: INJ, ONCE, Medical 00 Stop date: [place] 02/24/19 12:16:00 CDT rocuronium No Route: IV, M H (ANES) 02-24 Drug form: [place] 17:16: INJ, ONCE, Medical Stop date: [place] 02/24/19 12:16:00 CDT propofol No Route: IV, (ANES) 02-24 Drug form: [place] 17:16: INJ, ONCE, Medical Stop date: [place] 02/24/19 12:16:00 CDT lidocaine No Route: IV, (ANES) 02-24 Drug form: [place] 17:16: INJ, ONCE, Medical Stop date: [place] 02/24/19 12:16:00 CDT Oxycodone No Notes: 02-24 (Same as: [place] 17:01: Roxicodone Medical ) [place] Flumazenil No Notes: 02-24 (Same as: [place] 17:01: Romazicon) Medical 00 [place] Ondansetron No Notes: 02-24 (Same as: [place] 17:01: Zofran) Medical Center MEDICATION WASTE Product Size: 4 mg Product Wasted: ___ mg Naloxone No Notes: 02-24 Same as [place] 17:01: Narcan Medical 00 [place] Acetaminoph No 1,000 mg, M H en 02-24 Route: PO, [place] 17:01: Drug form: Medical 00 TAB, ONCE, [place] Dosing Weight 86.364, kg, PRN Pain Score 1-3, Start date: 02/24/19 12:01:00 CDT Sodium No Route: IV, Chloride 02-24 Drug form: [place] 0.9% IV 16:25: INJ, Start Medi kim (ANES) 235 00 date: [place] mL + 02/24/19 vancomycin 11:25:00 (ANES) 1500 CDT, Stop mg date: 02/24/19 12:25:00 CDT Lactated No Route: IV, Ringers 02-24 Total [place] Injection 16:03: Volume: Medic al IV (ANES) 00 1,000, Center 1000 mL Start date: 02/24/19 11:03:00 CDT, Stop date: 02/24/19 12:03:00 CDT Insulin No Notes: Lispro 02-24 (Same as: [place] 05:52: Humalog) Medical 00 Roll in Center palms of hands gently; Do not shake vigorously . WASTE: F/P - Black; E - Municipal Trash Bin Stable for 28 days at room temperatur e. Expires in days from ____Date Glucagon No 1 mg, 02-24 Route: IM, [place] 05:52: Drug form: Medical 00 PDR/INJ, Center PRN, Dosing Weight 86.364, kg, PRN Blood Glucose Results, Start date: 02/24/19 0:52:00 CDT, Duration: 30 day, Stop date: 03/26/19 0:51:00 CDT Dextrose No 25 gm, 50 50% in 4-26 mL, Route: [place] Water 05:52: IVP, Drug Medical (bolus) IV 00 Form: INJ, Desiree ter Dosing Weight 86.364, kg, PRN, PRN Blood Glucose Results, Start date: 02/24/19 0:52:00 CDT, Duration: 30 day, Stop date: 03/26/19 0:51:00 CDT atorvastati No Notes: n 02-24 (Same As: [place] 02:00: Lipitor) Medical 00 Center Insulin No Notes: Lispro 02-23 (Same as: [place] 21:30: Humalog) Medical 00 Roll in Center palms of hands gently; Do not shake vigorously . WASTE: F/P - Black; E - Municipal Trash Bin Stable for 28 days at room temperatur e. Expires in days from ____Date Hydralazine No Notes: 4-25 (Same as: [place] 20:55: Apresoline Medical 00 ) May Center interfere w/enteral feedings Take With Food. NIFEdipine No Notes: 60 mg oral 4-25 (Same as: [place] tablet, 14:00: Adalat CC, Medi kim extended 00 Procardia Center release XL) Give on empty stomach. Take 1 hour before or 2 hours after meal; "Avoid grapefruit and grapefruit juice". Do not crush cholecalcif No Notes: josue 4-25 Same as: [place] 14:00: Vitamin D3 Medical 00 [place] Citalopram No Notes: 4-25 (Same As: [place] 14:00: CeleXA) Medical [address] [place] [address] carvedilol No Notes: 4-25 Give with [place] 14:00: food. Medical 00 (Same As: [facility]) Aspirin 81 No Notes: Do MH MG Enteric 4-25 not crush [place] Coated 14:00: or chew. Medical Tablet 00 (Same As: [place] Ecotrin) Insulin No 20 unit, Glargine 4-25 0.2 mL, [place] 14:00: Route: Medical 00 SUB-Q, [place] Drug form: SOLN, Daily, Dosing Weight 104.8, kg, Start date: 02/23/19 9:00:00 CDT, Duration: 30 day, Stop date: 03/24/19 9:00:00 CDT heparin No Notes: 4-25 porcine [place] 13:00: heparin Medical [address] [place] [address] normal No 1,000 mL, saline 0.9% 4-25 Rate: 125 Enrrique as IV 1,000 mL 10:07: ml/hr, Medi kim 00 Infuse Center over: 8 hr, Route: IV, Dosing Weight 86.364 kg, Total Volume: 1,000, Start date: 02/23/19 5:07:00 CDT, Duration: 30 day, Stop date: 03/25/19 5:06:00 CDT, 2.04, m2 Unasyn No Notes: 4-25 Dosing [place] 10:00: based on Medical Ampicillin Center component (Same as: Unasyn) Insulin No 10 unit, Lispro 4-25 SUB-Q, [place] 09:40: TID-Before Medical 00 Meals, 0 [place] Refill(s) insulin No 20 unit, detemir 4-25 SUB-Q, [place] 09:40: Bedtime, 0 Medical 00 Refill(s) [place] Hydralazine No 25 mg = 1 M H Hydrochlori 4-25 tab, PO, [place] de 25 MG 09:40: TID, # 270 Med ical Oral Tablet 00 tab, 1 Center Refill(s) Glucagon No 1 mg, MH 4-25 Route: IM, [place] 09:34: Drug form: Medical 00 PDR/INJ, Center PRN, Dosing Weight 104.8, kg, PRN Blood Glucose Results, Start date: 02/23/19 4:34:00 CDT, Duration: 30 day, Stop date: 03/25/19 4:33:00 CDT Dextrose No 12.5 gm, 50% in 4-25 25 mL, [place] Water 09:34: Route: Medical (bolus) IV 00 IVP, Drug Cent er Form: INJ, Dosing Weight 104.8, kg, PRN, PRN Blood Glucose Results, Start date: 02/23/19 4:34:00 CDT, Duration: 30 day, Stop date: 03/25/19 4:33:00 CDT Insulin No Notes: Lispro -25 (Same as: [place] 09:34: Humalog) Medical 00 Roll in Center palms of hands gently; Do not shake vigorously . WASTE: F/P - Black; E - Municipal Trash Bin Stable for 28 days at room temperatur e. Expires in days from ____Date Tylenol No Notes: Do MH 4-25 not exceed [place] 09:33: 4 gm/day. Medical 00 (Same as: [place] Tylenol) Oxycodone No Notes: Hydrochlori 4-25 (Same as: Enrrique as de 5 MG 09:33: Roxicodone Medi kim Oral Tablet 00 ) Center NIFEdipine No 60 mg = 1 MH 60 mg oral 4-25 tab, PO, [place] tablet, 09:30: Daily, # Medica l extended 00 30 tab, 0 Center release Refill(s) Metformin No 500 mg = 1 MH hydrochlori 4-25 tab, PO, [place] de 500 MG 09:30: BID-Meals, Me dical Oral Tablet 00 # 30 tab, Desiree ter 0 Refill(s) Insulin 2018-0 No SUB-Q, 0 MH Lispro 4-25 Refill(s) [place] 09:30: Medical 00 [place] insulin 2018- No SUB-Q, 0 MH detemir 4-25 Refill(s) [place] 09:30: Medical 00 [place] Vitamin D3 No 2,000 MH 2000 intl 4-25 IntlUnit = [place] units oral 09:30: 1 tab, PO, M edical tablet 00 Daily, 0 Center Refill(s) carvedilol No 12.5 mg = MH 12.5 mg 4-25 1 tab, PO, [place] oral tablet 09:30: Q12H, # 60 Medical 00 tab, 0 Center Refill(s) atorvastati No 20 mg = 1 M H n 20 mg 4-25 tab, PO, [place] oral tablet 09:30: Bedtime, # Medical 00 30 tab, 0 Center Refill(s) Aspirin 81 No 81 mg = 1 MH MG Enteric 4-25 tab, PO, [place] Coated 09:30: Daily, # Medical Tablet 00 90 tab, 3 Center Refill(s) Dextrose No 12.5 gm, MH 50% in 4-25 25 mL, [place] Water 09:06: Route: Medical (bolus) IV 00 IVP, Drug Cent er Form: INJ, Dosing Weight 104.8, kg, PRN, PRN Blood Glucose Results, Start date: 02/23/19 4:06:00 CDT, Duration: 30 day, Stop date: 03/25/19 4:05:00 CDT Glucagon 2018- No 1 mg, MH 4-25 Route: IM, [place] 09:06: Drug form: Medical 00 PDR/INJ, Center PRN, Dosing Weight 104.8, kg, PRN Blood Glucose Results, Start date: 02/23/19 4:06:00 CDT, Duration: 30 day, Stop date: 03/25/19 4:05:00 CDT acetaminoph Yes 1{tbl} Q.25D Take 1 [place] en-codeine 8-22 tablet by Meth salvatore (TYLENOL 18:08: mouth 4 st WITH 18 (four) CODEINE #3) times a 300-30 mg day as per tablet needed for moderate pain. ALPRAZolam 2018-0 Yes 1mg [id number] Take 1 mg [place] (XANAX) 1 8-22 [id number] by mouth 3 Methodi MG tablet 18:08: 3D (three) st 18 times a day as needed for anxiety. amLODIPine 2018-0 Yes 10mg QD Take 10 mg [place] (NORVASC) 8-22 by mouth Method i 10 mg 18:08: daily. st tablet 18 carvedilol 2018-0 Yes 6.25mg Q.5D Take 6.25 [place] (COREG) 8-22 mg by Methodi 6.25 MG 18:08: mouth 2 st tablet 18 (two) times a day with meals. gabapentin 2018-0 Yes 300mg Q.5D Take 300 [place] (NEURONTIN) 8-22 mg by Methodi 300 mg 18:08: mouth 2 st capsule 18 (two) times a day as needed. insulin 2018-0 Yes 10U [id number] Inject 10 [place] lispro 8-22 [id number] Units Method i (HumaLOG) 18:08: 3D under the st 100 unit/mL 18 skin 3 injection (three) times a day before meals. insulin 2018-0 Yes 20U QD Inject 20 [place] on detemir 8-22 Units Methodi U-100 18:08: under the st (LEVEMIR) 18 skin 100 unit/mL nightly. injection nitroglycer [address] 0.4 [place] in 8-22 mg under Methodi (NITROSTAT) 18:08: the tongue st 0.4 MG SL 18 every 5 tablet (five) minutes as needed for chest pain. albuterol 2017-0 Yes 2{puff} Q6H Inhale 2 [place] (PROAIR 8-22 puffs Methodi HFA,PROVENT 18:08: every 6 st [place] 18 (six) HFA,VENTOLI hours as N HFA) 90 needed for mcg/actuati wheezing. on inhaler promethazin 2017-0 Yes 50mg Q6H Take 50 mg Dodd e 8-22 by mouth Methodi (PHENERGAN) 18:08: every 6 st 50 MG 18 (six) tablet hours as needed for nausea or vomiting. atorvastati Yes 20mg QD Take 20 mg [place] n (LIPITOR) 4-24 by mouth Meth salvatore 20 MG 00:00: nightly. st tablet 00 citalopram Yes 40mg QD Take 40 mg [place] (CeleXA) 40 4-24 by mouth Meth salvatore MG tablet 00:00: once st 00 daily. metFORMIN Yes 500mg Q.5D Take 500 Cecelia ston (GLUCOPHAGE 4-24 mg by Methodi ) 500 mg 00:00: mouth 2 st tablet 00 (two) times a day with meals. Insulin, No 60 MH Regular, 1-02 units) [place] Pork 22:30: Stable for Medical 00 28 days at Center room [facility] e Expires in days from ____Date Lancet Yes 1 box, Device 11-02 [place], [place] 20:18: Daily, # 1 Medical 02 ea, 0 Center Refill(s) Lancets Yes 1 box, 11-02 [place], [place] 20:17: Daily, # Medical 59 10 box, 0 Center Refill(s) Lancets No 1 box, 11-02 [place], [place] 20:15: Daily, # Medical 00 10 box, 0 Center Refill(s) Lancet No 1 box, Device 11-02 [place], [place] 20:15: Daily, # 1 Medical 00 ea, 0 Center Refill(s) clindamycin Yes 450 mg = 3 MH 150 mg oral 11-02 cap, PO, [place] capsule 20:15: TID, # 15 Medic al 00 cap, 0 Center Refill(s) Nitroglycer Yes 0.4 mg = 1 MH in 0.4 MG 11-02 tab, SL, [place] Sublingual 18:48: Q5Min, Medic al Tablet 00 Chest Center Pain, # 100 tab, 2 Refill(s) Regular Yes 10 unit, Insulin, 11-02 SUB-Q, [place] Human 100 18:48: TID-Before Me dical UNT/ML 00 Meals, # Center Injectable 15 mL, 0 Solution Refill(s) clopidogrel Yes 75 mg = 1 M H 75 mg oral 1-02 tab, PO, [place] tablet 18:48: Daily, # Medical 00 90 tab, 3 Center Refill(s) insulin Yes 25 unit, MH detemir 100 11-02 SUB-Q, [place] units/mL 18:48: Daily, # Medic al subcutaneou 00 15 mL, 0 Cent er s solution Refill(s) Hydrochloro Yes 25 mg = 1 M H thiazide 25 -02 tab, PO, [place] MG Oral 18:48: Daily, # Medica l Tablet 00 90 tab, 3 Center Refill(s) lisinopril Yes 40 mg = 1 MH 40 mg oral 1-02 tab, PO, [place] tablet 18:48: Daily, # Medical 00 60 tab, 2 Center Refill(s) Aspirin 81 Yes 81 mg = 1 MH MG Enteric -02 tab, PO, [place] Coated 18:48: Daily, 0 Medical Tablet 00 Refill(s) Center amLODIPine Yes 10 mg = 1 MH 10 mg oral -02 tab, PO, [place] tablet 18:48: Q12H, # Medical 00 120 tab, 3 Center Refill(s) atorvastati Yes 40 mg = 1 M H n 40 mg -02 tab, PO, [place] oral tablet 18:48: Bedtime, # Medical 00 60 tab, 3 Center Refill(s) carvedilol Yes 25 mg = 1 MH 25 mg oral -02 tab, PO, [place] tablet 18:48: Q12H, # Medical 00 120 tab, 3 Center Refill(s) Clindamycin No Notes: MH 11-02 (Same As: [place] 18:00: Cleocin) Medical 00 Center insulin No Notes: detemir 11-02 Same as [place] 03:00: Levemir Do Medical 00 not hold Center insulin without contacting prescriber "single patient use only" Imdur No Notes: 11-01 (Same [place] 21:44: as:Imdur) Medical 00 "Do Not Center Crush" Take on empty stomach/ full glass of water. Do not crush Acetaminoph No Notes: en 325 MG / 11-01 (Same as: Enrrique as Hydrocodone 18:15: [place] Medic al Bitartrate 00 325/5) Do Desiree ter 5 MG Oral not exceed Tablet 4gm/day of [[place] acetaminop 5/325] hen. carvedilol No Notes: 11-01 Give with [place] 15:00: food. Medical 00 (Same As: [facility] Coreg) Magnesium No Notes: Oxide 11-01 (Same as: [place] 15:00: Mag-Ox Medical 00 400) [facility] Magnesium oxide 118iz=970p g elemental magnesium Dose=____m g magnesium oxide (___mg elemental magnesium) insulin No Notes: detemir 11-01 Same as [place] 15:00: Levemir Do Medical 00 not hold Center insulin without contacting prescriber "single patient use only" Hydrochloro No Notes: thiazide 11-01 (Same as: [place] 15:00: Hydrodiuri Medical 00 l) With Center food. Insulin, No Notes: Aspart, 11-01 Roll in [place] Human 13:30: palms of Medical 00 hands Center gently; Do not shake vigorously . (Same as: NovoLOG) "single patient use only" Stable for 28 days at room temperatur e. Expires in days from ____Date Magnesium No 2 gm, 50 Sulfate 11-01 mL, Route: [place] 12:14: IVPB, Drug Medical form: INJ, [facility] ONCE, Dosing Weight 104.8, kg, Start date: 11/01/14 6:14:00, Duration: 2 hr, Stop date: 11/01/14 6:14:00 Nicotine No 21 mg, MH 11-01 Route: [place] 03:47: TOP, Drug Medical form: [facility] ERFILM, ONCE, Dosing Weight 104.8, kg, Start date: 10/31/14 21:47:00, Stop date: 10/31/14 21:47:00 metoprolol No Notes: extended 11-01 (Same as: [place] release 03:00: Toprol XL) Medi kim 00 May split Center tab, but do not crush. Amlodipine 2013-11 No Notes: MH 2-31 (Same as: [place] 23:07: Norvasc) Medical 00 Center insulin 2013-11 No Notes: detemir 2-31 Same as [place] 23:07: Levemir Do Medical 00 not hold Center insulin without contacting prescriber "single patient use only" Lisinopril 2013-11 No Notes: 2-31 (Same as: [place] 15:00: Prinivil, Medical 00 Zestril) Center insulin 2013-11 No Notes: detemir 2-31 Same as [place] 15:00: Levemir Do Medical 00 not hold Center insulin without contacting prescriber "single patient use only" Amlodipine 2013-11 No Notes: 2-31 (Same as: [place] 15:00: Norvasc) Medical 00 Center metoprolol 2013-11 No Notes: extended 2-31 (Same as: [place] release 15:00: Toprol XL) Medi kim 00 May split Center tab, but do not crush. metoprolol 2013-11 No Notes: extended 2-31 (Same as: [place] release 14:30: Toprol XL) Medi kim 00 Do Not Center Crush insulin 2013-11 No Notes: detemir 2-31 Same as [place] 12:19: Levemir Do Medical 00 not hold Center insulin without contacting prescriber "single patient use only" Nicardipine 2013-11 No Notes: 2-31 Same as: [place] 11:32: Cardene Medical 00 Concentrat Center ion: (0.2 mg /1 ml ) metoprolol 2013-11 No Notes: tartrate 2-31 (Same as: [place] 09:32: Lopressor) Medical 00 Center atorvastati 2013-11 No Notes: n 2-31 (Same as: [place] 03:00: Lipitor) Medical 00 Center Brilinta 2013-11 No Notes: 2-31 (Same as: [place] 03:00: Brilinta) Medical 00 Center Citalopram 2013-11 No Notes: 2-30 (Same As: [place] 20:30: CeleXA) Medical 00 Center Insulin, 2013-11 No 60 MH Regular, 2-30 units) [place] Pork 19:46: Stable for Medical 00 28 days at Center room temperatur e Expires in days from ____Date Dextrose 2013-11 No 12.5 gm, MH 50% Syringe 2-30 25 mL, [place] 19:46: Route: Medical 00 IVP, Drug Center Form: INJ, Dosing Weight 104.8, kg, PRN, PRN Blood Glucose Results, Start date: 10/30/14 13:46:00, Duration: 30 day, Stop date: 11/29/14 13:45:00 Glucagon 2013-11 No 1 mg, MH 2-30 Route: IM, [place] 19:46: Drug form: Medical 00 PDR/INJ, Center PRN, Dosing Weight 104.8, kg, PRN Blood Glucose Results, Start date: 10/30/14 13:46:00, Duration: 30 day, Stop date: 11/29/14 13:45:00 Phosphorus 2013-11 No Notes: MH / Potassium 2-30 (Same as: [facility] as 19:42: K Medical 00 Phosphate. Center ) 1 mMol phoshate has 1.47 mEq potassium Infuse over 4 hours Magnesium 2013-11 No Special Sulfate 2-30 Instructio [place] 19:42: ns: FOR Medical 00 ICU USE Center ONLY Neutra-Phos 2013-11 No Notes: MH 2-30 (Same as: [place] 19:42: Neutra-Alyson Medical 00 s) Each Center 1.25 gm pkt has 250mg phosphorou s. Mix w/2.5oz water and stir. Magnesium 2013-11 No Notes: Oxide 2-30 (Same as: [place] 19:42: Mag-Ox Medical 00 400) Center Magnesium oxide 693op=155c g elemental magnesium Dose=____m g magnesium oxide (___mg elemental magnesium) Calcium 2013-11 No Notes: Carbonate 2-30 (Same As: [place] 500 MG 19:42: Tums) Medical Chewable 00 Calcium Center Tablet Carbonate 500 mg = 200 mg elemental calcium Dose = mg calcium carbonate ( mg elemental calcium) Calcium 2013-11 No Special Gluconate 2-30 [place]io [place] 19:[place]: ns: FOR Medical 00 ICU USE Center ONLY Potassium 2013-11 No Notes: Chloride 2-30 (Same as: [place] 19:42: K-Dur 20) Medical 00 "Do Not Center Crush" With food and full glass of water Sodium 2013-11 No Special Phosphate, 2-30 Instructio [facility] as Monobasic 19:42: ns: FOR Medic al 00 ICU USE Center ONLY Nicotine 2013-11 No Notes: MH 2-30 (Same as: [place] 16:00: Habitrol) Medical 00 "Remove Center old patch before applicatio n of new patch" remove 2013-11 No Notes: patch 2-30 Remove old [place] 16:00: patch Medical 00 before Center applicatio n of new patch. Aspirin 81 2013-11 No Notes: Do MH MG Enteric 2-30 not crush [place] Coated 15:00: or chew. Medical Tablet 00 (Same As: Center Ecotrin) Lisinopril 2013-11 No Notes: 2-30 (Same as: [place] 15:00: Prinivil, Medical 00 Zestril) Center metoprolol 2013-11 No Notes: extended 2-30 (Same as: [place] release 15:00: Toprol XL) Medi kim 00 Do Not Center Crush Plavix 2013-11 No Notes: 2-30 (Same As: [place] 15:00: Plavix) Medical 00 Center pneumococca 2013-11 No Notes: l capsular 2-30 (Same as: [place] polysacchar 15:00: Pneumovax M edical shira type 1 00 23) Center vaccine / Refrigerat pneumococca e l capsular polysacchar shira type 10A vaccine / pneumococca l capsular polysacchar shira type 11A vaccine / pneumococca l capsular polysacchar shira type 12F vaccine / pneumococca l capsular polysacchar Influenza 2013-11 No Notes: Virus 2-30 (Same as: [place] Vaccine, 15:00: Fluzone Medica l Inactivated 00 Quadrivale Ce nter A-[place]- nt) (H3N2)-like virus (A-[place] [facility] X-175C) strain / Influenza Virus Vaccine, Inactivated A-[place]- 59, IVR-148 (H1N1) strain / Influenza Virus Vaccine, Inactivated , B---lik Docusate 2013-11 No Notes: 2-30 (Same as: [place] 15:00: Colace) Medical 00 (Do Not Center Crush) Saline 2013-11 No Notes: Flush 0.9% 2-30 (Same as: [place] 15[place]: BD Medical 00 Posiflush) [facility] pantoprazol 2013-11 No Notes: For e 2-30 IV push [place] 13:30: reconstitu Medical 00 te with 10 Center ml 0.9% sodium chloride and push over 2 minutes. (Same as: Protonix) Albuterol 2013-11 No Notes: MH 0.833 MG/ML 2-30 (Same as: [facility] as / 12:56: Duoneb) Medical Ipratropium 00 [facility] Leonard 0.167 MG/ML Inhalant Solution [DuoNeb] Morphine 2013-11 No 2 mg, MH 2-30 Route: [place] 12:03: IVP, ONCE, Medical 00 Dosing Center Weight 104.8, kg, Start date: 10/30/14 6:03:00, Stop date: 10/30/14 6:03:00 Morphine 2013-11 No 2 mg, MH 2-30 Route: [place] 09:49: IVP, ONCE, Medical 00 Dosing Center Weight 104.8, kg, Start date: 10/30/14 3:49:00, Stop date: 10/30/14 3:49:00 Amlodipine 2013-11 No Special 2-30 Instructio [place] 07:54: ns: 10 mg Medical 00 [facility] citalopram 2013-11 Yes 40 mg = 1 MH 40 mg oral 2-30 tab, [place] tablet 07:54: Daily, 0 Medical 00 Refill(s) [facility] Metformin 2013-11 Yes 1,000 mg = hydrochlori 2-30 1 tab, [place] de 1000 MG 07:54: BID, 0 Medic al Oral Tablet 00 Refill(s) [facility] aspirin 325 2013-11 No 325 mg = 1 MH mg tablet 2-30 tab, [place] 07:54: Daily, 0 Medical 00 Refill(s) [facility] lisinopril 2013-11 No 40 mg = 1 MH 40 mg oral 2-30 tab, [place] tablet 07:54: Daily, 0 Medical 00 Refill(s) [facility] metoprolol 2013-11 No 50 mg = 1 MH tartrate 50 2-30 tab, BID, [facility] as mg oral 07:54: 0 Medical tablet 00 Refill(s) [facility] Zofran 2013-11 No Notes: MH 2-30 (Same as: [place] 07:14: Zofran) Medical 00 [facility] Acetaminoph 2013-11 No Notes: Do M H en not exceed [place] 07:14: 4 gm/day. Medical 00 (Same as: [facility] Tylenol) Plavix 2013-11 No 600 mg, 2 Route: PO, [place] 06:38: Drug form: Medical 00 TAB, ONCE, Center Dosing Weight 104.8, kg, Start date: 10/30/14 0:38:00, Duration: 1 doses or times, Stop date: 10/30/14 0:38:00 Insulin, 2013-11 No 60 Regular, 2-30 units) [place] Pork 06:37: Stable for Medical 00 28 days at Center room temperatur e Expires in days from ____Date Dextrose 2013-11 No 12.5 gm, 50% Syringe 230 25 mL, [place] 06:37: Route: Medical 00 IVP, Drug Center Form: INJ, Dosing Weight 104.8, kg, PRN, PRN Blood Glucose Results, Start date: 10/30/14 0:37:00, Duration: 30 day, Stop date: 11/29/14 0:36:00 Glucagon 2013-11 No 1 mg, 30 Route: IM, [place] 06:37: Drug form: Medical 00 PDR/INJ, Center PRN, Dosing Weight 104.8, kg, PRN Blood Glucose Results, Start date: 10/30/14 0:37:00, Duration: 30 day, Stop date: 11/29/14 0:36:00 heparin 2013-11 No 500 mL, additive Rate: [place] 25,000 unit 06:36: 18.93 Medic al [12 00 ml/hr, [facility] unit/kg/hr] Infuse + Premix over: 26.4 Diluent hr, Route: Dextrose 5% IV, Dosing 500 mL Weight 78.88 kg, Total Volume: 500 mL, Start date: 10/30/14 0:36:00, Duration: 30 day, Stop date: 11/29/14 0:35:00 Nitroglycer 2013-11 No Notes: in (Same [place] 06:29: as:Tridil) Medical 00 Final Center conc = 0.4 mg/ml. Premix bottle. clopidogrel 2013-11 No Notes: ( 2-30 Same as: [place] 06:29: Plavix) Medical 00 Center heparin 2013-11 No 500 mL, additive Rate: [place] 25,000 unit 06:29: 18.93 Medic al [12 00 ml/hr, Center unit/kg/hr] Infuse + Premix over: 26.4 Diluent hr, Route: Dextrose 5% IV, Dosing 500 mL Weight 78.88 kg, Total Volume: 500 mL, Start date: 10/30/14 0:29:00, Duration: 30 day, Stop date: 11/29/14 0:28:00 Bisacodyl 2013-11 No Notes: - (Same As: [place] 06:29: Dulcolax, Medical 00 Bisco-Lax) Center Saline 2013-11 No Notes: Flush 0.9% (Same as: [place] 06:29: BD Medical 00 Posiflush) [facility] Vital Signs Vital Name Observation Time Observation Value Comments Source Height 2019-03-14 14:48:00 170.18 cm [facility] Weight 2019-03-14 14:48:00 [facility] BMI Calculated 2019-03-14 14:48:00 [facility] Respitory Rate 2019-03-14 14:48:00 [facility] Systolic (mm Hg) 2019-03-14 14:48:00 [facility] [place] Diastolic (mm Hg) 2019-03-14 14:48:00 [facility] Heart Rate 2019-03-14 14:48:00 [facility] Systolic (mm Hg) 2019-02-28 17:00:00 [facility] [place] Diastolic (mm Hg) 2019-02-28 17:00:00 [facility] Respitory Rate 2019-02-28 17:00:00 [facility] Heart Rate 2019-02-28 17:00:00 [facility] Systolic (mm Hg) 2019-02-28 13:00:00 [facility] [place] Diastolic (mm Hg) 2019-02-28 13:00:00 [facility] Respitory Rate 2019-02-28 13:00:00 [facility] Heart Rate 2019-02-28 13:00:00 [facility] Temperature Oral (F) 2019-02-28 08:30:00 98.3 F [facility] Heart Rate 2019-02-28 08:30:00 [facility] Respitory Rate 2019-02-28 08:30:00 [facility] Systolic (mm Hg) 2019-02-28 08:30:00 [facility] [place] Diastolic (mm Hg) 2019-02-28 08:30:00 [facility] Temperature Oral (F) 2019-02-28 04:59:00 98 F [facility] Temperature Oral (F) 2019-02-27 08:58:00 97.8 F [facility] Height 2019-02-24 18:03:00 170.18 cm [facility] Weight 2019-02-24 18:03:00 [facility] Weight 2019-02-23 09:33:00 [facility] BMI Calculated 2019-02-23 09:33:00 [facility] Height 2019-02-23 09:33:00 170.18 cm [facility] Diastolic (mm Hg) 2014-11-02 17:38:00 [facility] Systolic (mm Hg) 2014-11-02 17:38:00 [facility] [place] Systolic (mm Hg) 2014-11-02 17:00:00 [facility] [place] Diastolic (mm Hg) 2014-11-02 17:00:00 [facility] Systolic (mm Hg) 2014-11-02 16:30:00 [facility] [place] Diastolic (mm Hg) 2014-11-02 16:30:00 [facility] Temperature Oral (F) 2014-11-02 14:25:00 97.1 F [facility] Temperature Oral (F) 2014-11-02 11:18:00 97.8 F [facility] Temperature Oral (F) 2014-11-02 05:20:00 97.8 F [facility] Respitory Rate 2014-11-01 23:30:00 [facility] Respitory Rate 2014-11-01 23:00:00 [facility] Respitory Rate 2014-11-01 22:30:00 [facility] Height 2014-10-30 06:23:00 170.18 cm [facility] Weight 2014-10-30 06:23:00 [facility] BMI Calculated 2014-10-30 06:23:00 [facility] Procedures Procedure Date / Time Performed Performing Clinician Tony e CABG - Coronary artery [facility] bypass graft [facility] Gallbladder operation [facility] [place] [facility] Hysterectomy [facility] Stent replacement [facility] Plan of Care Planned Activity Planned Date Details Comments Source Future Scheduled 2020-06-01 INFLUENZA VACCINE [place] [facility] 00:00:00 [code = INFLUENZA VACCINE] Future Scheduled 2005 BREAST CANCER [place] [facility] 00:00:00 SCREENING [code = BREAST CANCER SCREENING] Future Scheduled 2005 COLONOSCOPY SCREENING [place] [facility] 00:00:00 [code = COLONOSCOPY SCREENING] Future Scheduled 2005 SHINGLES VACCINES [place] [facility] 00:00:00 (#1) [code = SHINGLES VACCINES (#1)] Future Scheduled 1976 Screening for [facility] 00:00:00 malignant neoplasm of cervix (procedure) [code = 150173385] Future Scheduled 1965 DIABETIC FOOT EXAM [place] [facility] 00:00:00 [code = DIABETIC FOOT EXAM] Future Scheduled 1955 DIABETIC RETINAL EYE [facility] 00:00:00 EXAM [code = DIABETIC RETINAL EYE EXAM] Encounters Start End Encounter Admission Attending Care Care Encounter Source Date/Time Date/Time Type Type Clinicians Facility Department ID 2019-03-14 2019-04-13 [id number] MH 14:17:00 04:59:00 Reji 00 [facility] 2019-03-14 2019-04-12 [facility] [id number] 09:17:00 23:59:00 Que 00 Mtanios 2019-03-14 2019-03-14 Outpatient [facility] 09:17:00 09:17:00 2019-02-23 2019-02-28 [facility] [id number] MH 09:02:00 21:00:00 Reji 15 [facility] 2019-02-23 2019-02-28 Outpatient Vinny OMI [facility] [id number] 04:02:00 16:00:00 Margo Blue 2014-10-30 2014-11-[address] [facility] [id number] 06:19:00 21:30:00 Reji Lua [facility] 2014-10-30 2014-11-02 Outpatient GENARO Dc [id number] 00:19:00 15:30:00 Casper Lua Results Test Description Test Time Test Comments Results Result Comments Source TOXICOLOGY 2019-02-28 13.7 MH [place] Medic al 04:33:00 [facility] TOXICOLOGY 2019-02-28 04:33:00 Test Item Value Reference Range Interpretation Comme nts Vanco Tr TND (test code = Vanco Tr TND) 2330 1 [facility] [id number] 14:02:001.[address] [place] [address] CHEM [id number] 14:02:003.0[facility] CenterStceymKFFXHFIIBZYQ1385-10-28 14:02:009[address] [place], [place] [address]KiuffuITTQLQADVMKL5599-59-85 14:02:82918QIBrownfield Regional Medical CenterAkybduBNKLLGPSHBNA1064-40-43 14:02:009[address] [place] [address] MAJIMCKYHRWX8848-75-22 14:02:0031[facility] CenterXgothvWRFVJPYFLYRL8684-68-54 14:02:0010[facility] CenterGbigrqZYLTRXIVLFYN3413-62-64 14:02:26023KIBrownfield Regional Medical CenterStqsvbWQNWLKBWHNQZ5863-12-56 14:02:84719HT[facility] CUUVPRYCXZRP3554-90-38 14:02:58537SRBrownfield Regional Medical CenterSiygkhUGJIGALCOAKO2928-98-33 14:02:004[address] [place], [place] [address]UthzcrZYGAHQWQNZZD9372-05-97 14:02:000.56[facility] CenterWayxetCASBCMOMJL0975-66-06 14:02:0012[address] [place], [place] [address]HEMATOLOGY 2019-02-27 14:02:0033.[address] [place], [place] [address]NscvmeCKDRFHURRZ8608-04-00 14:02:008.9[facility] CenterXzjdxgTNMFHPKIVA4401-41-44 14:02:47515LR[facility] TQZCMGKDHT1224-27-00 14:02:[address] [place], [place] [address]TpjhliGCFMHFVTXM2734-70-18 14:02:0013[address] [place], [place] [address]XvgkcxIZHXTAKDWA2261-89-58 14:02:00 Test Item Value Reference Range Interpretation Comments MCH (test code = MCH) 31.4 pg 27.0-31.0 [facility] CenterUjkzhgCAWDMYLJAQ5846-67-72 14:02:0092.[facility] QXHNZVUYWV5525-08-10 14:02:004.40[facility] CenterCzfmcsWWVGYGAJIU0079-78-39 14:02:009.1[facility] BrenhamJuthooSBHDODYMJF9029-40-20 14:02:0063.1MB[facility] BrenhamNqmrxvFCKQLOGHDL9766-81-02 14:02:000.1[facility]HEMAT[facility] 2019-02-27 14:02:000.2MB[facility] – BrenhamGrxqdcSPRYWBMIZP7822-84-58 14:02:000[address] [place], [place] [address]HzwykrTEWDLXEYJG0472-20-73 14:02:002.5[facility] TALONWMKEJ4778-58-54 14:02:0027.5[facility] CenterGeclxsNHMYBNGEBE5393-03-53 14:02:005.8[facility] CenterUpiaraWISBQUUWIP4523-99-92 14:02:000.6MB[facility] – BrenhamPotnowYRYOEWTSNV5899-79-97 14:02:001.8[facility] CenterHEMATOLOGY 2019-02-27 14:02:007.0[facility] CenterCHEM BZWXU3042-11-32 11:11:50408AYBrownfield Regional Medical CenterCHEM CUYTW8401-56-81 11:11:008.[address] [place], [place] [address]CHEM LXEUP1760-57-35 11:11:0010[facility] CenterCHEM AOFYR0695-80-78 11:11:00 4.0[facility] CenterCHEM AAFLY8452-54-34 11:11:0027[facility] CHEM DKFTM5536-47-63 11:11:41281SSBrownfield Regional Medical CenterCHEM IOTCA8680-67-23 11:11:0010.0[facility] CenterCHEM GGHDP7058-30-41 11:11:77915MIBrownfield Regional Medical CenterCHEM FXLZP3313-55-54 11:11:000.52[facility] CenterCHEM PANEL 2019-02-26 11:11:66392HHBrownfield Regional Medical CenterCHEM NOQNR1117-99-89 11:11:002.7[facility] CenterCHEM OWABW6169-88-18 11:11:[address] [place] [address] SFDEAGRAZC7466-07-29 05:31:000.5[facility] CenterVwnpzzKOUYRISUFN5898-34-97 05:31:[address] [place], [place] [address]QoehthNLHZNJZELF3822-87-42 05:31:[address] [place], [place] [address]MmfwasOXBRROTOWX1625-72-30 05:31:[address] [place], [place] [address]HEMATOLOGY 2019-02-26 05:31:001.8[facility] CenterYrpcgkILFIJLHDCZ4146-66-92 05:31:0023.5[facility] CenterLuspawJBRBSPKMVN5556-96-04 05:31:0067.0[facility] MONOXELFMI7185-55-30 05:31:000.7[facility] CenterWmyhkjRTDDBYVIBA7736-66-64 05:31:[address] [place], [place] [address]YwhoelRGHFKCYWYB5407-68-72 05:31:80896DOBrownfield Regional Medical CenterYvbpxzUJNGNUAMCB1533-10-60 05:31:[address] [place], [place] [address]HEMATOLOGY 2019-02-26 05:31:0012.5[facility] CenterCikqbbFTSXDXDGVD3435-35-02 05:31:0033.6 [facility] CenterRsphocGSHGLFBLQY5683-02-71 05:31:003.97[facility] QGLVNIRLIB9295-65-69 05:31:0012.4[facility] CenterNnpftsQOBPSMUHKS7203-36-62 05:31:0037.0[facility] CenterCgukuiQHZAVNPWQK2179-27-22 05:31:[address] [place], [place] [address]ZypuaaRWISSNSETK6933-06-62 05:31:00 Test Item Value Reference Range Interpretation Comments MCH (test code = MCH) 31.3 pg 27.0-31.0 [facility] CenterMnoydfRODRAAKVKJ5202-70-55 05:31:009[address] [place] [address] APAIIGTYGZ6040-52-11 05:31:[address] [place], [place] [address]WbjzvoLNAHCWBJQJ1581-40-02 05:31:00 Test Item Value Reference Range Interpretation Comments Vanco Tr TND (test code = Vanco Tr 2300 1 TND) [facility] CenterCHEM [id number] 21:16:002.[address] [place] [address] CHEM DXZWT6490-77-12 21:16:000[address] [place], [place] [address]CHEM HYKCV9180-93-61 21:16:00<0.[address] [place], [place] [address]CHEM CNPHK7803-98-07 21:16:002.2MB[facility]hamCHEM EXZEE6713-18-80 21:16:005[address] [place], [place] [address]CHEM PANEL 2019-02-25 21:16:003.0[facility] CenterCHEM [id number] 21:16:00 Test Item Value Reference Range Interpretation Comments A/G Ratio (test code = A/G Ratio) 0.7 1 0.7-1.6 [facility] CenterCHE[facility] [id number] 21:16:18136HWBrownfield Regional Medical Center CHEM DIJHT7268-89-29 21:16:0076[facility] CenterCHEM ZBJUR0557-58-42 21:16:0050[facility] CenterCHEM YPNQP5555-87-05 21:16:001.[address] [place], [place] [address]CHEM MTAQT9343-81-77 21:16:0014[facility] CenterCHEM PANEL 2019-02-25 21:16:35180PFBrownfield Regional Medical CenterCHEM XOYHV2407-35-87 21:16:24813ZVBrownfield Regional Medical CenterCHEM HQVFD4433-32-55 21:16:0027[facility] CenterCHEM BMXMZ4737-57-69 21:16:50562AMBrownfield Regional Medical CenterCHEM QSFPD5576-91-58 21:16:00 3.7[facility] CenterCHEM IKRHF9740-64-71 21:16:000.54[facility] CenterCHEM XHCYQ9680-19-80 21:16:50227BEBrownfield Regional Medical CenterCHEM PANEL 2019-02-25 21:16:008.[address] [place], [place] [address]CHEM CTAOV7606-06-09 21:16:007.8[facility] CenterAqnoztZFXNVAORRC5452-53-41 05:06:000.[address] [place] [address] HXZIKHPIFV0321-05-72 05:06:009.7[facility] CenterJskmpjUMJLXJBZIW2762-90-49 05:06:001.9[facility] CenterWdxjcuISAJHBHFSR3679-60-44 05:06:[address] [place], [place] [address]OzibddWGBNEXVWYU8730-45-92 05:06:[address] [place], [place] [address]HEMATOLOGY 2019-02-25 05:06:0076.9[facility] CenterNfwfdzNVXIJMNFUU9137-67-44 05:06:0015.0 [facility] CenterScwydwFOWMUKMXPE6784-05-92 05:06:007.[address] [place] [address] QITAJAXUWT4205-14-98 05:06:000.5[facility] CenterXytpwoOPQPYCTPBZ1745-67-09 05:06:00 Test Item Value Reference Range Interpretation Comments MCH (test code = MCH) 30.6 pg 27.0-31.0 [facility] CenterIrouslMMAXMAKKFD0375-09-03 05:06:[address] [place] [address] ETAQYNCQKP5835-21-12 05:06:0012.7[facility] CenterPxgvzxUJDREDUZTX0932-26-00 05:06:[address] [place], [place] [address]StcfpzUTGBIEYWGZ8640-01-46 05:06:0092.4[facility] CenterCawarrSMZRNZZNER1133-77-17 05:06:77455HLBrownfield Regional Medical CenterHEMATOLOGY 2019-02-25 05:06:009.[address] [place], [place] [address]JnxwcyNORHBTNGMW5148-63-08 05:06:[address] [place], [place] [address]OpmjqiTPIHWHFIVF7667-92-13 05:06:0012.[address] [place] [address] YXDZXMJKYS8929-16-85 05:06:004.18[facility] CenterCARDIAC ENZYMES 2019-02-24 18:01:000.05[facility] CenterCARDIAC BOSZWAV2779-18-80 18:01:00 73[facility] CenterCHLORAMPHENICOL:SUSC:PT:ISOLATE:ORDQN:[id number] 17:00:00Methicillin Resistant Staphylococcus aureusBrownfield Regional Medical Center MEPFLCUZFM5288-41-03 13:44:000.[address] [place], [place] [address]BLOOD BANK RESULTS 2019-02-23 11:12:00Negative (02/23/19 6:12 AM)[facility] CenterHEMATOLOGY 2019-02-23 11:12:00 Test Item Value Reference Range Interpretation Comments PT (test code = PT) 12.3 s 12.0-14.7 [facility] CenterWeugzpBNHQBZZESZ9983-04-36 11:12:00 Test Item Value Reference Range Interpretation Comments INR (test code = INR) 0.93 1 0.85-1.17 [facility] CenterRfbxjhAJZKLKZICC3103-17-00 11:12:00 Test Item Value Reference Range Interpretation Comments PTT (test code = PTT) 32.0 s 22.9-35.8 [facility] CenterCHEM LNQZW1039-16-38 10:46:001.4[facility] CHEM EVVSD9171-88-50 10:46:000.20[facility] CHEMISTRY 2019-02-23 10:46:0015.0[facility] CenterCHEM VOBJJ5801-05-33 10:00:001.8[facility] CenterCHEM ESHRF6045-39-00 10:00:003.1[facility] XNDDIUMSDDRO0327-71-93 10:00:0012.0[facility] CenterLbyhydGVLYWWRBFNGL2503-05-61 10:00:0095[facility] CenterVwjsybXGDZZQILKHCX0954-73-47 10:00:000.7[facility] CenterTjtacgNWMRQGNDOTIY9330-38-76 10:00:01334LDBrownfield [facility] Center QAGNFFITELEN1299-90-84 10:00:44749HUBrownfield Regional Medical CenterDpedwiDFXWWMNHGGDB1334-84-47 10:00:0013[facility] CenterIwfvmtYDUDIXXJALUI9789-64-06 10:00:26367DYBrownfield [facility] Medical CenterVpedzkEINVMPBPJFRH7060-67-62 10:00:0025[facility] MNZOJWLXMFOJ9172-06-24 10:00:008.7[facility] CenterQemcbzEGISKDUXJHRA2547-59-48 10:00:004.0[facility] CenterMnlzncVADHUTPAMV1598-56-20 10:00:60061UFBrownfield Regional Medical CenterIcfxvoJFOKYGFSHB7520-42-15 10:00:0012.0[facility] CenterHEMATOLOGY 2014-11-02 10:00:009.3MB[facility]hamLvriucHONJJGFTWX6500-57-50 10:00:00 Test Item Value Reference Range Interpretation Comments MCH (test code = MCH) 33.4 pg 27.0-31.0 [facility] CenterClhsklCQOIBGKXMC9342-94-48 10:00:0097.2[facility] PILXSIJHXJ3338-07-25 10:00:0034.4[facility] CenterKlaxuvEGOLXJZQYP7068-19-00 10:00:0013.0[facility] CenterDbvsbjIYRWUHXCSA7119-32-06 10:00:0037.7[facility] CenterEiwbsjGEZLUQLZTU2548-45-04 10:00:003.88[facility] CenterHEMATOLOGY 2014-11-02 10:00:0011.6[facility]hamTszspuABXALFIGGN1703-37-64 10:00:000.1[facility]hamIawuljBRLWSCXKDL9075-83-23 10:00:000.2[facility] TWXDSFACMK5545-88-23 10:00:000.6[facility] BrenhamBktpklXEUYGVPYDJ8909-52-91 10:00:000.9[facility] CenterRvqewlZUNDECWFXT2032-68-82 10:00:002.5[facility] CenterZuqmpzRWVVYPNFAX8266-93-98 10:00:008.0[facility] CenterHEMATOLOGY 2014-11-02 10:00:0069.1[facility] BrenhamPzsyydNIZYINOEGK8920-24-10 10:00:001.5[facility] CenterUvoazpJANGVKGXSA7932-13-71 10:00:007.4[facility] NFOLZMXFPE7227-86-56 10:00:0021.4[facility] CenterCARDIAC ENZYMES 2014-11-01 20:58:0039[facility] CenterCARDIAC AZCIUIM0987-79-39 20:58:00 0.497[facility] CenterCARDIAC LYDNFKM0916-54-95 20:58:002.75[facility] CenterCHEM MQXQK6237-85-22 07:57:002.7[facility] CenterCHEM PANEL 2014-11-01 07:57:0081[facility] CenterCHEM DIXYG9264-66-87 07:57:11569OWBrown[facility] CenterCHEM UFBUG0109-93-41 07:57:000.8[facility] CenterCHEM YLBVP6270-99-67 07:57:004.2[facility]hamCHEM HSQPI2422-30-19 07:57:00 140[facility] CenterCHEM TETYD5952-18-84 07:57:0013[facility] CHEM MZSYL8494-73-37 07:57:008.8[facility] CenterCHEM QQBRF2219-43-13 07:57:03593XFBrownfield Regional Medical CenterCHEM RICUD8150-04-08 07:57:0026[facility] CenterCHEM GJUGU5964-49-08 07:57:0012.2[facility]hamCHEM PANEL 2014-11-01 07:57:001.6[facility] BrenhamHxftlmPPNNFBQLOW1684-48-85 07:57:000.1[facility] BrenhamDmflsiREPPLUBRAO3827-91-12 07:57:000.1[facility] QWLMVEVKRL2700-54-87 07:57:001.7[facility] CenterBjqwbjJLYOHJKNLY2823-39-02 07:57:001.1[facility] BrenhamAqoybdCRXJIYGYFH0349-56-29 07:57:000.3[facility] BrenhamAauzzbZCHYMTUOXV9627-95-25 07:57:0013.9[facility] CenterHEMATOLOGY 2014-11-01 07:57:006.3[facility] BrenhamJdjvceINPNMLKNQS2938-78-31 07:57:000.5[facility] CenterGgyccySZOZZKBQXL9587-69-76 07:57:0010.2[facility] LUKTOQPJEQ1021-34-73 07:57:0082.7[facility] CenterZepfusQOIFXIATEN6650-12-11 07:57:0014.4[facility] CenterDqpkglRUGMFZSLVQ1890-46-89 07:57:0042.1MB[facility] – BrenhamZpjxyfBGVIBVTMZM2869-09-59 07:57:0034.2[facility]hamHEMATOLOGY 2014-11-01 07:57:0096.8[facility] CenterGqaaizJUOJQLMPZR9569-52-04 07:57:0016.9 [facility] CenterHijvtlIMKIXXBTDF8788-21-43 07:57:00 Test Item Value Reference Range Interpretation Comments MCH (test code = MCH) 33.1 pg 27.0-31.0 [facility] CenterBkrsdtEJTAJKSNTL4250-57-91 07:57:004.35[facility] IDUTOWTOLB5791-42-74 07:57:009.1[facility] – BrenhamRiircdHJFIDHVTCL8207-50-76 07:57:90529SNBrownfield Regional Medical CenterLkffwaAEHQJPYSFQ0950-71-30 07:57:0012.4[facility] CenterPARATHYROID GMNKKPM7307-54-65 07:57:001.04[facility] PARATHYROID ZJTATUL8476-39-34 07:57:001.07[facility] CenterCARDIAC ENZYMES 2014-10-31 14:32:003.83[facility] CenterCARDIAC OPCELQM3289-38-70 14:32:00 0.420[facility] CenterCARDIAC WDOZTGZ1063-31-70 14:32:0068[facility] CenterCARDIAC GCWMGMB5876-52-45 07:46:0096[facility] CenterCARDIAC ENZYMES 2014-10-31 07:46:004.78[facility] CenterCARDIAC EFCSNBK2545-40-00 07:46:00 3.7[facility] CenterCARDIAC ZFXFWPT2091-66-63 07:46:003.9[facility] CenterCHEM GNDNE1090-55-66 07:46:28025VXBrown[facility] Regional Medical CenterCHEM PANEL 2014-10-31 07:46:009.0[facility] CenterCHEM RURCQ5450-74-20 07:46:0028[facility] CenterCHEM VSWCT4929-64-13 07:46:08873KABrownfield Regional Medical CenterCHEM CGKQW8391-23-23 07:46:004.4[facility] CenterCHEM ZTYSP6557-32-36 07:46:00 11.4[facility] CenterCHEM NNECD3983-22-84 07:46:0010[facility] CenterCHEM EGGRX1272-48-14 07:46:000.6[facility]hamCHEM PANEL 2014-10-31 07:46:54390LNBrownfield Regional Medical CenterCHEM PJZVU8431-17-67 07:46:77527FXBrown[facility] Medical CenterCHEM DMOMU7732-60-67 07:46:001.9[facility] CenterCHEM GYKNJ7786-15-87 07:46:003.[address] [place], [place] [address]SsubrwJRJQUUFZTC4087-58-88 07:46:00 Test Item Value Reference Range Interpretation Comments PTT (test code = PTT) 28.1 s 22.9-35.8 [facility] CenterQdsyijDWTQSKGDPU1019-46-16 07:46:00 Test Item Value Reference Range Interpretation Comments PT (test code = PT) 12.9 s 12.0-14.7 [facility] CenterObcggxNJSLUMAPKW6084-14-93 07:46:000.97[facility] YHDGCYLZTL8419-45-24 07:46:07291IJBrownfield Regional Medical CenterIwtirhXCNHOALRGH1062-01-32 07:46:008.8[facility] CenterXjwivbXFRTTBMTYW0927-89-34 07:46:[address]96.[address] [place], [place] [address]VfdvmcHHKTKWRFIP6947-07-29 07:46:0040.[address] [place], [place] [address]HEMATOLOGY 2014-10-31 07:46:0013.4[facility] CenterIdvenyXGQBZOEGMX6672-23-25 07:46:004.17 [facility] CenterGjkoteJJZXWRDQNM5820-55-74 07:46:[address] [place] [address] ATSTGGGRGJ1863-90-50 07:46:[address] [place], [place] [address]JagchnKVVPVSRVGD2076-48-58 07:46:00 Test Item Value Reference Range Interpretation Comments MCH (test code = MCH) 32.1 pg 27.0-31.0 [facility] CenterUuzswyPKRRDRHQAP7856-21-11 07:46:0011.8[facility] YNFCMQFFUF7732-86-04 07:46:[address] [place], [place] [address]NxwqwkBZOVKCWDLV6321-08-23 07:46:008.7[facility] CenterCkbucfABCHGXMLML0289-47-36 07:46:001.0[facility] CenterAthbawJCHTWROIEP1300-68-01 07:46:001.[address] [place], [place] [address]HEMATOLOGY 2014-10-31 07:46:005.[address] [place], [place] [address]RlokevYYCNNXAGUB5553-02-31 07:46:000.[address] [place], [place] [address]FaznskYPZHSNXFJV4011-88-43 07:46:[address] [place] [address] KEJMWFLANB0545-86-58 07:46:000.[address] [place], [place] [address]IpkhtaEQWBMLIFVH4326-89-69 07:46:0018.[address] [place], [place] [address]OdalqgEVZNCVZDUO3614-42-87 07:46:[address]74.[address] [place], [place] [address]PARATHYROID HQGXULY9428-06-55 07:46:001.[address] [place] [address] PARATHYROID FZFGZSE3294-30-93 07:46:001[address] [place], [place] [address]CARDIAC ENZYMES 2014-10-31 01:28:007.[address] [place], [place] [address]CARDIAC GGGALKO3068-05-64 01:28:00 8.0[facility] CenterCARDIAC BJDOAOQ7584-95-85 01:28:000.497[facility]PE[facility] MEGPAPTPU5026-80-27 01:28:[address] [place] [address] CARDIAC IULPXDL0949-75-08 16:53:009.[address] [place], [place] [address]CARDIAC ENZYMES 2014-10-30 16:53:009.[address] [place], [place] [address]DRUG WODNCB7208-07-10 12:15:00See Note 13(10/30/14 6:15 AM)[facility] CenterDR[facility] WFVDVP2597-93-60 12:15:00 Positive *ABN*(10/30/14 6:15 AM)[facility] CenterDR[facility] CXZAXX0686-26-43 12:15:00Negative *NA*(10/30/14 6:15 AM)[facility] CenterDR[facility] SCREEN 2014-10-30 12:15:00Negative *NA*(10/30/14 6:15 AM)[facility] CenterDR[facility] PPQEKK8784-94-32 12:15:00Negative *NA*(10/30/14 6:15 AM)[facility] DRUG PXMJKE8308-64-17 12:15:00Negative *NA*(10/30/14 6:15 AM)[facility] CenterDR[facility] NCIEGX1697-63-26 12:15:00Negative *NA*(10/30/14 6:15 AM)[facility] CenterDR[facility] MXVARQ9741-46-33 12:15:00Negative *NA*(10/30/14 6:15 AM)[facility] CenterURINE AND FRVLE0885-35-86 12:15:0016[facility] URINE AND FLEHI1951-87-95 12:15:0015[facility] CenterUR[facility] AND STOOL 2014-10-30 12:15:004[facility] CenterUR[facility] AND ZPAPT0625-20-50 12:15:00 Negative *NA*(10/30/14 6:15 AM)[facility] CenterUR[facility] BWGRD4598-81-27 12:15:00Negative (10/30/14 6:15 AM)[facility] CenterUR[facility] STOOL 2014-10-30 12:15:002.0[facility] CenterUR[facility] AND CTJRY6451-70-67 12:15:00 Positive *ABN*(10/30/14 6:15 AM)[facility] CenterUR[facility] VJYFI1676-99-83 12:15:00Small *ABN*(10/30/14 6:15 AM)[facility] CenterUR[facility] STOOL 2014-10-30 12:15:005.5[facility] CenterUR[facility] AND TEVRF7896-41-34 12:15:00 [place] *ABN*(10/30/14 6:15 AM)[facility] CenterUR[facility] AND VBQXV6199-58-47 12:15:001.032[facility] CenterUR[facility] AND BXDEN8486-26-26 12:15:00Slight *ABN*(10/30/14 6:15 AM)[facility] CenterBLOOD BANK WSGOMYL4544-82-74 11:17:00Negative (10/30/14 5:17 AM)[facility] CenterOnszvbSTUAQHALNF1576-60-04 11:17:00 Test Item Value Reference Range Interpretation Comments PTT (test code = PTT) 33.2 s 22.9-35.8 [facility] CenterBACTERIAL - ZVINPUQE8518-12-97 06:35:00Negative 19(10/30/14 12:35 AM)[facility] CenterCHEM TFJSL7097-27-27 06:35:001.6[facility]hamCHEM JCYZA3765-33-35 06:35:001.0[facility] CenterCHEM HNQNY8340-53-41 06:35:003.2[facility] – BrenhamCHEM GESKF4997-00-10 06:35:00 10[facility] CenterCHEM UDNGU1773-20-49 06:35:36323TXBrownfield [facility] Medical Center CHEM NLTEI6761-03-47 06:35:0022[facility] CenterCHEM VYRWX2576-27-49 06:35:003.3[facility] – BrenhamCHEM FAHYQ9734-19-51 06:35:000.3[facility] – BrenhamCHEM ORYPI9823-75-46 06:35:006.5[facility] CenterCHEM PANEL 2014-10-30 06:35:0020[facility] CenterSvepfpSGIUVLNWAX8181-45-83 06:35:001.00[facility] CenterJdygiqOTCMIKKTBL6240-10-34 06:35:00 Test Item Value Reference Range Interpretation Comments PTT (test code = PTT) 30.6 s 22.9-35.8 [facility] CenterMtsmzxZAPPRFYDRJ1752-63-27 06:35:00 Test Item Value Reference Range Interpretation Comments PT (test code = PT) 13.2 s 12.0-14.7 [facility] CenterLIPIDS2014-12-30 06:35:0057[facility] CenterLIPIDS 2014-10-30 06:35:19943VDBrownfield Regional Medical CenterLIPIDS2014-12-30 06:35:005.49[facility] CenterLIPIDS2014-12-30 06:35:48584HFBrownfield Regional Medical CenterLIPIDS 2014-10-30 06:35:0037[facility] CenterLIPIDS2014-12-30 06:35:82345VUBrownfield Regional Medical CenterPARATHYROID UMCTYKW3434-30-66 06:35:001.[address] [place] [address] PARATHYROID ZNLYXPB6841-92-95 06:35:001.[address] [place], [place] [address]PECIAL NTEWLCPPD3501-42-48 06:35:009[address] [place], [place] [address]THYROID YVWXK6444-58-80 06:35:004.840[facility] CenterTHYROID NCMAG3797-58-67 06:35:001.[address] [place] [address]
[2020-03-31 03:59] VITALS: BP 142/70; TEMP 97.7; O2SAT 100
--- NOTE | 2020-04-01 18:34 | ER ---
Nurse's Notes [facility] Name: Sara Stoner Age: 64 yrs Sex: Female : 1955 Arrival Date: 03/31/2020 Time: 02:09 Bed 13 Private MD: Diagnosis: Presentation: 03/31 02:45 Acuity: NABEEL 3 sg 02:45 Chief complaint: Patient states: Having Back pain, left lower side of back, reports sg also having pain in the eyes at this time, denies injury or trauma. Coronavirus screen: Proceed with normal triage. Ebola Screen: Patient negative for fever greater than or equal to 101.5 degrees Fahrenheit, and additional compatible Ebola Virus Disease symptoms Patient denies exposure to infectious person. Patient denies travel to an Ebola-affected area in the 21 days before illness onset. No symptoms or risks identified at this time. Initial Sepsis Screen: Does the patient meet any 2 criteria? No. Patient's initial sepsis screen is negative. Does the patient have a suspected source of infection? No. Patient's initial sepsis screen is negative. Risk Assessment: Do you want to hurt yourself or someone else? Patient reports no desire to harm self or others. Care prior to arrival: None. 02:45 Method Of Arrival: Ambulatory sg Historical: - Allergies: 03:05 Dilaudid; sg 03:05 Morphine; sg - PMHx: 03:05 Depression; Diabetes - IDDM; Hypertension; sg - Immunization history:: Adult Immunizations up to date. - Social history:: Smoking status: Patient reports the use of cigarette tobacco products. Assessment: 03:50 Reassessment: Patient appears in no apparent distress at this time. Patient and/or sg family updated on plan of care and expected duration. Pain level reassessed. Patient is alert, oriented x 3, equal unlabored respirations, skin warm/dry/pink. Patient states feeling better. Vital Signs: 02:45 BP 142 / 70; Pulse 90; Resp 18; Temp 97.7; Pulse Ox 100% on R/A; Pain 10/10; sg ED Course: 02:09 Patient arrived in ED. ds1 02:46 Triage completed. sg 03:05 Arm band placed on. sg Administered Medications: No medications were administered Outcome: 03:50 Condition: stable sg 03:50 Instructed on follow up and referral plans. safety practices, Demonstrated understanding of instructions, follow-up care. 03:52 AMA AMA form signed ea 03:55 Patient left the ED. ea Signatures: Maulik Pride, RN RN Zulma Banks ds1 Suha Haywood RN RN john
== END 2020-03-31 03:55 | disposition left against medical advice (07) ==
LOC: ER 02:06
DX: Z53.21 Procedure and treatment not carried out due to patient leaving prior to being seen by health care provider (principal)
CPT/HCPCS: 99281

== ENCOUNTER 2020-04-09 03:45 | Inpatient (IN) | payer MEDICAID ==
--- OUTSIDE RECORDS SUMMARY | 2020-04-09 03:48 | XMS REPORT | Clinical Summary ---
:1955 Author Organization [facility] Address [address] [place] [address] Care Team Providers Name Role Phone HUE [...] INFLUENZA VACCINE 06/01/2020 Implants Implanted Type Area Restaurant Supervisor Device Shelf Model / Identifier Expiration Serial / Date Lot Device Vasclr Clsr Baln Cath 10ml Lkng Syr 5fr Winkler My nxgrip - [id number] Cardiovascular N/A: ACCESS CLOSURE 12/01/2018 [id number] / Implanted: 03/11/2017 at [facility] (Quantity not on file) Implants N/A INC / [id number] Matrix Matristem 7x10cm Burn Strl - [id number] Surgical [employer] 12/01/2018 [id number] / Implanted: Qty: 1 on 03/04/2017 by Jesús Kam Jr., MD at [facility] Implants; / Expanders; Extenders; Surgical Wires Results Not on fileafter 04/09/2019 Advance Directives For more information, please contact: [phone] Type Date Recorded 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
--- OUTSIDE RECORDS SUMMARY | 2020-04-09 03:54 | XMS REPORT | Continuity of Care Document ---
:1955 Author Organization [email or web address] Information [facility] Care Team Providers Name Role Phone [email or web address] [facility] Unavailable Un available Problems Problem Status Onset Classification Date Comments Sourc e Date Reported FOLLOW UP Active 03/13/[address] Methicillin Active 02/25/20 Problem 04/14/2019 Lip Abscess, 01/31 [facility] resistant 19 Problem added by Dis cern Expert. 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 [facility] (disorder) [facility] CHEST PAIN NEC Active [facility] Medications Medication Details Route Status Patient Ordering Order Source Instructions Provider Date insulin detemir 100 20 unit, SUB-Q, Active 02/01 0/ [facility] units/mL Bedtime, # 10 2019 Medical subcutaneous mL, 0 Refill(s) Desiree ter solution NIFEdipine 60 mg 60 mg = 1 tab, Active 02/28/ [facility] oral tablet, PO, Daily, # 30 2018 Med ical extended release tab, 0 Center Refill(s) citalopram 40 mg 40 mg = 1 tab, Active 02/28/ [facility] oral tablet PO, Daily, # 30 2019 [facility] tab, 0 Center Refill(s) Vitamin D3 2000 2,000 IntlUnit Active 02/28/ [facility] [place] intl units oral = 1 tab, PO, 2019 Med ical tablet Daily, # 30 Center tab, 0 Refill(s) carvedilol 12.5 mg 12.5 mg = 1 Active 02/28/ [facility] [place] oral tablet tab, PO, Q12H, 2019 Medic al # 60 tab, 0 Center Refill(s) atorvastatin 20 mg 20 mg = 1 tab, Active [facility] oral tablet PO, Bedtime, # 2019 Medic al 30 tab, 0 Center Refill(s) Aspirin 81 MG 81 mg = 1 tab, Active [facility] Enteric Coated PO, Daily, # 30 2019 M edical Tablet tab, 0 Center Refill(s) zinc sulfate 220 mg 220 mg = 1 tab, Active 02/01 [facility] oral tablet PO, Daily, # 30 [...] PO, Active [place] 800 MG / [id number], X 14 2019 Medical Trimethoprim 160 MG day, # 28 tab, Center Oral Tablet 0 Refill(s) [Bactrim] Docusate Sodium 100 100 mg = 1 cap, Active 02/01 0 [place] MG Oral Capsule PO, BID, # 28 2019 Tn dical cap, 0 Center Refill(s) celecoxib 200 mg 200 mg = 1 cap, Active [place] oral capsule PO, [id number], # 2019 Medi kim 60 cap, 0 Center Refill(s) Magnesium Sulfate Notes: WASTE: Inactive [place] F/P - Sink; E - 2019 [facility] Bin propofol (ANES) Route: IV, Drug Inactive [...] (Same Inactive [place] as: Romazicon) 2019 [facility] Center Naloxone Notes: Same as Inactive [place] lozada Narcan 2019 [facility] Labetalol 10 mg, 2 mL, Inactive [place] Route: IVP, 2019 Medical Drug form: INJ, Center Q5Min, Dosing Weight 86.364, kg, PRN Elevated BP, Start date: 02/27/19 11:04:00 CDT, Duration: 5 doses or times, Stop date: Limited # of times Oxycodone Notes: (Same Inactive [place] as: Roxicodone) 2019 [facility] Hydralazine Notes: (Same Inactive [place] as as: Apresoline) 2019 Medical Push over 5 Center minutes Lactated Ringers Route: IV, Inactive [place] Injection IV (ANES) Total Volume: 2019 Medical 1000 mL 1,000, Start Center date: 02/27/19 10:46:00 CDT, Stop date: 02/27/19 11:46:00 CDT vancomycin + Sodium 2001 mg: No Longer [place] Chloride 0.9% IV infuse over 2.5 Active [...] mg 6.25 mg = 1 No Longer [place] oral tablet tab, PO, BID, # Active 2019 Medi kim 180 tab, 0 Center Refill(s) zinc sulfate 220 mg 220 mg = 1 tab, No Longer [place] oral tablet PO, Daily, # Active 2018 Medical 100 tab, 0 Center Refill(s) amLODIPine 10 mg 10 mg = 1 tab, No Longer [place] oral tablet PO, Daily, # 30 Active 2018 Medi kim tab, 0 Center Refill(s) Magnesium Sulfate Notes: WASTE: No Longer [place] F/P - Sink; E - Active 2019 [facility] Bin Tramadol Notes: Not to [place]er [place] exceed Active 2019 Medical 400mg/day. Center (Same As: Ultram) potassium phosphate Notes: (Same Inactive [place] as: K 2019 Medical Phosphate.) Do Center not infuse phosphorous concurrently in the same line as TPN or IVF that contains calcium. For double lumen central lines, phosphorous may be infused in a separate lumen from TPN. 1 mMol phoshate has 1.47 mEq potassium Infuse over 4 hours Magnesium Sulfate Notes: WASTE: Inactive [place] F/P - Sink; E - 2019 [facility] Bin Docusate Notes: (Same No Longer [place] as: Colace) (Do Active 2019 Medical Not [...] Longer [place] infuse over 2.5 Active 2019 [facility] hours [place] Insulin regular 10 unit, Route: Inactive [place] IV, ONCE, 2019 Medical Dosing Weight Center 86.364, kg, Start date: 02/24/19 17:14:00 CDT, Stop date: 02/24/19 17:14:00 CDT Magnesium Sulfate Notes: WASTE: Inactive [place] F/P - Sink; E - 2018 [facility] Bin Magnesium Sulfate Notes: WASTE: Inactive 02/[facility] [place] F/P - Sink; E - 2018 [facility] Bin Promethazine 6.25 mg, Route: Inactive [place] [...] ondansetron (ANES) Route: IV, Drug Inactive 01/31 [facility] form: INJ, 2018 Medical ONCE, Stop Center date: 02/24/19 12:37:00 CDT neostigmine (ANES) Route: IV, Drug Inactive 01/31 [facility] form: INJ, 2018 Medical ONCE, Stop Center date: 02/24/19 12:37:00 CDT Acetaminophen 1,000 mg, Inactive Enrriquea s Route: IV, 2018 Medical ONCE, Dosing Center Weight 86.364, kg, Start date: 02/24/19 12:36:00 CDT, Stop date: 02/24/19 12:36:00 CDT phenylephrine Route: IV, Drug Inactive H [place] (ANES) form: INJ, 2018 Medical ONCE, Stop Center date: 02/24/19 12:36:00 CDT fentaNYL (ANES) Route: IV, Drug Inactive [facility] form: INJ, 2018 Medical ONCE, Stop Center date: 02/24/19 12:16:00 CDT rocuronium (ANES) Route: IV, Drug Inactive 02/24 [facility] form: INJ, 2018 Medical ONCE, Stop Center date: 02/24/19 12:16:00 CDT propofol (ANES) Route: IV, Drug Inactive [facility] form: INJ, 2018 Medical ONCE, Stop Center date: 02/24/19 12:16:00 CDT lidocaine (ANES) Route: IV, Drug Inactive [facility] form: INJ, 2018 Medical ONCE, Stop Center date: 02/24/19 12:16:00 CDT Oxycodone Notes: (Same Inactive [place] as: Roxicodone) 2019 [facility] Center Flumazenil Notes: (Same Inactive [place] [...] CDT Insulin Lispro Notes: (Same No Longer [place] as: Humalog) Active 2019 Medical Roll in [...] in 25 gm, 50 mL, No Longer [place] Water (bolus) IV Route: IVP, Active 2019 Med ical Drug Form: INJ, Center Dosing Weight 86.364, kg, PRN, PRN Blood Glucose Results, Start date: 02/24/19 0:52:00 CDT, Duration: 30 day, Stop date: 03/26/19 0:51:00 CDT atorvastatin Notes: (Same No Longer [place] As: Lipitor) Active 2019 [facility] Insulin Lispro Notes: (Same No Longer [facility] as: Humalog) Active 2019 [facility] Roll in [place] Center of hands gently; Do not shake vigorously. WASTE: F/P - Black; E - Municipal Trash Bin Stable for 28 days at room temperature. Expires in days from D ate Hydralazine Notes: (Same [place] Longer [place] as: Apresoline) Active 2019 [facility] w/enteral feedings Take With Food. NIFEdipine 60 mg Notes: (Same No Longer [facility] oral tablet, as: Adalat CC, Active 2019 [facility] extended release Procardia XL) C enter Give on empty stomach. Take 1 hour before or 2 hours after meal; "Avoid grapefruit and grapefruit juice". Do not crush cholecalciferol Notes: Same as: No Longer [facility] Vitamin D3 Active 2019 [facility] Citalopram Notes: (Same No Longer [place] as As: CeleXA) Active 2019 [facility] carvedilol Notes: Give [place] Longer [place] with food. Active 2019 [facility] (Same As: [place] Coreg) Aspirin 81 MG Notes: Do not No Longer [facility] Enteric Coated crush or chew. Active 2018 Tn dical Tablet (Same As: [place] Ecotrin) Insulin Glargine 20 unit, 0.2 No Longer [place] mL, Route: Active 2019 [facility] SUB-, Drug Center form: SOLN, Daily, Dosing Weight 104.8, kg, Start date: 02/23/19 9:00:00 CDT, Duration: 30 day, Stop date: 03/24/19 9:00:00 CDT heparin Notes: porcine [place]er [place] heparin Active 2019 [facility] normal saline 0.9% 1,000 mL, Rate: No Longer [place] IV 1,000 mL 125 ml/hr, Active 2019 [facility] Infuse over: 8 Center hr, Route: IV, Dosing Weight 86.364 kg, Total Volume: 1,000, Start date: 02/23/19 5:07:00 CDT, Duration: 30 day, Stop date: 03/25/19 5:06:00 CDT, 2.04, m2 Unasyn Notes: Dosing No Longer based on 2018 Medical Ampicillin Center component (Same as: Unasyn) Insulin Lispro 10 unit, SUB-Q, No Longer [place] TID-Before 2018 Medical Meals, 0 Center Refill(s) insulin detemir 20 unit, SUB-Q, No Longer [place] Bedtime, 0 2018 Medical Refill(s) Center Hydralazine 25 mg = 1 tab, No Longer [place] Hydrochloride 25 MG PO, TID, # 270 2018 Medical Oral Tablet tab, 1 Center Refill(s) Glucagon 1 mg, Route: No Longer [place] IM, Drug form: 2018 Medical PDR/INJ, PRN, Center Dosing Weight 104.8, kg, PRN Blood Glucose Results, Start date: 02/23/19 4:34:00 CDT, Duration: 30 day, Stop date: 03/25/19 4:33:00 CDT Dextrose 50% in 12.5 gm, 25 mL, No Longer [place] Water (bolus) IV Route: IVP, 2018 Med [...] as: Tylenol) Oxycodone Notes: ([facility] 5 MG as: Roxicodone) Active 2018 Medical Oral Tablet Center NIFEdipine 60 mg 60 mg = 1 tab, No Longer [place] oral tablet, PO, Daily, # 30 Active 2019 Med ical extended release tab, 0 Center Refill(s) Metformin 500 mg = 1 tab, [place] Longer [place] hydrochloride 500 PO, BID-Meals, Active 2019 Medical MG Oral Tablet # 30 tab, 0 Cente r Refill(s) Insulin Lispro SUB-Q, 0 [place] Refill(s) 2019 [facility] insulin detemir SUB-Q, 0 Inactive [place] as Refill(s) 2019 [facility] Vitamin D3 2000 2,000 IntlUnit No Longer [facility] intl units oral = 1 tab, PO, Active 2019 Med ical tablet Daily, 0 Center Refill(s) carvedilol 12.5 mg 12.5 mg = 1 No Longer [facility] oral tablet tab, PO, Q12H, Active 2019 Medic al # 60 tab, 0 Center Refill(s) atorvastatin 20 mg 20 mg = 1 tab, No Longer 01/31 [place] oral tablet PO, Bedtime, # Active 2019 Medic al 30 tab, 0 Center Refill(s) Aspirin 81 MG 81 mg = 1 tab, No Longer H [place] Enteric Coated PO, Daily, # 90 Active 2018 edical Tablet tab, 3 Center Refill(s) Dextrose 50% in 12.5 gm, 25 mL, Inactive [place] Water (bolus) IV Route: IVP, 2018 Med ical Drug Form: INJ, Center Dosing Weight 104.8, kg, PRN, PRN Blood Glucose Results, Start date: 02/23/19 4:06:00 CDT, Duration: 30 day, Stop date: 03/25/19 4:05:00 CDT Glucagon 1 mg, Route: Inactive [place] IM, Drug form: 2019 Medical PDR/INJ, PRN, Center Dosing Weight 104.8, kg, PRN Blood Glucose Results, Start date: 02/23/19 4:06:00 CDT, Duration: 30 day, Stop date: 03/25/19 4:05:00 CDT Insulin, Regular, 60 units) Inactive H [place] Pork Stable for 28 2014 days at [...] 450 mg = 3 cap, Active 11/02 [facility] oral capsule PO, TID, # 15 2014 Medic al cap, 0 Center Refill(s) Nitroglycerin 0.4 0.4 mg = 1 tab, Active [facility] MG Sublingual SL, Q5Min, 2014 Medical Tablet Chest Pain, # Center 100 tab, 2 Refill(s) Regular Insulin, 10 unit, SUB-Q, Active [facility] Human 100 UNT/ML TID-Before 2014 [facility] Injectable Solution Meals, # 15 mL, Center 0 Refill(s) clopidogrel 75 mg 75 mg = 1 tab, Active [facility] oral tablet PO, Daily, # 90 2014 [facility] tab, 3 Center Refill(s) insulin detemir 100 25 unit, SUB-Q, Active [place] units/mL Daily, # 15 mL, 2014 Medical subcutaneous 0 Refill(s) Center solution Hydrochlorothiazide 25 mg = 1 tab, Active 11/02 [place] 25 MG Oral Tablet PO, Daily, # 90 2015 Medical tab, 3 Center Refill(s) lisinopril 40 mg 40 mg = 1 tab, Active [facility] oral tablet PO, Daily, # 60 2014 [facility] tab, 2 Center Refill(s) Aspirin 81 MG 81 mg = 1 tab, Active [facility] Enteric Coated PO, Daily, 0 2014 [facility] Tablet Refill(s) Center amLODIPine 10 mg 10 mg = 1 tab, Active [facility] oral tablet PO, Q12H, # 120 2015 Medi kim tab, 3 Center Refill(s) atorvastatin 40 mg 40 mg = 1 tab, Active [facility] oral tablet PO, Bedtime, # 2015 Medic al 60 tab, 3 Center Refill(s) carvedilol 25 mg 25 mg = 1 tab, Active [facility] oral tablet PO, Q12H, # 120 2014 Medi kim tab, 3 Center Refill(s) Clindamycin Notes: (Same Inactive [place] as As: Cleocin) 2015 [facility] insulin detemir Notes: Same as Inactive [facility] Levemir Do not 2015 [facility] insulin Center without contacting prescriber "single patient use only" Imdur Notes: (Same No Longer [facility] as:Imdur) "Do Active 2014 Medical Not Crush" Center Take on empty stomach/ full glass of water. Do not crush Acetaminophen 325 Notes: (Same No Longer [facility] MG / Hydrocodone as: [place] Active 2014 Medic al Bitartrate 5 MG 325/5) Do not C enter Oral Tablet [[place] exceed 4gm/day 5/325] of acetaminophen. carvedilol Notes: Give [place] Longer [place] with food. Active 2014 Medical (Same As: Center Coreg) Magnesium Oxide Notes: (Same No Longer [facility] as: Mag-Ox 400) Active 2014 [facility] Magnesium oxide Center [id number] elemental magnesium Dose=____mg magnesium oxide (___mg elemental magnesium) insulin detemir Notes: Same as No Longer [facility] Levemir Do not Active 2014 [facility] insulin Center without contacting prescriber "single patient use only" Hydrochlorothiazide Notes: (Same No Longer 11/01 [facility] as: Active 2014 Medical Hydrodiuril) Center With food. Insulin, Aspart, Notes: Roll in No Longer [facility] Human palms of hands Active 2014 Medical gently; Do not Center shake vigorously. (Same as: NovoLOG) "single patient use only" Stable for 28 days at room temperature. Expires in days from D ate Magnesium Sulfate 2 gm, 50 mL, Inactive [facility] Route: IVPB, 2014 Medical Drug form: [...] (Same Inactive [place] as: Norvasc) 2013 [facility] insulin detemir Notes: Same as Inactive [facility] Levemir Do not [address] [place] [address] insulin Center without contacting prescriber "single patient use only" Lisinopril Notes: (Same No Longer [place] as as: Prinivil, Active 2013 [facility] Zestril) Center insulin detemir Notes: Same as Inactive [facility] Levemir Do not [address] [place] [address] insulin Center without contacting prescriber "single patient use only" Amlodipine Notes: (Same No Longer [place] as as: Norvasc) Active 2014 [facility] metoprolol extended Notes: (Same Inactive [place] release as: Toprol XL) 2013 [facility] split tab, Center but do not crush. metoprolol extended Notes: (Same Inactive [place] release as: Toprol XL) 2014 Medical Do Not Crush Center insulin detemir Notes: Same as No Longer [facility] Levemir Do not Active 2013 [facility] insulin Center without contacting prescriber "single patient use only" Nicardipine Notes: Same as: No Longer [place] Cardene Active 2013 Medical Concentration: Center (0.2 mg /1 ml ) metoprolol tartrate Notes: (Same Inactive [place] as: Lopressor) 2014 [facility] Center atorvastatin Notes: (Same No Longer [place] as: Lipitor) Active 2014 Medical [place] Brilinta Notes: (Same Inactive [place] as: Brilinta) 2014 Medical Center Citalopram Notes: (Same No Longer [place] as As: CeleXA) Active 2013 Medical Center Insulin, Regular, 60 units) No Longer [place] Pork Stable for 28 Active 2013 Medical days at room Center temperature Expires in days from D ate Dextrose 50% 12.5 gm, 25 mL, No Longer H [place] Syringe Route: IVP, Active 2013 Medical Drug Form: INJ, Center Dosing Weight 104.8, kg, PRN, PRN Blood Glucose Results, Start date: 10/30/14 13:46:00, Duration: 30 day, Stop date: 11/29/14 13:45:00 Glucagon 1 mg, Route: No Longer [place] IM, Drug form: Active 2013 Medical PDR/INJ, [...] Magnesium Oxide Notes: (Same No Longer H [place] as: Mag-Ox 400) Active 2013 Medical Magnesium oxide Center [id number] elemental magnesium Dose=____mg magnesium oxide (___mg elemental [...] patch" remove patch Notes: Remove No Longer [facility] old patch Active 2013 Medical before Center application of new patch. Aspirin 81 MG Notes: Do not No Longer [facility] Enteric Coated crush or chew. Active 2013 Tn dical Tablet (Same As: Center Ecotrin) Lisinopril Notes: (Same Inactive [place] as: Prinivil, 2013 Medical Zestril) Center metoprolol extended Notes: (Same No Longer 10/30 [facility] release as: Toprol XL) Active 2013 Medical Do Not Crush Center Plavix Notes: (Same No Longer [place] As: Plavix) Active 2013 Medical Center pneumococcal Notes: (Same Inactive [place] capsular as: Pneumovax 2014 [facility] polysaccharide type 23) Cent er 1 vaccine / Refrigerate pneumococcal capsular polysaccharide type 10A vaccine / pneumococcal capsular polysaccharide type 11A vaccine / pneumococcal capsular polysaccharide type 12F vaccine / pneumococcal capsular polysacchar Influenza Virus Notes: (Same Inactive [facility] Vaccine, as: Fluzone 2013 Medical Inactivated Quadrivalent) Center R-Zszlahio-55 (H3N2)-like virus ([id number] [facility] X-175C) strain / Influenza Virus Vaccine, Inactivated V-Dprlfemd-48, IVR-148 (H1N1) strain / Influenza Virus Vaccine, Inactivated, [id number] k Docusate Notes: (Same No Longer [place] as: Colace) (Do Active 2013 Medical Not Crush) Center Saline Flush 0.9% Notes: (Same No Longer [place] as: BD Active 2013 Medical Posiflush) Center pantoprazole Notes: For IV No Longer [facility] push Active 2013 Medical reconstitute Center with 10 ml 0.9% sodium chloride and push over 2 minutes. (Same as: Protonix) Albuterol 0.833 Notes: (Same No Longer [place] MG/ML / Ipratropium as: Duoneb) Active 2013 Medical [place] 0.167 MG/ML Cent er Inhalant Solution [DuoNeb] Morphine 2 mg, Route: Inactive [place] IVP, ONCE, 2013 Medical Dosing Weight Center 104.8, kg, Start date: 10/30/14 6:03:00, Stop date: 10/30/14 6:03:00 Morphine 2 mg, Route: Inactive [place] IVP, ONCE, 2013 Medical Dosing Weight Center 104.8, kg, Start date: 10/30/14 3:49:00, Stop date: 10/30/14 3:49:00 Amlodipine Special No Longer [place] Instructions: Active 2013 Medical 10 mg Center citalopram 40 mg 40 mg = 1 tab, Active [place] oral tablet Daily, 0 2013 Medical Refill(s) Center Metformin 1,000 mg = 1 Active [facility] hydrochloride 1000 tab, BID, 0 2013 edical MG Oral Tablet Refill(s) Center aspirin 325 mg 325 mg = 1 tab, No Longer [facility] tablet Daily, 0 Active 2013 Medical Refill(s) Center lisinopril 40 mg 40 mg = 1 tab, No Longer [facility] oral tablet Daily, 0 Active 2013 Medical Refill(s) Center metoprolol tartrate 50 mg = 1 tab, No Longer [facility] 50 mg oral tablet BID, 0 Active 2013 Medica l Refill(s) Center Zofran Notes: (Same No Longer [facility] as: Zofran) Active 2013 Medical Center Acetaminophen Notes: Do not No Longer [facility] exceed 4 Active 2013 Medical gm/day. (Same Center as: Tylenol) Plavix 600 mg, Route: Inactive [place] PO, Drug form: 2013 Medical TAB, ONCE, Center Dosing Weight 104.8, kg, Start date: 10/30/14 0:38:00, Duration: 1 doses or times, Stop date: 10/30/14 0:38:00 Insulin, Regular, 60 units) Inactive [facility] Pork Stable for 28 2013 Medical days at room Center temperature Expires in days from D ate Dextrose 50% 12.5 gm, 25 mL, Inactive [facility] Syringe Route: IVP, 2013 Medical Drug Form: INJ, Center Dosing Weight 104.8, kg, PRN, PRN Blood Glucose Results, Start date: 10/30/14 0:37:00, Duration: 30 day, Stop date: 11/29/14 0:36:00 Glucagon 1 mg, Route: Inactive [facility] IM, Drug form: 2013 Medical PDR/INJ, PRN, Center Dosing Weight 104.8, kg, PRN Blood Glucose Results, Start date: 10/30/14 0:37:00, Duration: 30 day, Stop date: 11/29/14 0:36:00 heparin additive 500 mL, Rate: Inactive [facility] 25,000 unit [12 18.93 ml/hr, 2013 Med ical unit/kg/hr] + Infuse over: Cente r Premix Diluent 26.4 hr, Route: Dextrose 5% 500 mL IV, Dosing Weight 78.88 kg, Total Volume: 500 mL, Start date: 10/30/14 0:36:00, Duration: 30 day, Stop date: 11/29/14 0:35:00 Nitroglycerin Notes: (Same No Longer [facility] as:Tridil) Active 2013 [facility] Final conc = Center 0.4 mg/ml. Premix bottle. clopidogrel Notes: ( Same In[place] as: Plavix) 2013 [facility] heparin additive 500 mL, Rate: Inactive [facility] 25,000 unit [12 18.93 ml/hr, 2013 Med ical unit/kg/hr] + Infuse over: Cente r Premix Diluent 26.4 hr, Route: Dextrose 5% 500 mL IV, Dosing Weight 78.88 kg, Total Volume: 500 mL, Start date: 10/30/14 0:29:00, Duration: 30 day, Stop date: 11/29/14 0:28:00 Bisacodyl Notes: (Same No Longer Enrriquea s As: Dulcolax, Active 2013 Medical Bisco-Lax) [place] Saline Flush 0.9% Notes: (Same No Longer 10/30/ [facility] as: BD Active 2013 [facility] Posiflush) [place] Allergies, Adverse Reactions, Alerts Substance Category Reaction Severity Reaction Status Date Comments S ource type Reported morphine Assertion Anaphylactic Severe Drug Active [facility] allergy Medical [place] Dilaudid Assertion Anaphylaxis Severe Drug Active M [facility] [place] allergy [facility] Immunizations Immunization Date Site Status Last Updated Comments Sour ce Given influenza virus Right completed [facility] [place] vaccine, 4 deltoid [facility] inactivated Center pneumococcal Left completed [facility] [place] 23-valent 4 deltoid [facility] vaccine Center Results Order Name Results Value Reference Date Interpretation Comments Melonie rce Range TOXICOLOGY Vanco Tr 13.7 02/28 [facility] TOXICOLOGY Vanco Tr TND 2330 02/28 [facility]2018 [facility] Culture: No 02/27 [facility] Anaerobic Anaerobes /2018 [facility] Center After 3 Days Gram Stain Moderate WBC's No Squamous Epithelial Cells; 02/27 [facility] Report No Organisms [facility] Culture: Few Methicillin Resistant Staphylococcus aureus 02/27 [facility] Wound/Abscess Refer To Culture # /2018 [facility] w/Gram Stain [id number] collected 02/24/19 [place] For Susceptibility Results . Few Lactobacillus Species Few Yeast , Further Testing In Progress CHEM PANEL Magnesium Lvl 1.8 1.8 - 2.4 02/27 [place] [facility] CHEM PANEL Phosphorus 3.0 2.5 - 4.5 02/27 [facility]2018 [facility] ELECTROLYTE AGAP 9.2 10.0 - 02/27 [facility] S 20.0 [facility] ELECTROLYTE eGFR 100 02/27 Result [facility] /2018 Comment: The Medical eGFR is [...] Calcium Lvl 9.1 8.5 - 10.5 02/27 [facility] [facility] 2018 [facility] ELECTROLYTE CO2 31 24 - 32 02/27 [facility] 2018 [facility] ELECTROLYTE BUN 10 7 - 22 02/27 [facility] 2018 [facility] ELECTROLYTE Glucose Lvl 140 70 - 99 02/27 [facility]2018 [facility] ELECTROLYTE Chloride Lvl 104 95 - 109 02/27 [facility] 2018 [facility] ELECTROLYTE Sodium Lvl 140 135 - 145 02/27 [facility]2018 [facility] ELECTROLYTE Potassium Lvl 4.2 3.5 - 5.1 02/27 [place] [facility] ELECTROLYTE Creatinine 0.56 0.50 - 02/27 [facility] S Lvl 1.40 [facility] HEMATOLOGY RDW 12.7 11.5 - 02/27 [facility] 14.5 [facility] HEMATOLOGY MCHC 33.9 32.0 - 02/27 [facility] 36.0 [facility] HEMATOLOGY MPV 8.9 7.4 - 10.4 02/27 [facility]2018 [facility] HEMATOLOGY Platelet 335 133 - 450 02/27 [facility]2018 [facility] HEMATOLOGY Hct 40.8 36.0 - 02/27 [facility] 48.0 [facility] HEMATOLOGY Hgb 13.8 12.0 - 02/27 [facility] 16.0 [facility] HEMATOLOGY MCH 31.4 27.0 - 02/27 [place] 31.0 [facility] HEMATOLOGY MCV 92.6 80.0 - 02/27 [facility] 98.0 [facility] HEMATOLOGY RBC 4.40 4.20 - 02/27 [facility] 5.40 [facility] HEMATOLOGY WBC 9.1 3.7 - 10.4 02/27 [facility]2018 [facility] HEMATOLOGY Segs 63.1 45.0 - 02/27 [facility] 75.0 [facility] HEMATOLOGY Basophils # 0.1 0.0 - 0.2 02/27 [facility]2018 [facility] HEMATOLOGY Eosinophils # 0.2 0.0 - 0.5 02/27 [facility] HEMATOLOGY Monocytes # 0.6 0.0 - 0.8 02/27 [facility] HEMATOLOGY Lymphocytes # 2.5 1.0 - 5.5 02/27 [facility] HEMATOLOGY Lymphocytes 27.5 20.0 - 02/27 40.0 [facility] HEMATOLOGY Neutrophils # 5.8 1.5 - 8.1 02/27 [facility] HEMATOLOGY Basophils 0.6 0.0 - 1.0 02/27 [facility] HEMATOLOGY Eosinophils 1.8 0.0 - 4.0 02/27 [facility] HEMATOLOGY Monocytes 7.0 2.0 - 12.0 02/27 [facility] CHEM PANEL eGFR 102 02/26 Result [...] Calcium Lvl 8.3 8.5 - 10.5 02/26 [facility] CHEM PANEL BUN 10 7 - 22 02/26 [facility] CHEM PANEL Potassium Lvl 4.0 3.5 - 5.1 02/26 [facility] CHEM PANEL CO2 27 24 - 32 02/26 [facility]2018 [facility] CHEM PANEL Chloride Lvl 104 95 - 109 02/26 [facility] CHEM PANEL AGAP 10.0 10.0 - 02/26 20. [facility] CHEM PANEL Sodium Lvl 137 135 - 145 02/26 [facility] CHEM PANEL Creatinine 0.52 0.50 - 02/26 [place] Lvl 1.40 [facility] CHEM PANEL Glucose Lvl 263 70 - 99 02/26 [facility] CHEM PANEL Phosphorus 2.7 2.5 - 4.5 02/26 [facility] CHEM PANEL Magnesium Lvl 2.2 1.8 - 2.4 02/26 [facility] HEMATOLOGY Basophils 0.5 0.0 - 1.0 02/26 [facility] HEMATOLOGY Neutrophils # 6.2 1.5 - 8.1 02/26 [facility] HEMATOLOGY Lymphocytes # 2.2 1.0 - 5.5 02/26 [facility] HEMATOLOGY Monocytes 7.2 2.0 - 12.0 02/26 [facility]2018 [facility] HEMATOLOGY Eosinophils 1.8 0.0 - 4.0 02/26 [facility] HEMATOLOGY Lymphocytes 23.5 20.0 - 02/26 40.0 [facility] HEMATOLOGY Segs 67.0 45.0 - 02/26 [facility] 75.0 [facility] HEMATOLOGY Monocytes # 0.7 0.0 - 0.8 02/26 [facility] HEMATOLOGY Eosinophils # 0.2 0.0 - 0.5 02/26 [facility] HEMATOLOGY Platelet 269 133 - 450 02/26 [facility] HEMATOLOGY MPV 9.2 7.4 - 10.4 02/26 [facility] HEMATOLOGY RDW 12.5 11.5 - 02/26 14.5 [facility] HEMATOLOGY MCHC 33.6 32.0 - 02/26 36.0 2019 [facility] HEMATOLOGY RBC 3.97 4.20 - 02/26 5.40 [facility] HEMATOLOGY Hgb 12.4 12.0 - 02/26 16.0 2019 [facility] HEMATOLOGY Hct 37.0 36.0 - 02/26 48.0 [facility] HEMATOLOGY MCV 93.1 80.0 - 02/26 [place] 98.0 2019 [facility] HEMATOLOGY MCH 31.3 27.0 - 02/26 31.0 [facility] HEMATOLOGY WBC 9.3 3.7 - 10.4 02/26 [facility]2018 [facility] TOXICOLOGY Vanco Tr 9.2 02/26 [facility]2018 [facility] TOXICOLOGY Vanco Tr TND 2300 02/[address] CHEM PANEL Phosphorus 2.3 2.5 - 4.5 02/[address] CHEM PANEL Bili Total 0.2 0.2 - 1.3 02/[address] CHEM PANEL Bili Direct <0.1 0.0 - 0.3 02/[address] CHEM PANEL Bili Indirect Unable to 0.0 - 1.0 02/25 [place] [facility]2018 [facility] CHEM PANEL Albumin Lvl 2.2 3.5 - 5.0 02/[address] CHEM PANEL Total Protein 5.2 6.4 - 8.4 02/[address] CHEM PANEL Globulin 3.0 2.7 - 4.2 02/[address] CHEM PANEL A/G Ratio 0.7 0.7 - 1.6 02/[address] CHEM PANEL Alk Phos 353 39 - 136 02/[address] CHEM PANEL ALT 76 0 - 65 02/[address] CHEM PANEL AST 50 0 - 37 02/[address] CHEM PANEL Magnesium Lvl 1.6 1.8 - 2.4 02/[address] CHEM PANEL BUN 14 7 - 22 02/[address] CHEM PANEL Glucose Lvl 225 70 - 99 02/[address] CHEM PANEL Chloride Lvl 103 95 - 109 02/[address] CHEM PANEL CO2 27 24 - 32 02/[address] CHEM PANEL Sodium Lvl 135 135 - 145 02/[address] CHEM PANEL Potassium Lvl 3.7 3.5 - 5.1 02/[address] CHEM PANEL Creatinine 0.54 0.50 - 02/25 [facility] Lvl 1.40 /2018 [facility] CHEM PANEL eGFR 101 02/25 [facility] Comment: The Medical eGFR is Center [...] PANEL AGAP 8.7 10.0 - 02/25 20.0 [facility] CHEM PANEL Calcium Lvl 7.8 8.5 - 10.5 02/25 [facility] HEMATOLOGY Basophils 0.3 0.0 - 1.0 02/25 [facility] HEMATOLOGY Neutrophils # 9.7 1.5 - 8.1 02/25 [facility] HEMATOLOGY Lymphocytes # 1.9 1.0 - 5.5 02/25 [facility] HEMATOLOGY Monocytes # 0.9 0.0 - 0.8 02/25 [facility] HEMATOLOGY Eosinophils # 0.1 0.0 - 0.5 02/25 [facility] HEMATOLOGY Segs 76.9 45.0 - 02/25 75.0 [facility] HEMATOLOGY Lymphocytes 15.0 20.0 - 02/25 40.0 [facility] HEMATOLOGY Monocytes 7.3 2.0 - 12.0 02/25 [facility] HEMATOLOGY Eosinophils 0.5 0.0 - 4.0 02/25 [facility] HEMATOLOGY MCH 30.6 27.0 - 02/25 31.0 [facility] HEMATOLOGY MCHC 33.1 32.0 - 02/25 36.0 [facility] HEMATOLOGY RDW 12.7 11.5 - 02/25 14.5 [facility] HEMATOLOGY Hct 38.6 36.0 - 02/25 [place] 48.0 [facility] HEMATOLOGY MCV 92.4 80.0 - 02/25 [place] 98.0 [facility] HEMATOLOGY Platelet 281 133 - 450 02/25 [facility] HEMATOLOGY MPV 9.3 7.4 - 10.4 02/25 [facility] HEMATOLOGY WBC 12.6 3.7 - 10.4 02/25 [facility] HEMATOLOGY Hgb 12.8 12.0 - 02/25 [facility] 16.0 [facility] HEMATOLOGY RBC 4.18 4.20 - 02/25 [facility] 5.40 [facility] CARDIAC Troponin-I 0.05 0.00 - 02/24 [facility] ENZYMES 0.40 [facility] CARDIAC Total CK 73 12 - 191 02/24 [facility] ENZYMES [facility] CHLORAMPHEN Gram Stain Few Wbc'S; No Squamous Epithelial Cells; 02/24 [facility] ICOL:SUSC:P Report No Organisms Seen Tn dicsc T:ISOLATE:O Center RDQN:DERIK CHLORAMPHEN Culture: Few Methicillin Resistant Staphylococcus aureus 02/24 [facility] ICOL:SUSC:P Wound/Abscess Upon Supplemental Te sting, This Isolate Was Not Found To Medical T:ISOLATE:O w/Gram Stain Be Resistant To Clindamycin By A n Inducible Mechanism. Center RDQN:DERIK CHLORAMPHEN Methicillin Methicilli 02/24 [facility] [place] ICOL:SUSC:P Resistant n Medical T:ISOLATE:O Staphylococcu Resistant Cent er RDQN:DERIK s aureus Staphyloco ccus aureus Culture: No 02/24 [facility] Anaerobic Anaerobes [facility] After 5 Days HEMATOLOGY Basophils # 0.1 0.0 - 0.2 02/[place] [facility] BLOOD BANK ABO/Rh O POS 02/23 [facility] RESULTS /2018 [facility] BLOOD BANK Antibody Scrn Negative 02/23 [facility] [facility] RESULTS (02/23/19 6:12 AM) [facility] HEMATOLOGY PT 12.3 12.0 - 02/23 [place] 14.7 [facility] HEMATOLOGY INR 0.93 0.85 - 02/23 [place] 1.17 [facility] HEMATOLOGY PTT 32.0 22.9 - 02/23 [place] 35.8 [facility] CHEM PANEL Lactic Acid 1.4 0.5 - 2.2 02/23 [place] /2018 [facility] CHEM PANEL Procalcitonin 0.20 0.00 - 02/23 [facility] SPECIAL Hgb A1C 15.0 <=5.6 % 02/23 [facility] CHEMISTRY [facility] CHEM PANEL Magnesium Lvl 1.8 1.8 - 2.4 11/02 [place] [facility] CHEM PANEL Phosphorus 3.1 2.5 - 4.5 11/02 [facility] ELECTROLYTE AGAP 12.0 10.0 - 11/02 [facility] S 20.0 [facility] ELECTROLYTE eGFR 95 11/02 <sup>1</sup>R [facility] Medical Comment: The Center eGFR is [...] ELECTROLYTE Creatinine 0.7 0.5 - 1.4 11/02 [facility] Lvl [facility] ELECTROLYTE Sodium Lvl 137 135 - 145 11/02 [facility] s S [facility] ELECTROLYTE Glucose Lvl 264 70 - 99 11/02 <sup>4</sup>I [facility] nterpretive Medical Data: Adult Center reference range values reflect the clinical guidelines
of the [place] [employer]. ELECTROLYTE BUN 13 7 - 22 11/02 [facility] S [facility] ELECTROLYTE Chloride Lvl 104 95 - 109 11/02 [facility] S [facility] ELECTROLYTE CO2 25 24 - 32 11/02 [facility] S [facility] ELECTROLYTE Calcium Lvl 8.7 8.5 - 10.5 11/02 [place] [facility] ELECTROLYTE Potassium Lvl 4.0 3.5 - 5.1 11/02 [place] [facility] HEMATOLOGY Platelet 228 133 - 450 11/02 [facility] HEMATOLOGY RDW 12.0 11.5 - 11/02 14.5 /2014 [facility] HEMATOLOGY MPV 9.3 7.4 - 10.4 11/02 [facility] HEMATOLOGY MCH 33.4 27.0 - 11/02 [place] 31.0 /2014 [facility] HEMATOLOGY MCV 97.2 80.0 - 11/02 [place] 98.0 /2014 [facility] HEMATOLOGY MCHC 34.4 32.0 - 11/02 36.0 /2014 [facility] HEMATOLOGY Hgb 13.0 12.0 - 11/02 16.0 /2014 [facility] HEMATOLOGY Hct 37.7 36.0 - 11/02 48.0 /2014 [facility] HEMATOLOGY RBC 3.88 4.20 - 11/02 [place] 5.40 /2014 [facility] HEMATOLOGY WBC 11.6 3.7 - 10.4 11/02 [facility] HEMATOLOGY Basophils # 0.1 0.0 - 0.2 11/02 [facility] HEMATOLOGY Eosinophils # 0.2 0.0 - 0.5 11/02 [facility] HEMATOLOGY Basophils 0.6 0.0 - 1.0 11/02 [facility] HEMATOLOGY Monocytes # 0.9 0.0 - 0.8 11/02 [facility] HEMATOLOGY Lymphocytes # 2.5 1.0 - 5.5 11/02 [facility] HEMATOLOGY Segs-Bands # 8.0 1.5 - 8.1 11/02 [facility] HEMATOLOGY Segs 69.1 45.0 - 11/02 [place] 75.0 [facility] HEMATOLOGY Eosinophils 1.5 0.0 - 4.0 11/02 [facility] HEMATOLOGY Monocytes 7.4 2.0 - 12.0 11/02 [facility] HEMATOLOGY Lymphocytes 21.4 20.0 - 11/02 40.0 [facility] CARDIAC Total CK 39 12 - 191 11/01 ENZYMES [facility] CARDIAC Troponin-T 0.497 0.000 - 11/01 <sup>7</sup>R [facility] s ENZYMES 0.100 /2014 [facility] Medical Comment: Center Critical Result(s) called to yeimy GREENWOOD at 11/01/2014 16:03_ byRVE. Read back OK. CARDIAC Troponin-I 2.75 0.00 - 11/01 <sup>10</sup> [place] [facility] ENZYMES 0.40 /2015 Result Medical Comment: Center Critical Result(s) called to EJ GREENWOOD at 11/01/2014 15:43_ by CN_. Read back [place]. CHEM PANEL Phosphorus 2.7 2.5 - 4.5 11/01 [facility] CHEM PANEL eGFR 81 11/01 <sup>2</sup>R [place] /2014 [facility] Medical Comment: The Center eGFR is calculated [...] values reflect the clinical guidelines
of the [place] [employer]. CHEM PANEL Creatinine 0.8 0.5 - 1.4 11/01 [facility] CHEM PANEL Potassium Lvl 4.2 3.5 - 5.1 11/01 [place] [facility] CHEM PANEL Sodium Lvl 140 135 - 145 11/01 [facility] CHEM PANEL BUN 13 7 - 22 11/01 [facility] CHEM PANEL Calcium Lvl 8.8 8.5 - 10.5 11/01 [facility] CHEM PANEL Chloride Lvl 106 95 - 109 11/01 [facility] CHEM PANEL CO2 26 24 - 32 11/01 [facility] CHEM PANEL AGAP 12.2 10.0 - 11/01 20.0 [facility] CHEM PANEL Magnesium Lvl 1.6 1.8 - 2.4 11/01 [facility] HEMATOLOGY Eosinophils # 0.1 0.0 - 0.5 11/01 [facility] HEMATOLOGY Basophils # 0.1 0.0 - 0.2 11/01 [facility] HEMATOLOGY Lymphocytes # 1.7 1.0 - 5.5 11/01 [facility] HEMATOLOGY Monocytes # 1.1 0.0 - 0.8 11/01 [facility] HEMATOLOGY Basophils 0.3 0.0 - 1.0 11/01 [facility] HEMATOLOGY Segs-Bands # 13.9 1.5 - 8.1 11/01 [facility] HEMATOLOGY Monocytes 6.3 2.0 - 12.0 11/01 [facility] HEMATOLOGY Eosinophils 0.5 0.0 - 4.0 11/01 [facility] HEMATOLOGY Lymphocytes 10.2 20.0 - 11/01 [place] 40.0 /2014 [facility] HEMATOLOGY Segs 82.7 45.0 - 11/01 [place] 75.0 [facility] HEMATOLOGY Hgb 14.4 12.0 - 11/01 16.0 [facility] HEMATOLOGY Hct 42.1 36.0 - 11/01 48.0 /2014 [facility] HEMATOLOGY MCHC 34.2 32.0 - 11/01 36.0 [facility] HEMATOLOGY MCV 96.8 80.0 - 11/01 98.0 /2014 [facility] HEMATOLOGY WBC 16.9 3.7 - 10.4 11/01 [facility] HEMATOLOGY MCH 33.1 27.0 - 11/01 [place] 31.0 /2014 [facility] HEMATOLOGY RBC 4.35 4.20 - 11/01 [place] 5.40 /2014 [facility] HEMATOLOGY MPV 9.1 7.4 - 10.4 11/01 [facility] HEMATOLOGY Platelet 278 133 - 450 11/01 [facility] HEMATOLOGY RDW 12.4 11.5 - 11/01 [facility] 14. [facility] PARATHYROID Ca Ion WB 1.04 1.05 - 11/01 [place] PROFILE 1. [facility] PARATHYROID Ca Norm WB 1.07 1.05 - 11/01 [facility] PROFILE 1. [facility] CARDIAC Troponin-I 3.83 0.00 - 10/31 [...] CK 68 12 - 191 10/31 ENZYMES [facility] CARDIAC Total CK 96 12 - 191 10/31 [facility] CARDIAC Troponin-I 4.78 0.00 - 10/31 <sup>12</sup> [place] 0.40 Result Medical Comment: Center Critical Result(s) called to Cesar Calhoun at 10/31/2014 02:40_ by TG_. Read back [place]. CARDIAC CK MB 3.7 0.5 - 3.6 10/31 [facility] CARDIAC CK-MB INDEX 3.9 0.0 - 2.5 10/31 [facility] CHEM PANEL eGFR 100 10/31 <sup>3</sup>R [...] Calcium Lvl 9.0 8.5 - 10.5 10/31 [facility] CHEM PANEL CO2 28 24 - 32 10/31 [facility] CHEM PANEL Chloride Lvl 103 95 - 109 10/31 s [facility] CHEM PANEL Potassium Lvl 4.4 3.5 - 5.1 10/31 [facility] CHEM PANEL AGAP 11.4 10.0 - 10/31 20.0 [facility] CHEM PANEL BUN 10 7 - 22 10/31 [facility] CHEM PANEL Creatinine 0.6 0.5 - 1.4 10/31 [facility] CHEM PANEL Glucose Lvl 250 70 - 99 10/31 <sup>6</sup>I nterpretive Medical Data: Adult Center reference range values reflect the clinical guidelines
of the [place] [employer]. CHEM PANEL Sodium Lvl 138 135 - 145 10/31 [facility] CHEM PANEL Magnesium Lvl 1.9 1.8 - 2.4 10/31 [facility] CHEM PANEL Phosphorus 3.1 2.5 - 4.5 10/31 [facility] HEMATOLOGY PTT 28.1 22.9 - 10/31 <sup>16</sup> [place] 35.8 Interpretive Medical Data: [facility] Therapeutic Range: 57 - 92 Seconds HEMATOLOGY PT 12.9 12.0 - 10/31 [place] 14.7 [facility] HEMATOLOGY INR 0.97 0.85 - 10/31 <sup>14</sup> [place] 1.17 Interpretive Medical Data: Center RECOMMENDED RANGES FOR PROTIME INR:
2.0-3.0 for most medical and surgical thromboemboli c states.
2.5-3.5 for artificial heart valves and recurrent embolism.<br/ >
INR SHOULD BE USED ONLY FOR PATIENTS ON STABLE ANTICOAGULANT THERAPY. HEMATOLOGY Platelet 285 133 - 450 10/31 [facility] HEMATOLOGY MPV 8.8 7.4 - 10.4 10/31 [facility] HEMATOLOGY MCV 96.3 80.0 - 10/31 [place] 98.0 [facility] HEMATOLOGY Hct 40.2 36.0 - 10/31 [place] 48.0 [facility] HEMATOLOGY Hgb 13.4 12.0 - 10/31 [place] 16.0 [facility] HEMATOLOGY RBC 4.17 4.20 - 10/31 [place] 5.40 [facility] HEMATOLOGY MCHC 33.3 32.0 - 10/31 [place] 36.0 [facility] HEMATOLOGY RDW 12.1 11.5 - 10/31 [place] 14. [facility] HEMATOLOGY MCH 32.1 27.0 - 10/31 [place] 31.0 [facility] HEMATOLOGY WBC 11.8 3.7 - 10.4 10/31 [facility] HEMATOLOGY Lymphocytes # 2.1 1.0 - 5.5 10/31 [facility] HEMATOLOGY Segs-Bands # 8.7 1.5 - 8.1 10/31 [facility] HEMATOLOGY Basophils 1.0 0.0 - 1.0 10/31 [facility] HEMATOLOGY Eosinophils 1.0 0.0 - 4.0 10/31 [facility] HEMATOLOGY Monocytes 5.6 2.0 - 12.0 10/31 [facility] HEMATOLOGY Basophils # 0.1 0.0 - 0.2 10/31 [facility] HEMATOLOGY Eosinophils # 0.1 0.0 - 0.5 10/31 [facility] HEMATOLOGY Monocytes # 0.7 0.0 - 0.8 10/31 [facility] HEMATOLOGY Lymphocytes 18.1 20.0 - 10/31 [place] 40.0 [facility] HEMATOLOGY Segs 74.3 45.0 - 10/31 [place] 75.0 [facility] PARATHYROID Ca Ion WB 1.10 1.05 - 10/31 [place] PROFILE 1.25 [facility] PARATHYROID Ca Norm WB 1.12 1.05 - 10/31 [facility] PROFILE 1. [facility] CARDIAC CK MB Index 7.6 0.0 - 2.5 10/31 [facility] ENZYMES [facility] CARDIAC CK MB 8.0 0.5 - 3.6 10/31 [facility] ENZYMES [facility] CARDIAC Troponin-T 0.497 0.000 - 10/31 <sup>9</sup>[place] 0.100 esult Medical Comment: Center Critical Result(s) called to CESAR ARNOLD at 10/30/2014 20:51 by MIN. Read back [place]. SPECIAL Hgb A1C 10.2 <=5.6 % 10/31 [facility] CHEMISTRY [facility] CARDIAC CK MB Index 9.7 0.0 - 2.5 10/30 [facility] ENZYMES [facility] CARDIAC CK MB 9.3 0.5 - 3.6 10/30 [facility] ENZYMES [facility] DRUG SCREEN UDS Note See Note 13 10/30 <sup>13</sup> M Katerine [place] (10/30/14 6:15 AM) Interpretive Medical Data: Drugs Center reported as positive have not been confirmed by a second
nj thod and should be used for medical [...] r URINE AND UA Ketones TR 10/30 [facility] STOOL [facility] URINE AND UA Mucus Many /LPF None Seen 10/30 [facility] STOOL /LPF [facility] URINE AND UA Hyal Cast 16 0 - 2 10/30 [facility] URINE AND UA Sq Epi Few /LPF Few /LPF 10/30 [facility] STOOL [facility] URINE AND UA Bacteria Moderate None Seen 10/[place] /HPF /HPF /2013 [facility] URINE AND UA WBC 15 0 - 5 10/30 [facility] STOOL [facility] URINE AND UA RBC 4 0 - 2 10/30 [facility] STOOL /2013 [facility] URINE AND UA Glucose 50 mg/dL Negative 10/30 [facility] STOOL mg/dL [facility] URINE AND UA Bili Negative Negative 10/30 [facility] STOOL *NA* Medical (10/30/14 6:15 AM) Cente r URINE AND UA Blood Negative Negative 10/30 [facility] (10/30/14 6:15 AM) Medic al Center URINE AND UA 2.0 0.1 - 1.0 10/30 [facility] Urobilinogen /2013 [facility] URINE AND UA Nitrite Positive Negative 10/30 [facility] STOOL *ABN* Medical (10/30/14 6:15 AM) Cente r URINE AND UA Leuk Est Small Negative 10/30 [facility] *ABN* [facility] (10/30/14 6:15 AM) Cente r URINE AND UA Protein 100 mg/dL Negative 10/30 [facility] mg/dL [facility] URINE AND UA pH 5.5 5.0 - 8.0 10/30 [facility] STOOL [facility] URINE AND UA Color [place] Yellow 10/30 [facility] *ABN* Medical (10/30/14 6:15 AM) Cente r URINE AND UA Spec Grav 1.032 <=1.030 10/30 [facility] STOOL [facility] URINE AND UA Turbidity Slight Clear 10/30 [facility] *ABN* [facility] (10/30/14 6:15 AM) [facility] r BLOOD BANK ABO/Rh O POS 10/30 [facility] RESULTS [facility] BLOOD BANK Antibody Scrn Negative 10/30 [facility] RESULTS (10/30/14 5:17 AM) [facility] HEMATOLOGY PTT 33.2 22.9 - 10/30 <sup>17</sup> [place] 35.8 Interpretive Medical Data: [facility] Therapeutic Range: 57 - 92 Seconds BACTERIAL - MRSA by PCR Negative 19 10/30 <sup>19</sup > [facility] SEROLOGY (10/30/14 12:35 AM) Interpretiv e [...] the Molecular Diagnostic Laboratory within the [facility]. The Molecular Diagnostic Laboratory is authorized under the Clinical Laboratory Improvement Amendment of 1988 (CLIA-88) to perform high complexity testing. CHEM PANEL Lactic Acid 1.6 0.5 - 2.2 10/30 [facility] s Lvl [facility] CHEM PANEL A/G Ratio 1.0 0.7 - 1.6 10/30 [facility] CHEM PANEL Globulin 3.2 2.0 - 4.0 10/30 [facility] CHEM PANEL B/C Ratio 10 6 - 25 10/30 [facility] CHEM PANEL Alk Phos 129 39 - 136 10/30 [facility] CHEM PANEL ALT 22 0 - 65 10/30 [facility] CHEM PANEL Albumin Lvl 3.3 3.5 - 5.0 10/30 [facility] s [facility] CHEM PANEL Bili Total 0.3 0.2 - 1.3 10/30 [facility] CHEM PANEL Total Protein 6.5 6.4 - 8.4 10/30 [place] [facility] CHEM PANEL AST 20 0 - 37 10/30 [facility] HEMATOLOGY INR 1.00 0.85 - 10/30 <sup>15</sup> [facility] 1.17 Interpretive Medical Data: Center RECOMMENDED RANGES FOR PROTIME INR:
2.0-3.0 for most medical and surgical thromboemboli c states.
2.5-3.5 for artificial heart valves and recurrent embolism.<br/ >
INR SHOULD BE USED ONLY FOR PATIENTS ON STABLE ANTICOAGULANT THERAPY. HEMATOLOGY PTT 30.6 22.9 - 10/30 <sup>18</sup> [facility] s 35.8 Interpretive Medical Data: [facility] Center Therapeutic Range: 57 - 92 Seconds HEMATOLOGY PT 13.2 12.0 - 10/30 [place] 14.7 [facility] LIPIDS VLDL 57 10/30 [facility] LIPIDS LDL 109 <=99 mg/dL 10/30 [facility] (Calculated) [facility] LIPIDS CHD Risk 5.49 3.90 - 10/30 [facility] 5.80 /2013 [facility] LIPIDS Trig 286 <=149 10/30 mg/dL [facility] LIPIDS HDL 37 >=61 mg/dL 10/30 [facility] LIPIDS Chol 203 <=199 10/30 [facility] mg/dL /2013 [facility] PARATHYROID Ca Norm WB 1.05 1.05 - 10/30 [facility] PROFILE 1. [facility] PARATHYROID Ca Ion WB 1.05 1.05 - 10/30 [facility] PROFILE 1. [facility] SPECIAL Hgb A1C 9.5 <=5.6 % 10/30 [facility] CHEMISTRY [facility] THYROID TSH 4.840 0.360 - 10/30 [facility] PANEL 3.740 [facility] THYROID T4 Free 1.06 0.76 - 10/30 [facility] PANEL 1.46 [facility] Pathology Reports No Data Provided for This Section Diagnostic Reports No Data Provided for This Section Consultation Notes No Data Provided for This Section Discharge Summaries No Data Provided for This Section History and Physicals No Data Provided for This Section Vital Signs Vital Sign Value Date Comments Source Height 170.18 cm 03/14/2019 [facility] Weight 81.818 03/14/2019 [facility] BMI Calculated 28.25 03/14/2019 [facility] Respitory Rate 19 03/14/2019 [facility] Systolic (mm Hg) 190 03/14/2019 [facility] Diastolic (mm Hg) 107 03/14/2019 [facility] Heart Rate 110 03/14/2019 [facility] Systolic (mm Hg) 128 02/28/2019 [facility] Diastolic (mm Hg) 68 02/28/2019 [facility] Respitory Rate 18 02/28/2019 [facility] Heart Rate 68 02/28/2019 [facility] Systolic (mm Hg) 134 02/28/2019 [facility] Diastolic (mm Hg) 70 02/28/2019 [facility] Respitory Rate 18 02/28/2019 [facility] Heart Rate 83 02/28/2019 [facility] Temperature Oral (F) 98.3 F 02/28/2019 [facility] Heart Rate 65 02/28/2019 [facility] Respitory Rate 18 02/28/2019 [facility] Systolic (mm Hg) 120 02/28/2019 [facility] Diastolic (mm Hg) 72 02/28/2019 [facility] Temperature Oral (F) 98 F 02/28/2019 [facility] Temperature Oral (F) 97.8 F 02/27/2019 [facility] Height 170.18 cm 02/24/2019 [facility] Weight 86.364 02/24/2019 [facility] Weight 86.364 02/23/2019 [facility] BMI Calculated 29.82 02/23/2019 [facility] Height 170.18 cm 02/23/2019 [facility] Diastolic (mm Hg) 65 11/02/[facility] Systolic (mm Hg) 143 11/02/2014 [facility] Systolic (mm Hg) 138 11/02/2014 [facility] Diastolic (mm Hg) 64 11/02/2014 [facility] Systolic (mm Hg) 138 11/02/2014 [facility] Diastolic (mm Hg) 64 11/02/2014 [facility] Temperature Oral (F) 97.1 F 11/02/2014 [facility] Temperature Oral (F) 97.8 F 11/02/2014 [facility] Temperature Oral (F) 97.8 F 11/02/2014 [facility] Respitory Rate 35 11/01/2014 [facility] Respitory Rate 31 11/01/2014 [facility] Respitory Rate 25 11/01/2014 [facility] Height 170.18 cm 10/30/2014 [facility] Weight 104.8 10/30/2014 [facility] BMI Calculated 36.19 10/30/2014 [facility] Encounters Location Location Encounter Encounter Reason Attending ADM DC Stat us Source Details Type Number For Provider Date Date Visit [facility] [id number] Pipo 10/30 11/02 [facility] Kwame /2013 [facility] [id number] Julio 02/23 02/28 [facility] Nicole /2018 [facility] Recurring [id number] Que 03/14 04/13 [facility] Evens /2018 [facility] Procedures Procedure Code Date Perfomer Comments Source CABG - Coronary [id number] [facility] artery bypass graft [facility] Gallbladder [id number] [facility] Hysterectomy [id number] [facility] Stent replacement [id number] [facility] Assessment and Plan Assessment and Plan Date Source Extracted from:Title: OMFS Progress Note 02/28/2019 [facility] Author: ShahabTheresa pereyraguille Serra DMD Date: 02/28/19 OM[facility] Service Progress Note Admit Date: 02/23/2019 04:02 Assessment/Plan: VILMA KUMAR is a 63 Years old Femal e with PMH significant for uncontrolled DM (A1c 15.0), CAD with CABG, CHF, HTN who is S/P: 02/24/19 11:25 INCISION AND DRAINAGE BILATERAL UPPER LIP [id number] Primary Surgeon: Prasanna Mcghee III, DDS (Service: ODM) 02/24/19 11:25 EXTRACTION OF TEETH 6,9,10,13,20,21,22,31, 29,28,27,26,25 [id number] Primary Surgeon: Prasanna Mcghee III, DDS (Service: [...] clinic with Dr. Horner in 1 week [facility], [address] [place] [id number] Office: . Please call to make apt. [...] (last 36 hours) (none) Juanpablo Seth, DMD [id number] category director, PGY1 Extracted from:Title: OMFS Operative Reprot Author: [...] The patient was met and identified in [facility] pre-operative holding area. Patient identification was [...] Horner DDS MD SIGNATURE: Sergey Pollard DDS category director PGY4 [id number] Addendum by Que Horner DDS, MD on 02/27/2019 18:08 I have seen and examined the patient with Dr. Pollard. I have reviewed the note content and agree with the plan and assessment. Que Horner DDS, MD FACS Professor category director Extracted from:Title: Infection Control Isolation Alert Author: [...] Pulmonary or Laryngeal Contact Infection Control at (on-call line) or [phone] (on- call pager ) If the patient [...] contact the Infection Control De partment at [phone] with any questions regarding isolation. Extracted from:Title: [...] (noted to be 700 at [facility]) -start [id number] u, with ISS -check A1C Ordered: Tylenol, [...] control Extracted from:Title: Discharge Summary * 11/02/2014 [facility] Author: Martin Beltran MD Date: 11/02/14 Discharge [...] History Date Source Social History TypeResponse 02/23/2019 [facility] Substance Abuse Use: Current. Type: Marijuana. Sexual [...]
--- OUTSIDE RECORDS SUMMARY | 2020-04-09 04:00 | XMS REPORT | Continuity of Care Document ---
:1955 Author Organization [facility] t Address [address] [place] [address] Care Team Providers Name Role Phone George SWANN Primary Care Physician Kristofer Horner Attending Clinician Michael Casillas Attending Clinician Dao Attending Clinician Kristofer Horner Admitting Clinician Nicole Admitting Clinician Dao Admitting Clinician Problems Condition Condition Condition Status Onset Resolution Last Treating Co mments Source Name Details Category Date Date Treatment Clinician Date FOLLOW UP Diagnosis Active 2019-03-14 Memoria 03-13 09:25:00 l FOLLOW 00:00: Snyder UP 00 Active 9 [facility] 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 [facility] SUSPECTED Diagnosis Active 2019-03-13 [facility] DENTAL 02-23 17:14:00 l ABSCESS 00:00: Reji SUSPECTED 00 DENTAL ABSCESS Active 02/23/2019 [facility] Cellulitis Cellulitis Disease Active [place] of right of right 06-09 Method i lower lower 00:00: st extremity extremity 00 Pain in Pain in Disease Active [place] lower back lower back - Me thodi 00:00: st 00 Non-sustai Non-sustai Disease Active H mario juanita juanita 03-14 Methodi ventricula ventricula 00:00: st r r 00 tachycardi tachycardi a a Necrotizin Necrotizin Disease Active H mario g g 03-08 Methodi fasciitis fasciitis 00:00: st due to due to 00 microorgan microorgan ism ism PAD PAD Disease Active [place] (periphera (periphera 03-08 Me thodi l artery l artery 00:00: st disease) disease) 00 Type 2 Type 2 Disease Active [place] diabetes diabetes 03-07 Method i mellitus mellitus 00:00: st 00 Diastolic Diastolic Disease Active Cecelia ston CHF CHF 03-07 Methodi 00:00: st 00 Bilateral Bilateral Disease Active Cecelia ston lower leg lower leg 03-01 Meth salvatore cellulitis cellulitis 00:00: st 00 CHEST Diagnosis Active [id number] Mem oria PAIN; 14:28:00 l UNSTABLE CHEST 00:00: Reji ANGINA PAIN; 00 UNSTABLE ANGINA Active 10/29/2014 [facility] Colitis Problem Active 2019-04-14 Nimesh kary (disorder) 22:53:58 l Colitis Snyder (disorder) Active Problem 04/14/2019 [facility] Diabetes Problem Active 2019-04-14 Mem oria mellitus 22:53:58 l (disorder) Diabetes He rmann mellitus (disorder) Active Problem 04/14/2019 [facility] Hypertensi Problem Active 2019-04-14 M emoria ve 22:53:58 l disorder, Snyder systemic Hypertensi arterial ve (disorder) disorder, systemic arterial (disorder) Active Problem 04/14/2019 [facility] Pseudoaneu Problem Active 2019-04-14 M emoria rysm 22:53:58 l (disorder) Eligio n Pseudoaneu rysm (disorder) Active Problem 04/14/2019 Right groin [facility] CHEST PAIN Diagnosis Active 2014-11-13 Memoria NEC 14:28:00 l CHEST Reji PAIN NEC Active [facility] Allergies, Adverse Reactions, Alerts Allergy Allergy Status Severity Reaction(s) Onset Inactive Treating Comm ents Source Name Type Date Date Clinician Octavia Gutiérrez Active Other (See Makes [place] phone ty to Comments) 03-04 patient Method i adverse 00:00: feel st reaction 00 kierra garcia to states it drug makes her talk different and effects her breathing morphine morphine Active Severe Memori a l Reji Dilaudid Dilaudid Active Severe Memori a l [place] Social History Social Habit Start Date Stop Date Quantity Comments Source Sex Assigned At [facility] ethodist Social History 2019-02-23 2019-02-23 [facility] H ermann 09:29:55 09:29:55 Alcohol intake 2018-06-14 2018-06-14 Current [facility] thodist 00:00:00 00:00:00 non-drinker of alcohol (finding) Smoking Status Start Date Stop Date Source Current every day smoker 2018-06-14 00:00:00 Cecelia Floyd Medications Ordered Filled Start Stop Current Ordering Indication Dosage Frequency Signature Comments Components Source Medication Medication Date Date Medication? Clinician (SIG) Name Name insulin Yes 20 unit, Memori a detemir 100 4-30 SUB-Q, l units/mL 16:27: Bedtime, # waters subcutaneou 00 10 mL, 0 s solution Refill(s) NIFEdipine Yes 60 mg = 1 Me moria 60 mg oral 4-30 tab, PO, l tablet, 16:27: Daily, # Eligio n extended 00 30 tab, 0 release Refill(s) citalopram Yes 40 mg = 1 Me moria 40 mg oral 4-30 tab, PO, l tablet 16:27: Daily, # Reji 00 30 tab, 0 Refill(s) Vitamin D3 Yes 2,000 Memori a 2000 intl 4-30 IntlUnit = l units oral 16:27: 1 tab, PO, H ermann tablet 00 Daily, # 30 tab, 0 Refill(s) carvedilol Yes 12.5 mg = Me moria 12.5 mg 4-30 1 tab, PO, l oral tablet 16:27: Q12H, # 60 Reji 00 tab, 0 Refill(s) atorvastati Yes 20 mg = 1 M emoria n 20 mg 4-30 tab, PO, l oral tablet 16:27: Bedtime, # Snyder 00 30 tab, 0 Refill(s) Aspirin 81 2019 Yes 81 mg = 1 Me moria MG Enteric 4-30 tab, PO, l Coated 16:27: Daily, # Snyder Tablet 00 30 tab, 0 Refill(s) zinc Yes 220 mg = 1 Memoria sulfate 220 4-30 tab, PO, l mg oral 16:27: Daily, # Eligio n tablet 00 30 tab, 0 Refill(s) Metformin Yes 500 mg = 1 Me moria hydrochlori 4-30 tab, PO, l de 500 MG 16:27: BID-Meals, He rmann Oral Tablet 00 # 60 tab, 0 Refill(s) chlorhexidi No Notes: Nimesh kary ne 4-30 (Same As: l gluconate 14:00: Peridex) Herm jareth 1.2 MG/ML 00 Mouthwash [Peridex] Sulfamethox No Notes: One Memoria azole 800 4-30 DS tablet l MG / 14:00: = Reji Trimethopri 00 trimethopr m 160 MG im 160mg + Oral Tablet sulfametho [Bactrim] xazole 800 mg Dose based on trimethopr im component On empty stomach with a glass of water. (Same As: Bactrim DS, Septra DS) chlorhexidi Yes 0.018 gm = Memoria ne 4-30 15 mL, l gluconate 13:24: S&SPIT, Christie nn 1.2 MG/ML 00 BID, Mouthwash Peridex [Peridex] 0.12% mouthrinse x 473mL: rinse with 15mL for 30s then spit twice daily x 14 days, # 473 mL, 0 Refill(s) 3 ML Yes 10 unit, Memoria Insulin 4-30 SUB-Q, l Lispro 100 13:13: TID-Before H ermann UNT/ML Pen 00 Meals, # Injector 10 mL, 0 [Humalog] Refill(s) tramadol Yes 50 mg = 1 Nimesh kary hydrochlori 4-30 tab, PO, l de 50 MG 13:13: Q6H, X 7 Christie nn Oral Tablet 00 day, # 28 tab, 0 Refill(s) Sulfamethox Yes 1 tab, PO, Memoria azole 800 4-30 [id number], X l MG / 13:13: 14 day, # Reji Trimethopri 00 28 tab, 0 m 160 MG Refill(s) Oral Tablet [Bactrim] Docusate Yes 100 mg = 1 Mem oria Sodium 100 4-30 cap, PO, l MG Oral 13:13: BID, # 28 Christie nn Capsule 00 cap, 0 Refill(s) celecoxib Yes 200 mg = 1 Me moria 200 mg oral 4-30 cap, PO, l capsule 13:13: [id number], # Herm jareth 00 60 cap, 0 Refill(s) Magnesium No Notes: Memori a Sulfate 02-27 WASTE: F/P l 22:36: - Sink; E Snyder 00 - [facility] Trash Bin propofol No Route: IV, Mem oria (ANES) 02-27 Drug form: l 16:24: INJ, ONCE, Stop date: 02/27/19 11:24:00 CDT midazolam No Route: IV, Me moria (ANES) 02-27 Drug form: l 16:24: SOLN, ONCE, Stop date: 02/27/19 11:24:00 CDT lidocaine No Route: IV, Me moria (ANES) 02-27 Drug form: l 16:24: INJ, ONCE, Stop date: 02/27/19 11:24:00 CDT Ondansetron No Notes: Nimesh kary 02-27 (Same as: l 16:04: Zofran) MEDICATION WASTE Product Size: 4 mg Product Wasted: ___ mg Flumazenil No Notes: Memor ia 02-27 (Same as: l 16:04: Romazicon) Naloxone No Notes: Memoria 02-27 Same as l 16:04: Narcan Labetalol No 10 mg, 2 Nimesh kary -29 mL, Route: l 16:04: IVP, Drug form: INJ, Q5Min, Dosing Weight 86.364, kg, PRN Elevated BP, Start date: 02/27/19 11:04:00 CDT, Duration: 5 doses or times, Stop date: Limited # of times Oxycodone No Notes: Memori a 02-27 (Same as: l 16:04: Roxicodone ) Hydralazine No Notes: Nimesh kary 02-27 (Same as: l 16:04: Apresoline ) Push over 5 minutes Lactated No Route: IV, Mem oria Ringers 02-27 Total l Injection 15:46: Volume: Christie nn IV (ANES) 00 1,000, 1000 mL Start date: 02/27/19 10:46:00 CDT, Stop date: 02/27/19 11:46:00 CDT vancomycin No 2001 mg: Me moria + Sodium 02-26 infuse l Chloride 17:00: over 2.5 Christie nn 0.9% IV 500 00 hours For mL adult patients only: Round to nearest 250 mg per Medical Staff approval MEDICATION WASTE Product Size: 1000 mg Product Wasted: ___ mg POLYETHYLEN No Notes: Nimesh kary E GLYCOL 02-26 Dissolve l 3350 14:00: in 8 oz of Reji 00 water or juice. (Same as: Miralax) carvedilol No 6.25 mg = Me moria 6.25 mg 02-26 1 tab, PO, l oral tablet 07:25: BID, # 180 Snyder 00 tab, 0 Refill(s) zinc No 220 mg = 1 Memoria sulfate 220 28 tab, PO, l mg oral 07:25: Daily, # Eligio n tablet 00 100 tab, 0 Refill(s) amLODIPine No 10 mg = 1 Me moria 10 mg oral -28 tab, PO, l tablet 07:25: Daily, # Reji 00 30 tab, 0 Refill(s) Magnesium No Notes: Memori a Sulfate 02-26 WASTE: F/P l 02:27: - Sink; E Snyder - [facility] Trash Bin Tramadol No Notes: Not Mem oria 02-25 to exceed l 23:00: 400mg/day. Snyder (Same As: Ultram) potassium No Notes: Memori a phosphate -27 (Same as: l 22:25: K Reji 00 Phosphate. ) Do not infuse phosphorou s concurrent ly in the same line as TPN or IVF that contains calcium. For double lumen central lines, phosphorou s may be infused in a separate lumen from TPN. 1 mMol phoshate has 1.47 mEq potassium Infuse over 4 hours Magnesium No Notes: Memori a Sulfate 02-25 WASTE: F/P l 22:25: - Sink; E Reji 00 - [facility] Trash Bin Docusate No Notes: Memoria - (Same as: l 22:00: Colace) Reji (Do Not Crush) Acetaminoph No Notes: Max Memoria en - acetaminop l 21:00: hen 4000 Snyder 00 mg/day (4 gm/day). (Same as: Tylenol Extra Strength) celecoxib No Notes: Memori a - NSAID. l 21:00: Please Snyder 00 check indication . Not for seizure. (Same As: CeleBREX) Oxycodone No Notes: Memori a Hydrochlori -27 (Same as: l de 5 MG 20:33: Roxicodone Herm jareth Oral Tablet 00 ) Oxycodone No Notes: Memori a Hydrochlori 4-27 (Same as: l de 5 MG 20:32: Roxicodone Herm jareth Oral Tablet ) Vancomycin No 2001 mg: Me moria 4-27 infuse l 04:00: over 2.5 Snyder 00 hours Insulin No 10 unit, Memori a regular 02-24 Route: IV, l 22:14: ONCE, Dosing Weight 86.364, kg, Start date: 02/24/19 17:14:00 CDT, Stop date: 02/24/19 17:14:00 CDT Magnesium No Notes: Memori a Sulfate 02-24 WASTE: F/P l 20:26: - Sink; E Reji 00 - [facility] Trash Bin Magnesium No Notes: Memori a Sulfate 02-24 WASTE: F/P l 18:15: - Sink; E Snyder 00 - [facility] Trash Bin Promethazin 2019-0 No 6.25 mg, Me moria e 02-24 Route: l 17:54: IVPB, ONCE, Dosing Weight 86.364, kg, PRN Nausea & Vomiting, Start date: 02/24/19 12:54:00 CDT Hydralazine 0 No Notes: Nimesh kary 02-24 (Same as: l 17:52: Apresoline ) Push over 5 minutes Labetalol No 10 mg, 2 Nimesh kary - mL, Route: l 17:52: IVP, Drug form: INJ, Q5Min, Dosing Weight 86.364, kg, PRN Elevated BP, Start date: 02/24/19 12:52:00 CDT, Duration: 5 doses or times, Stop date: Limited # of times Ketorolac No 30 mg, Memori a 02-24 Route: l 17:45: IVP, ONCE, Dosing Weight 86.364, kg, Start date: 02/24/19 12:45:00 CDT, Stop date: 02/24/19 12:45:00 CDT Fentanyl No 50 Memoria 02-24 microgram, l 17:44: Route: IVP, Q5Min, Dosing Weight 86.364, kg, PRN Pain Score 4-6, Priority: Routine, Start date: 02/24/19 12:44:00 CDT, Duration: 4 doses or times, Stop date: Limited # of times glycopyrrol No Route: IV, Memoria ate (ANES) 02-24 Drug form: l 17:37: INJ, ONCE, Stop date: 02/24/19 12:37:00 CDT ondansetron No Route: IV, Memoria (ANES) 02-24 Drug form: l 17:37: INJ, ONCE, Stop date: 02/24/19 12:37:00 CDT neostigmine No Route: IV, Memoria (ANES) 02-24 Drug form: l 17:37: INJ, ONCE, Stop date: 02/24/19 12:37:00 CDT Acetaminoph 0 No 1,000 mg, M emoria en 02-24 Route: IV, l 17:36: ONCE, Dosing Weight 86.364, kg, Start date: 02/24/19 12:36:00 CDT, Stop date: 02/24/19 12:36:00 CDT phenylephri No Route: IV, Memoria ne (ANES) 02-24 Drug form: l 17:36: INJ, ONCE, Stop date: 02/24/19 12:36:00 CDT fentaNYL No Route: IV, Mem oria (ANES) 02-24 Drug form: l 17:16: INJ, ONCE, Stop date: 02/24/19 12:16:00 CDT rocuronium No Route: IV, M emoria (ANES) 02-24 Drug form: l 17:16: INJ, ONCE, Stop date: 02/24/19 12:16:00 CDT propofol No Route: IV, Mem oria (ANES) 02-24 Drug form: l 17:16: INJ, ONCE, Stop date: 02/24/19 12:16:00 CDT lidocaine No Route: IV, Me moria (ANES) 02-24 Drug form: l 17:16: INJ, ONCE, Stop date: 02/24/19 12:16:00 CDT Oxycodone No Notes: Memori a 02-24 (Same as: l 17:01: Roxicodone ) Flumazenil No Notes: Memor ia 02-24 (Same as: l 17:01: Romazicon) Ondansetron No Notes: Nimesh kary 02-24 (Same as: l 17:01: Zofran) MEDICATION WASTE Product Size: 4 mg Product Wasted: ___ mg Naloxone No Notes: Memoria 02-24 Same as l 17:01: Narcan Acetaminoph No 1,000 mg, M emoria en 02-24 Route: PO, l 17:01: Drug form: TAB, ONCE, Dosing Weight 86.364, kg, PRN Pain Score 1-3, Start date: 02/24/19 12:01:00 CDT Sodium No Route: IV, Memor ia Chloride 02-24 Drug form: l 0.9% IV 16:25: INJ, Start Herm jareth (ANES) 235 00 date: mL + 02/24/19 vancomycin 11:25:00 (ANES) 1500 CDT, Stop mg date: 02/24/19 12:25:00 CDT Lactated No Route: IV, Mem oria Ringers - Total l Injection 16:03: Volume: Christie nn IV (ANES) 00 1,000, 1000 mL Start date: 02/24/19 11:03:00 CDT, Stop date: 02/24/19 12:03:00 CDT Insulin No Notes: Memoria Lispro 02-24 (Same as: l 05:52: Humalog) Snyder 00 Roll in palms of hands gently; Do not shake vigorously . WASTE: F/P - Black; E - [employer] Trash Bin Stable for 28 days at room temperatur e. Expires in days from ____Date Glucagon No 1 mg, Memoria 02-24 Route: IM, l 05:52: Drug form: Snyder 00 PDR/INJ, PRN, Dosing Weight 86.364, kg, PRN Blood Glucose Results, Start date: 02/24/19 0:52:00 CDT, Duration: 30 day, Stop date: 03/26/19 0:51:00 CDT Dextrose No 25 gm, 50 Nimesh kary 50% in 4-26 mL, Route: l Water 05:52: IVP, Drug Snyder (bolus) IV 00 Form: INJ, Dosing Weight 86.364, kg, PRN, PRN Blood Glucose Results, Start date: 02/24/19 0:52:00 CDT, Duration: 30 day, Stop date: 03/26/19 0:51:00 CDT atorvastati No Notes: Nimesh kary n 02-24 (Same As: l 02:00: Lipitor) Snyder 00 Insulin No Notes: Memoria Lispro -25 (Same as: l 21:30: Humalog) Snyder 00 Roll in palms of hands gently; Do not shake vigorously . WASTE: F/P - Black; E - [place] Trash Bin Stable for 28 days at room temperatur e. Expires in days from ____Date Hydralazine No Notes: Nimesh kary 4-25 (Same as: l 20:55: Apresoline ) May interfere w/enteral feedings Take With Food. NIFEdipine No Notes: Memor ia 60 mg oral 4-25 (Same as: l tablet, 14:00: Adalat CC, Herm jareth extended 00 Procardia release XL) Give on empty stomach. Take 1 hour before or 2 hours after meal; "Avoid grapefruit and grapefruit juice". Do not crush cholecalcif No Notes: Nimesh kary josue 4-25 Same as: l 14:00: Vitamin D3 Citalopram No Notes: Memor ia 4-25 (Same As: l 14:00: CeleXA) carvedilol No Notes: Memor ia 4-25 Give with l 14:00: food. Reji (Same As: Coreg) Aspirin 81 No Notes: Do Me moria MG Enteric 4-25 not crush l Coated 14:00: or chew. Tablet (Same As: Ecotrin) Insulin No 20 unit, Memori a Glargine 4-25 0.2 mL, l 14:00: Route: Reji 00 SUB-Q, Drug form: SOLN, Daily, Dosing Weight 104.8, kg, Start date: 02/23/19 9:00:00 CDT, Duration: 30 day, Stop date: 03/24/19 9:00:00 CDT heparin No Notes: Memoria 4-25 porcine l 13:00: heparin normal No 1,000 mL, Memori a saline 0.9% 4-25 Rate: 125 l IV 1,000 mL 10:07: ml/hr, Infuse over: 8 hr, Route: IV, Dosing Weight 86.364 kg, Total Volume: 1,000, Start date: 02/23/19 5:07:00 CDT, Duration: 30 day, Stop date: 03/25/19 5:06:00 CDT, 2.04, m2 Unasyn 2018-0 No Notes: Memoria 4-25 Dosing l 10:00: based on Ampicillin component (Same as: Unasyn) Insulin 2018-0 No 10 unit, Memori a Lispro 4-25 SUB-Q, l 09:40: TID-Before Meals, 0 Refill(s) insulin 0 No 20 unit, Memori a detemir 4-25 SUB-Q, l 09:40: Bedtime, 0 Refill(s) Hydralazine No 25 mg = 1 M emoria Hydrochlori 4-25 tab, PO, l de 25 MG 09:40: TID, # 270 [facility] Oral Tablet 00 tab, 1 Refill(s) Glucagon No 1 mg, Memoria 4-25 Route: IM, l 09:34: Drug form: Reji PDR/INJ, PRN, Dosing Weight 104.8, kg, PRN Blood Glucose Results, Start date: 02/23/19 4:34:00 CDT, Duration: 30 day, Stop date: 03/25/19 4:33:00 CDT Dextrose No 12.5 gm, Memor ia 50% in 4-25 25 mL, l Water 09:34: Route: Reji (bolus) IV 00 IVP, Drug Form: INJ, Dosing Weight 104.8, kg, PRN, PRN Blood Glucose Results, Start date: 02/23/19 4:34:00 CDT, Duration: 30 day, Stop date: 03/25/19 4:33:00 CDT Insulin 2018-0 No Notes: Memoria Lispro 4-25 (Same as: l 09:34: Humalog) Roll in palms of hands gently; Do not shake vigorously . WASTE: F/P - Black; E - [place] Trash Bin Stable for 28 days at room temperatur e. Expires in days from ____Date Tylenol 2018-0 No Notes: Do Memor ia 4-25 not exceed l 09:33: 4 gm/day. Reji 00 (Same as: Tylenol) Oxycodone No Notes: Memori a Hydrochlori 4-25 (Same as: l de 5 MG 09:33: Roxicodone Herm jareth Oral Tablet 00 ) NIFEdipine No 60 mg = 1 Me moria 60 mg oral 4-25 tab, PO, l tablet, 09:30: Daily, # Eligio n extended 00 30 tab, 0 release Refill(s) Metformin No 500 mg = 1 Me moria hydrochlori 4-25 tab, PO, l de 500 MG 09:30: BID-Meals, He rmann Oral Tablet 00 # 30 tab, 0 Refill(s) Insulin No SUB-Q, 0 Memori a Lispro 4-25 Refill(s) l 09:30: Reji 00 insulin No SUB-Q, 0 Memori a detemir 4-25 Refill(s) l 09:30: Snyder 00 Vitamin D3 No 2,000 Memori a 2000 intl 4-25 IntlUnit = l units oral 09:30: 1 tab, PO, H ermann tablet 00 Daily, 0 Refill(s) carvedilol No 12.5 mg = Me moria 12.5 mg 4-25 1 tab, PO, l oral tablet 09:30: Q12H, # 60 Snyder 00 tab, 0 Refill(s) atorvastati No 20 mg = 1 M emoria n 20 mg 4-25 tab, PO, l oral tablet 09:30: Bedtime, # Reji 00 30 tab, 0 Refill(s) Aspirin 81 No 81 mg = 1 Me moria MG Enteric 4-25 tab, PO, l Coated 09:30: Daily, # Reji Tablet 00 90 tab, 3 Refill(s) Dextrose No 12.5 gm, Memor ia 50% in 4-25 25 mL, l Water 09:06: Route: Snyder (bolus) IV 00 IVP, Drug Form: INJ, Dosing Weight 104.8, kg, PRN, PRN Blood Glucose Results, Start date: 02/23/19 4:06:00 CDT, Duration: 30 day, Stop date: 05/25/19 4:05:00 CDT Glucagon 2018-0 No 1 mg, Memoria 4-25 Route: IM, l 09:06: Drug form: Reji 00 PDR/INJ, PRN, Dosing Weight 104.8, kg, PRN Blood Glucose Results, Start date: 02/23/19 4:06:00 CDT, Duration: 30 day, Stop date: 03/25/19 4:05:00 CDT acetaminoph 2017- Yes 1{tbl} Q.25D Take 1 [place] en-codeine 8-22 tablet by Meth salvatore (TYLENOL 18:08: mouth 4 st WITH 18 (four) CODEINE #3) times a 300-30 mg day as per tablet needed for moderate pain. ALPRAZolam 2017-0 Yes 1mg [id number] Take 1 mg [place] (XANAX) 1 8- [id number] by mouth 3 Methodi MG tablet 18:08: 3D (three) st 18 times a day as needed for anxiety. amLODIPine 2017- Yes 10mg QD Take 10 mg [place] (NORVASC) 8-22 by mouth Method i 10 mg 18:08: daily. st tablet 18 carvedilol 2017-0 Yes 6.25mg Q.5D Take 6.25 [place] (COREG) 8-22 mg by Methodi 6.25 MG 18:08: mouth 2 st tablet 18 (two) times a day with meals. gabapentin 2017-0 Yes 300mg Q.5D Take 300 [place] (NEURONTIN) 8-22 mg by Methodi 300 mg 18:08: mouth 2 st capsule 18 (two) times a day as needed. insulin 2017-0 Yes 10U [id number] Inject 10 [place] lispro 8-22 [id number] Units Method i (HumaLOG) 18:08: 3D under the st 100 unit/mL 18 skin 3 injection (three) times a day before meals. insulin 2018-0 Yes 20U QD Inject 20 [place] on detemir 8-22 Units Methodi U-100 18:08: under the st (LEVEMIR) 18 skin 100 unit/mL nightly. injection nitroglycer 2017- Yes .4mg Place 0.4 [place] in 8-22 mg under Methodi (NITROSTAT) 18:08: the tongue st 0.4 MG SL 18 every 5 tablet (five) minutes as needed for chest pain. albuterol Yes 2{puff} Q6H Inhale 2 [place] (PROAIR 8-22 puffs Methodi HFA,PROVENT 18:08: every 6 st [place] 18 (six) HFA,VENTOLI hours as N HFA) 90 needed for mcg/actuati wheezing. on inhaler promethazin Yes 50mg Q6H Take 50 mg Dodd [...] a day with meals. Insulin, No 60 Memoria Regular, 1-02 units) l Pork 22:30: Stable for 28 days at room temperatur e Expires in days from ____Date Lancet Yes 1 box, Memoria Device 11-02 MISC, l 20:18: Daily, # 1 Reji 02 ea, 0 Refill(s) Lancets Yes 1 box, Memoria 11-02 MISC, l 20:17: Daily, # Reji 59 10 box, 0 Refill(s) Lancets No 1 box, Memoria 11-02 MISC, l 20:15: Daily, # Snyder 00 10 box, 0 Refill(s) Lancet No 1 box, Memoria Device 11-02 MISC, l 20:15: Daily, # 1 Snyder 00 ea, 0 Refill(s) clindamycin Yes 450 mg = 3 Memoria 150 mg oral 11-02 cap, PO, l capsule 20:15: TID, # 15 Christie nn 00 cap, 0 Refill(s) Nitroglycer Yes 0.4 mg = 1 Memoria in 0.4 MG -02 tab, SL, l Sublingual 18:48: Q5Min, Christie nn Tablet 00 Chest Pain, # 100 tab, 2 Refill(s) Regular Yes 10 unit, Memori a Insulin, 02 SUB-Q, l Human 100 18:48: TID-Before He rmann UNT/ML 00 Meals, # Injectable 15 mL, 0 Solution Refill(s) clopidogrel Yes 75 mg = 1 M emoria 75 mg oral 02 tab, PO, l tablet 18:48: Daily, # Reji 00 90 tab, 3 Refill(s) insulin Yes 25 unit, Memori a detemir 100 02 SUB-Q, l units/mL 18:48: Daily, # Christie nn subcutaneou 00 15 mL, 0 s solution Refill(s) Hydrochloro Yes 25 mg = 1 M emoria thiazide 25 -02 tab, PO, l MG Oral 18:48: Daily, # Eligio n Tablet 00 90 tab, 3 Refill(s) lisinopril Yes 40 mg = 1 Me moria 40 mg oral -02 tab, PO, l tablet 18:48: Daily, # Snyder 00 60 tab, 2 Refill(s) Aspirin 81 Yes 81 mg = 1 Me moria MG Enteric -02 tab, PO, l Coated 18:48: Daily, 0 Snyder Tablet 00 Refill(s) amLODIPine Yes 10 mg = 1 Me moria 10 mg oral -02 tab, PO, l tablet 18:48: Q12H, # Reji 00 120 tab, 3 Refill(s) atorvastati Yes 40 mg = 1 M emoria n 40 mg 1-02 tab, PO, l oral tablet 18:48: Bedtime, # Reji 00 60 tab, 3 Refill(s) carvedilol Yes 25 mg = 1 Me moria 25 mg oral -02 tab, PO, l tablet 18:48: Q12H, # Snyder 00 120 tab, 3 Refill(s) Clindamycin No Notes: Nimesh kary 11-02 (Same As: l 18:00: Cleocin) insulin No Notes: Memoria detemir 11-02 Same as l 03:00: Levemir Do not hold insulin without contacting prescriber "single patient use only" Imdur No Notes: Memoria 11-01 (Same l 21:44: as:Imdur) "Do Not Crush" Take on empty stomach/ full glass of water. Do not crush Acetaminoph No Notes: Nimesh kary en 325 MG / 11-01 (Same as: l Hydrocodone 18:15: [place] Christie nn Bitartrate 00 325/5) Do 5 MG Oral not exceed Tablet 4gm/day of [[place] acetaminop 5/325] hen. carvedilol No Notes: Memor ia 11-01 Give with l 15:00: food. Snyder 00 (Same As: Coreg) Magnesium No Notes: Memori a Oxide 11-01 (Same as: l 15:00: Mag-Ox 00 400) Magnesium oxide 968yp=520m g elemental magnesium Dose=____m g magnesium oxide (___mg elemental magnesium) insulin No Notes: Memoria detemir 11-01 Same as l 15:00: Levemir Do not hold insulin without contacting prescriber "single patient use only" Hydrochloro No Notes: Nimesh kary thiazide 11-01 (Same as: l 15:00: Hydrodiuri 00 l) With food. Insulin, No Notes: Memoria Aspart, 11-01 Roll in l Human 13:30: palms of hands gently; Do not shake vigorously . (Same as: NovoLOG) "single patient use only" Stable for 28 days at room temperatur e. Expires in days from ____Date Magnesium No 2 gm, 50 Nimesh kary Sulfate 1-01 mL, Route: l 12:14: IVPB, Drug form: INJ, ONCE, Dosing Weight 104.8, kg, Start date: 11/01/14 6:14:00, Duration: 2 hr, Stop date: 11/01/14 6:14:00 Nicotine No 21 mg, Memoria 11-01 Route: l 03:47: TOP, Drug form: ERFILM, ONCE, Dosing Weight 104.8, kg, Start date: 10/31/14 21:47:00, Stop date: 10/31/14 21:47:00 metoprolol No Notes: Memor ia extended 11-01 (Same as: l release 03:00: Toprol XL) Herm jareth May split tab, but do not crush. Amlodipine 2013-11 No Notes: Memor ia 2-31 (Same as: l 23:07: Norvasc) Snyder 00 insulin 2013-11 No Notes: Memoria detemir 2-31 Same as l 23:07: Levemir Do not hold insulin without contacting prescriber "single patient use only" Lisinopril 2013-11 No Notes: Memor ia 2-31 (Same as: l 15:00: Prinivil, Reji 00 Zestril) insulin 2013-11 No Notes: Memoria detemir 2-31 Same as l 15:00: Levemir Do not hold insulin without contacting prescriber "single patient use only" Amlodipine 2013-11 No Notes: Memor ia 2-31 (Same as: l 15:00: Norvasc) Snyder 00 metoprolol 2013-11 No Notes: Memor ia extended 2-31 (Same as: l release 15:00: Toprol XL) Herm jareth May split tab, but do not crush. metoprolol 2013-11 No Notes: Memor ia extended 2-31 (Same as: l release 14:30: Toprol XL) Herm jareth Do Not Crush insulin 2013-11 No Notes: [facility]oria detemir 2-31 Same as l 12:19: Levemir Do Reji 00 not hold insulin without contacting prescriber "single patient use only" Nicardipine 2013-11 No Notes: Nimesh kary 2-31 Same as: l 11:32: Cardene Concentrat ion: (0.2 mg /1 ml ) metoprolol 2013-11 No Notes: Memor ia tartrate 2-31 (Same as: l 09:32: Lopressor) atorvastati 2013-11 No Notes: Nimesh kary n 2-31 (Same as: l 03:00: Lipitor) Brilinta 2013-11 No Notes: Memoria 2-31 (Same as: l 03:00: Brilinta) Citalopram 2013-11 No Notes: Memor ia 2-30 (Same As: l 20:30: CeleXA) Insulin, 2013-11 No 60 Memoria Regular, 2-30 units) l Pork 19:46: Stable for 28 days at room temperatur e Expires in days from ____Date Dextrose 2013-11 No 12.5 gm, Memor ia 50% Syringe 2-30 25 mL, l 19:46: Route: IVP, Drug Form: INJ, Dosing Weight 104.8, kg, PRN, PRN Blood Glucose Results, Start date: 10/30/14 13:46:00, Duration: 30 day, Stop date: 11/29/14 13:45:00 Glucagon 2013-11 No 1 mg, Memoria 2-30 Route: IM, l 19:46: Drug form: PDR/INJ, PRN, Dosing Weight 104.8, kg, PRN Blood Glucose Results, Start date: 10/30/14 13:46:00, Duration: 30 day, Stop date: 11/29/14 13:45:00 Phosphorus 2013-11 No Notes: Memor ia / Potassium 2-30 (Same as: l 19:42: K Phosphate. ) 1 mMol phoshate has 1.47 mEq potassium Infuse over 4 hours Magnesium 2013-11 No Special Memor ia Sulfate 2-30 Instructio l 19:42: ns: FOR ICU USE ONLY Neutra-Phos 2013-11 No Notes: Nimesh kary 2-30 (Same as: l 19:42: Neutra-Alyson s) Each 1.25 gm pkt has 250mg phosphorou s. Mix w/2.5oz water and stir. Magnesium 2013-11 No Notes: Memori a Oxide 2-30 (Same as: l 19:42: Mag-Ox Reji 00 400) Magnesium oxide 356lg=626h g elemental magnesium Dose=____m g magnesium oxide (___mg elemental magnesium) Calcium 2013-11 No Notes: [facility]oria Carbonate 2-30 (Same As: l 500 MG 19:42: Tums) Snyder Chewable 00 Calcium Tablet Carbonate 500 mg = 200 mg elemental calcium Dose = mg calcium carbonate ( mg elemental calcium) Calcium 2013-11 No Special Memoria Gluconate 2-30 Instructio l 19:42: ns: FOR Snyder 00 ICU USE ONLY Potassium 2013-11 No Notes: Memori a Chloride 2-30 (Same as: l 19:42: K-Dur 20) Reji 00 "Do Not Crush" With food and full glass of water Sodium 2013-11 No Special [facility]oria Phosphate, 2-30 Instructio l Monobasic 19:42: ns: FOR Christie nn 00 ICU USE ONLY Nicotine 2013-11 No Notes: Memoria 2-30 (Same as: l 16:00: Habitrol) Reji "Remove old patch before applicatio n of new patch" remove 2013-11 No Notes: Memoria patch 2-30 Remove old l 16:00: patch Snyder before applicatio n of new patch. Aspirin 81 2013-11 No Notes: Do Me moria MG Enteric 2-30 not crush l Coated 15:00: or chew. Snyder Tablet 00 (Same As: Ecotrin) Lisinopril 2013-11 No Notes: Memor ia 2-30 (Same as: l 15:00: Prinivil, Reji 00 Zestril) metoprolol 2013-11 No Notes: [facility] ia extended 2-30 (Same as: l release 15:00: Toprol XL) Herm jareth Do Not Crush Plavix 2013-11 No Notes: Memoria 2-30 (Same As: l 15:00: Plavix) Reji pneumococca 2013-11 No Notes: Nimesh kary l capsular 2-30 (Same as: l polysacchar 15:00: Pneumovax H ermann shira type 1 00 23) vaccine / Refrigerat pneumococca e l capsular polysacchar shira type 10A vaccine / pneumococca l capsular polysacchar shira type 11A vaccine / pneumococca l capsular polysacchar shira type 12F vaccine / pneumococca l capsular polysacchar Influenza 2013-11 No Notes: Memori a Virus 2-30 (Same as: l Vaccine, 15:00: Fluzone Eligio n Inactivated 00 [place]riv[place] A-[place]- nt) (H3N2)-like virus (A-[place]- [facility] X-175C) strain / Influenza Virus Vaccine, Inactivated A-[place]- 59-2006, IVR-148 (H1N1) strain / Influenza Virus Vaccine, Inactivated , B-[place]--lik Docusate 2013-11 No Notes: Memoria 2-30 (Same as: l 15:00: Colace) (Do Not Crush) Saline 2013-11 No Notes: Memoria Flush 0.9% 2-30 (Same as: l 15:00: BD Posiflush) pantoprazol 2013-11 No Notes: For Memoria e 2-30 IV push l 13:30: reconstitu te with 10 ml 0.9% sodium chloride and push over 2 minutes. (Same as: Protonix) Albuterol 2013-11 No Notes: Memori a 0.833 MG/ML 2-30 (Same as: l / 12:56: Duoneb) Ipratropium 00 [place] 0.167 MG/ML Inhalant Solution [DuoNeb] Morphine 2013-11 No 2 mg, Memoria 2-30 Route: l 12:03: IVP, ONCE, Dosing Weight 104.8, kg, Start date: 10/30/14 6:03:00, Stop date: 10/30/14 6:03:00 Morphine 2013-11 No 2 mg, Memoria 2-30 Route: l 09:49: IVP, ONCE, Dosing Weight 104.8, kg, Start date: 10/30/14 3:49:00, Stop date: 10/30/14 3:49:00 Amlodipine 2013-11 No Special Nimesh kary 2-30 Instructio l 07:54: ns: 10 mg citalopram 2013-11 Yes 40 mg = 1 Me moria 40 mg oral 2-30 tab, l tablet 07:54: Daily, 0 Refill(s) Metformin 2013-11 Yes 1,000 mg = Me moria hydrochlori 2-30 1 tab, l de 1000 MG 07:54: BID, 0 Christie nn Oral Tablet 00 Refill(s) aspirin 325 2013-11 No 325 mg = 1 Memoria mg tablet 2-30 tab, l 07:54: Daily, 0 Snyder 00 Refill(s) lisinopril 2013-11 No 40 mg = 1 Me moria 40 mg oral 2-30 tab, l tablet 07:54: Daily, 0 Snyder 00 Refill(s) metoprolol 2013-11 No 50 mg = 1 Me moria tartrate 50 2-30 tab, BID, l mg oral 07:54: 0 Reji tablet 00 Refill(s) Zofran 2013-11 No Notes: Memoria 2-30 (Same as: l 07:14: Zofran) Snyder 00 Acetaminoph 2013-11 No Notes: Do M emoria en 2-30 not exceed l 07:14: 4 gm/day. Snyder (Same as: Tylenol) Plavix 2013-11 No 600 mg, Memoria 2-30 Route: PO, l 06:38: Drug form: Reji 00 TAB, ONCE, Dosing Weight 104.8, kg, Start date: 10/30/14 0:38:00, Duration: 1 doses or times, Stop date: 10/30/14 0:38:00 Insulin, 2013-11 No 60 Memoria Regular, 2-30 units) l Pork 06:37: Stable for 28 days at room temperatur e Expires in days from ____Date Dextrose 2013-11 No 12.5 gm, Memor ia 50% Syringe 2-30 25 mL, l 06:37: Route: IVP, Drug Form: INJ, Dosing Weight 104.8, kg, PRN, PRN Blood Glucose Results, Start date: 10/30/14 0:37:00, Duration: 30 day, Stop date: 11/29/14 0:36:00 Glucagon 2013-11 No 1 mg, Memoria 2-30 Route: IM, l 06:37: Drug form: Reji 00 PDR/INJ, PRN, Dosing Weight 104.8, kg, PRN Blood Glucose Results, Start date: 10/30/14 0:37:00, Duration: 30 day, Stop date: 11/29/14 0:36:00 heparin 2013-11 No 500 mL, Memoria additive 2-30 Rate: l 25,000 unit 06:36: 18.93 Christie nn [12 00 ml/hr, unit/kg/hr] Infuse + Premix over: 26.4 Diluent hr, Route: Dextrose 5% IV, Dosing 500 mL Weight 78.88 kg, Total Volume: 500 mL, Start date: 10/30/14 0:36:00, Duration: 30 day, Stop date: 11/29/14 0:35:00 Nitroglycer 2013-11 No Notes: Nimesh kary in 2-30 (Same l 06:29: as:Tridil) Snyder Final conc = 0.4 mg/ml. Premix bottle. clopidogrel 2013-11 No Notes: ( Me moria 2-30 Same as: l 06:29: Plavix) Snyder 00 heparin 2013-11 No 500 mL, Memoria additive 2-30 Rate: l 25,000 unit 06:29: 18.93 Christie nn [12 00 ml/hr, unit/kg/hr] Infuse + Premix over: 26.4 Diluent hr, Route: Dextrose 5% IV, Dosing 500 mL Weight 78.88 kg, Total Volume: 500 mL, Start date: 10/30/14 0:29:00, Duration: 30 day, Stop date: 11/29/14 0:28:00 Bisacodyl 2013-11 No Notes: Memori a 2-30 (Same As: l 06:29: Dulcolax, Reji 00 Bisco-Lax) Saline 2013-11 No Notes: Memoria Flush 0.9% 2-30 (Same as: l 06:29: BD Reji 00 Posiflush) Vital Signs Vital Name Observation Time Observation Value Comments Source Height 2019-03-14 14:48:00 170.18 cm [facility] Weight 2019-03-14 14:48:00 [facility] BMI Calculated 2019-03-14 14:48:00 Hannah al Reji Respitory Rate 2019-03-14 14:48:00 Hannah al Reji Systolic (mm Hg) 2019-03-14 14:48:00 Nimesh rial Snyder Diastolic (mm Hg) 2019-03-14 14:48:00 Mem orial Snyder Heart Rate 2019-03-14 14:48:00 [facility] Snyder Systolic (mm Hg) 2019-02-28 17:00:00 Nimesh rial Snyder Diastolic (mm Hg) 2019-02-28 17:00:00 Mem orial Reji Respitory Rate 2019-02-28 17:00:00 Memori al Snyder Heart Rate 2019-02-28 17:00:00 [facility] Snyder Systolic (mm Hg) 2019-02-28 13:00:00 Nimesh rial Reji Diastolic (mm Hg) 2019-02-28 13:00:00 Mem orial Reji Respitory Rate 2019-02-28 13:00:00 Memori al Snyder Heart Rate 2019-02-28 13:00:00 [facility] Reji Temperature Oral (F) 2019-02-28 08:30:00 98.3 F [facility] Reji Heart Rate 2019-02-28 08:30:00 [facility] Reji Respitory Rate 2019-02-28 08:30:00 Memori al Snyder Systolic (mm Hg) 2019-02-28 08:30:00 Nimesh rial Reji Diastolic (mm Hg) 2019-02-28 08:30:00 Mem orial Snyder Temperature Oral (F) 2019-02-28 04:59:00 98 F [facility] Snyder Temperature Oral (F) 2019-02-27 08:58:00 97.8 F [facility] Height 2019-02-24 18:03:00 170.18 cm [facility] Weight 2019-02-24 18:03:00 [facility] Reji Weight 2019-02-23 09:33:00 [facility] BMI Calculated 2019-02-23 09:33:00 Memori al Snyder Height 2019-02-23 09:33:00 170.18 cm [facility] Snyder Diastolic (mm Hg) 2014-11-02 17:38:00 Mem orial Snyder Systolic (mm Hg) 2014-11-02 17:38:00 Nimesh rial Reji Systolic (mm Hg) 2014-11-02 17:00:00 Nimesh rial Reji Diastolic (mm Hg) 2014-11-02 17:00:00 Mem orial Snyder Systolic (mm Hg) 2014-11-02 16:30:00 Nimesh rial Snyder Diastolic (mm Hg) 2014-11-02 16:30:00 Mem orial Snyder Temperature Oral (F) 2014-11-02 14:25:00 97.1 F [facility] Reji Temperature Oral (F) 2014-11-02 11:18:00 97.8 F [facility] Reji Temperature Oral (F) 2014-11-02 05:20:00 97.8 F [facility] Reji Respitory Rate 2014-11-01 23:30:00 Memori al Reji Respitory Rate 2014-11-01 23:00:00 Memori al Reji Respitory Rate 2014-11-01 22:30:00 Memori al Snyder Height 2014-10-30 06:23:00 170.18 cm [facility] Reji Weight 2014-10-30 06:23:00 [facility] Snyder BMI Calculated 2014-10-30 06:23:00 Memori al Snyder Procedures Procedure Date / Time Performed Performing Clinician Juanita isaias CABG - Coronary artery [facility] Reji bypass graft Gallbladder operation [facility] H ermann Hysterectomy [facility] Reji Stent replacement [facility] Christie nn Plan of Care Planned Activity Planned Date Details Comments Source Future Scheduled 2020-06-01 INFL[place]ENZA VACCINE [place] [facility] 00:00:00 [code = INFLUENZA VACCINE] Future Scheduled 2005 BREAST CANCER [facility] 00:00:00 SCREENING [code = BREAST CANCER SCREENING] Future Scheduled 2005 COLONOSCOPY SCREENING [facility] 00:00:00 [code = COLONOSCOPY SCREENING] Future Scheduled 2005 SHINGLES VACCINES [place] [facility] 00:00:00 (#1) [code = SHINGLES VACCINES (#1)] Future Scheduled 1976 Screening for [facility] Test 00:00:00 malignant neoplasm of cervix (procedure) [code = 759023086] Future Scheduled 1965 DIABETIC FOOT EXAM [place] [facility] 00:00:00 [code = DIABETIC FOOT EXAM] Future Scheduled 1955 DIABETIC RETINAL EYE [facility]elia [facility] 00:00:00 EXAM [code = DIABETIC RETINAL EYE EXAM] Encounters Start End Encounter Admission Attending Care Care Encounter Source Date/Time Date/Time Type Type Clinicians Facility Department ID 2019-03-14 2019-04-12 Outpatient GERMAN Horner [facility] [id number] 09:17:00 23:59:00 Que 00 Mtanios 2019-03-14 2019-03-14 Outpatient [facility] [id number] [facility] 09:17:00 09:17:00 2019-02-23 2019-02-28 Outpatient Vinny [facility] [id number] 04:02:00 16:00:00 Margo Rodriguez 15 2014-10-30 2014-11-02 Outpatient ELENA Dc [facility] [id number] 00:19:00 15:30:00 [place] 63 Results Test Description Test Time Test Comments Results Result Comments Source TOXICOLOGY 2019-02-28 13.7 [facility] Christie nn 04:33:00 TOXICOLOGY 2019-02-28 04:33:00 Test Item Value Reference Range Interpretation Comme nts Maryo Mukul TND (test code = Vanco Tr TND) 2330 1 [facility]annCHEM OCFJY1963-80-26 14:02:001.8[facility] HermannCHEM PANEL 2019-02-27 14:02:003.0[facility] YdxtivmROLGLLGOVYGL5052-15-98 14:02:009.2[facility] ZmjgwquJKXCFKABBMEA5344-52-08 14:02:77300Bahxtzch WhnrkcgMIKHQZGASBAQ6314-86-72 14:02:009.1[facility] NqsmawjLEVFTGBKVDSY4636-32-62 14:02:0031[facility] Snyder QVJXXXEPUDNU2836-94-61 14:02:0010[facility] HxhnnafXBRFNYDKJCEY1140-27-63 14:02:00 140[facility] JhmsnwbURSGQULKLNUZ5765-65-45 14:02:36439Zubdlvjw Reji VHQXMTUSPXRT1962-65-54 14:02:27778Wralgowh FahmnhhKEJAHIOCSRXB7227-32-57 14:02:004.2[facility] FaahxzdQKTWTBJOGIQD9227-76-93 14:02:000.56[facility] Reji QHEUXIYUIL8922-27-99 14:02:0012.7[facility] GivjfsfNJAXOTSECO5236-79-68 14:02:00 33.9[facility] LyuhxieUTFESHBNHA6477-14-49 14:02:008.9[facility] HermannHEMATOLOGY 2019-02-27 14:02:51335Tpspiyyb AxbxipvQURUMMVHGO5696-72-94 14:02:0040.8[facility] YmklnrbIKEZUSQXCY9061-66-00 14:02:0013.8[facility] RbhshbnJUUEKNZWKA6174-18-03 14:02:00 Test Item Value Reference Range Interpretation Comments MCH (test code = MCH) 31.4 pg 27.0-31.0 Memorial OvqvloyEYIVCLBRQB9068-70-19 14:02:0092.6[facility] HermannHEMATOLOGY 2019-02-27 14:02:004.40[facility] ZwqjnosAYNUTTRMIZ3399-42-18 14:02:009.1[facility] PjyfgzaLYKWWBBEKW7663-63-41 14:02:0063.1[facility] CgmxyrtBJASIFEFAY1086-63-84 14:02:000.1[facility] CjhfhxiMKSXZMLHJO9217-40-67 14:02:000.2[facility] Reji LCOWKJVRHT0209-86-10 14:02:000.6[facility] QmkgutxFDAKENTVRG9243-40-80 14:02:002.5 [facility] WegvqbtAXWELLTZCX7413-72-82 14:02:0027.5[facility] HermannHEMATOLOGY 2019-02-27 14:02:005.8[facility] MluiwfsTXSIEZNMJJ9176-41-01 14:02:000.6[facility] BjfsrkqWKISMFRPUY5914-46-90 14:02:001.8[facility] WijcglhAQGRAUPWLX7420-30-91 14:02:007.0[facility] HermannCHEM NYIIM3462-95-67 11:11:00509Yvxudneq HermannCHEM NPONC6559-03-77 11:11:008.3[facility] HermannCHEM MWLOB5921-90-48 11:11:0010 [facility]annCHEM KUNHE0353-72-44 11:11:004.0[facility]annCHEM PANEL 2019-02-26 11:11:0027[facility] HermannCHEM UGRCE1479-99-99 11:11:68414Vsxcnpis HermannCHEM NNGHF3091-75-26 11:11:0010.0[facility] HermannCHEM LUYDS7330-06-87 11:11:76120Uiyfaeby HermannCHEM CPOWI0877-70-86 11:11:000.52[facility] HermannCHEM STCAY4107-83-87 11:11:20071Ujgylgel HermannCHEM HZLUE2603-25-66 11:11:002.7 [facility]annCHEM LBDCR8423-79-36 11:11:002.2[facility] HermannHEMATOLOGY 2019-02-26 05:31:000.5[facility] JkjxurjKRSQVDEVYZ6981-67-59 05:31:006.2[facility] NovzrdwDUAXSTYJIR2823-02-87 05:31:002.2[facility] YthgiixICXJGLLVCM3399-50-17 05:31:007.2[facility] TdvdkagRLBZZZDQHU6416-22-70 05:31:001.8[facility] Reji IXDZXUSLPD6380-08-96 05:31:0023.5[facility] YkedyvoFSMNFBTDQH5600-06-69 05:31:00 67.0[facility] CsuzhwrETTPZFRHTM7203-15-12 05:31:000.7[facility] HermannHEMATOLOGY 2019-02-26 05:31:000.2[facility] OjirdrdCHLUGMZFOP9911-24-79 05:31:59138Hsfuaffx YtjrcldDDBQSREDLD8769-79-32 05:31:009.2[facility] DziawbiJOGQZPRNGJ1445-62-70 05:31:0012.5[facility] UuobhzbHWSCXEJIOC5304-40-05 05:31:0033.6[facility] Reji THYYHCCSJR6494-46-16 05:31:003.97[facility] AsxngceZLQKTZTYFP2018-22-90 05:31:00 12.4[facility] HbhgtddROFQSUVFXI2725-57-51 05:31:0037.0[facility] HermannHEMATOLOGY 2019-02-26 05:31:0093.1[facility] DwrvrqcEYROPQPEJD8176-17-51 05:31:00 Test Item Value Reference Range Interpretation Comments MCH (test code = MCH) 31.3 pg 27.0-31.0 Memorial IabywtwYKIKLNAHXE5716-47-88 05:31:009.3[facility] HermannTOXICOLOGY 2019-02-26 05:31:009.2[facility] BfzplwtMUTNIUZHUC7629-93-69 05:31:00 Test Item Value Reference Range Interpretation Comments Gina Gilman TND (test code = Gina Tr 2300 1 TND) [facility]annCHEM OVITM4784-43-60 21:16:002.3[facility] HermannCHEM PANEL 2019-02-25 21:16:000.2[facility] HermannCHEM ANPTB8501-50-97 21:16:00<0.1 [facility]annCHEM FQIXQ2730-45-38 21:16:002.2[facility] HermannCHEM PANEL 2019-02-25 21:16:005.2[facility] HermannCHEM YEAHK4626-63-04 21:16:003.0[facility] HermannCHEM JGVCN8448-02-50 21:16:00 Test Item Value Reference Range Interpretation Comments A/G Ratio (test code = A/G Ratio) 0.7 1 0.7-1.6 [facility]annCHEM LQYCN9418-04-89 21:16:17286Loaqwnrh HermannCHEM PANEL 2019-02-25 21:16:0076[facility] HermannCHEM VRRYT2737-17-23 21:16:0050[facility]annCHEM ZQQGS6286-51-40 21:16:001.6[facility] HermannCHEM CFYQN8428-89-70 21:16:0014[facility] HermannCHEM IVERK2133-75-89 21:16:57500Tdqxvydb HermannCHEM MUMBS4930-96-73 21:16:47650Eoqhdmsy HermannCHEM SFOPY4382-01-69 21:16:0027 [facility]annCHEM YFMDT4475-47-22 21:16:71425Eswfxtol HermannCHEM PANEL 2019-02-25 21:16:003.7[facility] HermannCHEM GFCJA2461-32-52 21:16:000.54[facility] HermannCHEM VFJGR1768-18-20 21:16:34120Ekrrwhsk HermannCHEM BEUXD6326-78-41 21:16:008.7[facility] HermannCHEM IKIAC7435-16-34 21:16:007.8[facility] Reji UQTFVUCJNH3482-92-21 05:06:000.3[facility] ObjjvcdXZLFOZCOEL2162-90-98 05:06:009.7 Memorial UdbqtolIJRQPHBSPR3468-61-31 05:06:001.9[facility] HermannHEMATOLOGY 2019-02-25 05:06:000.9[facility] ZscpqxlTRKZALIJYE9603-15-85 05:06:000.1[facility] BgxsnsdSDMWIGUTZY8099-93-64 05:06:0076.9[facility] MjbuioaVFNTDEQPRL9484-74-61 05:06:0015.0[facility] QxyhbziFDFCYMWYOO5264-27-47 05:06:007.3[facility] Reji OCXZALJGWZ8156-53-77 05:06:000.5[facility] EpdrafhBACIQQYNUQ7122-35-00 05:06:00 Test Item Value Reference Range Interpretation Comments MCH (test code = MCH) 30.6 pg 27.0-31.0 [facility] JnxgfyoURFMMMUDWC3254-15-20 05:06:0033.1[facility] HermannHEMATOLOGY 2019-02-25 05:06:0012.7[facility] CnrlfryRGHHVITUCT4839-19-62 05:06:0038.6[facility] VsfvddrSRCSZADETP4952-82-66 05:06:0092.4[facility] OolqlelXDWGEBKOAC5584-97-13 05:06:67528Ltxshcda KjffcfiNHFFPMORWF0500-67-04 05:06:009.3[facility] Reji SEEHGQLVIL6787-66-11 05:06:0012.6[facility] HspdnbpZJOBLPUZQC0329-76-10 05:06:00 12.8[facility] LcuiujyRORUYSVNIN3383-54-30 05:06:004.18[facility] HermannCARDIAC RQGBZNP1936-77-64 18:01:000.05[facility] HermannCARDIAC RVDUEZO9955-72-84 18:01:00 73[facility] HermannCHLORAMPHENICOL:SUSC:PT:ISOLATE:ORDQN:CWP9725-71-35 17:00:00 Methicillin Resistant Staphylococcus aureusMemorial GueafviPNKXAYQEAA2237-93-97 13:44:000.1[facility] HermannBLOOD BANK LRSEVTE8864-08-60 11:12:00Negative (02/23/19 6:12 AM)[facility] ErinwhdUUIRYSXGMD4559-76-98 11:12:00 Test Item Value Reference Range Interpretation Comments PT (test code = PT) 12.3 s 12.0-14.7 [facility] CdlgvgjNPFKTNQELH7502-38-40 11:12:00 Test Item Value Reference Range Interpretation Comments INR (test code = INR) 0.93 1 0.85-1.17 [facility] WznyhmjIUOUPIPXJI8872-91-95 11:12:00 Test Item Value Reference Range Interpretation Comments PTT (test code = PTT) 32.0 s 22.9-35.8 [facility]annCHEM MVDKS7229-88-74 10:46:001.4[facility] HermannCHEM PANEL 2019-02-23 10:46:000.20[facility] HermannSPECIAL ZTMUUGNWS0861-15-19 10:46:0015.0 [facility]annCHEM FEBGX7424-62-66 10:00:001.8[facility] HermannCHEM PANEL 2014-11-02 10:00:003.1[facility] BguhihrVCXXEDFMVJTR1536-43-39 10:00:0012.0 Memorial TqfkmukOQVIHCTJRSPO5346-07-81 10:00:0095[facility] HermannELECTROLYTES 2014-11-02 10:00:000.7[facility] VyloxvcECQEHHHGBXYB2206-40-69 10:00:97016Hkivsrph CywhasbTBSFQUFWPSLS9479-98-92 10:00:10103Ztitbaqe LbyveyhCQCFWMKXFTFV0217-25-73 10:00:0013[facility] WucvvvrVEGLUVZUYSNR5936-53-09 10:00:33106Jcqazcwi Reji VMWIALYGKXLU5870-10-32 10:00:0025[facility] GnuoanmVTIWWNUFFEHP8064-27-83 10:00:00 8.7[facility] XexnuivKATPFUTUUETK5871-37-55 10:00:004.0[facility] HermannHEMATOLOGY 2014-11-02 10:00:30168Twnzpmnj QkqdykmILQIHRNBQF9653-34-90 10:00:0012.0[facility] HpvralvVVSMFHIKDD4217-67-00 10:00:009.3[facility] IolisuzCMHVOWSBVT5795-17-82 10:00:00 Test Item Value Reference Range Interpretation Comments MCH (test code = MCH) 33.4 pg 27.0-31.0 [facility] KdmswfwZYSFUVJEIB4444-69-28 10:00:0097.2[facility] HermannHEMATOLOGY 2014-11-02 10:00:0034.4[facility] BorfiydVJWYMNUUTG9409-91-21 10:00:0013.0[facility] VycjxffVKTGSXXOBK7762-77-11 10:00:0037.7[facility] JsikkksHKTTTXNKKJ2821-04-28 10:00:003.88[facility] AlchlihNUVTRVYLSU3919-39-53 10:00:0011.6[facility] MPAGJABCHP0420-86-80 10:00:000.1[facility] TskcyqmDCAWARIUIU0153-65-02 10:00:000.2 [facility] AbwwtntDBIFCKMDPL0450-16-73 10:00:000.6[facility] HermannHEMATOLOGY 2014-11-02 10:00:000.9[facility] DsbtbvxASTEEUZPCY7151-73-94 10:00:002.5[facility] AjihxvgPQIIRDEFAM7045-78-20 10:00:008.0[facility] QvgklkpGCFYYBQDLC2260-77-84 10:00:0069.1[facility] YmfvetnKSFTVLRBIP9970-78-59 10:00:001.5[facility] OWANXTBARK4591-75-35 10:00:007.4[facility] DansettUBEZFORCSE4741-68-13 10:00:00 21.4[facility] HermannCARDIAC QCTTHZA8274-09-04 20:58:0039[facility] HermannCARDIAC DPCWJAV1885-50-97 20:58:000.497[facility] HermannCARDIAC ZMGEQXJ8626-36-94 20:58:002.75[facility] HermannCHEM GJZTZ7039-94-30 07:57:002.7[facility] HermannCHEM SZLPC0773-34-78 07:57:0081[facility] HermannCHEM MRDQH7375-97-10 07:57:81386 [facility]annCHEM WDCXE7910-33-89 07:57:000.8[facility] HermannCHEM PANEL 2014-11-01 07:57:004.2[facility] HermannCHEM JDWUP7318-16-65 07:57:87823Tsapowdp HermannCHEM MVBBD0972-91-47 07:57:0013[facility]annCHEM RBKYK5351-92-38 07:57:008.8[facility]annCHEM MLGDM3249-05-54 07:57:28140Krlnguqi HermannCHEM LWAKX1215-71-47 07:57:0026[facility]annCHEM MDKGT4491-72-88 07:57:0012.2 [facility]CHE[facility] ZFKYQ1798-01-32 07:57:001.6[facility]annHEMATOLOGY 2014-11-01 07:57:000.1[facility] JgxlxdfQAYCUKRSKN3030-10-41 07:57:000.1[facility] VajjgofIIDCXDCKIB8762-46-25 07:57:001.7[facility] KxpfjbgRMBCVARYRT1744-17-69 07:57:001.1[facility] CyssminHEGJCKWDKR5297-14-51 07:57:000.3[facility] OININHXJXW4400-47-81 07:57:0013.9[facility] TwqvdwcCBGNVCGKZM5807-97-73 07:57:00 6.3[facility] PnskvbbHMWGABWVMP9061-86-47 07:57:000.5[facility]annHEMATOLOGY 2014-11-01 07:57:0010.2[facility] FcvuoidPRFCYCSCLK7496-01-05 07:57:0082.7[facility] NwkekevXNHMPCRETW1163-50-18 07:57:0014.4[facility] MalcwrlRHKNYNXYJK3320-48-27 07:57:0042.1[facility] NouopwpOASCQCDHFR5631-61-72 07:57:0034.2[facility] TOGKPLHYJC0564-86-32 07:57:0096.8[facility] ZgupphiAEKYOHWFID2002-21-74 07:57:00 16.9[facility] RoivlpkIRHDWREYZM6084-13-58 07:57:00 Test Item Value Reference Range Interpretation Comments MCH (test code = MCH) 33.1 pg 27.0-31.0 [facility] JdclvkuOTXHXOSHPV7573-46-03 07:57:004.35[facility]annHEMATOLOGY 2014-11-01 07:57:009.1[facility] RloeqkxFKFLEZOTNK0051-16-17 07:57:62967Qkvbavjr PhugjvxGHTVNJTWTS4376-01-57 07:57:0012.4[facility] HermannPARATHYROID PROFILE 2014-11-01 07:57:001.04[facility]annPARATHYROID NIUIPUP3171-12-31 07:57:00 1.07[facility]annCARDIAC YMRFLFY4303-02-18 14:32:003.83[facility] CARDIAC UZDJSTZ7428-14-76 14:32:000.420[facility]annCARDIAC FMFGTJX6838-83-93 14:32:0068[facility]annCARDIAC DMYRHAE4064-75-59 07:46:0096[facility] CARDIAC PNEOJLB7016-63-60 07:46:004.78[facility]annCARDIAC JKVCWVR9959-28-48 07:46:003.7[facility]annCARDIAC BBXVIRS0866-01-80 07:46:003.9[facility] Reji CHEM TULFS2387-67-15 07:46:15401Gcyfclur HermannCHEM ULCLF2317-95-12 07:46:009.0 [facility]annCHE[facility] QAQYU0833-94-42 07:46:0028[facility]annCHEM PANEL 2014-10-31 07:46:91201Aproyufl HermannCHEM HDMLA0956-52-99 07:46:004.4[facility]annCHEM HDQKX1450-48-38 07:46:0011.4[facility]annCHEM DKLXG6288-59-79 07:46:0010[facility]annCHEM QRIWU1720-31-18 07:46:000.6[facility]annCHEM VYOBN2936-70-03 07:46:07472Kblxiuvy HermannCHEM VNPYK6121-37-83 07:46:56835 [facility]annCHE[facility] QLQNY7717-26-72 07:46:001.9[facility]annCHEM PANEL 2014-10-31 07:46:003.1[facility] DbubusfNWSRNNVJNF0051-52-28 07:46:00 Test Item Value Reference Range Interpretation Comments PTT (test code = PTT) 28.1 s 22.9-35.8 [facility] RsrtgeeQBMWSUVYUM8033-78-81 07:46:00 Test Item Value Reference Range Interpretation Comments PT (test code = PT) 12.9 s 12.0-14.7 [facility] KghyqxtFYZDLYKKQE7705-13-76 07:46:000.97[facility]annHEMATOLOGY 2014-10-31 07:46:93752Fsyqedmc AuvxydfEGRZEDPMKV1742-75-80 07:46:008.8[facility] AaombnzTEOMYVTVNN9134-73-89 07:46:0096.3[facility] RnysizrQUDNYBPHKE9381-15-52 07:46:0040.2[facility] PzyoxsvTEGNQLCEPM8114-53-55 07:46:0013.4[facility] SAXCASOAUJ5635-98-29 07:46:004.17[facility] JhuhaafQXGDHUNYHD8467-30-18 07:46:00 33.3[facility] EqdktpsOQEGPOQDZA0088-53-96 07:46:0012.1[facility]annHEMATOLOGY 2014-10-31 07:46:00 Test Item Value Reference Range Interpretation Comments MCH (test code = MCH) 32.1 pg 27.0-31.0 [facility] FthqloeIWLRXDUFZO7392-91-01 07:46:0011.8[facility]annHEMATOLOGY 2014-10-31 07:46:002.1[facility] YvjhrxiPPOZFUADSP2954-91-02 07:46:008.7[facility] JlorzzpAJADPNLAAA4222-98-17 07:46:001.0[facility] WbpqmzkVDMYOGGURC8423-46-78 07:46:001.0[facility] ZlhsesqZESXRFTUUE2642-91-29 07:46:005.6[facility] GGHYMSAWLZ3635-87-00 07:46:000.1[facility] BpnwdkgNKEJYNIZZE8518-42-89 07:46:000.1 [facility] RdjaldlUQRFKWVGAV2866-77-59 07:46:000.7[facility]annHEMATOLOGY 2014-10-31 07:46:0018.1[facility] AdpfjzjYSMYNEPDPH1856-25-89 07:46:0074.3[facility] HermannPARATHYROID [id number] 07:46:001.10[facility] HermannPARATHYROID RTHVXLE9566-01-12 07:46:001.12[facility]annCARDIAC [id number] 01:28:00 7.6[facility] HermannCARDIAC [id number] 01:28:008.0[facility]annCARDIAC [id number] 01:28:000.497[facility] HermannSPECIAL APZLGQCPS3952-70-98 01:28:0010.2[facility] HermannCARDIAC HZLAHCD5523-47-14 16:53:009.7[facility] HermannCARDIAC [id number] 16:53:009.3[facility] HermannDRUG SCREEN 2014-10-30 12:15:00See Note 13(10/30/14 6:15 AM)[facility]annDRUG SCREEN 2014-10-30 12:15:00Positive *ABN*(10/30/14 6:15 AM)[facility]annDRUG SCREEN 2014-10-30 12:15:00Negative *NA*(10/30/14 6:15 AM)[facility]annDRUG SCREEN 2014-10-30 12:15:00Negative *NA*(10/30/14 6:15 AM)[facility]annDRUG SCREEN 2014-10-30 12:15:00Negative *NA*(10/30/14 6:15 AM)[facility]annDRUG SCREEN 2014-10-30 12:15:00Negative *NA*(10/30/14 6:15 AM)[facility]annDRUG SCREEN 2014-10-30 12:15:00Negative *NA*(10/30/14 6:15 AM)[facility]annDRUG SCREEN 2014-10-30 12:15:00Negative *NA*(10/30/14 6:15 AM)[facility]annURINE AND [id number] 12:15:0016[facility]annURINE AND [id number] 12:15:0015 [facility]annUR[facility] AND [id number] 12:15:004[facility]annUR[facility] AND [id number] 12:15:00Negative *NA*(10/30/14 6:15 AM)[facility] AND [id number] 12:15:00Negative (10/30/14 6:15 AM)[facility] AND [id number] 12:15:002.0[facility]annUR[facility] AND [id number] 12:15:00 Positive *ABN*(10/30/14 6:15 AM)[facility] AND [id number] 12:15:00Small *ABN*(10/30/14 6:15 AM)[facility] AND [id number] 12:15:005.5[facility]annUR[facility] AND [id number] 12:15:00Orange *ABN*(10/30/14 6:15 AM)[facility] AND [id number] 12:15:001.032 [facility]UR[facility] AND [id number] 12:15:00Slight *ABN*(10/30/14 6:15 AM) [facility] HermannBLOOD BANK [id number] 11:17:00Negative (10/30/14 5:17 AM) [facility] PlffnihUUGOJQDLEI0964-25-24 11:17:00 Test Item Value Reference Range Interpretation Comments PTT (test code = PTT) 33.2 s 22.9-35.8 [facility] HermannBACTERIAL - [id number] 06:35:00Negative 19(10/30/14 12:35 AM)[facility] HermannCHEM [id number] 06:35:001.6[facility] HermannCHEM [id number] 06:35:001.0[facility] HermannCHEM [id number] 06:35:003.2 [facility] HermannCHEM [id number] 06:35:0010[facility] HermannCHEM PANEL 2014-10-30 06:35:96013Hwvzgmso HermannCHEM [id number] 06:35:0022[facility] HermannCHEM [id number] 06:35:003.3[facility] HermannCHEM KRBOV7710-27-71 06:35:000.3[facility] HermannCHEM [id number] 06:35:006.5[facility] HermannCHEM [id number] 06:35:0020[facility] NqbbhvfYTQACQIBUT5422-09-96 06:35:001.00 [facility] [id number] 06:35:00 Test Item Value Reference Range Interpretation Comments PTT (test code = PTT) 30.6 s 22.9-35.8 [facility] TtfwaddMNJBYCCDBY0699-60-89 06:35:00 Test Item Value Reference Range Interpretation Comments PT (test code = PT) 13.2 s 12.0-14.7 Memorial NrrylraQTCOLV7201-11-87 06:35:0057[facility] VkuuacsCHIZWL1435-28-16 06:35:50181Dvdyfzxt ZfympnoOGTEFS5288-92-11 06:35:005.49[facility] HermannLIPIDS 2014-10-30 06:35:25634Ykdbjlzz RcgtetuUWIQIV0592-12-08 06:35:0037[facility] SkymlcxHAQRJF6970-37-26 06:35:75066Xkdytnfu HermannPARATHYROID [id number] 06:35:001.05[facility] HermannPARATHYROID [id number] 06:35:001.05[facility] HermannSPECIAL AGBNHIUUI8705-90-08 06:35:009.5[facility] HermannTHYROID PANEL 2014-10-30 06:35:004.840[facility] HermannTHYROID [id number] 06:35:001.06 [facility] Reji
[2020-04-09] MEDS ORDERED: HYDROMORPHONE HCL 1 MG/ML INJ ONE ×2 (04:07→07:25)
[2020-04-09 04:54] LABS: Absolute Lymphocytes (CBC) 1.4 K/uL (0.7-4.9); Basophils % 0.7 % (0-1.3); Lymphocytes % 14.5 % (15.3-44.8); MPV 9.8 fL (7.6-11.3); RBC Red Blood Cell Count 4.26 M/uL (3.86-4.86)
[2020-04-09 04:55] LABS: ALT/SGPT 30 U/L (12-78); AST/SGOT 18 U/L (15-37); Albumin 3.3 g/dL (3.4-5.0); Alkaline Phosphatase 177 U/L (45-117); BUN Blood Urea Nitrogen 18 mg/dL (7-18); Bicarbonate 26 mmol/L (21-32); Bilirubin Direct < 0.1 mg/dL (0-0.2); Bilirubin Total 0.4 mg/dL (0.2-1.0); Glucose Level 365 mg/dL (74-106); Potassium 4.2 mmol/L (3.5-5.1); Sodium Level 135 mmol/L (136-145)
[2020-04-09 04:59] LABS: Protime INR 0.91
--- NOTE | 2020-04-09 05:11 | EDPHYS ---
Physician Documentation [facility] Name: Sara Stoner Age: 64 yrs Sex: Female : 1955 Arrival Date: 04/09/2020 Time: 03:47 Bed 4 Private MD: ED Physician Chevy Nolen HPI: 04/09 04:57 This 64 yrs old Female presents to ER via EMS with complaints of Fall Injury. mh7 04:57 Details of fall: The patient fell from seated position, out of a chair. Onset: The mh7 symptoms/episode began/occurred just prior to arrival, today. Associated injuries: The patient sustained left hip. 05:01 Severity of symptoms: At their worst the symptoms were moderate, just prior to arrival, mh7 earlier today, in the emergency department the symptoms have improved, moderately. Historical: - Allergies: 04:05 Morphine; rr5 - Home Meds: 04:05 Furosemide Oral [Active]; lisinopril Oral [Active]; carvedilol 12.5 mg Oral tab 1 tab rr5 every 12 hours [Active]; Zinc Sulfate Oral [Active]; citalopram oral [Active]; amlodipine oral [Active]; - PMHx: 04:05 Depression; Diabetes - IDDM; Hypertension; rr5 - PSHx: 04:05 Heart stents; triple heart bypass; rr5 - Immunization history:: Adult Immunizations up to date. - Social history:: Smoking status: Patient reports the use of cigarette tobacco products, smokes one-half pack cigarettes per day, Patient/guardian denies using alcohol, street drugs. - Immunization history: Last tetanus immunization: unknown. ROS: 05:01 Constitutional: Negative for fever, chills, and weight loss, Eyes: Negative for injury, mh7 pain, redness, and discharge, ENT: Negative for injury, pain, and discharge, Neck: Negative for injury, pain, and swelling, Cardiovascular: Negative for chest pain, palpitations, and edema, Respiratory: Negative for shortness of breath, cough, wheezing, and pleuritic chest pain, Abdomen/GI: Negative for abdominal pain, nausea, vomiting, diarrhea, and constipation, Back: Negative for injury and pain, : Negative for injury, bleeding, discharge, and swelling, Skin: Negative for injury, rash, and discoloration, Neuro: Negative for headache, weakness, numbness, tingling, and seizure, Psych: Negative for depression, anxiety, suicide ideation, homicidal ideation, and hallucinations, Allergy/Immunology: Negative for hives, rash, and allergies, Endocrine: Negative for neck swelling, polydipsia, polyuria, polyphagia, and marked weight changes, Hematologic/Lymphatic: Negative for swollen nodes, abnormal bleeding, and unusual bruising. Exam: 05:01 Constitutional: This is a well developed, well nourished patient who is awake, alert, mh7 and in no acute distress. Head/Face: Normocephalic, atraumatic. Eyes: Pupils equal round and reactive to light, extra-ocular motions intact. Lids and lashes normal. Conjunctiva and sclera are non-icteric and not injected. Cornea within normal limits. Periorbital areas with no swelling, redness, or edema. Neck: Trachea midline, no thyromegaly or masses palpated, and no cervical lymphadenopathy. Supple, full range of motion without nuchal rigidity, or vertebral point tenderness. No Meningismus. Chest/axilla: Normal chest wall appearance and motion. Nontender with no deformity. No lesions are appreciated. Cardiovascular: Regular rate and rhythm with a normal S1 and S2. No gallops, murmurs, or rubs. Normal PMI, no JVD. No pulse deficits. Respiratory: Lungs have equal breath sounds bilaterally, clear to auscultation and percussion. No rales, rhonchi or wheezes noted. No increased work of breathing, no retractions or nasal flaring. Abdomen/GI: Soft, non-tender, with normal bowel sounds. No distension or tympany. No guarding or rebound. No evidence of tenderness throughout. Back: No spinal tenderness. No costovertebral tenderness. Full range of motion. Skin: Warm, dry with normal turgor. Normal color with no rashes, no lesions, and no evidence of cellulitis. 05:01 Neuro: Awake and alert, GCS 15, oriented to person, place, time, and situation. Cranial nerves II-XII grossly intact. Motor strength 5/5 in all extremities. Sensory grossly intact. Cerebellar exam normal. Normal gait. Psych: Awake, alert, with orientation to person, place and time. Behavior, mood, and affect are within normal limits. 05:01 Musculoskeletal/extremity: Extremities: noted in the left hip: deformity, pain, swelling, tenderness, ROM: limited active range of motion, in the left hip, limited passive range of motion, in the left hip, Circulation is intact in all extremities. Pulses: are normal with no appreciated deficits, Perfusion: the patient is normally perfused throughout, Perfusion: the extremity is normally perfused throughout, Sensation intact. Compartment Syndrome exam of affected extremity: is normal. no numbness, no tingling, no sensation deficit, no palor, no weak pulses, Joints: the left hip displays deformity, limited range of motion, pain at rest, painful range of motion, swelling, tenderness, Weight bearing: is unable to bear weight. Vital Signs: 03:55 BP 179 / 114; Pulse 96; Resp 22; Temp 97.6; Pulse Ox 99% ; Weight 68.04 kg; Height 5 rr5 ft. 7 in. (170.18 cm); Pain 10/10; 05:00 BP 194 / 93; Pulse 100; Resp 20; Pulse Ox 100% ; rr5 05:38 BP 180 / 98; Pulse 100; Resp 15; Pulse Ox 100% ; rr5 06:14 BP 164 / 82; Pulse 95; Resp 15; Pulse Ox 99% on R/A; rr5 03:55 Body Mass Index 23.49 (68.04 kg, 170.18 cm) rr5 Ottawa Coma Score: 04:00 Eye Response: spontaneous(4). Verbal Response: oriented(5). Motor Response: obeys rr5 commands(6). Total: 15. 05:00 Eye Response: spontaneous(4). Verbal Response: oriented(5). Motor Response: obeys rr5 commands(6). Total: 15. 06:14 Eye Response: spontaneous(4). Verbal Response: oriented(5). Motor Response: obeys rr5 commands(6). Total: 15. Trauma Score (Adult): 04:00 Eye Response: spontaneous(1); Verbal Response: oriented(1); Motor Response: obeys rr5 commands(2); Systolic BP: > 89 mm Hg(4); Respiratory Rate: 10 to 29 per min(4); Chanda Score: 15; Trauma Score: 12 06:14 Eye Response: spontaneous(1); Verbal Response: oriented(1); Motor Response: obeys rr5 commands(2); Systolic BP: > 89 mm Hg(4); Respiratory Rate: 10 to 29 per min(4); Ottawa Score: 15; Trauma Score: 12 MDM: 03:55 Patient medically screened. [facility] 05:06 Differential diagnosis: contusion, fracture. Data reviewed: vital signs, nurses notes, [facility] EMS record, old medical records, lab test result(s), CBC, electrolytes, urinalysis, EKG, radiologic studies, plain films. Counseling: I had a detailed discussion with the patient and/or guardian regarding: the historical points, exam findings, and any diagnostic results supporting the discharge/admit diagnosis, the presence of at least one elevated blood pressure reading (>120/80) during this emergency department visit, lab results, radiology results, the need for further work-up and treatment in the hospital. Response to treatment: the patient's symptoms have markedly improved after treatment. Physician consultation: Maulik Bailon MD was contacted at 04:57, regarding consult, patient's condition, and will see patient in inpatient room. 05:06 Physician consultation: would like admission per Dr. Sky Dunne. [facility] 04/09 03:54 Order name: Basic Metabolic Panel; Complete Time: 04:57 [facility] 04/09 03:54 Order name: CBC with Diff; Complete Time: 04:57 [facility] 04/09 03:54 Order name: Type And Screen [facility] 04/09 03:54 Order name: Protime (+inr) [facility] 04/09 03:54 Order name: Ptt, Activated [facility] 04/09 03:54 Order name: LFT's; Complete Time: 04:57 [facility] 04/09 03:54 Order name: XRAY Pelvis [facility] 04/09 03:54 Order name: Femur Left XRAY [facility] 04/09 04:56 Order name: Chest Single View XRAY [facility] 04/09 05:25 Order name: Urine Dipstick--Ancillary (enter results) hi 04/09 05:25 Order name: Urine Microscopic Only [facility] 04/09 05:25 Order name: Urine Culture [facility] 04/09 03:54 Order name: Labs collected and sent; Complete Time: 04:15 [facility] 04/09 04:56 Order name: Urine Dipstick-Ancillary (obtain specimen); Complete Time: 05:26 [facility] 04/09 04:56 Order name: EKG - Nurse/Tech; Complete Time: 05:26 [facility] Administered Medications: 04:00 Drug: Dilaudid 1 mg {Note: rass 0.} Route: IVP; Site: right antecubital; rr5 05:10 Follow up: Response: No adverse reaction; RASS: Alert and Calm (0) rr5 07:21 Drug: Dilaudid 1 mg Route: IVP; Site: right antecubital; bp 07:26 Follow up: Response: Pain is decreased bp Disposition: 04/09/20 05:10 Hospitalization ordered by Sky Dunne for Inpatient Admission. Preliminary diagnosis is Left Hip Subtrochanteric/Intertrochanteric Fracture. - Bed requested for Telemetry/MedSurg (Inpatient). - Status is Inpatient Admission. bp - Condition is Stable. - Problem is new. - Symptoms are unchanged. Signatures: Dispatcher [employer] EDMA Joann Dunne RN RN Elijah Maldonado RN RN bp Roque, Raymond, RN RN 5 Chevy Nolen MD MD 7 Corrections: (The following items were deleted from the chart) 04:32 03:55 Hip Left 2 View+RAD.RAD.BRZ ordered. [facility] EDMA 06:07 05:10 Hospitalization Ordered by Sky Dunne for Inpatient Admission. Preliminary diagnosis is Left Hip Subtrochanteric/Intertrochanteric Fracture. Bed requested for Telemetry/MedSurg (Inpatient). Status is Inpatient Admission. Condition is Stable. Problem is new. Symptoms are unchanged. [facility] 07:58 06:07 04/09/2020 05:10 Hospitalization Ordered by Sky Dunne for Inpatient bp Admission. Preliminary diagnosis is Left Hip Subtrochanteric/Intertrochanteric Fracture. Bed requested for Telemetry/MedSurg (Inpatient). Status is Inpatient Admission. Condition is Stable. Problem is new. Symptoms are unchanged.
--- NOTE | 2020-04-09 05:11 | ER ---
Nurse's Notes [facility] Name: Sara Stoner Age: 64 yrs Sex: Female : 1955 Arrival Date: 04/09/2020 Time: 03:47 Bed 4 Private MD: Diagnosis: Left Hip Subtrochanteric/Intertrochanteric Fracture Presentation: 04/09 03:55 Chief complaint: EMS states: patient was sitting on a chair slipped and fell down hit rr5 her left butt and leg on the floor. positive deformity. 03:55 Method Of Arrival: EMS: [facility] rr5 03:55 Coronavirus screen: Proceed with normal triage. Ebola Screen: Patient negative for rr5 fever greater than or equal to 101.5 degrees Fahrenheit, and additional compatible Ebola Virus Disease symptoms Patient denies exposure to infectious person. Patient denies travel to an Ebola-affected area in the 21 days before illness onset. Initial Sepsis Screen: Does the patient meet any 2 criteria? No. Patient's initial sepsis screen is negative. Does the patient have a suspected source of infection? No. Patient's initial sepsis screen is negative. Risk Assessment: Do you want to hurt yourself or someone else? Patient reports no desire to harm self or others. Onset of symptoms was April 09, 2020. Mechanism of Injury: Fall out of chair. 03:55 Acuity: NABEEL 2 rr5 03:55 Trauma event details: Injury occurred in the [facility], Injury occurred: at rr5 home. Injury occurred: April 09, 2020. 03:55 Mechanism of Injury: Fall out of chair. rr5 03:55 Care prior to arrival: Placed on backboard. Medication(s) given: fentanyl 100mcg/IV IV rr5 initiated. 20 GA, in the right antecubital area. Trauma Activation: Not Applicable Physician: ED Physician; Name: dr. nolen; Notified At: 03:55; Arrived At: 03:55 Physician: General Surgeon; Name: ; Notified At: 03:55; Arrived At: Physician: Radiology; Name: luis antonio; Notified At: 03:55; Arrived At: 04:10 Physician: Respiratory; Name: ; Notified At: 03:55; Arrived At: Physician: Mandi; Name: ; Notified At: 03:55; Arrived At: Historical: - Allergies: 04:05 Morphine; rr5 - Home Meds: 04:05 Furosemide Oral [Active]; lisinopril Oral [Active]; carvedilol 12.5 mg Oral tab 1 tab rr5 every 12 hours [Active]; Zinc Sulfate Oral [Active]; citalopram oral [Active]; amlodipine oral [Active]; - PMHx: 04:05 Depression; Diabetes - IDDM; Hypertension; rr5 - PSHx: 04:05 Heart stents; triple heart bypass; rr5 - Immunization history:: Adult Immunizations up to date. - Social history:: Smoking status: Patient reports the use of cigarette tobacco products, smokes one-half pack cigarettes per day, Patient/guardian denies using alcohol, street drugs. - Immunization history: Last tetanus immunization: unknown. Screenin:06 Abuse screen: Denies threats or abuse. Denies injuries from another. Nutritional rr5 screening: No deficits noted. Tuberculosis screening: No symptoms or risk factors identified. Fall Risk Fall in past 12 months (25 points). IV access (20 points). Gait- Impaired (20 pts.). Total Vasquez Fall Scale indicates High Risk Score (45 or more points). Fall prevention measures have been instituted. Side Rails Up X 2 Frequent Obs/Assessments Occuring As available patient and family educated on Fall Prevention Program and Strategies. Primary Survey: 04:00 NO uncontrolled hemorrhage observed. A: The patient is alert. Airway: patent, No rr5 supplemental oxygen in use on arrival. Oral cavity: clear, gag reflex present, Trachea midline. Breathing/Chest: Respiratory pattern: regular, Respiratory effort: spontaneous, unlabored, Breath sounds: clear, bilaterally. Chest inspection: symmetrical rise and fall of the chest. Circulation: Pulses: palpable right radial artery, right dorsalis pedis artery, left radial artery and left dorsalis pedis artery. Disability Alert. Exposure/Environment: All clothing and personal items were removed. There is no evidence of uncontrolled external bleeding. Obvious injury(ies) are noted at this time: deformity left leg. 05:00 Reassessment Airway Airway Patent Breathing/Chest Respiratory pattern Regular rr5 Respiratory effort Spontaneous Unlabored Breath sounds Clear Chest inspection Symmetrical Circulation Pulses Palpable Disability Alert. Secondary Survey: 04:00 HEENT: No deficits noted. Gastrointestinal: No deficits noted. : No signs and/or rr5 symptoms were reported regarding the genitourinary system. Musculoskeletal: Capillary refill < 3 seconds, Bony deformity noted of lateral aspect of left thigh. 04:00 Injury Description: Deformity sustained to left leg is angulated. rr5 Assessment: 04:00 General: Appears in no apparent distress. uncomfortable, ill, Behavior is cooperative, rr5 appropriate for age, crying. Pain: Complains of pain in left hip Pain radiates to left leg Pain currently is 10 out of 10 on a pain scale. Quality of pain is described as aching, Pain began suddenly, Is intermittent. Neuro: Level of Consciousness is awake, alert, obeys commands, Oriented to person, place, time, situation, Denies LOC. Cardiovascular: Capillary refill < 3 seconds Patient's skin is warm and dry. Respiratory: Airway is patent Respiratory effort is even, unlabored, Respiratory pattern is regular, symmetrical. GI: No signs and/or symptoms were reported involving the gastrointestinal system. : No signs and/or symptoms were reported regarding the genitourinary system. EENT: No signs and/or symptoms were reported regarding the EENT system. Derm: Skin is intact, is healthy with good turgor, Skin temperature is warm Wound noted left foot Wound is open wound. Musculoskeletal: Capillary refill < 3 seconds, Bony deformity noted of lateral aspect of left thigh. 05:15 Reassessment: Patient appears in no apparent distress at this time. Patient is alert, rr5 oriented x 3, equal unlabored respirations, skin warm/dry/pink. reassess and explained to patient for admission, patient agreed for the plan of care. 05:39 Reassessment: hospitalist at bedside assessing the patient and explained for the rr5 admission. 06:15 Reassessment: Patient appears in no apparent distress at this time. Patient is alert, rr5 oriented x 3, equal unlabored respirations, skin warm/dry/pink. admitted in room 213, vitally stable, breathing spontaneously at room air. with IV cannula at right AC G20 intact., olivares catheter F16 connected to urine bag. 07:00 Reassessment: RECD REPORT FROM YAJAIRA CLIFTON. 64YO WF P/W LEFT HIP FX S/P FALL. ADMIT bp COMPLETE, REPORT DONE ON PREVIOUS SHIFT. TRANSFER TO FLOOR ON HOLD PENDING SHIFT CHANGE. Vital Signs: 03:55 BP 179 / 114; Pulse 96; Resp 22; Temp 97.6; Pulse Ox 99% ; Weight 68.04 kg; Height 5 rr5 ft. 7 in. (170.18 cm); Pain 10/10; 05:00 BP 194 / 93; Pulse 100; Resp 20; Pulse Ox 100% ; rr5 05:38 BP 180 / 98; Pulse 100; Resp 15; Pulse Ox 100% ; rr5 06:14 BP 164 / 82; Pulse 95; Resp 15; Pulse Ox 99% on R/A; rr5 03:55 Body Mass Index 23.49 (68.04 kg, 170.18 cm) rr5 Chanda Coma Score: 04:00 Eye Response: spontaneous(4). Verbal Response: oriented(5). Motor Response: obeys rr5 commands(6). Total: 15. 05:00 Eye Response: spontaneous(4). Verbal Response: oriented(5). Motor Response: obeys rr5 commands(6). Total: 15. 06:14 Eye Response: spontaneous(4). Verbal Response: oriented(5). Motor Response: obeys rr5 commands(6). Total: 15. Trauma Score (Adult): 04:00 Eye Response: spontaneous(1); Verbal Response: oriented(1); Motor Response: obeys rr5 commands(2); Systolic BP: > 89 mm Hg(4); Respiratory Rate: 10 to 29 per min(4); Chanda Score: 15; Trauma Score: 12 06:14 Eye Response: spontaneous(1); Verbal Response: oriented(1); Motor Response: obeys rr5 commands(2); Systolic BP: > 89 mm Hg(4); Respiratory Rate: 10 to 29 per min(4); Chanda Score: 15; Trauma Score: 12 ED Course: 03:47 Patient arrived in ED. ds1 03:47 Chevy Nolen MD is Attending Physician. mh7 03:55 Yajaira Kincaid RN is Primary Nurse. rr5 03:59 Triage completed. rr5 04:00 Patient has correct armband on for positive identification. Placed in gown. Bed in low rr5 position. Call light in reach. Side rails up X2. Pulse ox on. NIBP on. 04:00 Maintain EMS IV. Dressing intact. Good blood return noted. Site clean \T\ dry. Gauge \T\ rr 5 site: G20 right AC. 04:00 Patient maintains SpO2 saturation greater than 95% on room air. rr5 04:05 Arm band placed on left wrist. rr5 04:08 Thermoregulation: warm blanket given to patient. rr5 04:10 Initial lab(s) drawn, by ED staff, sent to lab. rr5 04:40 XRAY Pelvis In Process Unspecified. EDMS 04:41 Femur Left XRAY In Process Unspecified. EDMS 05:08 Type And Screen Sent. ds4 05:09 Sky Dunne is Hospitalizing Provider. mh7 05:11 Chest Single View XRAY In Process Unspecified. EDMS 05:25 EKG done, by ED staff, reviewed by Chevy Nolen MD. rr5 05:26 Urine collected: Olivares catheter specimen, cloudy, sediment noted. Olivares cath inserted, rr5 using sterile technique, 16 Fr., by mn, balloon inflated, urine specimen collected. 05:40 No provider procedures requiring assistance completed. Patient admitted, IV remains in rr5 place. intact, No redness/swelling at site. Administered Medications: 04:00 Drug: Dilaudid 1 mg {Note: rass 0.} Route: IVP; Site: right antecubital; rr5 05:10 Follow up: Response: No adverse reaction; RASS: Alert and Calm (0) rr5 07:21 Drug: Dilaudid 1 mg Route: IVP; Site: right antecubital; bp 07:26 Follow up: Response: Pain is decreased bp Intake: 06:14 PO: 0ml; Total: 0ml. rr5 Output: 06:14 Urine: 300ml (Olivares); Total: 300ml. rr5 Outcome: 05:10 Decision to Hospitalize by Provider. [facility] 06:13 Admitted to Med/surg accompanied by nurse, accompanied by tech, via stretcher, room rr5 213, with chart, Report called to no 06:13 Condition: stable 06:13 Instructed on the need for admit. 06:13 admitted room 213Patient's length of stay extended due to 07:58 Patient left the ED. bp Signatures: Dispatcher [employer] EDOH Sandovali ds1 Kalen Arias ds4 Elijah Maldonado RN RN bp Yajaira Kincaid RN RN rr5 Chevy Nolen MD MD 7 Corrections: (The following items were deleted from the chart) 04:30 03:55 Care prior to arrival: Placed on backboard. Medication(s) given: fentanyl 100 rr5 mcg/IV IV initiated. 20 GA, in the right antecubital area, rr5
[2020-04-09 05:47] LABS: Urine Culture Reflex Order NOT NEEDED
[2020-04-09 05:48] LABS: Urine Yeast MANY (NONE SEEN)
[2020-04-09 05:48] LABS: Urine Blood TRACE (NEG); Urine Glucose 2+ (NEG); Urine Protein 2+ (NEG); Urine Specific Gravity 1.025 (1.005-1.030)
[2020-04-09 05:49] LABS: Urine Bacteria <20 /HPF (<20); Urine RBC NONE SEEN /HPF (NONE SEEN); Urine Urothelial Cells <5 /HPF (NONE SEEN)
--- NOTE | 2020-04-09 05:50 | P.HP ---
Certification for Inpatient Patient admitted to: Inpatient With expected LOS: >2 Midnights Practitioner: I am a practitioner with admitting privileges, knowledge of patient current condition, hospital course, and medical plan of care. Services: Services provided to patient in accordance with Admission requirements found in Title 42 Section 412.3 of the Code of Federal Regulations Patient History Date of Service: 04/09/20 Reason for admission: Hip fracture History of Present Illness: 64-year-old woman with a history of diabetes mellitus was brought to the emergency department after a fall at home. Patient reports falling from the seated position. She was complaining of hip pain. X-rays done in the emergency department report left hip intertrochanteric fracture. Orthopedic surgeon was contacted who recommended admission to the hospitalist service for further management. Patient denies any dizziness or chest pain or shortness of breath preceding the fall. Allergies morphine Allergy (Mild, Verified 02/06/20 18:35) Rash hydromorphone [From Dilaudid] Adverse Reaction (Severe, Verified 02/06/20 18:35) Anaphylaxis Home Medications: Atorvastatin Calcium 20 mg PO DAILY 02/07/20 Citalopram Hydrobromide [Celexa] 20 mg PO DAILY 02/07/20 Insulin Lispro [Humalog Kwikpen U-200] 10 units SQ TID 02/07/20 Metformin HCl [Glucophage] 500 mg PO BIDWM 02/07/20 Cefdinir [Cefdinir*] 300 mg PO BID #20 cap 02/15/20 Doxycycline Hyclate 100 mg PO BID #20 tablet 02/15/20 Furosemide [Lasix*] 20 mg PO DAILY #30 tab 02/15/20 Medihoney [Medihoney Woundcare Gel*] 1 appl TOP DAILY #1 tube 02/15/20 Potassium Chloride [Klor-Con M20] 20 meq PO DAILY #30 tab.er.prt 02/15/20 lisinopriL [Prinivil*] 40 mg PO DAILY #60 tab 02/15/20 - Past Medical/Surgical History Diabetic: Yes -: HTN -: CAD -: CHF -: DEPRESSION -: CABG X2 -: HEART STENTS -: HYSTERECTOMY -: CHOLECYSTECTOMY - Social History Alcohol use: No CD- Drugs: No Caffeine use: Yes Review of Systems Other: Except as documented, all other systems reviewed and negative. Physical Examination - Physical Exam General: Alert, Mild distress (Due to pain) HEENT: Mucous membr. moist/pink Neck: Supple, JVD not distended Respiratory: Normal air movement Cardiovascular: Regular rate/rhythm, Edema (1+ bilateral lower extremity pitting edema) Capillary refill: <2 Seconds Gastrointestinal: Normal bowel sounds, Soft and benign, No tenderness Musculoskeletal: Tenderness (Left hip) Integumentary: Diabetic ulcer (Dorsum of left foot) Neurological: Normal speech, Normal strength at 5/5 x4 extr Urinary: Vasquez catheter - Studies Laboratory Data (last 24 hrs) 04/09/20 04:00: PT 10.8, INR 0.91, APTT 31.7 04/09/20 04:00: WBC 10.0, Hgb 13.3, Hct 40.0, Plt Count 272 04/09/20 04:00: Sodium 135 L, Potassium 4.2, BUN 18, Creatinine 0.74, Glucose 365 H, Total Bilirubin 0.4, AST 18, ALT 30, Alkaline Phosphatase 177 H Assessment and Plan - Problems (Diagnosis) (1) Fall Current Visit: Yes Status: Acute (2) Fracture, intertrochanteric, left femur Current Visit: Yes Status: Acute (3) Diabetes mellitus with hyperglycemia Onset Date: 02/17/16 Current Visit: No Status: Acute Qualifiers: Diabetes mellitus type: type 2 Diabetes mellitus fpc insulin use: with intermediate accountant use Qualified Code(s): E11.65 - Type 2 diabetes mellitus with hyperglycemia; Z79.4 - intermediate accountant (current) use of insulin (4) Hypertension Onset Date: 02/17/16 Current Visit: No Status: Acute Qualifiers: Hypertension type: essential hypertension Qualified Code(s): I10 - Essential (primary) hypertension (5) Diabetic ulcer of left foot Current Visit: No Status: Chronic - Plan Admit to the medical floor. Pain management with IV fentanyl p.r.n. Consult orthopedic surgery Blood glucose management with insulin sliding scale. Hold Metformin Monitor CBC and blood chemistry. No recent active cardiac disease. Noted elevated blood pressure. Will continue home antihypertensives and add hydralazine IV p.r.n. for BP spikes. - Advance Directives Does patient have a Living Will: No Does patient have a Durable POA for Healthcare: No - Code Status/Comfort Care Code Status: Full Code
[2020-04-09] MEDS ORDERED: ACETAMINOPHEN 500 MG TAB PO PRN (06:39)
[2020-04-09] MEDS ORDERED: ONDANSETRON 4 MG/2 ML VIAL IV PRN (06:39)
--- NOTE | 2020-04-09 07:41 | RAD REPORT ---
EXAM DESCRIPTION: Manju Single View04/09/2020 5:11 am CLINICAL HISTORY: Hypertension/chest pain COMPARISON: January 2020 FINDINGS: The lungs appear clear of acute infiltrate. The heart is mildly enlarged. Postsurgical changes involve the chest. IMPRESSION: No acute abnormalities displayed
[2020-04-09] MEDS: FENTANYL CITR 100 MCG/2 ML IV PRN ×3 (08:09→21:12)
[2020-04-09] MEDS: NA CHLORIDE 0.9% 1,000 ML IV SCH ×2 (08:11→15:22)
[2020-04-09] MEDS: INSULIN -REGULAR HUMAN 50 UNIT/0.5 ML ML SQ SCH ×4 (08:13→20:55)
[2020-04-09 08:18] VITALS: BMI 23.5
[2020-04-09] MEDS: HYDRALAZINE HCL 20 MG/ML VIAL IV PRN (10:00)
[2020-04-09] MEDS ORDERED: CEFAZOLIN/SWI 1gm 1 GM/10 ML SYR ONE (11:20)
[2020-04-09] MEDS ORDERED: propofoL 200 MG/20 ML VIAL IV ONE (11:35)
[2020-04-09] MEDS ORDERED: FENTANYL CITR 100 MCG/2 ML IV ONE (11:35)
--- NOTE | 2020-04-09 11:44 | EKG ---
Test Date: 2020-04-09 Test Time: 05:20:51 Time Motion Analyst: NATALIE MEASUREMENT RESULTS: Intervals: Rate: 100 SD: 204 QRSD: 92 QT: 382 QTc: 492 [place]: P: 81 SD: 204 QRS: -56 T: 138 INTERPRETIVE STATEMENTS: Sinus rhythm with occasional premature ventricular complexes Left axis deviation Left ventricular hypertrophy with repolarization abnormality Cannot rule out Septal infarct, age undetermined Abnormal ECG Compared to ECG 02/06/2020 16:58:02 Ventricular premature complex(es) now present Atrial premature complex(es) no longer present Myocardial infarct finding still present Electronically Signed On 04-09-20 11:43:05 CDT by Chris Barbosa
[2020-04-09] MEDS ORDERED: TRANEXAMIC ACID 1,000 MG in NA CHLORIDE 0.9% 50 ML IV ONE ×2 (11:45→13:00)
[2020-04-09] MEDS ORDERED: EPHEDRINE SULF 50 MG/ML VIAL IV ONE (12:16)
--- NOTE | 2020-04-09 13:54 | P.BOP ---
Preoperative diagnosis: left proximal femur fracture Postoperative diagnosis: same Primary procedure: left femur IM shereen fixation Estimated blood loss: 300 Anesthesia: General Complications: None Transferred to: Recovery Room Condition: Good
[2020-04-09] MEDS: MORPHINE 4 MG/ML SYR ONE ×2 (14:26→14:40)
--- NOTE | 2020-04-09 14:39 | RAD REPORT ---
EXAM DESCRIPTION: RAD - Femur Left - 04/09/2020 4:56 am CLINICAL HISTORY: Pain after trauma. COMPARISON: None TECHNIQUE: AP and lateral views of the left femur. FINDINGS: There is a longitudinally oriented fracture within the proximal left femur involving the s ubtrochanteric diaphysis and intertrochanteric region. There is medial displacement of the distal fra gment. No dislocation. Distal left femur is intact. IMPRESSION: 1. Acute left proximal femur subtrochanteric and intertrochanteric fracture with mild medial displa cement. Electronically signed by: Iveth Lebron DO 04/09/2020 4:47 AM CDT Due to temporary technical issues with the PACS/Fluency reporting system, reports are being signed by the in house radiologist without review as a courtesy to ensure prompt reporting. The interpreting r adiologist is fully responsible for the content of the report.
--- NOTE | 2020-04-09 14:54 | RAD REPORT ---
EXAM DESCRIPTION: RAD - Pelvis - 04/09/2020 4:57 am CLINICAL HISTORY: Pain after slip off of chair, fall. COMPARISON: None. TECHNIQUE: Single view pelvis. FINDINGS: There is a fracture involving the proximal left femur. Within the intertrochanteric and friend btrochanteric region. No hip dislocation. Proximal right femur is intact. No fracture lucency seen wi thin the bony pelvis although evaluation is limited due to rotation. Mild hypertrophic change along t he iliac crests. Unremarkable soft tissues. IMPRESSION: Left proximal femur subtrochanteric and intertrochanteric acute fracture. Electronically signed by: Iveth Lebron DO 04/09/2020 4:45 AM CDT Due to temporary technical issues with the PACS/Fluency reporting system, reports are being signed by the in house radiologist without review as a courtesy to ensure prompt reporting. The interpreting r adiologist is fully responsible for the content of the report.
--- NOTE | 2020-04-09 15:05 | RAD REPORT ---
EXAM DESCRIPTION: RAD - Hip In Or - 04/09/2020 2:59 pm FINDINGS: A total of 29 portable C-arm views were obtained during fluoroscopic assisted placement of fracture fixation hardware. Images show stepwise placement of bone alignment and hardware placement. No suspicious or unexpected findings. Fluoro time was 5.6 minutes
[2020-04-09] MEDS: CEFAZOLIN/SWI 1gm 1 GM/10 ML SYR IV SCH (16:48)
--- NOTE | 2020-04-09 19:22 | CON ---
Date of Consultation: 04/09/2020 History Of Present Illness: The patient says that I had seen her before, but I do not actually remem [place] her definitely, did not see her for this problem. She apparently fell yesterday injuring her lef t lower extremity. She was seen and examined in the emergency department. She was ruled out for oth er injuries, however, x-rays demonstrated that she has a comminuted severely displaced proximal femur fracture. Physical Examination: She does have an ulcer on her left lower extremity at her heel. However, does not have any signs of open injury. She appears to be neurovascular intact, although may suffer from some peripheral neurop athy. Otherwise, she has an obviously deformed left lower extremity. She denies any other injury. Diagnostic Data: Review of x-rays reveal a comminuted displaced proximal femur fracture. Assessment: A 64-year-old female with a comminuted displaced left proximal femur fracture. We discu ssed risks, benefits, and alternatives of treating this. At this time, we will treat this with a khurram sed and/or open reduction of the femur with intramedullary nailing. She says she understands things as presented and all of her questions were otherwise answered. /TANG Voice ID: [id number] Report ID: [id number]
--- NOTE | 2020-04-09 19:43 | OP ---
Date of Procedure: 04/09/2020 Surgeon: Maulik Bailon MD Preoperative Diagnosis: Left complex proximal femur fracture consistent with subtrochanteric fractur e with a large degree of displacement. Postoperative Diagnosis: Left complex proximal femur fracture consistent with subtrochanteric fractu re with a large degree of displacement. Procedure: Left closed reduction with assistance of open reduction with intramedullary shereen fixation using the AcuMed Affixus nail. Estimated Blood Loss: 300 cc. Complications: There were no complications. Specimens: No pathology specimen sent. Indications For Operation: Ms. Stoner is a 64-year-old female, unfortunately fell injuring left lo wer extremity. She was seen and examined in the emergency department where she was found to have a h ighly displaced proximal femur fracture. She is admitted and I saw her in consultation. All risks, benefits, and alternatives to operative intervention have been discussed with the patient including d ifferent methods of operating. She says she understands things as presented and wishes to proceed. Description Of Procedure: The patient was taken to the operating room and placed in supine position. General anesthesia was obtained by staff. Following this, she was then placed on the fracture tabl e. She was then appropriately positioned on the fracture table and the best reduction that we could obtain was performed it was followed by prepping and draping of her left lower extremity in normal st erile fashion. A standard incision was made just superior to the greater trochanter. The starting a wl was used as medial as was reasonable and we were able to place a guidepin through the fracture sit e. After this, the guide was then placed along the guide shereen until the tip of the guide encountered the greater trochanter. This was used for placement of what we think our cephalomedullary screws jareth l be. A vertical incision was made longitudinally in this area which allows for access to the femur itself. Following this, combination of internal external rotation as well as abduction as well as us e of a clamp, there was a near anatomic reduction. Following this, the supervisor coke handling was then used to ream down to the lesser trochanter. This was followed by sequential reaming to a size 12-1/2. This allowed for placement of the size 11, 130-degree intramedullary shereen. This was done after measuring. The guide pin was removed and 2 cephalomedullary screws were placed. The clamp remained in place as a standard distal interlocking screws and placed using a perfect [place]. Clamp was then removed it held the reduction very well. Following this, the wounds were irrigated and the fascia closed in a w atertight fashion using heavy Vicryl followed by closure of the of the skin with Vicryl followed by s taples. The patient was then taken off the fracture table, awakened, and taken to recovery room in g ood condition. There were no complications. SE/MODL Voice ID: [id number] Report ID: [id number]
[2020-04-10] MEDS: CEFAZOLIN/SWI 1gm 1 GM/10 ML SYR IV SCH ×2 (00:53→08:40)
[2020-04-10 04:20] LABS: Basophils % 0.2 % (0-1.3); Hematocrit 34.3 % (36.0-45.0); Lymphocytes % 8.1 % (15.3-44.8); RBC Red Blood Cell Count 3.68 M/uL (3.86-4.86)
[2020-04-10 04:22] LABS: Protime INR 1.05
[2020-04-10 04:34] LABS: Magnesium 1.7 mg/dL (1.8-2.4); Phosphorus 3.5 mg/dL (2.5-4.9); Potassium 4.5 mmol/L (3.5-5.1)
[2020-04-10] MEDS: FENTANYL CITR 100 MCG/2 ML IV PRN ×2 (04:40→08:38)
[2020-04-10] MEDS ORDERED: D50W 25 GM/50 ML SYRINGE/VIAL IV PRN (07:52)
[2020-04-10] MEDS ORDERED: GLUCAGON 1 MG/VIAL IM PRN (07:52)
--- NOTE | 2020-04-10 07:52 | P.PN ---
Subjective Date of Service: 04/10/20 Chief Complaint: Hip fracture Status post left femoral intramedullary medullary shereen fixation. Patient reports constipation. No other new complain. Physical Examination - Vital Signs Temperature: 98.1 F Blood Pressure: 117/71 Pulse: 108 Respirations: 18 Pulse Ox (%): 97 - Physical Exam General: Alert, In no apparent distress HEENT: Mucous membr. moist/pink Neck: Supple, JVD not distended Respiratory: Clear to auscultation bilaterally, Normal air movement Cardiovascular: Regular rate/rhythm, Normal S1 S2, Edema (Trace bilateral leg edema) Gastrointestinal: Normal bowel sounds, Soft and benign, Non-distended, No tenderness Integumentary: Diabetic ulcer (Dorsum of left foot.) Assessment And Plan - Current Problems (Diagnosis) (1) Fall Current Visit: Yes Status: Acute (2) Fracture, intertrochanteric, left femur Current Visit: Yes Status: Acute (3) Diabetes mellitus with hyperglycemia Onset Date: 02/17/16 Current Visit: No Status: Acute Qualifiers: Diabetes mellitus type: type 2 Diabetes mellitus 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 Blood glucose management with insulin sliding scale. Resume home dose Lantus insulin Continue to hold Metformin Continue home antihypertensives. Reduce amlodipine dose given borderline hypotension.
[2020-04-10] MEDS: carvediloL 6.25 MG TAB PO SCH (08:40)
[2020-04-10] MEDS: CITALOPRAM 10 MG TABLET PO SCH (08:40)
[2020-04-10] MEDS: DOCUSATE NA 100 MG CAP PO SCH ×2 (08:40→21:53)
[2020-04-10] MEDS: ATORVASTATIN 20 MG TAB PO SCH (08:40)
[2020-04-10] MEDS: INSULIN -REGULAR HUMAN 50 UNIT/0.5 ML ML SQ SCH ×4 (08:41→21:00)
[2020-04-10] MEDS: ENOXAPARIN 30 MG/0.3 ML SQ SCH ×2 (08:41→21:53)
[2020-04-10] MEDS: lisinopriL 20 MG TAB PO SCH (08:41)
[2020-04-10] MEDS: INSULIN GLARGINE 100 UNITS/ML SQ SCH ×2 (08:45→21:53)
[2020-04-10] MEDS: AMLODIPINE 5 MG TAB PO SCH (08:45)
[2020-04-10] MEDS ORDERED: MAGNESIUM SULFATE 1 gm IVPB 1 GM/100 ML BAG IV ONE (09:00)
[2020-04-10] MEDS ORDERED: AMLODIPINE 10 MG TAB PO SCH (09:00)
[2020-04-10] MEDS ORDERED: HOME MED 1 EA UNK (Citalopram Hydrobromide [Celexa] 20 MG) PO SCH (09:00)
[2020-04-10] MEDS: NA CHLORIDE 0.9% 1,000 ML IV SCH (11:41)
[2020-04-10] MEDS: HYDROCODONE/APAP 5/325 MG TAB PO PRN ×2 (12:16→21:54)
--- NOTE | 2020-04-10 21:26 | PN ---
Date of Progress Note: 04/10/2020 Patient is seen today. She appears to be sleeping comfortably. Her dressing is intact. Hemoglobin today is 11.3. We will at this time advise anticoagulation if not contraindicated. Otherwise, we wi ll await Physical Therapy. KASH Voice ID: [id number] Report ID: [id number]
[2020-04-11] MEDS: HYDROCODONE/APAP 5/325 MG TAB PO PRN ×4 (04:15→21:36)
[2020-04-11 04:20] LABS: BUN Blood Urea Nitrogen 34 mg/dL (7-18); Bicarbonate 25 mmol/L (21-32); Glucose Level 154 mg/dL (74-106); Magnesium 1.8 mg/dL (1.8-2.4); Potassium 4.1 mmol/L (3.5-5.1); Sodium Level 136 mmol/L (136-145)
[2020-04-11] MEDS ORDERED: MAGNESIUM SULFATE 1 gm IVPB 1 GM/100 ML BAG IV ONE (06:39)
[2020-04-11] MEDS: NA CHLORIDE 0.9% 1,000 ML IV SCH (07:19)
[2020-04-11] MEDS: INSULIN -REGULAR HUMAN 50 UNIT/0.5 ML ML SQ SCH ×4 (07:30→21:37)
--- NOTE | 2020-04-11 07:55 | P.PN ---
Subjective Date of Service: 04/11/20 Chief Complaint: Hip fracture Patient is complaining of pain in her left hip. Physical Examination - Vital Signs Temperature: 98.1 F Blood Pressure: 125/60 Pulse: 90 Respirations: 18 Pulse Ox (%): 97 - Physical Exam General: Alert, Oriented x3, Mild distress (Due to pain) HEENT: Mucous membr. moist/pink Respiratory: Clear to auscultation bilaterally, Normal air movement Cardiovascular: No edema, Regular rate/rhythm, Normal S1 S2 Gastrointestinal: Normal bowel sounds, Soft and benign, No tenderness Neurological: Normal speech, Normal strength at 5/5 x4 extr Assessment And Plan - Current Problems (Diagnosis) (1) Fall Current Visit: Yes Status: Acute (2) Fracture, intertrochanteric, left femur Current Visit: Yes Status: Acute (3) Diabetes mellitus with hyperglycemia Onset Date: 02/17/16 Current Visit: No Status: Acute Qualifiers: Diabetes mellitus type: type 2 Diabetes mellitus buttermaker insulin use: with mcc use Qualified Code(s): E11.65 - Type 2 diabetes mellitus with hyperglycemia; Z79.4 - jail (current) use of insulin (4) Hypertension Onset Date: 02/17/16 Current Visit: No Status: Acute Qualifiers: Hypertension type: essential hypertension Qualified Code(s): I10 - Essential (primary) hypertension (5) Diabetic ulcer of left foot Current Visit: No Status: Chronic - Plan Pain management as needed Full-dose Lovenox for DVT prophylaxis per ortho. Blood glucose management with insulin sliding scale. Continue home dose Lantus insulin Continue to hold Metformin Continue current antihypertensive regimen. PT and OT.
[2020-04-11] MEDS: AMLODIPINE 5 MG TAB PO SCH (08:38)
[2020-04-11] MEDS: ATORVASTATIN 20 MG TAB PO SCH (08:39)
[2020-04-11] MEDS: lisinopriL 20 MG TAB PO SCH (08:39)
[2020-04-11] MEDS: DOCUSATE NA 100 MG CAP PO SCH ×2 (08:39→21:36)
[2020-04-11] MEDS: CITALOPRAM 10 MG TABLET PO SCH (08:39)
[2020-04-11] MEDS: INSULIN GLARGINE 100 UNITS/ML SQ SCH ×2 (08:39→21:37)
[2020-04-11] MEDS: carvediloL 6.25 MG TAB PO SCH (08:39)
[2020-04-11] MEDS: ENOXAPARIN 30 MG/0.3 ML SQ SCH ×2 (08:40→21:36)
[2020-04-11] MEDS: MORPHINE 2 MG/ML SYR IV PRN (12:25)
[2020-04-12] MEDS: NA CHLORIDE 0.9% 1,000 ML IV SCH ×2 (03:42→14:39)
[2020-04-12] MEDS: FENTANYL CITR 100 MCG/2 ML IV PRN ×3 (03:42→22:16)
[2020-04-12] MEDS: HYDROCODONE/APAP 5/325 MG TAB PO PRN ×3 (05:04→17:19)
[2020-04-12 06:46] LABS: BUN Blood Urea Nitrogen 21 mg/dL (7-18); Bicarbonate 25 mmol/L (21-32); Glucose Level 137 mg/dL (74-106); Magnesium 1.8 mg/dL (1.8-2.4); Sodium Level 135 mmol/L (136-145)
--- NOTE | 2020-04-12 07:09 | P.PN ---
Subjective Date of Service: 04/12/20 Chief Complaint: Hip fracture Patient is complaining of pain in her left leg. She could not stand yesterday with physical therapy. Blood sugar readings within acceptable range. Physical Examination - Vital Signs Temperature: 97.3 F Blood Pressure: 160/77 Pulse: 85 Respirations: 18 Pulse Ox (%): 97 - Physical Exam General: Alert, In no apparent distress Neck: Supple, JVD not distended Respiratory: Clear to auscultation bilaterally, Normal air movement Cardiovascular: Regular rate/rhythm, Normal S1 S2, Edema (Bilateral lower extremities) Gastrointestinal: Normal bowel sounds, Soft and benign, No tenderness Integumentary: Diabetic ulcer (Dorsum of left foot) Neurological: Other (Nonfocal) - Studies Microbiology Data (last 24 hrs): 04/09/20 05:25 Catheterized Urine [place] Count - Final >100,000 CFU/ML. 04/09/20 05:25 Catheterized Urine - Final Assessment And Plan - Current Problems (Diagnosis) (1) Fall Current Visit: Yes Status: Acute (2) Fracture, intertrochanteric, left femur Current Visit: Yes Status: Acute (3) Diabetes mellitus with hyperglycemia Onset Date: 02/17/16 Current Visit: No Status: Acute Qualifiers: Diabetes mellitus type: type 2 Diabetes mellitus terminal operations manager insulin use: with prison use Qualified Code(s): E11.65 - Type 2 diabetes mellitus with hyperglycemia; Z79.4 - terminal gauger supervisor (current) use of insulin (4) Hypertension Onset Date: 02/17/16 Current Visit: No Status: Acute Qualifiers: Hypertension type: essential hypertension Qualified Code(s): I10 - Essential (primary) hypertension (5) Diabetic ulcer of left foot Current Visit: No Status: Chronic - Plan Pain management as needed Full-dose Lovenox for DVT prophylaxis per ortho. Continue to hold Metformin Continue current antihypertensive regimen. PT and OT. Disposition to skilled rehab once okay for D/C by ortho
[2020-04-12] MEDS: INSULIN -REGULAR HUMAN 50 UNIT/0.5 ML ML SQ SCH ×4 (07:30→22:11)
[2020-04-12] MEDS ORDERED: MAGNESIUM SULFATE 1 gm IVPB 1 GM/100 ML BAG IV ONE (08:00)
[2020-04-12] MEDS: CITALOPRAM 10 MG TABLET PO SCH (09:11)
[2020-04-12] MEDS: INSULIN GLARGINE 100 UNITS/ML SQ SCH ×2 (09:12→22:12)
[2020-04-12] MEDS: ENOXAPARIN 30 MG/0.3 ML SQ SCH ×2 (09:12→22:11)
[2020-04-12] MEDS: lisinopriL 20 MG TAB PO SCH (09:12)
[2020-04-12] MEDS: ATORVASTATIN 20 MG TAB PO SCH (09:12)
[2020-04-12] MEDS: DOCUSATE NA 100 MG CAP PO SCH ×2 (09:12→22:12)
[2020-04-12] MEDS: AMLODIPINE 5 MG TAB PO SCH (09:12)
[2020-04-12] MEDS: carvediloL 6.25 MG TAB PO SCH (09:13)
[2020-04-12] MEDS ORDERED: VANCOMYCIN 1 GM in NA CHLORIDE 0.9% 250 ML IVPB ONE (10:00)
[2020-04-12 11:15] LABS: Absolute Lymphocytes (CBC) 1.8 K/uL (0.7-4.9); Basophils % 0.5 % (0-1.3); Hematocrit 29.3 % (36.0-45.0); Lymphocytes % 17.1 % (15.3-44.8); MPV 9.4 fL (7.6-11.3); RBC Red Blood Cell Count 3.11 M/uL (3.86-4.86)
--- NOTE | 2020-04-12 11:15 | P.CNS ---
Date of Consult: 04/12/20 Subjective: Patient a 64-year-old female was brought to the ED after a fall at home. Patient reports getting up from kitchen table and tripping over the chair. Patient found to have left hip fracture. Patient was seen a few months ago for wound on the right hand and left foot. At that time wound on right hand was positive for MRSA. Patient was treated with antibiotics. This admission patients wound to left foot positive for MRSA which I have been consulted for. Patient examined at bedside. Past medical/surgical history: Hypertension, CAD, CHF, and depression, CABG x2, heart stents, hysterectomy, cholecystectomy Social History: Allergies: NKDA Active Medications Acetaminophen (Tylenol -Extra Strength) 500 mg PO Q4HP PRN PRN Reason: TEMP > 100' F Stop: 05/09/20 06:40 Hydrocodone Bitart/Acetaminophen ([place] 5/325) 1 tab PO Q4H PRN PRN Reason: Pain scale 5-7 (Moderate) Stop: 05/10/20 11:55 Last Admin: 04/12/20 09:11 Dose: 1 tab Documented by: Amlodipine Besylate (Norvasc) 5 mg PO DAILY [facility] Stop: 05/10/20 09:01 Last Admin: 04/12/20 09:12 Dose: 5 mg Documented by: Atorvastatin Calcium (Lipitor) 20 mg PO DAILY [facility] Stop: 05/10/20 09:01 Last Admin: 04/12/20 09:12 Dose: 20 mg Documented by: Carvedilol (Coreg) 6.25 mg PO DAILY DONNA Stop: 05/10/20 09:01 Last Admin: 04/12/20 09:13 Dose: 6.25 mg Documented by: Citalopram Hydrobromide (Celexa) 20 mg PO DAILY [facility] Stop: 05/10/20 09:01 Last Admin: 04/12/20 09:11 Dose: 20 mg Documented by: Dextrose (Dextrose 50% Syringe/Vial) 12.5 gm IV PRN PRN; Protocol PRN Reason: HYPOGLYCEMIA Stop: 05/10/20 07:53 Docusate Sodium (Colace Cap) 100 mg PO BID [facility] Stop: 05/10/20 09:01 Last Admin: 04/12/20 09:12 Dose: 100 mg Documented by: Enoxaparin Sodium (Lovenox 30 Mg Inj) 30 mg SQ Q12HR [facility] Stop: 05/10/20 09:01 Last Admin: 04/12/20 09:12 Dose: 30 mg Documented by: Fentanyl Citrate (Sublimaze) 25 mcg IV Q4H PRN PRN Reason: Pain scale 8-10 (Severe) Stop: 05/09/20 06:40 Last Admin: 04/12/20 10:44 Dose: 25 mcg Documented by: Glucagon (Glucagen) 1 mg IM 1X PRN; Protocol PRN Reason: HYPOGLYCEMIA Stop: 05/10/20 07:53 Hydralazine HCl (Apresoline) 10 mg IV Q6HP PRN PRN Reason: Titrate to SBP (MUST DEFINE) Stop: 05/09/20 06:40 Last Admin: 04/09/20 10:00 Dose: 10 mg Documented by: Sodium Chloride (Ns 1000 Ml Ivbag) 1,000 mls @ 50 mls/hr IV .Q20H [facility] Stop: 05/09/20 06:40 Last Admin: 04/12/20 03:42 Dose: 1,000 mls Documented by: Vancomycin HCl 1 gm/ Sodium (Chloride) 250 mls @ 150 mls/hr IVPB ONCE ONE; Protocol Stop: 04/12/20 11:39 Last Admin: 04/12/20 10:45 Dose: 250 mls Documented by: Vancomycin HCl 1.25 gm/ Sodium (Chloride) 250 mls @ 150 mls/hr IVPB Q12H [facility] Stop: 05/12/20 22:01 Insulin Glargine (Lantus) 20 units SQ BID [facility] Stop: 05/10/20 09:01 Last Admin: 04/12/20 09:12 Dose: 20 units Documented by: Insulin Human Regular (Novolin -R) 0 unit SQ ACHS [facility]; Protocol Stop: 05/09/20 07:31 Last Admin: 04/12/20 07:30 Dose: Not Given Documented by: Lisinopril (Prinivil) 40 mg PO DAILY [facility] Stop: 05/10/20 09:01 Last Admin: 04/12/20 09:12 Dose: 40 mg Documented by: Morphine Sulfate (Morphine Sulfate) 2 mg IV 1X PRN PRN Reason: Pain scale 8-10 (Severe) Stop: 05/11/20 12:03 Last Admin: 04/11/20 12:25 Dose: 2 mg Documented by: Ondansetron HCl (Zofran) 4 mg IV Q6HP PRN PRN Reason: NAUSEA / VOMITING Stop: 05/09/20 06:40 Sodium Chloride (Normal Saline Flush) 10 ml IV BID DONNA Stop: 05/09/20 09:01 Last Admin: 04/12/20 09:00 Dose: Not Given Documented by: ROS: CV: Denies chest pain RESP: denies shortness of breath, cough : Denies dysuria GI: Denies nausea, diarrhea Pain: Reports pain to left hip Objective: Temp Pulse Resp BP Pulse Ox 97.5 F 86 18 175/89 H 98 04/12/20 08:00 04/12/20 09:13 04/12/20 10:44 04/12/20 09:13 04/12/20 10:44 Labs: NA 135, K 4.0, BUN 21, Creat 0.45, WBC 12.4, Hgb 11.3, Hct 34.3 Xray Femur 04/09: EXAM DESCRIPTION: RAD - Femur Left - 04/09/2020 4:56 am CLINICAL HISTORY: Pain after trauma. COMPARISON: None TECHNIQUE: AP and lateral views of the left femur. FINDINGS: There is a longitudinally oriented fracture within the proximal left femur involving the subtrochanteric diaphysis and intertrochanteric region. There is medial displacement of the distal fragment. No dislocation. Distal left femur is intact. IMPRESSION: 1. Acute left proximal femur subtrochanteric and intertrochanteric fracture with mild medial displacement. Electronically signed by: Iveth Lebron DO 04/09/2020 4:47 AM CDT ROS: General: Awake, alert, in no acute distress CV: S1, S2 RESP: good breath sounds ABD: round, nontender, bowel sounds present Extremities: week pedal pulses Skin:Left hip with surgical dressing CDI, kelli area with mild edema. Left foot dorsal surface with wound, wound bed with granulation tissue and slough, kelli area with erythema Assessment and plan: Left hip surgical wound, s/p left hip surgery Left foot wound most likely from PVD, recommend [facility] Leukocytosis Wound culture positive for MRSA, sensitive to Vancomycin Urine culture positive for yeast, will start on Diflucan Protein calorie malnourished, albumin 3.3 Diabetes Mellitus, A1C pending Educated the patient to keep leg elevated Will continue to monitor Thank you for consult Patient examined and discussed with Dr. Owens
[2020-04-12] MEDS: MEDIHONEY 44 ML TOPICAL TUBE TOP SCH (11:34)
[2020-04-12] MEDS: HYDRALAZINE HCL 20 MG/ML VIAL IV PRN (17:21)
[2020-04-12] MEDS: VANCOMYCIN 1.25 GM in NA CHLORIDE 0.9% 250 ML IVPB SCH (22:11)
[2020-04-13] MEDS: HYDROCODONE/APAP 5/325 MG TAB PO PRN ×4 (02:37→21:11)
[2020-04-13] MEDS: FENTANYL CITR 100 MCG/2 ML IV PRN (05:44)
[2020-04-13] MEDS: NA CHLORIDE 0.9% 1,000 ML IV SCH ×2 (05:48→10:39)
[2020-04-13 06:33] LABS: BUN Blood Urea Nitrogen 16 mg/dL (7-18); Bicarbonate 29 mmol/L (21-32); Glucose Level 175 mg/dL (74-106); Magnesium 1.8 mg/dL (1.8-2.4); Potassium 4.6 mmol/L (3.5-5.1); Sodium Level 137 mmol/L (136-145)
--- NOTE | 2020-04-13 07:19 | P.PN ---
Subjective Date of Service: 04/13/20 Chief Complaint: Hip fracture Patient states her leg pain is better. She has not been able to get out of bed. Physical Examination - Vital Signs Temperature: 97.4 F Blood Pressure: 174/70 Pulse: 84 Respirations: 16 Pulse Ox (%): 99 - Physical Exam General: Alert, In no apparent distress Respiratory: Clear to auscultation bilaterally, Normal air movement Cardiovascular: Regular rate/rhythm, Normal S1 S2, Edema (Trace bilateral lower extremity edema) Gastrointestinal: Normal bowel sounds, Soft and benign, No tenderness Integumentary: Diabetic ulcer (Dorsum of left foot) Neurological: Other (Non-focal) Assessment And Plan - Current Problems (Diagnosis) (1) Fall Current Visit: Yes Status: Acute (2) Fracture, intertrochanteric, left femur Current Visit: Yes Status: Acute (3) Diabetes mellitus with hyperglycemia Onset Date: 02/17/16 Current Visit: No Status: Acute Qualifiers: Diabetes mellitus type: type 2 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 Full-dose Lovenox for DVT prophylaxis per ortho. Continue to hold Metformin Continue current antihypertensive regimen. Start MiraLax and senna. Wound care. Infectious disease input appreciated. Patient started on Diflucan for UTI. PT and OT. Disposition to skilled rehab once okay for D/C by ortho
[2020-04-13] MEDS: DOCUSATE NA 100 MG CAP PO SCH ×2 (08:07→21:11)
[2020-04-13] MEDS: carvediloL 6.25 MG TAB PO SCH (08:07)
[2020-04-13] MEDS: FLUCONAZOLE 100 MG TAB PO SCH (08:07)
[2020-04-13] MEDS: CITALOPRAM 10 MG TABLET PO SCH (08:07)
[2020-04-13] MEDS: INSULIN GLARGINE 100 UNITS/ML SQ SCH ×2 (08:07→21:10)
[2020-04-13] MEDS: INSULIN -REGULAR HUMAN 50 UNIT/0.5 ML ML SQ SCH ×4 (08:07→21:10)
[2020-04-13] MEDS: AMLODIPINE 5 MG TAB PO SCH (08:08)
[2020-04-13] MEDS: ENOXAPARIN 30 MG/0.3 ML SQ SCH ×2 (08:08→21:11)
[2020-04-13] MEDS: ATORVASTATIN 20 MG TAB PO SCH (08:08)
[2020-04-13] MEDS: lisinopriL 20 MG TAB PO SCH (08:08)
[2020-04-13] MEDS ORDERED: MAGNESIUM SULFATE 1 gm IVPB 1 GM/100 ML BAG IV ONE (09:00)
[2020-04-13] MEDS ORDERED: POLYETHYL GLY 3350 17 GM/DOSE PO PRN (09:00)
[2020-04-13] MEDS: VANCOMYCIN 1.25 GM in NA CHLORIDE 0.9% 250 ML IVPB SCH ×2 (09:36→21:55)
[2020-04-14] MEDS: HYDROCODONE/APAP 5/325 MG TAB PO PRN ×3 (01:04→15:54)
[2020-04-14] MEDS: MORPHINE 2 MG/ML SYR IV PRN ×3 (04:51→20:24)
[2020-04-14] MEDS: HYDRALAZINE HCL 20 MG/ML VIAL IV PRN (04:52)
[2020-04-14] MEDS: NA CHLORIDE 0.9% 1,000 ML IV SCH ×2 (04:52→06:39)
[2020-04-14 06:06] LABS: BUN Blood Urea Nitrogen 14 mg/dL (7-18); Bicarbonate 29 mmol/L (21-32); Glucose Level 137 mg/dL (74-106); Magnesium 1.8 mg/dL (1.8-2.4); Phosphorus 2.4 mg/dL (2.5-4.9); Potassium 3.9 mmol/L (3.5-5.1); Sodium Level 136 mmol/L (136-145)
[2020-04-14] MEDS: INSULIN -REGULAR HUMAN 50 UNIT/0.5 ML ML SQ SCH ×4 (07:30→20:38)
--- NOTE | 2020-04-14 07:36 | P.PN ---
Subjective Date of Service: 04/14/20 Chief Complaint: Hip fracture Patient states her leg pain is better. Functional performance status is improving with physical therapy. Physical Examination - Vital Signs Temperature: 97.0 F Blood Pressure: 134/66 Pulse: 82 Respirations: 16 Pulse Ox (%): 97 - Physical Exam General: Alert, In no apparent distress Respiratory: Clear to auscultation bilaterally, Normal air movement Cardiovascular: Regular rate/rhythm, Normal S1 S2, Edema (Bilateral lower extremity edema has improved) Gastrointestinal: Normal bowel sounds, Soft and benign, No tenderness Musculoskeletal: Swelling (Left thigh) Integumentary: Diabetic ulcer Assessment And Plan - Current Problems (Diagnosis) (1) Fall Current Visit: Yes Status: Acute (2) Fracture, intertrochanteric, left femur Current Visit: Yes Status: Acute (3) Diabetes mellitus with hyperglycemia Onset Date: 02/17/16 Current Visit: No Status: Acute Qualifiers: Diabetes mellitus type: type 2 Diabetes mellitus mcfp insulin use: with mcfp use Qualified Code(s): E11.65 - Type 2 diabetes mellitus with hyperglycemia; Z79.4 - terminal carman (current) use of insulin (4) Hypertension Onset Date: 02/17/16 Current Visit: No Status: Acute Qualifiers: Hypertension type: essential hypertension Qualified Code(s): I10 - Essential (primary) hypertension (5) Diabetic ulcer of left foot Current Visit: No Status: Chronic (6) Functional constipation Current Visit: Yes Status: Acute (7) UTI (urinary tract infection) Current Visit: Yes Status: Acute - Plan Pain management as needed. Full-dose Lovenox for DVT prophylaxis per ortho. Continue current antihypertensive regimen. MiraLax and senna. Discontinue IV fluid Wound care. Infectious disease input appreciated. Patient started on Diflucan for UTI. PT and OT. Disposition to skilled rehab once okay for D/C by ortho
[2020-04-14] MEDS ORDERED: DOCUSATE NA/SENNA CONC 1 TAB PO PRN (07:38)
[2020-04-14] MEDS ORDERED: MAGNESIUM SULFATE 1 gm IVPB 1 GM/100 ML BAG IV ONE (09:00)
[2020-04-14] MEDS ORDERED: POTASSIUM CL SA 10 MEQ TAB PO ONE (09:00)
[2020-04-14] MEDS: INSULIN GLARGINE 100 UNITS/ML SQ SCH ×2 (09:13→20:39)
[2020-04-14] MEDS: carvediloL 6.25 MG TAB PO SCH (09:15)
[2020-04-14] MEDS: CITALOPRAM 10 MG TABLET PO SCH (09:15)
[2020-04-14] MEDS: AMLODIPINE 5 MG TAB PO SCH (09:15)
[2020-04-14] MEDS: FLUCONAZOLE 100 MG TAB PO SCH (09:15)
[2020-04-14] MEDS: lisinopriL 20 MG TAB PO SCH (09:15)
[2020-04-14] MEDS: POTASS/SODIUM PHOSPHATE 1 PKT POWD.PACK PO SCH ×3 (09:16→11:24)
[2020-04-14] MEDS: ATORVASTATIN 20 MG TAB PO SCH (09:16)
[2020-04-14] MEDS: ENOXAPARIN 30 MG/0.3 ML SQ SCH ×2 (09:16→20:26)
[2020-04-14] MEDS: VANCOMYCIN 1.25 GM in NA CHLORIDE 0.9% 250 ML IVPB SCH ×2 (10:47→22:20)
[2020-04-15] MEDS: MORPHINE 2 MG/ML SYR IV PRN ×2 (01:56→06:27)
[2020-04-15] MEDS: HYDRALAZINE HCL 20 MG/ML VIAL IV PRN (02:00)
[2020-04-15] MEDS: HYDROCODONE/APAP 5/325 MG TAB PO PRN ×5 (03:28→21:46)
[2020-04-15 04:51] LABS: BUN Blood Urea Nitrogen 16 mg/dL (7-18); Bicarbonate 32 mmol/L (21-32); Glucose Level 238 mg/dL (74-106); Magnesium 1.6 mg/dL (1.8-2.4); Phosphorus 2.4 mg/dL (2.5-4.9); Potassium 4.1 mmol/L (3.5-5.1); Sodium Level 135 mmol/L (136-145)
[2020-04-15] MEDS ORDERED: POTASS/SODIUM PHOSPHATE 1 PKT POWD.PACK PO SCH (06:00)
[2020-04-15] MEDS ORDERED: MAGNESIUM SULFATE 1 gm IVPB 1 GM/100 ML BAG IV ONE (06:00)
[2020-04-15] MEDS: POTASS/SODIUM PHOSPHATE 1 PKT POWD.PACK PO SCH ×3 (06:26→10:45)
--- NOTE | 2020-04-15 06:48 | P.PN ---
Subjective Date of Service: 04/15/20 Chief Complaint: Hip fracture Patient states her leg pain is better. Functional performance status is improving with physical therapy. Patient states she took a couple of steps with physical therapy yesterday. Physical Examination - Vital Signs Temperature: 98.4 F Blood Pressure: 143/74 Pulse: 81 Respirations: 20 Pulse Ox (%): 98 - Physical Exam General: Alert, In no apparent distress Respiratory: Clear to auscultation bilaterally, Normal air movement Cardiovascular: Normal pulses, Regular rate/rhythm, Normal S1 S2, Edema (1+ bilateral lower extremity pitting edema) Gastrointestinal: Normal bowel sounds, Soft and benign, No tenderness Musculoskeletal: No swelling, No erythema Neurological: Other (Nonfocal) Assessment And Plan - Current Problems (Diagnosis) (1) Fall Current Visit: Yes Status: Acute (2) Fracture, intertrochanteric, left femur Current Visit: Yes Status: Acute (3) Diabetes mellitus with hyperglycemia Onset Date: 02/17/16 Current Visit: No Status: Acute Qualifiers: Diabetes mellitus type: type 2 Diabetes mellitus long-term insulin use: with long-term use Qualified Code(s): E11.65 - Type 2 diabetes mellitus with hyperglycemia; 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 Full-dose Lovenox for DVT prophylaxis per ortho. Continue current antihypertensive regimen. MiraLax and senna. Wound care. Infectious disease input appreciated. Patient started on Diflucan for UTI. She is also on vancomycin for MRSA positive wound. Would recommend replacing vancomycin with Bactrim on discharge. PT and OT. Disposition to skilled rehab once okay for D/C by ortho
[2020-04-15] MEDS: CITALOPRAM 10 MG TABLET PO SCH (08:25)
[2020-04-15] MEDS: ATORVASTATIN 20 MG TAB PO SCH (08:26)
[2020-04-15] MEDS: AMLODIPINE 5 MG TAB PO SCH (08:26)
[2020-04-15] MEDS: lisinopriL 20 MG TAB PO SCH (08:26)
[2020-04-15] MEDS: FLUCONAZOLE 100 MG TAB PO SCH (08:26)
[2020-04-15] MEDS: ENOXAPARIN 30 MG/0.3 ML SQ SCH ×2 (08:27→20:10)
[2020-04-15] MEDS: INSULIN -REGULAR HUMAN 50 UNIT/0.5 ML ML SQ SCH ×4 (08:27→20:10)
[2020-04-15] MEDS: INSULIN GLARGINE 100 UNITS/ML SQ SCH ×2 (08:28→20:10)
[2020-04-15] MEDS: carvediloL 6.25 MG TAB PO SCH (08:29)
[2020-04-15] MEDS: VANCOMYCIN 1.25 GM in NA CHLORIDE 0.9% 250 ML IVPB SCH ×2 (10:45→21:32)
[2020-04-15] MEDS ORDERED: HYDROCODONE/APAP 5/325 MG TAB PO ONE (13:53)
--- NOTE | 2020-04-15 14:06 | P.PN ---
Date of Service: 04/15/20 Subjective: Patient a 64-year-old female was brought to the ED after a fall at home. Patient reports getting up from kitchen table and tripping over the chair. Patient found to have left hip fracture. Patient was seen a few months ago for wound on the right hand and left foot. At that time wound on right hand was positive for MRSA. Patient was treated with antibiotics. This admission patients wound to left foot positive for MRSA which I have been consulted for. Patient examined at bedside. Patient reports 10 pain to left hip s/p surgery. Patient with wound on left foot, culture positive for multiple organisms. Patient denies nausea, diarrhea, fevers and shortness of breath. Objective: Temp Pulse Resp BP Pulse Ox 97 F 72 19 142/71 H 94 04/15/20 12:00 04/15/20 12:00 04/15/20 14:00 04/15/20 12:00 04/15/20 14:00 Labs: NA 135, K 4.1, BUN 21, Creat 0.45. No new CBC ordered Xray Femur 04/09: EXAM DESCRIPTION: RAD - Femur Left - 04/09/2020 4:56 am CLINICAL HISTORY: Pain after trauma. COMPARISON: None TECHNIQUE: AP and lateral views of the left femur. FINDINGS: There is a longitudinally oriented fracture within the proximal left femur involving the subtrochanteric diaphysis and intertrochanteric region. There is medial displacement of the distal fragment. No dislocation. Distal left femur is intact. IMPRESSION: 1. Acute left proximal femur subtrochanteric and intertrochanteric fracture with mild medial displacement. Electronically signed by: Iveth Lebron DO 04/09/2020 4:47 AM CDT ROS: General: Lethargic CV: S1, S2 RESP: good breath sounds ABD: round, nontender, bowel sounds present Extremities: week pedal pulses Skin:Left hip with surgical dressing CDI. Left foot dorsal surface with wound, wound bed with granulation tissue and slough, kelli area with erythema Assessment and plan: Left hip surgical wound, s/p left hip surgery Left foot wound most likely from PVD, Continue [facility] Leukocytosis improving Wound culture positive for MRSA, Pseudomonas Aeruginosa, Citobacter Freundii, and Enterococcus Faecalis Urine culture positive for yeast, Diflucan day 3, can Discontinue due to multiple drug interactions, will repeat UA & UC Protein calorie malnourished, albumin 3.3 Diabetes Mellitus, A1C pending Currently on Vancomycin Patient does not qualify for SNF Recommend to DC home on Bactrim and Levaquin PO for total of 2 weeks Educated the patient to keep leg elevated Will continue to monitor Patient examined and discussed with Dr. Owens
[2020-04-15] MEDS: MEDIHONEY 44 ML TOPICAL TUBE TOP SCH (17:28)
[2020-04-15 17:55] LABS: Urine Appearance CLEAR; Urine Bilirubin NEGATIVE (NEG); Urine Blood NEGATIVE (NEG); Urine Color YELLOW; Urine Glucose NEGATIVE (NEG); Urine Protein NEGATIVE (NEG); Urine Specific Gravity 1.015 (1.005-1.030); Urine pH 7.5 (5.0-7.0)
[2020-04-15 18:06] LABS: Urine Microscopic Reflex NO UMIC
[2020-04-16] MEDS: HYDROCODONE/APAP 5/325 MG TAB PO PRN ×5 (01:41→20:07)
[2020-04-16] MEDS: TRAMADOL HCL 50 MG TAB PO PRN ×2 (03:38→15:01)
[2020-04-16 04:11] LABS: Absolute Lymphocytes (CBC) 1.6 K/uL (0.7-4.9); Basophils % 0.7 % (0-1.3); Hematocrit 30.7 % (36.0-45.0); Lymphocytes % 19.1 % (15.3-44.8); MPV 8.9 fL (7.6-11.3); RBC Red Blood Cell Count 3.25 M/uL (3.86-4.86)
[2020-04-16 04:28] LABS: BUN Blood Urea Nitrogen 17 mg/dL (7-18); Bicarbonate 31 mmol/L (21-32); Glucose Level 173 mg/dL (74-106); Magnesium 1.6 mg/dL (1.8-2.4); Potassium 4.4 mmol/L (3.5-5.1); Sodium Level 136 mmol/L (136-145)
[2020-04-16] MEDS: HYDRALAZINE HCL 20 MG/ML VIAL IV PRN (05:18)
[2020-04-16] MEDS ORDERED: MAGNESIUM SULFATE 1 gm IVPB 1 GM/100 ML BAG IV ONE (05:30)
[2020-04-16] MEDS: lisinopriL 20 MG TAB PO SCH (08:18)
[2020-04-16] MEDS: ENOXAPARIN 40 MG/0.4 ML SQ SCH (08:18)
[2020-04-16] MEDS: ATORVASTATIN 20 MG TAB PO SCH (08:18)
[2020-04-16] MEDS: carvediloL 6.25 MG TAB PO SCH (08:18)
[2020-04-16] MEDS: INSULIN -REGULAR HUMAN 50 UNIT/0.5 ML ML SQ SCH ×4 (08:19→21:03)
[2020-04-16] MEDS: AMLODIPINE 5 MG TAB PO SCH (08:19)
[2020-04-16] MEDS: CITALOPRAM 10 MG TABLET PO SCH (08:19)
[2020-04-16] MEDS: INSULIN GLARGINE 100 UNITS/ML SQ SCH ×2 (08:20→20:07)
--- NOTE | 2020-04-16 08:22 | P.PN ---
Date of Service: 04/16/20 Subjective: Patient a 64-year-old female was brought to the ED after a fall at home. Patient reports getting up from kitchen table and tripping over the chair. Patient found to have left hip fracture. Patient was seen a few months ago for wound on the right hand and left foot. At that time wound on right hand was positive for MRSA. Patient was treated with antibiotics. This admission patients wound to left foot positive for MRSA which I have been consulted for. Patient examined at bedside. Patient reports 10/ pain to left hip s/p surgery. Patient with wound on left foot, culture positive for multiple organisms. Patient denies nausea, diarrhea, fevers and shortness of breath. Objective: Temp Pulse Resp BP Pulse Ox 97.5 F 81 20 148/65 H 98 04/16/20 04:00 04/16/20 04:00 04/16/20 06:07 04/16/20 05:47 04/16/20 06:07 Labs: NA 136, K 4.4, BUN 17, Creat 0.50, WBC 8.3, Hgb 10.4, Hct 30.7 Xray Femur 04/09: EXAM DESCRIPTION: RAD - Femur Left - 04/09/2020 4:56 am CLINICAL HISTORY: Pain after trauma. COMPARISON: None TECHNIQUE: AP and lateral views of the left femur. FINDINGS: There is a longitudinally oriented fracture within the proximal left femur involving the subtrochanteric diaphysis and intertrochanteric region. There is medial displacement of the distal fragment. No dislocation. Distal left femur is intact. IMPRESSION: 1. Acute left proximal femur subtrochanteric and intertrochanteric fracture with mild medial displacement. Electronically signed by: Iveth Lebron DO 04/09/2020 4:47 AM CDT ROS: General: Lethargic CV: S1, S2 RESP: good breath sounds ABD: round, nontender, bowel sounds present Extremities: week pedal pulses Skin:Left hip with surgical dressing CDI. Left foot dorsal surface with wound, wound bed with granulation tissue, slough and moderate serous drainage, kelli area with erythema Assessment and plan: Left hip surgical wound no signs of infection, s/p left hip surgery Left foot wound most likely from PVD, Continue [facility] Leukocytosis resolved Wound culture positive for MRSA, Pseudomonas Aeruginosa, Citobacter Freundii, and Enterococcus Faecalis Protein calorie malnourished, albumin 3.3 Currently on Vancomycin Recommend to DC home on Bactrim and Levaquin PO for total of 2 weeks Educated the patient to keep leg elevated Will continue to monitor Patient examined and discussed with Dr. Owens
[2020-04-16] MEDS: VANCOMYCIN 1.25 GM in NA CHLORIDE 0.9% 250 ML IVPB SCH (09:00)
--- NOTE | 2020-04-16 14:08 | P.PN ---
Subjective Date of Service: 04/16/20 Primary Care Provider: none Chief Complaint: Hip fracture Subjective: Improving Physical Examination - Vital Signs Temperature: 97.1 F Blood Pressure: 140/66 Pulse: 79 Respirations: 18 Pulse Ox (%): 99 - Physical Exam General: Alert, Cooperative HEENT: Atraumatic Neck: Supple Respiratory: Clear to auscultation bilaterally, Normal air movement Cardiovascular: Normal pulses, Regular rate/rhythm Gastrointestinal: Normal bowel sounds, Soft and benign, Non-distended Musculoskeletal: Other (Postoperative changes noted.) Neurological: Normal speech, Normal strength at 5/5 x4 extr, Normal tone, Normal affect - Studies Medications List Reviewed: Yes Assessment & Plan Discharge Plan: Home (With home health) Plan to discharge in: 24 Hours Physician Review Additional Text: Impression: Acute left proximal femur sub trochanteric an intertrochanteric fracture with displacement status post left hip surgery Left foot wound with underlying PVD, wound culture positive for MRSA, Pseudomonas, Citrobacter, and Enterococcus Diabetes mellitus type 2 Hypertension Plan: Acute left proximal femur sub trochanteric an intertrochanteric fracture with displacement status post left hip surgery: Continue with physical therapy. Patient on DVT prophylaxis. Case discussed with addiction social worker about options of post care. Patient has very limited options due to her financial status. Will pursue home health and physical therapy at discharge. Anticipate improvement over the next 24 hr. Encourage ambulation with physical therapy. Will discuss with physical therapy on when patient can be discharged home. Left foot wound with underlying PVD, wound culture positive for MRSA, Pseudomonas, Citrobacter, and Enterococcus: Care discuss with infectious disease. Continue with current wound care as recommended by infectious disease. Will also transition off IV antibiotic therapy to Bactrim and Levaquin orally for total 2 weeks which was recommended by infectious disease. Diabetes mellitus type 2: Continue with Lantus. Hypertension: Continue with current blood pressure medication. Time Spent Managing Pts Care (In Minutes): 55
[2020-04-16] MEDS: SMZ./TMP. 800/160 MG TABLET PO SCH (20:07)
[2020-04-17] MEDS: HYDROCODONE/APAP 5/325 MG TAB PO PRN ×4 (00:16→13:02)
[2020-04-17] MEDS: TRAMADOL HCL 50 MG TAB PO PRN (02:33)
[2020-04-17 04:57] LABS: BUN Blood Urea Nitrogen 18 mg/dL (7-18); Bicarbonate 30 mmol/L (21-32); Glucose Level 178 mg/dL (74-106); Magnesium 1.8 mg/dL (1.8-2.4); Phosphorus 3.5 mg/dL (2.5-4.9); Potassium 4.6 mmol/L (3.5-5.1); Sodium Level 134 mmol/L (136-145)
[2020-04-17] MEDS ORDERED: MAGNESIUM SULFATE 1 gm IVPB 1 GM/100 ML BAG IV ONE (05:02)
[2020-04-17 08:42] VITALS: O2SAT 97
[2020-04-17] MEDS: INSULIN -REGULAR HUMAN 50 UNIT/0.5 ML ML SQ SCH ×2 (08:44→12:07)
[2020-04-17] MEDS: ATORVASTATIN 20 MG TAB PO SCH (08:45)
[2020-04-17] MEDS: SMZ./TMP. 800/160 MG TABLET PO SCH (08:45)
[2020-04-17] MEDS: INSULIN GLARGINE 100 UNITS/ML SQ SCH (08:45)
[2020-04-17] MEDS: AMLODIPINE 5 MG TAB PO SCH (08:46)
[2020-04-17] MEDS: ENOXAPARIN 40 MG/0.4 ML SQ SCH (08:47)
[2020-04-17] MEDS: CITALOPRAM 10 MG TABLET PO SCH (08:47)
[2020-04-17] MEDS: carvediloL 6.25 MG TAB PO SCH (08:47)
[2020-04-17] MEDS: lisinopriL 20 MG TAB PO SCH (08:47)
[2020-04-17] MEDS ORDERED: levoFLOXacin 500 MG TAB PO SCH (09:00)
--- NOTE | 2020-04-17 13:06 | P.PN ---
Date of Service: 04/17/20 Subjective: Patient a 64-year-old female was brought to the ED after a fall at home. Patient reports getting up from kitchen table and tripping over the chair. Patient found to have left hip fracture. Patient was seen a few months ago for wound on the right hand and left foot. At that time wound on right hand was positive for MRSA. Patient was treated with antibiotics. This admission patients wound to left foot positive for MRSA which I have been consulted for. Patient examined at bedside. Patient reports to left hip improving. Patient to be discharge home with home health services. Objective: Temp Pulse Resp BP Pulse Ox 98 F 76 7 L 136/67 97 04/17/20 08:00 04/17/20 08:46 04/17/20 13:02 04/17/20 08:46 04/17/20 13:02 Xray Femur 04/09: EXAM DESCRIPTION: RAD - Femur Left - 04/09/2020 4:56 am CLINICAL HISTORY: Pain after trauma. COMPARISON: None TECHNIQUE: AP and lateral views of the left femur. FINDINGS: There is a longitudinally oriented fracture within the proximal left femur involving the subtrochanteric diaphysis and intertrochanteric region. There is medial displacement of the distal fragment. No dislocation. Distal left femur is intact. IMPRESSION: 1. Acute left proximal femur subtrochanteric and intertrochanteric fracture with mild medial displacement. Electronically signed by: Iveth Lebron DO 04/09/2020 4:47 AM CDT ROS: General: Awake, alert CV: S1, S2 RESP: good breath sounds ABD: round, nontender, bowel sounds present Extremities: week pedal pulses Skin:Left hip with surgical dressing CDI. Left foot dorsal surface with dressing CDI Assessment and plan: Left hip surgical wound no signs of infection, s/p left hip surgery Left foot wound most likely from PVD, Continue [facility] Leukocytosis resolved Wound culture positive for MRSA, Pseudomonas Aeruginosa, Citobacter Freundii, and Enterococcus Faecalis Protein calorie malnourished, albumin 3.3 Currently on Vancomycin Recommend to DC home on Bactrim and Levaquin PO for total of 2 weeks Educated the patient to keep leg elevated Will continue to monitor Patient examined and discussed with Dr. Owens
[2020-04-17 13:10] VITALS: BP 100/70; TEMP 98.5
--- NOTE | 2020-04-17 13:26 | P.DS ---
Admission Date: 04/09/20 Discharge Date: 04/17/20 Primary Care Provider: none Disposition: DC HOME/HOME HEALTH CARE Discharge Condition: GOOD Reason for Admission: Hip fracture Consultations: Orthopedics-Dr. Bailon Infectious disease-Dr. Owens Procedures: Hip xray: FINDINGS: There is a longitudinally oriented fracture within the proximal left femur involving the subtrochanteric diaphysis and intertrochanteric region. There is medial displacement of the distal fragment. No dislocation. Distal left femur is intact. IMPRESSION: 1. Acute left proximal femur subtrochanteric and intertrochanteric fracture with mild medial displacement. Surgery: Date of Procedure: 04/09/2020 Surgeon: Maulik Bailon MD Preoperative Diagnosis: Left complex proximal femur fracture consistent with subtrochanteric fracture with a large degree of displacement. Postoperative Diagnosis: Left complex proximal femur fracture consistent with subtrochanteric fracture with a large degree of displacement. Procedure: Left closed reduction with assistance of open reduction with intramedullary shereen fixation using the [employer] nail. Estimated Blood Loss: 300 cc. Complications: There were no complications. Specimens: No pathology specimen sent. Medical problem list: Acute left complex proximal femur fracture consistent with subtrochanteric fracture with large degree of displacement status post left close reduction with assistance of open reduction with intra medullary shereen fixation Left foot wound with underlying PVD, wound culture positive for MRSA, Pseudomonas, Citrobacter, and Enterococcus Diabetes mellitus type 2 Hypertension Hyperlipidemia Depression with anxiety Brief History of Present Illness: 64-year-old female presented to emergency room after a fall. Patient found to have left femur fracture. Patient was admitted for further evaluation and treatment. Patient with underlying history of hypertension, diabetes, depression with anxiety and hyperlipidemia. Hospital Course: Patient presented after a fall. Patient found to have acute left complex proximal femur fracture consistent with subtrochanteric fracture with large to grade of displacement. Patient seen and evaluated by orthopedics. Orthopedics recommended surgery. Patient had left closed reduction with assistance of open reduction with intra medullary shereen fixation. Patient tolerated the procedure well. Patient continue with physical therapy thereafter. Patient had no resource for inpatient rehab or skilled placement. Patient ambulated well with physical therapy. Physical therapy felt the patient can be discharged home. At discharge patient will continue with physical therapy and home health. Fall precautions in place. Patient will continue with Lovenox 40 mg subcu daily for 15 more days. Recommend postop instructions by orthopedics. Recommend follow up with orthopedics as directed. Patient will also be provided tramadol 50 mg 1 pill 3 times a day as needed for pain. Patient will be provided resources for walker, bedside commode by social work. Patient also found to have left wound with underlying peripheral vascular disease. Wound culture was positive for MRSA, Pseudomonas, Citrobacter and Enterococcus. Patient was evaluated by infectious disease. Wound care provided and recommended by infectious disease. Infectious Disease also recommended to continue Bactrim and Levaquin for total of 2 weeks. At discharge she will continue with Bactrim DS 1 pill twice daily and Levaquin 500 mg daily for 2 weeks. Recommend follow up at the wound Care [facility] to further address and monitor. Patient with hypertension. Medications have been adjusted. At discharge she will continue with Norvasc 5 mg daily, carvedilol 6.125 mg 1 pill daily, and lisinopril 40 mg daily. Recommend to maintain blood pressure less 150/80. Further adjustment can be done by her PCP. Please note Norvasc has been decreased. Patient with diabetes mellitus type 2. This has remained stable. Hyperglycemia noted. At discharge she will continue with her regimen of metformin 500 mg 1 pill twice daily he and Humalog sliding scale. A1c well controlled. Continue to maintain his blood sugar less than 140 fasting and less than 200 meals. Further adjustment can be done by her PCP. Patient with hyperlipidemia. At discharge she will continue with Lipitor 20 mg daily. Patient with depression anxiety. At discharge she will continue with Celexa 20 mg daily. Vital Signs/Physical Exam: Temp Pulse Resp BP Pulse Ox 98.5 F 75 7 L 100/70 97 04/17/20 12:00 04/17/20 12:00 04/17/20 13:02 04/17/20 12:04/17/20 13:02 General: Alert, In no apparent distress, Oriented x3, Cooperative HEENT: Atraumatic Neck: Supple Respiratory: Clear to auscultation bilaterally, Normal air movement Cardiovascular: Normal pulses, Regular rate/rhythm Gastrointestinal: Normal bowel sounds, Soft and benign, Non-distended Neurological: Normal speech, Normal strength at 5/5 x4 extr, Normal tone, Normal affect Laboratory Data at Discharge: WBC 8.3 K/uL (4.3-10.9) D 04/16/20 03:33 Hgb 10.4 g/dL (12.0-15.0) L 04/16/20 03:33 Hct 30.7 % (36.0-45.0) L 04/16/20 03:33 Plt Count 391 K/uL (152-406) D 04/16/20 03:33 PT 12.4 SECONDS (9.5-12.5) 04/10/20 03:45 INR 1.05 04/10/20 03:45 APTT 31.7 SECONDS (24.3-36.9) 04/09/20 04:00 Sodium 134 mmol/L (136-145) L 04/17/20 04:04 Potassium 4.6 mmol/L (3.5-5.1) 04/17/20 04:04 BUN 18 mg/dL (7-18) 04/17/20 04:04 Creatinine 0.62 mg/dL (0.55-1.3) 04/17/20 04:04 Glucose 178 mg/dL (74-106) H 04/17/20 04:04 Phosphorus 3.5 mg/dL (2.5-4.9) 04/17/20 04:04 Magnesium 1.8 mg/dL (1.8-2.4) 04/17/20 04:04 Total Bilirubin 0.4 mg/dL (0.2-1.0) 04/09/20 04:00 AST 18 U/L (15-37) 04/09/20 04:00 ALT 30 U/L (12-78) 04/09/20 04:00 Alkaline Phosphatase 177 U/L (45-117) H 04/09/20 04:00 Home Medications: Atorvastatin Calcium 20 mg PO DAILY 02/07/20 Citalopram Hydrobromide [Celexa] 20 mg PO DAILY 02/07/20 Insulin Lispro [Humalog Kwikpen U-200] 10 units SQ TID 02/07/20 Metformin HCl [Glucophage] 500 mg PO BIDWM 02/07/20 lisinopriL [Prinivil*] 40 mg PO DAILY #60 tab 02/15/20 Zinc 1 tab PO DAILY 04/09/20 carvediloL [Carvedilol] 1 tab PO DAILY 04/09/20 Amlodipine [Norvasc*] 5 mg PO DAILY #30 tab 04/17/20 Enoxaparin Sodium [Lovenox 40 MG INJ*] 40 mg SQ DAILY #15 syr 04/17/20 Medihoney [Medihoney Woundcare Gel*] 1 appl TOP M,W,F #1 tube 04/17/20 Smz./Tmp. [Bactrim Ds 800 MG/160 MG*] 1 tab PO BID #28 tab 04/17/20 levoFLOXacin [Levaquin*] 500 mg PO DAILY #14 tab 04/17/20 traMADol HCL [Ultram*] 50 mg PO TID PRN #15 tab 04/17/20 New Medications: Smz./Tmp. [Bactrim Ds 800 MG/160 MG*] 1 tab PO BID #28 tab levoFLOXacin [Levaquin*] 500 mg PO DAILY #14 tab Enoxaparin Sodium [Lovenox 40 MG INJ*] 40 mg SQ DAILY #15 syr Medihoney [Medihoney Woundcare Gel*] 1 appl TOP M,W,F #1 tube Amlodipine [Norvasc*] 5 mg PO DAILY #30 tab traMADol HCL [Ultram*] 50 mg PO TID PRN #15 tab PRN Reason: Pain Scale 5-7 (Moderate) Patient Discharge Instructions: 1. Recommend follow up with PCP in 1 week to follow up this hospitalization. 2. Patient presented after a fall. Patient found to have acute left complex proximal femur fracture consistent with subtrochanteric fracture with large to grade of displacement. Patient seen and evaluated by orthopedics. Orthopedics recommended surgery. Patient had left closed reduction with assistance of open reduction with intra medullary shereen fixation. Patient tolerated the procedure well. Patient continue with physical therapy thereafter. Patient had no resource for inpatient rehab or skilled placement. Patient ambulated well with physical therapy. Physical therapy felt the patient can be discharged home. At discharge patient will continue with physical therapy and home health. Fall precautions in place. Patient will continue with Lovenox 40 mg subcu daily for 15 more days. Recommend postop instructions by orthopedics. Recommend follow up with orthopedics as directed. Patient will also be provided tramadol 50 mg 1 pill 3 times a day as needed for pain. Patient will be provided resources for walker, bedside commode by social work. 3. Patient also found to have left wound with underlying peripheral vascular disease. Wound culture was positive for MRSA, Pseudomonas, Citrobacter and Enterococcus. Patient was evaluated by infectious disease. Wound care provided and recommended by infectious disease. Infectious Disease also recommended to continue Bactrim and Levaquin for total of 2 weeks. At discharge she will continue with Bactrim DS 1 pill twice daily and Levaquin 500 mg daily for 2 weeks. Recommend follow up at the wound Care [facility] to further address and monitor. 4. Patient with hypertension. Medications have been adjusted. At discharge she will continue with Norvasc 5 mg daily, carvedilol 6.125 mg 1 pill daily, and lisinopril 40 mg daily. Recommend to maintain blood pressure less 150/80. Further adjustment can be done by her PCP. Please note Norvasc has been decreased. 5. Patient with diabetes mellitus type 2. This has remained stable. Hyperglycemia noted. At discharge she will continue with her regimen of metformin 500 mg 1 pill twice daily he and Humalog sliding scale. A1c well controlled. Continue to maintain his blood sugar less than 140 fasting and less than 200 meals. Further adjustment can be done by her PCP. 6. Patient with hyperlipidemia. At discharge she will continue with Lipitor 20 mg daily. 7. Patient with depression anxiety. At discharge she will continue with Celexa 20 mg daily. Diet: ADA Activity: Fall precautions Time spent managing pt's care (in minutes): 55
== END 2020-04-17 16:40 | disposition home health service (06) | DRG 481 ==
LOC: ER 03:45 → ERHOLD 06:02 → 2ND 06:24
PROVIDERS: ADMIT Internal Medicine; ATTEND Family Medicine
PROC: 0QS706Z Reposition Left Upper Femur with Intramedullary Internal Fixation Device, Open Approach (ICD-10-PCS; principal; 2020-04-09 16:00)
DX: S72.22XA Displaced subtrochanteric fracture of left femur, initial encounter for closed fracture (principal); N39.0 Urinary tract infection, site not specified; E44.1 Mild protein-calorie malnutrition; E11.51 Type 2 diabetes mellitus with diabetic peripheral angiopathy without gangrene; B96.5 Pseudomonas (aeruginosa) (mallei) (pseudomallei) as the cause of diseases classified elsewhere; B95.2 Enterococcus as the cause of diseases classified elsewhere; B95.62 Methicillin resistant Staphylococcus aureus infection as the cause of diseases classified elsewhere; I10 Essential (primary) hypertension; E78.5 Hyperlipidemia, unspecified; F41.8 Other specified anxiety disorders; E11.65 Type 2 diabetes mellitus with hyperglycemia; Z79.4 Long term (current) use of insulin; Z79.899 Other long term (current) drug therapy; W01.0XXA Fall on same level from slipping, tripping and stumbling without subsequent striking against object, initial encounter; Y92.010 Kitchen of single-family (private) house as the place of occurrence of the external cause; Z20.828 Contact with and (suspected) exposure to other viral communicable diseases; D72.829 Elevated white blood cell count, unspecified; Z68.23 Body mass index [BMI] 23.0-23.9, adult; K59.04 Chronic idiopathic constipation; E11.621 Type 2 diabetes mellitus with foot ulcer; L97.529 Non-pressure chronic ulcer of other part of left foot with unspecified severity; I25.10 Atherosclerotic heart disease of native coronary artery without angina pectoris; Z95.5 Presence of coronary angioplasty implant and graft; Z90.49 Acquired absence of other specified parts of digestive tract; Z90.710 Acquired absence of both cervix and uterus; Z88.5 Allergy status to narcotic agent
CPT/HCPCS: 36415; 51702; 71045; 72170; 73530; 80048; 80076; 80202; 81003; 81015; 82947; 83605; 83735; 84100; 85025; 85610; 85730; 86850; 86900; 86901; 87070; 87077; 87086; 87088; 87186; 87205; 93005; 94760; 96374; 97110; 97116; 97161; 97165; 97530; 99285; J0360; J0690; J1170; J1650; J1815; J2270; J2405; J2704; J3010; J3475; J7030; U0002